=== PATIENT | female | born 1940 | race Caucasian/White ===

== ENCOUNTER 2019-01-18 09:16 | Outpatient (REF) | payer MEDICARE, SELFPAY ==
[2019-01-18 13:26] LABS: ALT 24 U/L (12-78); AST 18 U/L (15-37); Albumin 3.4 g/dL (3.4-5.0); Alkaline Phosphatase 89 U/L (46-116); BUN 22 mg/dL (7-18); Bilirubin, Total 0.6 mg/dL (0.2-1.0); CREATININE 0.88 mg/dL (0.55-1.02); Calcium 9.6 mg/dL (8.5-10.1); Chloride 103 mmol/L (98-107); Glucose 103 mg/dL (70-100); Potassium 4.2 mmol/L (3.5-5.1); Sodium 140 mmol/L (136-145); Total Protein 6.7 g/dL (6.4-8.2)
== END 2019-01-18 09:36 ==
LOC: NCHCN 09:16
PROVIDERS: PCP Nurse Practitioner; Visit Provider Nurse Practitioner
DX: I10 Essential (primary) hypertension (principal)
CPT/HCPCS: 80053

== ENCOUNTER 2019-04-10 12:38 | Outpatient (REF) | payer MEDICARE, SELFPAY ==
[2019-04-10 18:21] LABS: HCT 36.5 % (36.0-46.0); HGB 12.3 g/dL (12.0-15.5); Mean Corp. HGB Concentration 33.7 g/dL (32.0-36.0); Mean Corpuscular Hemoglobin 30.3 pg (27.0-33.0); Mean Corpuscular Volume 89.9 fL (80-95); Mean Platelet Volume 10.3 fL (8.0-11.0); Platelet Count 220 x1000/uL (130-400); RBC 4.06 m/cumm (4.00-5.20); RBC Distribution Width 13.4 % (11.7-14.6); White Blood Cell Count 6.89 k/cumm (4.4-10.8)
[2019-04-10 18:39] LABS: TSH (W/Ref FT4) 0.46 uIU/mL (0.358-3.74)
[2019-04-10 18:41] LABS: Hemoglobin A1C 6.2 % (4.5-6.2)
[2019-04-10 19:31] LABS: ESR 12 MM/HR (0-30)
[2019-04-12 13:58] LABS: ANA Interpretation Negative (NEGAT)
== END 2019-04-10 12:58 ==
LOC: NCHCN 12:38
PROVIDERS: PCP Nurse Practitioner; Visit Provider Nurse Practitioner
DX: R73.9 Hyperglycemia, unspecified (principal); L29.9 Pruritus, unspecified
CPT/HCPCS: 85027; 85652; 83036; 84443; 86038

== ENCOUNTER 2019-04-14 14:17 | Outpatient (REF) | payer MEDICARE, SELFPAY ==
--- NOTE | 2019-04-14 13:40 | ENDOMET_PTH ---
PATIENT: Eloina Ware LOC: [facility] U#:[id number] AGE/SX: 79/F ROOM: RE04/14/[address]: Mervat Velazco : 1940 BED: DIS: 04/14/2019 SPEC #: [id number] RECD: 04/14/19 16:20 STATUS: MANUEL REQ #: [id number] JAMIE: 04/14/19 13:[address]: Mervat Velazco DEPT: Surgical Specimen RECD BY: Lupe Lua ENTERED: 04/14/19 16:20 SP TYPE: Endomet OTHR DR: Kimberly Davenport Tissues: 1 - ENDOMETRIUM BX/CURRETTE Procedures: GROSS AND MICRO LEVEL 4 Comments: [id number]
--- NOTE | 2019-04-14 13:40 | PAPFT_PTH ---
PATIENT: Eloina Ware LOC: [facility] U#:[id number] AGE/SX: 79/F ROOM: RE04/14/[address]: Mervat Velazco : 1940 BED: DIS: 04/14/2019 SPEC #: [id number] RECD: 04/14/19 17:10 STATUS: MANUEL REDav #: [id number] JAMIE: 04/14/19 13:[address]: Mervat Velazco DEPT: [facility] Cytology RECD BY: Lupe Lua ENTERED: 04/14/19 17:11 SP TYPE: PAPFT OTHR DR: Kimberly Davenport Tissues: 1 - CX/ENDOCX FOR PAP SMEARS Procedures: PAP THIN PREP/UVM Screening HPV DNA PROBE Comments: [id number]
== END 2019-04-14 14:37 ==
LOC: LBN 14:17
PROVIDERS: PCP Nurse Practitioner; Visit Provider Obstetrics & Gynecology Gynecology
DX: C54.1 Malignant neoplasm of endometrium (principal); N95.0 Postmenopausal bleeding; Z12.4 Encounter for screening for malignant neoplasm of cervix; Z11.51 Encounter for screening for human papillomavirus (HPV)
CPT/HCPCS: 88142; 88305; 87624

== ENCOUNTER 2020-04-08 14:48 | Outpatient (REF) | payer MEDICARE, SELFPAY ==
[2020-04-08 19:34] LABS: ALT 22 U/L (14-59); AST 18 U/L (15-37); Albumin 3.9 g/dL (3.4-5.0); Alkaline Phosphatase 74 U/L (46-116); Anion Gap 10.6 mmol/L (3-11); BUN 15 mg/dL (7-18); Bilirubin, Total 0.3 mg/dL (0.2-1.0); CO2 27.4 mmol/L (21.0-32.0); CREATININE 0.77 mg/dL (0.55-1.02); Calcium 9.9 mg/dL (8.5-10.1); Chloride 99 mmol/L (98-107); Glucose 142 mg/dL (74-106); Potassium 3.7 mmol/L (3.5-5.1); Sodium 137 mmol/L (136-145); Total Protein 6.8 g/dL (6.4-8.2)
[2020-04-08 19:42] LABS: Hemoglobin A1C 5.6 % (3.8-5.6)
[2020-04-08 19:55] LABS: Vitamin D 25 Total 48.9 ng/ml (30-100)
== END 2020-04-08 15:08 ==
LOC: NCHCN 14:48
PROVIDERS: PCP Nurse Practitioner; Visit Provider Nurse Practitioner
DX: I10 Essential (primary) hypertension (principal); R73.03 Prediabetes; E55.9 Vitamin D deficiency, unspecified
CPT/HCPCS: 80053; 82306; 83036

== ENCOUNTER 2021-01-31 14:04 | Emergency (ER) | payer MEDICARE, SELFPAY ==
[2021-01-31] VITALS (9 sets, daily range): BP systolic 143–160; BP diastolic 60–77; PULSE 65–72; RESP 12–22; TEMP 36.5–36.6; O2SAT 96–99
--- NOTE | 2021-01-31 14:15 | DI.US_ITS ---
Exam(s) US ABDOMEN LIMITED EXAM: US ABDOMEN LIMITED CLINICAL HISTORY: RUQ abd pain, Diarrhea, R/O Cholecystitis TECHNIQUE: Ultrasound abdomen performed using standard protocol. COMPARISON: No exams were available for comparison FINDINGS: ABDOMINAL AORTA AND IVC: Visualized portions normal caliber. PANCREAS: Normal where visualized. LIVER: Normal. Hepatopedal flow in the Portal Vein. The liver measures 16 in length. GALLBLADDER: No evidence of cholelithiasis. No evidence of wall thickening. No pericholecystic fluid identified. BILIARY SYSTEM: Common bile duct measures < 7 mm. No intrahepatic biliary ductal dilation. MARTIN'S SIGN: Negative. Right KIDNEY: No evidence of right renal calculi. No evidence of hydronephrosis. No renal mass or cys t identified. ASCITES: None seen. IMPRESSION: Unremarkable examination. DATA REPOSITORY:
--- NOTE | 2021-01-31 14:18 | ED.GENADUL_ITS ---
Discharge Plan Disposition Patient Disposition: HOME Condition: Stable Discharge Details Clinical Impression: Diarrhea Primary Care Provider: Kimberly Davenport ED Provider: Johana Garcia Home Meds and New Rx's Prescriptions: Continued famotidine [Pepcid] 20 mg tablet 20 mg PO DAILY PRNRF: 0 iron 65 mg RF: 0 red yeast rice 600 MG capsule 1,200 mg PO BID RF: 0 One-Per-Day [place]-3 1 EACH capsule,delayed release(DR/EC) 1 ea PO BID RF: 0 meclizine 12.5 MG tablet 12.5 mg PO TID PRNRF: 0 Digestive Advantage Prob Gummy 1 EACH tablet,chewable 1 ea PO BID RF: 0 garlic 600 mg BID RF: 0 metoprolol succinate 100 MG tablet extended release 24 hr 50 mg PO DAILY RF: 0 cholecalciferol (vitamin D3) 2,000 UNIT tablet 1,000 unit PO DAILY RF: 0 alpha lipoic acid 300 MG capsule 300 mg PO BID RF: 0 vitamin E mixed 400 UNIT capsule 400 unit PO DAILY RF: 0 cyclobenzaprine 5 mg tablet 5 mg PO TID PRNRF: 0 losartan-hydrochlorothiazide 1 EACH tablet 1 tab PO DAILY RF: 0 Lactobacillus acidophilus 100 MG capsule 100 mg PO DAILY RF: 0 calcium carbonate-vitamin D3 [Caltrate with Vitamin D3] 1 EACH tablet 600 mg PO BID RF: 0 Multiple Herbal 1 tab PO DAILY RF: 0 loratadine 10 MG tablet 10 mg PO HS RF: 0 Women's Daily Formula 1 EACH tablet 1 tab PO DAILY RF: 0 lutein 20 MG capsule 20 mg PO BID RF: 0 triamcinolone acetonide 0.5 % Cream 1 applic TOPICAL BID RF: 0 cabergoline 0.5 mg Tablet 0.5 mg PO DIRECTED RF: 0 omeprazole magnesium [Prilosec OTC] 20 mg Tablet,Delayed Release (Dr/Ec) 20 mg PO DAILY RF: 0 Discharge Instructions Instructions: Acute Diarrhea (ED) Additional Instructions: Continue using Immodium as directed until resolution of diarrhea. Follow up with PCP in 3-5 days for a re-evaluation. Collect Stool sample and bring it to the lab at your convienence. Increase oral fluids. Try electrolyte solution such as gatorade or similar while having diarrhea. Try Bannanas Rice Apples Worden and bland diet for next 2-3 days. Return to ED for any worsening fever, vomiting, worsening pain or any concerns. Referrals: Kimberly Davenport [Primary Care Provider] - Medical Decision Making 80 year old female presents to ED with chief c/o of Diarrhea x 3 days. Associated with RUQ abd pain which radiates into her back. Denies vomiting, fever or chills. Reports Mucous in stool, but no obvious blood. Patient is alert and oriented upon arrival. She took Immodium at noon [employer] PORTABLE with little to no relief. She has a PMHx of Breast CA, Colon CA, Cystocele and uterovaginal prolapse, HTN, Spinal stenosis, PSHx includes Hysterectomy and colectomy. Non smoker, Denies alcohol or drugs. Labs ordered including lipase and UA. US abd limited ordered to eval Gallbladder LAbs show a WBC 11.01, Abs Neutrophil 6.97, Potassium 3.3, Glucose 118, Urinalysis is pending at this time. Will give Oral potassium liquid 40 meq. Preliminary result US negative for cholecystitis. EXAM: US ABDOMEN LIMITED CLINICAL HISTORY: RUQ abd pain, Diarrhea, R/O Cholecystitis TECHNIQUE: Ultrasound abdomen performed using standard protocol. COMPARISON: No exams were available for comparison FINDINGS: ABDOMINAL AORTA AND IVC: Visualized portions normal caliber. PANCREAS: Normal where visualized. LIVER: Normal. Hepatopedal flow in the Portal Vein. The liver measures 16 in length. GALLBLADDER: No evidence of cholelithiasis. No evidence of wall thickening. No pericholecystic fluid identified. BILIARY SYSTEM: Common bile duct measures < 7 mm. No intrahepatic biliary ductal dilation. MARTIN'S SIGN: Negative. Right KIDNEY: No evidence of right renal calculi. No evidence of hydronephrosis. No renal mass or cyst identified. ASCITES: None seen. IMPRESSION: Unremarkable examination. Discussed results with patient and home care, verbalized understanding. Discussed follow up care and strict return instructions. Discussed use of immodium and BRAT diet. Verbalized understanding. HPI General Mode of arrival: ambulatory . Date/Time Provider Initiated Documentation: 01/31/21 14:08 . Limitations to Documentation: no limitations . Information obtained by: patient . HPI Narrative: 80 year old female presents to ED with chief c/o of Diarrhea x 3 days. Associated with RUQ abd pain which radiates into her back. Denies vomiting, fever or chills. Reports Mucous in stool, but no obvious blood. Patient is alert and oriented upon arrival. She took Immodium at noon KNOT[employer] PORTABLE with little to no relief. She has a PMHx of Breast CA, Colon CA, Cystocele and uterovaginal prolapse, HTN, Spinal stenosis, PSHx includes Hysterectomy and colectomy. Non smoker, Denies alcohol or drugs. Related Data Home Medications Medication Instructions Recorded Confirmed Lactobacillus acidophilus 100 mg PO DAILY 02/28/13 01/31/21 Multiple Herbal 1 tab PO DAILY 02/28/13 09/03/20 calcium carbonate-vitamin D3 600 mg PO BID 02/28/13 09/03/20 [Caltrate with Vitamin D3] losartan-hydrochlorothiazide 1 tab PO DAILY 02/28/13 01/31/21 Women's Daily Formula 1 tab PO DAILY 03/25/17 01/31/21 loratadine 10 mg PO HS 03/25/17 01/31/21 lutein 20 mg PO BID 03/25/17 01/31/21 Digestive Advantage Prob Gummy 1 ea PO BID tab.chew 07/21/17 09/03/20 Garlic 600 mg BID 07/21/17 09/03/20 Iron 65 mg 07/21/17 09/03/20 One-Per-Day [place]-3 1 ea PO BID 07/21/17 01/31/21 meclizine 12.5 mg PO TID PRN 07/21/17 01/31/21 red yeast rice 1,200 mg PO BID 07/21/17 01/31/21 cholecalciferol (vitamin D3) 1,000 unit PO DAILY 08/02/17 01/31/21 metoprolol succinate 50 mg PO DAILY tab-cap 08/02/17 01/31/21 alpha lipoic acid 300 mg PO BID 08/30/17 09/03/20 vitamin E mixed 400 unit PO DAILY 09/30/17 01/31/21 cyclobenzaprine 5 mg tablet 5 mg PO TID PRN tab-cap 10/24/19 01/31/21 famotidine 20 mg tablet 20 mg PO DAILY PRN 10/24/19 09/03/20 cabergoline 0.5 mg PO DIRECTED 01/31/21 01/31/21 omeprazole magnesium [Prilosec OTC] 20 mg PO DAILY 01/31/21 01/31/21 triamcinolone acetonide 1 applic TOPICAL BID 01/31/21 01/31/21 Allergies Allergy/AdvReac Type Severity Reaction Status Date / Time nabumetone Allergy Severe hives and Verified 01/31/21 14:14 a skin rash aspirin Allergy Intermediate Verified 01/31/21 14:14 gluten Allergy Intermediate rash Verified 01/31/21 14:14 ibuprofen Allergy Intermediate Verified 01/31/21 14:14 enalapril Allergy Unknown Verified 01/31/21 14:14 latex Allergy Unknown Verified 01/31/21 14:14 Sulfa (Sulfonamide Allergy Unknown Verified 01/31/21 14:14 Antibiotics) lactose AdvReac Verified 01/31/21 14:14 General Stated Complaint: Nausea/Vomit/Diar BENITO: 3 Review of Systems All systems reviewed & are unremarkable except as noted in HPI and below Gastrointestinal Gastrointestinal: Reports abdominal pain, Reports change in stool character, Reports diarrhea, Denies nausea and Denies vomiting [facility] Medical History Breast cancer, left 10/2019. 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 Not treated. Cervical myelopathy with cervical radiculopathy (09/30/17) s/p cervical discectomy and fusion Colon cancer Cystocele and rectocele with complete uterovaginal prolapse Encounter for pessary maintenance Fitting and adjustment of pessary #3 donut. 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 Stress incontinence worse after robotic hysterectomy. Patient is reluctant to be evaluated by urology since she has had several surgeries in this past year. Vaginal prolapse longstanding use of 70mm (#4) ring pessary. 07/2018 increased size to # 6 ring pessary with support. 12/09/18 Size again decreased to #4 ring w/ support secondary to vaginal excoriation. Surgical History back surgery 2018. C4-C5 diskectomy/fusion @ [facility]. Colectomy x2 History of robot-assisted laparoscopic hysterectomy With BSO and sentinel lymph [place] [facility]. Social History (Reviewed 01/31/21 @ 14:22 by Johana Desouza Smoking/Tobacco Use Status: Never Smoking risk assessment performed?: Yes Alcohol Intake: never Drug use: Never Substance use type: does not use Seatbelt use: always Do you feel safe at home: Yes Do you feel safe in your relationship?: Yes Female Reproductive History Menstrual Menopause type: natural History History 3 Para Hx # Term Pregnancies 3 Multiple births Hx # Pregnancies Ectopic pregnancies AB induced Hx Number of Living Children AB spontaneous Exam Const General: cooperative, healthy appearing, comfortable, well developed and well groomed Nutritional Appearance: average body habitus and well nourished Orientation: alert, awake and oriented x3 Resp Effort & Inspection: normal respiratory effort and able to speak in complete sentences Auscultation: clear to auscultation bilaterally Cardio Jugular venous pressure: no JVD Rate: regular rate Rhythm: regular rhythm Heart Sounds: S1 normal, S2 normal, no gallops and no murmurs GI Inspection: normal to inspection Palpation: soft, no hepatosplenomegaly, no hernias, no masses and tender in the RUQ Auscultation: normal bowel sounds Rectal Exam - female: deferred Back/Spine/Pelvis Back: no CVA tenderness Neuro General: patient alert, patient awake and patient oriented x3 Cranial Nerves: CN's II-XI intact bilaterally Cognition: normal cognition Speech: speech normal Gait: normal gait Course Vital Signs Vital signs: Vital Signs Temperature 36.5 C 01/31/21 14:11 Pulse 72 01/31/21 14:11 Respiratory Rate 01/31/21 14:11 Blood Pressure 145/69 H 01/31/21 14:11 Pulse Oximetry 98 01/31/21 14:11 Temperature 36.5 C 01/31/21 14:11 Temperature Source Skin 01/31/21 14:11 Pulse 72 01/31/21 14:11 Respiratory Rate 01/31/21 14:11 Respiratory Effort Non-Labored 01/31/21 14:14 Blood Pressure 145/69 H 01/31/21 14:11 Blood Pressure Position Sitting 01/31/21 14:11 Pulse Oximetry 98 01/31/21 14:11 Oxygen Delivery Method Room Air 01/31/21 14:11 Oxygen Flow Rate 0 01/31/21 14:11 Pain Level 0 01/31/21 14:11
[2021-01-31] MEDS: Normal Saline Flush 10 ML SYR IVP (14:25)
[2021-01-31] MEDS: Normal Saline 1,000 ML 150 ML IV (14:30)
[2021-01-31 14:37] LABS: Abs Immature Grans 0.03 10^3/uL (0.0-0.06); Absolute Eosinophil Count 0.26 10^3/uL (0.0-0.7); Absolute Lymphocyte Count 2.95 10^3/uL (1.2-3.4); Absolute Monocyte Count 0.74 10^3/uL (0.1-0.8); Basophils % 0.5; Eosinophils % 2.4; HCT 38.6 % (36.0-46.0); HGB 12.6 g/dL (11.2-15.7); Immature Grans % 0.3; Lymphocytes % 26.8; MCH 29.9 pg (27.0-33.0); MCHC 32.6 % (32.0-36.0); MCV 91.7 fL (80-95); MPV 9.5 fL (8.0-11.0); Monocytes % 6.7; Neutrophils % 63.3; Nucleated RBC 0 %; Platelet Count 256 10^3/uL (130-400); RBC 4.21 10^6/uL (3.93-5.22); RDW 12.4 % (11.7-14.6); RDW-SD 41.6 fL; WBC 11.01 10^3/uL (4.4-10.8)
[2021-01-31 14:39] LABS: Absolute Basophil Count 0.06 10^3/uL (0.0-0.2); Absolute Neutrophil Count 6.97 10^3/uL (1.2-6.7)
[2021-01-31 14:52] LABS: ALT 19 U/L (14-59); AST 16 U/L (15-37); Albumin 3.8 g/dL (3.4-5.0); Alkaline Phosphatase 81 U/L (46-116); Anion Gap 6.3 mmol/L (3-11); BUN 15 mg/dL (7-18); Bilirubin, Total 0.4 mg/dL (0.2-1.0); CO2 29.7 mmol/L (21.0-32.0); CREATININE 0.9 mg/dL (0.55-1.02); Calcium 9.3 mg/dL (8.5-10.1); Chloride 102 mmol/L (98-107); Estimated GFR 59.94 (mL/min/1.73m2); Glucose 118 mg/dL (74-106); Lipase 76 U/L (73-393); Potassium 3.3 mmol/L (3.5-5.1); Sodium 138 mmol/L (136-145); Total Protein 7.6 g/dL (6.4-8.2)
[2021-01-31] MEDS: Potassium Chloride Liquid 20 MEQ PKT 40 MEQ PO (15:39)
[2021-01-31 15:49] LABS: Bilirubin Negative (Negative); Blood Negative (Negative); Clarity Clear (Clear); Glucose Negative (Negative); Ketones Negative (Negative); Leukocyte Esterase Moderate (Negative); Nitrite Negative (Negative); Urobilinogen 0.2 EU/dL (Up TO 0.2); pH 5.5 (5-8)
[2021-01-31 16:01] LABS: Epithelial Cells Few HPF (Negative); RBC Negative HPF (0-2); WBC >50 HPF (0-5)
[2021-01-31 16:02] LABS: Bacteria Moderate HPF (Negative); C & S Indicated? Yes; Casts Negative LPF (Negative); Crystals Negative HPF (Negative); Mucus Negative (Negative); Other Cells Few Renal (Negative)
--- NOTE | 2021-02-03 11:41 | W.ED.FU ---
Date of service: 02/03/21 Time of Service: 11:41 Follow Up Plan: Urine culture back, positive for E. Coli, Cephalexin 500mg PO BID ordered and sent to pharmacy on file. Message left with Patient.
== END 2021-01-31 16:35 | disposition home or self-care (01) ==
PROVIDERS: Emergency Provider Registered Nurse Emergency; PCP Nurse Practitioner
DX: R19.7 Diarrhea, unspecified (principal); R10.11 Right upper quadrant pain; E87.6 Hypokalemia
CPT/HCPCS: 80053; 83690; 87077; 96360; 96361; 99284; 76705; 81003; 81015; 83735; 85025; 87086; 87186; 99283

== ENCOUNTER 2021-02-01 17:24 | Outpatient (REF) | payer MEDICARE, SELFPAY ==
[2021-02-04 12:07] LABS: Campylobacter PCR Negative (Negative); Salmonella PCR Negative (Negative); Shiga Toxin PCR Negative (Negative); Shigella/Enteroinvasive Ecoli Negative (Negative)
== END 2021-02-01 17:25 | disposition home or self-care (01) ==
LOC: LBN 17:24
PROVIDERS: PCP Nurse Practitioner; Visit Provider Registered Nurse Emergency
DX: R19.7 Diarrhea, unspecified (principal); R10.11 Right upper quadrant pain
CPT/HCPCS: 87493; 87505; 83630; 87177

== ENCOUNTER 2021-02-28 16:41 | Outpatient (REF) | payer MEDICARE, SELFPAY ==
[2021-02-28 19:05] LABS: Bilirubin Negative (Negative); Blood Small (Negative); Clarity Cloudy (Clear); Glucose Negative (Negative); Ketones Negative (Negative); Leukocyte Esterase Small (Negative); Nitrite Negative (Negative); Urobilinogen 0.2 EU/dL (Up TO 0.2); pH 5.5 (5-8)
[2021-02-28 19:38] LABS: WBC >50 HPF (0-5)
[2021-02-28 19:39] LABS: Epithelial Cells Many HPF (Negative)
[2021-02-28 19:40] LABS: C & S Indicated? No/Sq. Contamination
== END 2021-02-28 16:42 | disposition home or self-care (01) ==
LOC: NCHCN 16:41
PROVIDERS: PCP Nurse Practitioner; Visit Provider Nurse Practitioner Family
DX: R30.0 Dysuria (principal)
CPT/HCPCS: 81003; 81015

== ENCOUNTER 2021-03-14 01:28 | Outpatient (CLI) | payer MEDICARE, SELFPAY ==
--- NOTE | 2021-03-14 | DI.CT_ITS ---
Exam(s) CT ABDOMEN PELVIS W EXAM: CT ABDOMEN PELVIS W CLINICAL HISTORY: PERSISTENT DIARRHEA,R19.7 TECHNIQUE: Imaging Protocol: Axial computed tomography images with coronal and sagittal reformatted images were created and reviewed CONTRAST MATERIAL: Intravenous: Omnipaque 350 Contrast volume:100 mL Oral: Yes COMPARISON: CT ABD PELVIS WITH CONTRAST from 01/25/2008 FINDINGS: ABDOMEN: Lung Bases: Scarring and atelectasis is seen in the lung bases. Liver: Normal density. No measurable mass. Portal, Superior Mesenteric, and Splenic Veins: Unremarkable. Gallbladder and Biliary Tract: No radiodense calculus or dilation. Pancreas: Normal density, no abnormal calcifications or inflammatory process. Spleen: Normal. Adrenals: No masses seen. Kidneys: Normal size, contour and axis. No radiodense stones or obstructive uropathy. There are simpl e cysts in the left kidney. No follow-up is recommended. Abdominal Aorta: Abdominal portion non-dilated. Moderate atherosclerosis. Bowel: No obstruction or bowel wall thickening. No evidence of appendicitis. There is diverticulosis of the colon but no evidence of acute diverticulitis. There is a area of narrowing in the mid trans verse colon with dilatation of the proximal bowel. There is a small paraumbilical hernia containing a loop of colon. No evidence of strangulation or ischemia is seen. The remainder of the bowel appea rs unremarkable. There is a small hiatal hernia. Peritoneal Cavity: No ascites, collection or mesenteric inflammatory response. No free air. Lymph Nodes: Mildly enlarged lymph nodes are seen in the mesentery. These are nonspecific. Bones: Within normal limits for the patient's age. There is a right convex scoliosis. Soft Tissues: Unremarkable. PELVIS: Bladder: The urinary bladder is incompletely distended. Reproductive Organs: Unremarkable as visualized. There is a pessary in place. The patient is status post hysterectomy. Lymph Nodes: Within normal limits. Bones: Within normal limits for the patient's age. IMPRESSION: There is a question of an area of narrowing in the mid transverse colon with proximal dilatation. Co lonoscopy or barium enema is recommended for further evaluation. RADIATION DOSE DELIVERED: 787.28mGy.cm Total DLP DATA REPOSITORY: All CT scans at this facility are submitted to the National Radiology Data Registry (NRDR) Dose Index Registry (DIR) with the [employer] ([employer]). RADIATION OPTIMIZATION: All CT scans at this facility use at least one of these dose optimization te chniques: automated exposure control; mA and/or kV adjustment per patient size (includes targeted exa ms where dose is matched to clinical indication); or iterative reconstruction.
[2021-03-14] MEDS: Omnipaque 350 MG/ML 100 ML BTL IJ (14:38)
== END 2021-03-14 01:48 ==
PROVIDERS: PCP Nurse Practitioner; Visit Provider Nurse Practitioner Family
DX: R19.7 Diarrhea, unspecified (principal)
CPT/HCPCS: 74177; J3490

== ENCOUNTER → 2021-04-21 11:01 | Outpatient (BNVA) | payer MEDICARE, SELFPAY | PROVIDERS: PCP Nurse Practitioner; Referring Provider Nurse Practitioner; Visit Provider Nurse Practitioner Gerontology | DX: N39.46 Mixed incontinence (principal); R19.7 Diarrhea, unspecified | CPT/HCPCS: 81003; 99215 ==

== ENCOUNTER 2021-05-01 17:37 | Outpatient (REF) | payer MEDICARE, SELFPAY ==
[2021-05-01 20:45] LABS: Abs Immature Grans 0.02 10^3/uL (0.0-0.06); Absolute Basophil Count 0.04 10^3/uL (0.0-0.2); Absolute Eosinophil Count 0.31 10^3/uL (0.0-0.7); Absolute Lymphocyte Count 3.38 10^3/uL (1.2-3.4); Absolute Monocyte Count 0.55 10^3/uL (0.1-0.8); Absolute Neutrophil Count 3.27 10^3/uL (1.2-6.7); Basophils % 0.5; Eosinophils % 4.1; HGB 10.9 g/dL (11.2-15.7); Immature Grans % 0.3; Lymphocytes % 44.6; MCH 29.8 pg (27.0-33.0); MCV 90.2 fL (80-95); MPV 10.4 fL (8.0-11.0); Monocytes % 7.3; Neutrophils % 43.2; Nucleated RBC 0 %; Platelet Count 215 10^3/uL (130-400); RBC 3.66 10^6/uL (3.93-5.22); RDW 12.9 % (11.7-14.6); RDW-SD 42.6 fL; WBC 7.57 10^3/uL (4.4-10.8)
[2021-05-01 20:55] LABS: ALT 22 U/L (14-59); AST 16 U/L (15-37); Albumin 3.8 g/dL (3.4-5.0); Alkaline Phosphatase 63 U/L (46-116); Anion Gap 6.6 mmol/L (3-11); BUN 19 mg/dL (7-18); Bilirubin, Total 0.3 mg/dL (0.2-1.0); CO2 29.4 mmol/L (21.0-32.0); CREATININE 0.7 mg/dL (0.55-1.02); Calcium 9.5 mg/dL (8.5-10.1); Chloride 103 mmol/L (98-107); Glucose 123 mg/dL (74-106); Sodium 139 mmol/L (136-145); Total Protein 6.8 g/dL (6.4-8.2)
[2021-05-01 21:05] LABS: Potassium 2.8 mmol/L (3.5-5.1)
== END 2021-05-01 17:38 | disposition home or self-care (01) ==
LOC: LBN 17:37
PROVIDERS: PCP Nurse Practitioner; Visit Provider Physician Assistant
DX: R19.7 Diarrhea, unspecified (principal); M54.5 Low back pain
CPT/HCPCS: 80053; 83735; 85025

== ENCOUNTER 2021-05-09 00:58 | Outpatient (CLI) | payer MEDICARE, SELFPAY ==
[2021-05-09 13:15] LABS: Potassium 4.6 mmol/L (3.5-5.1)
== END 2021-05-09 00:59 | disposition home or self-care (01) ==
LOC: LOS 00:58
PROVIDERS: Nurse Practitioner Family; PCP Nurse Practitioner; Visit Provider Physician Assistant
DX: E87.6 Hypokalemia (principal)
CPT/HCPCS: 36415; 84132

== ENCOUNTER → 2021-06-25 13:30 | Outpatient (BNVA) | payer MEDICARE, SELFPAY | PROVIDERS: Referring Provider Nurse Practitioner; Visit Provider Nurse Practitioner Gerontology | DX: N39.46 Mixed incontinence (principal); R19.7 Diarrhea, unspecified; I10 Essential (primary) hypertension | CPT/HCPCS: 99214 ==

== ENCOUNTER 2021-09-08 04:04 | Outpatient (CLI) | payer MEDICARE, SELFPAY ==
[2021-09-08 07:45] LABS: HCT 34.4 % (36.0-46.0); HGB 11.4 g/dL (11.2-15.7); MCH 30.3 pg (27.0-33.0); MCHC 33.1 % (32.0-36.0); MCV 91.5 fL (80-95); MPV 9.4 fL (8.0-11.0); Platelet Count 216 10^3/uL (130-400); RBC 3.76 10^6/uL (3.93-5.22); RDW 12.6 % (11.7-14.6); RDW-SD 42.5 fL; WBC 7.41 10^3/uL (4.4-10.8)
[2021-09-08 08:49] LABS: ALT 22 U/L (14-59); AST 16 U/L (15-37); Albumin 3.7 g/dL (3.4-5.0); Alkaline Phosphatase 68 U/L (46-116); Anion Gap 5.2 mmol/L (3-11); BUN 15 mg/dL (7-18); Bilirubin, Total 0.5 mg/dL (0.2-1.0); CO2 31.8 mmol/L (21.0-32.0); CREATININE 0.6 mg/dL (0.55-1.02); Calcium 9.3 mg/dL (8.5-10.1); Chloride 100 mmol/L (98-107); Glucose 90 mg/dL (74-106); Potassium 3.8 mmol/L (3.5-5.1); Sodium 137 mmol/L (136-145); Total Protein 6.5 g/dL (6.4-8.2)
== END 2021-09-08 04:05 | disposition home or self-care (01) ==
LOC: LBO 04:04
DX: I10 Essential (primary) hypertension (principal); D50.9 Iron deficiency anemia, unspecified
CPT/HCPCS: 36415; 80053; 85027

== ENCOUNTER → 2021-09-24 15:02 | Outpatient (BNVA) | payer MEDICARE, SELFPAY | PROVIDERS: Visit Provider Nurse Practitioner Gerontology | DX: N39.41 Urge incontinence (principal); Z79.899 Other long term (current) drug therapy | CPT/HCPCS: 99214 ==

== ENCOUNTER 2021-11-11 08:14 | Emergency (ER) | payer MEDICARE, SELFPAY ==
[2021-11-11] VITALS (23 sets, daily range): BP systolic 161–205; BP diastolic 72–92; PULSE 57–73; RESP 11–28; TEMP 36.3; O2SAT 96–99
--- NOTE | 2021-11-11 08:15 | RT.EKG_ITS ---
APPROVED REPORT Exam: Resting ECG Reason for Exam: chest pain Patient Location: E HR:68 bpm ECG Measurements Heart Rate 68 AXIS TX 193 P 66 QRSd 84 QRS 7 QT 396 T 45 QTc 421 Conclusion Sinus rhythm...normal P axis, V-rate 60- 99. Sinus. Normal axis. No STEMI. I have reviewed and interpreted ECG and agree with software generated interpretation.
--- NOTE | 2021-11-11 08:16 | ED.GENADUL_ITS ---
Discharge Plan Disposition Patient Disposition: HOME Condition: Stable Discharge Details Clinical Impression: Hypertension, Chest pain Primary Care Provider: Kristina Bernal ED Provider: Tammy Nick Home Meds and New Rx's Prescriptions: Continued budesonide 3 mg capsule,delayed,extend.release 3 mg PO DAILY 0RF Digestive Advantage Advanced 10 billion cell capsule PO 0RF omega-3 fatty acids [Super [place]-3] 1,000 mg capsule 1,000 mg PO DAILY 0RF herbal drugs Capsule PO 0RF meclizine 12.5 MG tablet 12.5 mg PO TID PRN0RF Digestive Advantage Prob Gummy 1 EACH tablet,chewable 1 ea PO BID 0RF garlic 600 mg BID 0RF cholecalciferol (vitamin D3) 2,000 UNIT tablet 1,000 unit PO DAILY 0RF vitamin E mixed 400 UNIT capsule 400 unit PO DAILY 0RF licorice root (G.glabra) 445 mg capsule PO 0RF vit B vpscbpc-Q-fqfmy ac-zinc 800 mcg- 12.5 mg tablet 1 tab PO DAILY 0RF pyridoxine (vitamin B6) 200 mg tablet 200 mg PO BID 0RF thiamine mononitrate (vit B1) 100 mg tablet 100 mg PO DAILY 0RF acetaminophen [Tylenol Extra Strength] 500 mg tablet 500 mg PO Q6H PRN0RF folic acid 20 mg capsule 20 mg PO DAILY 0RF coenzyme Q10 [Co Q-10] 10 mg capsule 10 mg PO ONCE 0RF red yeast rice 600 mg capsule 1,200 mg PO BID 0RF Myrbetriq 50 mg tablet extended release 24 hr 50 mg PO DAILY Qty: 90 3RF losartan-hydrochlorothiazide [Hyzaar] 100-12.5 mg tablet 1 tab PO DAILY 0RF metoprolol succinate 50 mg tablet extended release 24 hr 50 mg PO DAILY Qty: 90 3RF Rx Instructions: Hold if pulse < 60 Discharge Instructions Instructions: Chest Pain (ED), Hypertension (ED) Additional Instructions: Your lab work, EKG and imaging today is reassuring and shows no evidence of acute concerning findings. Your blood pressure has improved while here in the emergency department. Continue your regular medication as directed. Call your primary care provider's office today to schedule a follow-up appointment for reevaluation and for continued blood pressure management within the next 3 days. Return immediately to the emergency department if you develop any worsening or new concerning symptoms. Discharge Data Discharge Physician: Tammy Nick Medical Decision Making 81-year-old female with a history of hypertension, hyperlipidemia, GERD, neck and back surgery with history of chronic neck and back pain with cervical radiculopathy presents for hypertension since last night with an episode of chest pain this morning. She is currently asymptomatic. EKG notes a rate of 68, sinus, no STEMI and nondiagnostic. Blood pressure 196/87 on arrival. Now 171/87. She appears comfortable and nontoxic. Chest wall nontender. She has no focal deficits. History and presentation does not appear consistent with dissection as her upper back pain is chronic for the past 5 years and currently she has no pain. History and presentation does not appear consistent with CVA. Considering patient's age and history, will obtain screening labs, CT head, chest x-ray and continue to monitor her BP. We will plan at least for a delta troponin. Patient reassessed and she remains asymptomatic. Blood pressure has improved to 163/77. Repeat EKG unchanged. Repeat troponin negative. Patient states she would like to go home. Patient has not eaten. Will provide with a meal and attempt to ambulate and if she feels comfortable going home will plan for follow-up with the PCP for further evaluation and management of her blood pressure. Patient was able to eat and ambulated around the room and denied any complaint of dizziness and would like to go home Advised to call Kristina Bernal's office today for follow-up this week. Usual and customary return precautions given prior to discharge. Medical Records Medical records reviewed: Yes I reviewed the patient's medical records. Imaging Data Radiologic Study: Radiologist's impression: CT HEAD WO CLINICAL HISTORY: ? lightheadedness, headache, L arm numb. ? TECHNIQUE:? Imaging Protocol: Axial computed tomography images with coronal and sagittal reformatted images were created and reviewed COMPARISON:? No exams were available for comparison FINDINGS: ?There are no skull fractures nor fluid in the visualized paranasal sinuses. There is no evidence of intracranial hemorrhage, mass effect, or shift of midline structures.? There are no extra-axial fluid collections.? The ventricles are not enlarged or shifted and there is no blood within the ventricular system nor within the basal cisterns. There is some bilateral periventricular hypodensity consistent with chronic small vessel ischemic changes. IMPRESSION: Chronic small-vessel white matter ischemic changes.? No obvious acute infarct.? Clinically indicated follow-up MRI with diffusion imaging can be performed. ?XR CHEST 2V PA ? LATERAL CLINICAL HISTORY: ? chest pain, r/o acute disease. ? TECHNIQUE:? 2D digital imaging was performed. COMPARISON:? No exams were available for comparison FINDINGS: Heart size is normal.? The mediastinum is not widened. Lungs are clear.? No infiltrates nor pleural effusions. IMPRESSION: No acute pulmonary findings. Lab Data Lab results reviewed: Yes I reviewed the patient's lab results. Labs: Laboratory Tests Range/Units 11/11/21 11/11/21 11/11/21 08:30 08:30 11:23 WBC (4.4-10.8) 10^3/uL 8.53 RBC (3.93-5.22) 10^6/uL 4.00 Hgb (11.2-15.7) g/dL 12.3 Hct (36.0-46.0) % 37.4 MCV (80-95) fL 93.5 MCH (27.0-33.0) pg 30.8 MCHC (32.0-36.0) % 32.9 RDW (11.7-14.6) % 12.6 Plt Count (130-400) 10^3/uL 221 MPV (8.0-11.0) fL 9.5 Immature Gran % 0.2 Neutrophils % 43.4 Lymphocytes % 45.5 Monocytes % 7.9 Eosinophils % 2.5 Basophils % 0.5 Nucleated RBC % % 0 Absolute Neutrophils (1.2-6.7) 10^3/uL 3.71 Absolute Lymphocytes (1.2-3.4) 10^3/uL 3.88 H Absolute Monocytes (0.1-0.8) 10^3/uL 0.67 Absolute Eosinophils (0.0-0.7) 10^3/uL 0.21 Absolute Basophils (0.0-0.2) 10^3/uL 0.04 Sodium (136-145) mmol/L 138 Potassium (3.5-5.1) mmol/L 3.6 Chloride (98-107) mmol/L 99 Carbon Dioxide (21.0-32.0) mmol/L 30.4 Anion Gap (3-11) mmol/L 8.6 BUN (7-18) mg/dL 16 Creatinine (0.55-1.02) mg/dL 0.7 Estimated GFR/1.73 m2 (mL/min/1.73m2) >= 60.00 Glucose (74-106) mg/dL 107 H Calcium (8.5-10.1) mg/dL 9.8 Magnesium (1.8-2.4) mg/dL 2.3 Total Bilirubin (0.2-1.0) mg/dL 0.5 AST (15-37) U/L 21 ALT (14-59) U/L 24 Alkaline Phosphatase (46-116) U/L 83 Troponin I (<or=60) ng/L < 50 < 50 Total Protein (6.4-8.2) g/dL 7.6 Albumin (3.4-5.0) g/dL 4.1 ECG Data Attestation: I personally reviewed and interpreted this ECG (s) as follows: Interpretation: #1 -- rate of 83, sinus, no stemi, nondiagnostic. #2 -- rate of 61, sinus, no stemi, nondiagnostic. HPI General Mode of arrival: ambulatory . Date/Time Provider Initiated Documentation: 11/11/21 08:15 . Limitations to Documentation: no limitations . Information obtained by: patient . HPI Narrative: Patient is an 81-year-old female with a history of hypertension, hyperlipidemia, GERD, chronic neck and back pain, history of cervical myelopathy with cervical radiculopathy and previous neck surgery presents for hypertension since last night with an episode of chest pain this morning. Patient states she woke to use the bathroom around midnight and felt lightheaded and checked her blood pressure. She states it was 180/90 that she took her metoprolol that she would normally take in the morning. She states her blood pressure decreased she states to a systolic of 80 and then she went to bed. I questioned patient whether the systolic number was actually 80 and she confirms. She also states that she had a mild headache of 1/10 at the time of her lightheadedness. She states she awoke this morning and took her to dialysis and then when she came back home and was feeding her dog she felt lightheaded again and checked her blood pressure and it was 208/100. She states she took losartan at that time. She states while she was checking her blood pressure and she developed left-sided dull chest pain that was 1/10. She states at that time she had left arm tingling. She also admits to some mild shortness of breath during the chest pain episodes but denies any nausea or vomiting. She states the pain in her chest and tingling in her arm only lasted a couple seconds and then resolved. She states her systolic blood pressure is usually 130s. She states last night she also noted pain between her upper shoulder blades. She states she has this pain frequently since her neck surgery and that the pain last night in her upper back felt similar to her usual pain that she has had of the last 5 years. She also states she has chronic bilateral arm pain related to her chronic neck pain and neck surgery over the last 2 years. She denies any upper back pain or arm pain at present. She states she had a fall last month in which she tripped over a chair and landed on her back and hit her head. She denies LOC or vomiting at that time. She denies any other orthopedic injuries from the fall. Related Data Home Medications Medication Instructions Recorded Confirmed Bacillus coagulans 250 million 1 ea PO BID tab.chew 07/21/17 11/11/21 cell chewable tablet (Digestive Advantage Probiotic Gummy) Garlic 600 mg BID 07/21/17 11/11/21 meclizine 12.5 mg tablet 12.5 mg PO TID PRN 07/21/17 11/11/21 cholecalciferol (vitamin D3) 50 1,000 unit PO DAILY 08/02/17 11/11/21 mcg (2,000 unit) tablet vitamin E mixed 400 unit capsule 400 unit PO DAILY 09/30/17 11/11/21 budesonide 3 mg 3 mg PO DAILY 05/29/21 11/11/21 capsule,delayed,extended release acetaminophen 500 mg tablet 500 mg PO Q6H PRN 07/22/21 11/11/21 (Tylenol Extra Strength) coenzyme Q10 10 mg capsule (Co 10 mg PO ONCE 07/22/21 11/11/21 Q-10) folic acid 20 mg capsule 20 mg PO DAILY 07/22/21 11/11/21 licorice root (G.glabra) 445 mg mg PO 07/22/21 09/25/21 capsule pyridoxine (vitamin B6) 200 mg 200 mg PO BID 07/22/21 11/11/21 tablet red yeast rice 600 mg capsule 1,200 mg PO BID cap 07/22/21 11/11/21 thiamine mononitrate (vit B1) 100 100 mg PO DAILY 07/22/21 11/11/21 mg tablet vitamin B complex with vit C-folic 1 tab PO DAILY 07/22/21 11/11/21 acid 800 mcg-zinc 12.5 mg tablet mirabegron 50 mg tablet,extended 50 mg PO DAILY #90 tab 07/28/21 11/11/21 release 24 hr (Myrbetriq) L.acidoph, paracasei,B. lactis 10 cell PO 08/05/21 09/25/21 billion cell capsule (Digestive Advantage Advanced Probiotic) herbal drugs cap PO 08/05/21 09/25/21 omega-3 fatty acids 1,000 mg 1,000 mg PO DAILY 08/05/21 11/11/21 capsule (Super [place]-3) losartan 100 1 tab PO DAILY 09/29/21 11/11/21 mg-hydrochlorothiazide 12.5 mg tablet (Hyzaar) metoprolol succinate 50 mg 50 mg PO DAILY #90 tab 09/29/21 11/11/21 tablet,extended release 24 hr Previous Rx's Medication Instructions Recorded mirabegron 50 mg tablet,extended 50 mg PO DAILY #90 tab 07/28/21 release 24 hr (Myrbetriq) metoprolol succinate 50 mg 50 mg PO DAILY #90 tab 09/29/21 tablet,extended release 24 hr Allergies Allergy/AdvReac Type Severity Reaction Status Date / Time nabumetone Allergy Severe hives and Verified 11/11/21 08:34 a skin rash aspirin Allergy Intermediate Verified 11/11/21 08:34 gluten Allergy Intermediate rash Verified 11/11/21 08:34 ibuprofen Allergy Intermediate Verified 11/11/21 08:34 Sulfa (Sulfonamide Allergy Mild Verified 11/11/21 08:34 Antibiotics) enalapril Allergy Unknown Verified 11/11/21 08:34 latex Allergy Unknown Verified 11/11/21 08:34 lactose AdvReac Verified 11/11/21 08:34 General Stated Complaint: Chest Pain BENITO: 3 Review of Systems All systems reviewed & are unremarkable except as noted in HPI and below Constitutional Constitutional: Denies chills, Denies excessive sweating, Denies fatigue, Denies fever(s), Reports headache(s), Denies weakness and Denies weight loss Eyes Eyes: Reports system reviewed and no additional complaints, except as documented and Denies blurry vision ENT Ears, Nose, Mouth, and Throat: Denies vertigo, Reports dizziness, Denies otalgia, Reports headache(s), Denies nasal congestion, Denies sore throat and Denies throat swelling Cardiovascular Cardiovascular: Reports chest pain, Denies syncope, Denies rapid heart rate and Denies dyspnea Respiratory Respiratory: Denies chest congestion, Denies cough, Denies pain on inspiration and Denies dyspnea Gastrointestinal Gastrointestinal: Denies abdominal pain, Denies diarrhea and Denies vomiting Genitourinary Genitourinary: Denies hematuria, Denies dysuria and Denies flank pain Musculoskeletal Musculoskeletal: Denies back pain and Denies joint swelling Integumentary/Breasts Skin/Breast: Denies lesions and Denies rash Neurologic Neurologic: Denies behavioral changes, Denies confusion, Denies vertigo, Reports dizziness, Denies syncope, Reports headache(s), Denies localized weakness and Denies weakness Psychiatric Psychiatric: Denies behavioral changes, Denies confusion and Denies depression Endocrine Endocrine: Denies excessive sweating and Denies fatigue Hematologic/Lymphatic Hematologic/Lymphatic: Denies easy bruising and Denies lymphadenopathy Allergic/Immunologic Allergic/Immunologic: Denies throat swelling PFSH All Active Problems (Updated 11/11/21 @ 12:37 by Tammy Nick DO) Hypertension (Chronic) Chest pain (Acute) Insomnia (Acute) Anemia (Chronic) Pulmonary embolism (Chronic) Hiatal hernia (Chronic) Vitamin D deficiency (Acute) GERD (gastroesophageal reflux disease) (Chronic) DJD (degenerative joint disease) (Chronic) Cervicalgia (Acute) Cervical stenosis of spine (Acute) Chronic low back pain (Acute) Prediabetes (Acute) Anxiety (Chronic) Dysuria (Acute) Colitis (Acute) 04/2021. Dx by colonoscopy after months of diarrhea. Rx Budesonide XR Hypokalemia (Acute) Diarrhea (Acute) Encounter for pessary maintenance (Acute) Urinary incontinence (Chronic) 2019. Stress incontinence worse after robotic hysterectomy. Patient is reluctant to be evaluated by urology since she has had several surgeries in this past year. Breast cancer, left (Acute) 10/2019. Receives care at [facility] [place] Fitting and adjustment of pessary (Acute) 2019. #3 (70mm) donut. 05/2021. 64mm donut fitted Allergy to latex (Acute) Allergy to NSAIDs (Acute) Seborrheic dermatitis of scalp (Acute) Dermatitis, drug-induced (Acute) Vaginal vault prolapse after hysterectomy (Acute) Pelvic organ prolapse prior to her hysterectomy for endometrial cancer was treated with: longstanding use of 70mm (#4) ring pessary. 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 Started on prednisone will follow-up at [facility] Medical History (Updated 11/11/21 @ 12:37 by Tammy Nick DO) Carpal tunnel syndrome on both sides L>R. Not treated. 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 Postop recommendations: Vaginal cuff brachytherapy (w/o 10-15% recurrence) Postop: Year 1 gynecologic oncology visit every 3 months no Pap testing indicated. Year 2-5 alternate visits between asset administrator and gynecologic oncologist every 6 months. No Pap indicated. H/O solar lentigo with atypical melanocytic hyperplasia, lichenoid inflammation and dermal melanophages History of cataract History of diverticulitis History of endometrial biopsy History of endometrial cancer Lumbar spinal stenosis Tubular carcinoma of left breast Ulnar neuropathy Vaginal prolapse longstanding use of 70mm (#4) ring pessary. 07/2018 increased size to # 6 ring pessary with support. 12/09/18 Size again decreased to #4 ring w/ support secondary to vaginal excoriation. Surgical History (Updated 07/23/21 @ 16:09 by Rosa Maria Bhatia) History of carpal tunnel release History of neck surgery (~2016) History of partial mastectomy of left breast History of right breast biopsy History of robot-assisted laparoscopic hysterectomy With BSO and sentinel lymph node biopsy at [facility] [place] for endometrial carcinoma. Family History (Updated 05/30/21 @ 12:01 by Rosa Maria Bhatia) Mother , 76 Hypertension Hyperlipidemia Father , 70 Alcohol use disorder Cancer Heart disease Hypertension Hyperlipidemia Sister , 77 Cancer Heart disease Sister No problems noted. Sister , 69 Cancer Substance use disorder Son Hyperlipidemia Hypertension Daughter Hypertension Hyperlipidemia Daughter No problems noted. Social History (Updated 05/30/21 @ 11:54 by Rosa Maria Bhatia) Smoking/Tobacco Use Status: Never Second Hand Exposure: Yes Smoking risk assessment performed?: Yes Alcohol Intake: never Drug use: Never Substance use type: does not use Caregiver/Support person: No Housing: house Communication Needs: None Do you need help understanding health information?: Rarely Pets and animals: Yes Pets and animals: dog(s) Sexually active: No Do you think of yourself as: straight/heterosexual What is your relationship status?: How often do you talk on the phone with friends or family?: once per week How often do you get together with friends or relatives?: decline to answer How often do you attend mu-ism or confucianist services?: decline to answer Do you belong to any clubs or organized social groups?: decline to answer Panel score (0-1 are the most socially isolated patients): 1 What type of physical activity do you participate in: weight lifting Frequency: 1-2 times per week Melia/Methodist: Jainism Seatbelt use: always Helmet use: No Drive intox or ride w/intox buggy driver: No Do you feel safe at home: Yes Do you feel safe in your relationship?: Yes Female Reproductive History Menstrual Menopause type: natural History History 3 Para Hx # Term Pregnancies 3 Multiple births Hx # Pregnancies Ectopic pregnancies AB induced Hx Number of Living Children AB spontaneous Exam Const General: cooperative and healthy appearing Orientation: alert, awake and oriented x3 HENMT Head: normal to inspection Ears: hearing grossly normal bilaterally and external ears normal General nose exam: external nose normal Face and sinus: normal facial exam Mouth: oral mucosae normal Eyes General: appearance normal, both eyes and all related structures Eyelids: eyelids normal Pupils: PERRL EOM: EOM intact bilaterally Neck Neck: normal visual inspection Lymphatic: no lymphadenopathy noted Chest Chest: normal inspection of the chest, abnormal palpation of chest wall, no crepitus and no tenderness Resp Effort & Inspection: normal respiratory effort and able to speak in complete sentences Auscultation: clear to auscultation bilaterally Cardio Rate: regular rate Rhythm: regular rhythm GI Inspection: normal to inspection Palpation: soft, not firm, no guarding, no hepatosplenomegaly, no masses and nontender Auscultation: normal bowel sounds Back/Spine/Pelvis Back: no CVA tenderness Cervical Spine: pain with cervical ROM (chronic per pt) and No cervical spinal tenderness Thoracic/Lumbar Spine: thoracic and lumbar spine normal to inspection, No thoracic spinal tenderness, No lumbar spinal tenderness and other (No tenderness to palpation or evidence of trauma across upper and mid back) Skin General skin exam: no rashes or lesions noted Neuro General: patient alert, patient awake, patient oriented x3, moves all extremities and no meningeal signs Cranial Nerves: CN's II-XI intact bilaterally Cognition: normal cognition Speech: speech normal Gait: normal gait Motor: muscle tone normal throughout and strength 5/5 throughout Sensory Exam: no sensory deficits noted Extrem General: normal to inspection, full ROM and capillary refill normal Psych Appearance: grossly normal Mental Status: mental status grossly normal Speech and Movement: speech and movement normal Affect: normal affect Thought Process: normal
[2021-11-11 08:53] LABS: Abs Immature Grans 0.02 10^3/uL (0.0-0.06); Absolute Basophil Count 0.04 10^3/uL (0.0-0.2); Absolute Eosinophil Count 0.21 10^3/uL (0.0-0.7); Absolute Lymphocyte Count 3.88 10^3/uL (1.2-3.4); Absolute Monocyte Count 0.67 10^3/uL (0.1-0.8); Absolute Neutrophil Count 3.71 10^3/uL (1.2-6.7); Basophils % 0.5; Eosinophils % 2.5; HCT 37.4 % (36.0-46.0); HGB 12.3 g/dL (11.2-15.7); Immature Grans % 0.2; Lymphocytes % 45.5; MCH 30.8 pg (27.0-33.0); MCHC 32.9 % (32.0-36.0); MCV 93.5 fL (80-95); MPV 9.5 fL (8.0-11.0); Monocytes % 7.9; Neutrophils % 43.4; Nucleated RBC 0 %; Platelet Count 221 10^3/uL (130-400); RDW 12.6 % (11.7-14.6); RDW-SD 43.5 fL; WBC 8.53 10^3/uL (4.4-10.8)
[2021-11-11 09:12] LABS: ALT 24 U/L (14-59); AST 21 U/L (15-37); Albumin 4.1 g/dL (3.4-5.0); Alkaline Phosphatase 83 U/L (46-116); Anion Gap 8.6 mmol/L (3-11); BUN 16 mg/dL (7-18); Bilirubin, Total 0.5 mg/dL (0.2-1.0); CO2 30.4 mmol/L (21.0-32.0); CREATININE 0.7 mg/dL (0.55-1.02); Calcium 9.8 mg/dL (8.5-10.1); Chloride 99 mmol/L (98-107); Glucose 107 mg/dL (74-106); Magnesium 2.3 mg/dL (1.8-2.4); Potassium 3.6 mmol/L (3.5-5.1); Sodium 138 mmol/L (136-145); Total Protein 7.6 g/dL (6.4-8.2); Troponin I < 50 ng/L (<or=60)
--- NOTE | 2021-11-11 09:15 | DI.RAD_ITS ---
Exam(s) XR CHEST 2V PA LATERAL EXAM: XR CHEST 2V PA LATERAL CLINICAL HISTORY: chest pain, r/o acute disease. TECHNIQUE: 2D digital imaging was performed. COMPARISON: No exams were available for comparison FINDINGS: Heart size is normal. The mediastinum is not widened. Lungs are clear. No infiltrates nor pleural effusions. IMPRESSION: No acute pulmonary findings. DATA REPOSITORY: RADIATION DOSE DELIVERED:
--- NOTE | 2021-11-11 10:41 | DI.CT_ITS ---
Exam(s) CT HEAD WO EXAM: CT HEAD WO CLINICAL HISTORY: lightheadedness, headache, L arm numb. TECHNIQUE: Imaging Protocol: Axial computed tomography images with coronal and sagittal reformatted images were created and reviewed COMPARISON: No exams were available for comparison FINDINGS: There are no skull fractures nor fluid in the visualized paranasal sinuses. There is no evidence of intracranial hemorrhage, mass effect, or shift of midline structures. There are no extra-axial fluid collections. The ventricles are not enlarged or shifted and there is no blo od within the ventricular system nor within the basal cisterns. There is some bilateral periventricular hypodensity consistent with chronic small vessel ischemic nasima nges. IMPRESSION: Chronic small-vessel white matter ischemic changes. No obvious acute infarct. Clinically indicated follow-up MRI with diffusion imaging can be performed. RADIATION DOSE DELIVERED: 777.31mGy.cm Total DLP DATA REPOSITORY: All CT scans at this facility are submitted to the National Radiology Data Registry (NRDR) Dose Index Registry (DIR) with the [employer] (A[employer]). RADIATION OPTIMIZATION: All CT scans at this facility use at least one of these dose optimization te chniques: automated exposure control; mA and/or kV adjustment per patient size (includes targeted exa ms where dose is matched to clinical indication); or iterative reconstruction.
--- NOTE | 2021-11-11 11:30 | RT.EKG_ITS ---
APPROVED REPORT Exam: Resting ECG Reason for Exam: chest pain Patient Location: E HR:61 bpm ECG Measurements Heart Rate 61 AXIS NC 188 P 60 QRSd 85 QRS -7 QT 424 T 29 QTc 426 Conclusion Sinus rhythm...normal P axis, V-rate 60- 99. Sinus. Normal axis. No STEMI. I have reviewed and interpreted ECG and agree with software generated interpretation.
[2021-11-11 11:46] LABS: Troponin I < 50 ng/L (<or=60)
== END 2021-11-11 12:59 | disposition home or self-care (01) ==
PROVIDERS: Emergency Provider Physician Assistant
DX: I10 Essential (primary) hypertension (principal); R07.9 Chest pain, unspecified; R42 Dizziness and giddiness; R20.0 Anesthesia of skin; R51.9 Headache, unspecified
CPT/HCPCS: 36415; 80053; 93005; 99285; 70450; 71046; 83735; 84484; 85025; 93010; 99284

== ENCOUNTER → 2021-11-25 14:27 | Outpatient (BNVA) | payer MEDICARE, SELFPAY | PROVIDERS: Visit Provider Nurse Practitioner Gerontology | DX: N39.41 Urge incontinence (principal) | CPT/HCPCS: 99214 ==

== ENCOUNTER 2021-12-27 10:40 | Emergency (ER) | payer MEDICARE, SELFPAY ==
--- NOTE | 2021-12-27 10:15 | RT.EKG_ITS ---
APPROVED REPORT Exam: Resting ECG Reason for Exam: Fall, Hip Pain Patient Location: E HR:68 bpm ECG Measurements Heart Rate 68 AXIS ME 188 P 67 QRSd 85 QRS 17 QT 404 T 29 QTc 430 Conclusion Sinus rhythm...normal P axis, V-rate 60- 99 sinus rhythm, normal axis, normal intervals, non ischemic
--- NOTE | 2021-12-27 10:30 | DI.RAD_ITS ---
Exam(s) XR PELVIS AP EXAM: XR PELVIS AP CLINICAL HISTORY: Left Hip pain, Fall R/O Fracture. TECHNIQUE: 2D digital imaging was performed. COMPARISON: CR RT HIP COMPLETE AP PELVIS from 03/25/2017 FINDINGS: Two views There is no evidence of pelvic nor right hip fracture. There is very subtle cortical irregularity in the femoral head-neck junction of the left hip. Recommend dedicated left hip images. IMPRESSION: DATA REPOSITORY: RADIATION DOSE DELIVERED:
--- NOTE | 2021-12-27 10:30 | DI.RAD_ITS ---
Exam(s) XR FEMUR LT EXAM: XR FEMUR LT CLINICAL HISTORY: Left hip Pain, Fall. TECHNIQUE: 2D digital imaging was performed. COMPARISON: No exams were available for comparison FINDINGS: Five views There is is subtle suggestion of a possible nondisplaced subcapital fracture of the left hip femoral neck level. No fracture seen below this level in the femur. Advanced degenerative changes in the ipsilateral kne e joint noted. IMPRESSION: Possible subtle nondisplaced fracture of the upper femoral neck of the left hip. Recommend additional imaging, starting with dedicated AP and cross-table lateral views of the left hi p. First read by [facility] Report called by myself to ER physician. DATA REPOSITORY: RADIATION DOSE DELIVERED:
[2021-12-27 10:31] VITALS: BP 144/115; PULSE 76; RESP 16; TEMP 36.6; O2SAT 96
--- NOTE | 2021-12-27 10:32 | ED.GENADUL_ITS ---
Discharge Plan Disposition Patient Disposition: HOME Condition: Stable Discharge Details Clinical Impression: Fall, Degenerative arthritis Primary Care Provider: Kristina Bernal ED Provider: Johana Garcia Home Meds and New Rx's Prescriptions: Continued budesonide 3 mg capsule,delayed,extend.release 3 mg PO DAILY 0RF Digestive Advantage Advanced 10 billion cell capsule PO 0RF herbal drugs Capsule PO 0RF Digestive Advantage Prob Gummy 1 EACH tablet,chewable 1 ea PO BID 0RF garlic 600 mg BID 0RF cholecalciferol (vitamin D3) 2,000 UNIT tablet 1,000 unit PO DAILY 0RF vitamin E mixed 400 UNIT capsule 400 unit PO DAILY 0RF vit B sqidinp-H-kximu ac-zinc 800 mcg- 12.5 mg tablet 1 tab PO DAILY 0RF pyridoxine (vitamin B6) 200 mg tablet 200 mg PO BID 0RF thiamine mononitrate (vit B1) 100 mg tablet 100 mg PO DAILY 0RF acetaminophen [Tylenol Extra Strength] 500 mg tablet 500 mg PO Q6H PRN0RF folic acid 20 mg capsule 20 mg PO DAILY 0RF coenzyme Q10 [Co Q-10] 10 mg capsule 10 mg PO ONCE 0RF red yeast rice 600 mg capsule 1,200 mg PO BID 0RF losartan-hydrochlorothiazide [Hyzaar] 100-12.5 mg tablet 1 tab PO DAILY 0RF metoprolol succinate 50 mg tablet extended release 24 hr 50 mg PO DAILY Qty: 90 3RF Rx Instructions: Hold if pulse < 60 Discharge Instructions Instructions: Fall Prevention for Older Adults (ED), Knee Pain (ED) Additional Instructions: X-rays do not show any evidence for acute fracture or broken bones. Use walker at home as needed. Use splint when up and about. Rest, ice, compression, elevation. Please take Tylenol with food every 4-6 hours as needed for pain and swelling. Please return to the ER for any worsening pain, confusion, headache, dizziness, inability to walk on your leg or any concerns. Follow up with primary care provider in 3-5 days. Return to ED sooner if any worsening or concerns. Increase oral fluids. If continued pain you may follow-up with orthopedics in 2 to 3 weeks. Referrals: Kristina Bernal, [employer] TECHNICIAN [Primary Care Provider] - 1 week Derik Maldonado MD [ [facility] STAFF PHYSICIAN] - Return if symptoms worsen Medical Decision Making 81-year-old female presents to the ER via EMS with chief complaint of mechanical fall and left hip pain. Upon initial presentation patient does have some shor tening and internal rotation of her left lower extremity. Per EMS no other complaints denies any loss of consciousness no head pain no neck pain. Patient does have a past medical history of colon cancer, hypertension, high cholesterol surgical history includes arthroscopic knee surgery and exploratory colon surgery, diverticulitis Patient does have an allergy to aspirin. Patient is not on any blood thinners. Patient took a Excedrin Tylenol prior to arrival. Work-up ordered the labs, EKG, hip series XR. CBC shows no leukocytosis, absolute leukocyte 3.62, CMP largely within normal limits, initial troponin less than 50. EKG was reviewed by Dr. Krystle Narvaez ER attending, please see his official report and review. Old EKG available for review. Left shoulder x-ray added on due to patient complaint of left shoulder pain. XR Femur [facility] report: COMPARISON: CR XR PELVIS AP 10/31/2021 11:28 FINDINGS: Tubes, catheters and devices: Pessary ring in place. Bones/joints: Degenerative changes of the symphysis pubis. No fracture or dislocation. Degenerative changes of the patella femoral joint noted on the lateral view. Narrowing of the medial and lateral femoral tibial joint with degenerative osteophytes. Soft tissues: Unremarkable. Vasculature: Atherosclerotic disease. IMPRESSION: 1. No acute findings. If clinical symptoms persist recommend followup film in 7-10 days. 2. Tricompartmental degenerative changes of the knee. Thank you for allowing us to participate in the care of your patient. Dictated and Authenticated by: Jody Voss MD 1245: Patient reevaluation, she is able to flex her knee somewhat I did discuss her x-ray results. Will page Ortho. Upon further questioning patient also reports that she fell in [employer] approximately 3 weeks ago and was not seen at that time however she reports worsening pain and symptoms to her knee and hip. Knee immobilizer ordered we will road test patient. Splint changed to hinged knee brace. Discussed patient case in details with Dr. Maldonado who is on-call for orthopedic surgery. He recommends road test with a walker. If patient still unable to ambulate will order a CT. He was able to view the x-rays, no fracture seen lots of arthritis. 1316: Patient road tested by staff readiness officer with a walker she was able to ambulate to the bathroom with assistance patient tolerated well. Tylenol ordered. HPI General Mode of arrival: EMS . Date/Time Provider Initiated Documentation: 12/27/21 11:13 . Limitations to Documentation: no limitations . Information obtained by: patient, EMS, RN notes reviewed and old records reviewed . HPI Narrative: 81-year-old female presents to the ER via EMS with chief complaint of mechanical fall and left hip pain. Upon initial presentation patient does have some shortening and internal rotation of her left lower extremity. Per EMS no other complaints denies any loss of consciousness no head pain no neck pain. Patient does have a past medical history of colon cancer, hypertension, high cholesterol surgical history includes arthroscopic knee surgery and exploratory colon surgery, diverticulitis Patient does have an allergy to aspirin. Patient is no t on any blood thinners. Patient took a Excedrin Tylenol prior to arrival. Related Data Home Medications Medication Instructions Recorded Confirmed Bacillus coagulans 250 million 1 ea PO BID tab.chew 07/21/17 12/27/21 cell chewable tablet (Digestive Advantage Probiotic Gummy) Garlic 600 mg BID 07/21/17 12/27/21 cholecalciferol (vitamin D3) 50 1,000 unit PO DAILY 08/02/17 12/27/21 mcg (2,000 unit) tablet vitamin E mixed 400 unit capsule 400 unit PO DAILY 09/30/17 12/27/21 budesonide 3 mg 3 mg PO DAILY 05/29/21 12/27/21 capsule,delayed,extended release acetaminophen 500 mg tablet 500 mg PO Q6H PRN 07/22/21 12/27/21 (Tylenol Extra Strength) coenzyme Q10 10 mg capsule (Co 10 mg PO ONCE 07/22/21 12/27/21 Q-10) folic acid 20 mg capsule 20 mg PO DAILY 07/22/21 12/27/21 pyridoxine (vitamin B6) 200 mg 200 mg PO BID 07/22/21 12/27/21 tablet red yeast rice 600 mg capsule 1,200 mg PO BID cap 07/22/21 12/27/21 thiamine mononitrate (vit B1) 100 100 mg PO DAILY 07/22/21 12/27/21 mg tablet vitamin B complex with vit C-folic 1 tab PO DAILY 07/22/21 12/27/21 acid 800 mcg-zinc 12.5 mg tablet L.acidoph, paracasei,B. lactis 10 cell PO 08/05/21 12/22/21 billion cell capsule (Digestive Advantage Advanced Probiotic) herbal drugs cap PO 08/05/21 12/22/21 losartan 100 1 tab PO DAILY 09/29/21 12/27/21 mg-hydrochlorothiazide 12.5 mg tablet (Hyzaar) metoprolol succinate 50 mg 50 mg PO DAILY #90 tab 09/29/21 12/27/21 tablet,extended release 24 hr Previous Rx's Medication Instructions Recorded metoprolol succinate 50 mg 50 mg PO DAILY #90 tab 09/29/21 tablet,extended release 24 hr Allergies Allergy/AdvReac Type Severity Reaction Status Date / Time nabumetone Allergy Severe hives and Verified 12/27/21 10:34 a skin rash aspirin Allergy Intermediate Verified 12/27/21 10:34 gluten Allergy Intermediate rash Verified 12/27/21 10:34 ibuprofen Allergy Intermediate Verified 12/27/21 10:34 Sulfa (Sulfonamide Allergy Mild Verified 12/27/21 10:34 Antibiotics) enalapril Allergy Unknown Verified 12/27/21 10:34 latex Allergy Unknown Verified 12/27/21 10:34 lactose AdvReac Verified 12/27/21 10:34 General BENITO: 2 Review of Systems All systems reviewed & are unremarkable except as noted in HPI and below Constitutional Constitutional: Denies fever(s), Reports frequent falls, Denies headache(s), Denies lethargy and Denies night sweats ENT Ears, Nose, Mouth, and Throat: Denies headache(s) Cardiovascular Cardiovascular: Denies chest pain and Denies dyspnea Respiratory Respiratory: Denies change in phlegm color, Denies chest congestion, Denies cough, Denies hemoptysis, Denies dyspnea and Denies wheezing Gastrointestinal Gastrointestinal: Denies abdominal pain, Denies diarrhea, Denies nausea and Denies vomiting Genitourinary Genitourinary: Denies dysuria and Reports other (Patient has a pessary, using a depends ) Musculoskeletal Musculoskeletal: Reports as per HPI, Reports abnormal gait, Denies deformity, Re ports arthralgias, Denies joint swelling, Denies muscle weakness and Reports radiating pain into limb Neurologic Neurologic: Reports abnormal gait, Reports frequent falls and Denies headache(s) Allergic/Immunologic Allergic/Immunologic: Denies wheezing PFSH All Active Problems (Updated 12/27/21 @ 13:21 by Johana Garcia) Fall (Acute) Degenerative arthritis (Chronic) Conductive hearing loss, external ear (Acute) Blood in right ear canal (Acute) Insomnia (Acute) Anemia (Chronic) Pulmonary embolism (Chronic) Hiatal hernia (Chronic) Vitamin D deficiency (Acute) GERD (gastroesophageal reflux disease) (Chronic) DJD (degenerative joint disease) (Chronic) Cervicalgia (Acute) Cervical stenosis of spine (Acute) Chronic low back pain (Acute) Prediabetes (Acute) Anxiety (Chronic) Dysuria (Acute) Colitis (Acute) 04/2021. Dx by colonoscopy after months of diarrhea. Rx Budesonide XR Hypokalemia (Acute) Diarrhea (Acute) Encounter for pessary maintenance (Acute) Urinary incontinence (Chronic) 2019. Stress incontinence worse after robotic hysterectomy. Patient is reluctant to be evaluated by urology since she has had several surgeries in this past year. Breast cancer, left (Acute) 10/2019. Receives care at [facility] Fitting and adjustment of pessary (Acute) 2019. #3 (70mm) donut. 05/2021. 64mm donut fitted Allergy to latex (Acute) Allergy to NSAIDs (Acute) Seborrheic dermatitis of scalp (Acute) Dermatitis, drug-induced (Acute) Vaginal vault prolapse after hysterectomy (Acute) Pelvic organ prolapse prior to her hysterectomy for endometrial cancer was treated with: longstanding use of 70mm (#4) ring pessary. 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 Started on prednisone will follow-up at [facility] Medical History Carpal tunnel syndrome on both sides L>R. Not treated. 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 Postop recommendations: Vaginal cuff brachytherapy (w/o 10-15% recurrence) Postop: Year 1 gynecologic oncology visit every 3 months no Pap testing indicated. Year 2-5 alternate visits between distance education director and gynecologic oncologist every 6 months. No Pap indicated. H/O solar lentigo with atypical melanocytic hyperplasia, lichenoid inflammation and dermal melanophages History of cataract History of diverticulitis History of endometrial biopsy History of endometrial cancer Lumbar spinal stenosis Tubular carcinoma of left breast Ulnar neuropathy Vaginal prolapse longstanding use of 70mm (#4) ring pessary. 07/2018 increased size to # 6 ring pessary with support. 12/09/18 Size again decreased to #4 ring w/ support secondary to vaginal excoriation. Surgical History History of carpal tunnel release History of neck surgery (~2016) History of partial mastectomy of left breast History of right breast biopsy History of robot-assisted laparoscopic hysterectomy With BSO and sentinel lymph node biopsy at [facility] for endometrial carcinoma. Family History Mother , 76 Hypertension Hyperlipidemia Father , 70 Alcohol use disorder Cancer Heart disease Hypertension Hyperlipidemia Sister , 77 Cancer Heart disease Sister No problems noted. Sister , 69 Cancer Substance use disorder Son Hyperlipidemia Hypertension Daughter Hypertension Hyperlipidemia Daughter No problems noted. Social History Smoking/Tobacco Use Status: Never Second Hand Exposure: Yes Smoking risk assessment performed?: Yes Alcohol Intake: never Drug use: Never Substance use type: does not use Caregiver/Support person: No Housing: house Communication Needs: None Do you need help understanding health information?: Rarely Pets and animals: Yes Pets and animals: dog(s) Sexually active: No Do you think of yourself as: straight/heterosexual What is your relationship status?: How often do you talk on the phone with friends or family?: once per week How often do you get together with friends or relatives?: decline to answer How often do you attend religion or mormon services?: decline to answer Do you belong to any clubs or organized social groups?: decline to answer Panel score (0-1 are the most socially isolated patients): 1 What type of physical activity do you participate in: weight lifting Frequency: 1-2 times per week Melia/Protestant: Religious Seatbelt use: always Helmet use: No Drive intox or ride w/intox chain saw driver: No Do you feel safe at home: Yes Do you feel safe in your relationship?: Yes Female Reproductive History Menstrual Menopause type: natural History History 3 Para Hx # Term Pregnancies 3 Multiple births Hx # Pregnancies Ectopic pregnancies AB induced Hx Number of Living Children AB spontaneous Exam Narrative Exam Narrative: General: Well Developed, Awake and Alert, conversant. Skin: Warm and Dry HEENT: Head: No palpable deformities, Normocephalic Eyes: Pupils PERRLA, EOM's intact. No periorbital eccymosis or step off Ears: Canal patent. Tympanic membranes are clear . No bay's sign, no hemptympanum. Nose/Face: Atraumatic. Facial bones nontender to palpation and stable with manipulation. Mouth/Throat: No intraoral trauma. Teeth and mandible are intact. Neck: No midline tenderness, no step off, no deformity to palpation of C-spine. Trachea midline. Chest: No surface trauma. Nontender without crepitus or deformity. Lungs clear to ausculatation bilaterally. Heart: RRR, no rubs, murmurs or gallop. Abdomen: No abrasions, ecchymosis, or surface trauma. Nondistended. Nontender to palpation no guarding, rebound, or rigidity. Pelvis: Nontender to palpation and stable to compression on left side mild tenderness with palpation on left femoral pulses strong and equal Extremities: Complaining of distal femur pain, left hip pain is able to move her left lower extremity somewhat with difficulty. Distal CMS is intact dorsal pedal pulses palpated extremity is pink warm and dry. No surface trauma. Sensation intact. Peripheral pulses intact and equal. Neuro: ANO x4, GCS 15, cranial nerves II through XII intact. Motor and sensory exam nonfocal. Reflexes are symmetric.
[2021-12-27 10:54] LABS: Abs Immature Grans 0.03 10^3/uL (0.0-0.06); Absolute Basophil Count 0.04 10^3/uL (0.0-0.2); Absolute Eosinophil Count 0.17 10^3/uL (0.0-0.7); Absolute Lymphocyte Count 3.62 10^3/uL (1.2-3.4); Absolute Monocyte Count 0.47 10^3/uL (0.1-0.8); Absolute Neutrophil Count 4.45 10^3/uL (1.2-6.7); Basophils % 0.5; Eosinophils % 1.9; HCT 36.9 % (36.0-46.0); HGB 12.1 g/dL (11.2-15.7); Immature Grans % 0.3; Lymphocytes % 41.2; MCH 30.3 pg (27.0-33.0); MCHC 32.8 % (32.0-36.0); MCV 92.5 fL (80-95); MPV 9.7 fL (8.0-11.0); Monocytes % 5.4; Neutrophils % 50.7; Nucleated RBC 0 %; Platelet Count 199 10^3/uL (130-400); RBC 3.99 10^6/uL (3.93-5.22); RDW 12.4 % (11.7-14.6); RDW-SD 42.4 fL; WBC 8.78 10^3/uL (4.4-10.8)
[2021-12-27 11:15] LABS: ALT 26 U/L (14-59); AST 21 U/L (15-37); Albumin 4.2 g/dL (3.4-5.0); Alkaline Phosphatase 83 U/L (46-116); Anion Gap 8.4 mmol/L (3-11); BUN 17 mg/dL (7-18); Bilirubin, Total 0.6 mg/dL (0.2-1.0); CO2 29.6 mmol/L (21.0-32.0); CREATININE 0.7 mg/dL (0.55-1.02); Calcium 9.9 mg/dL (8.5-10.1); Chloride 101 mmol/L (98-107); Glucose 106 mg/dL (74-106); Magnesium 2.1 mg/dL (1.8-2.4); Potassium 3.6 mmol/L (3.5-5.1); Sodium 139 mmol/L (136-145); Total Protein 7.6 g/dL (6.4-8.2); Troponin I < 50 ng/L (<or=60)
--- NOTE | 2021-12-27 11:15 | DI.RAD_ITS ---
Exam(s) XR SHOULDER LT COMPLETE 2+V EXAM: XR SHOULDER LT COMPLETE 2+V CLINICAL HISTORY: Fall, Shoulder pain. TECHNIQUE: 2D digital imaging was performed. COMPARISON: No exams were available for comparison FINDINGS: Four views No evidence of fracture or dislocation no abnormal soft tissue calcifications. Subacromial space hei ght is relatively well preserved. Bone density is age-appropriate. No significant osseous lesions e vident. No obvious degenerative changes in the glenohumeral joint. AC joint appears unremarkable. There is, however, an os ossific ridge on the undersurface of the acromion incidentally noted IMPRESSION: No fracture. No incidental osseous lesions. DATA REPOSITORY: RADIATION DOSE DELIVERED:
--- NOTE | 2021-12-27 12:10 | DI.VRAD_ITS ---
PROCEDURE INFORMATION: Exam: XR Left Shoulder Exam date and time: 12/27/2021 11:35 AM Age: 81 years old Clinical indication: Pain; Shoulder; Left TECHNIQUE: Imaging protocol: XR Left shoulder. Views: 2 or more views. COMPARISON: CR XR CHEST 2V PA LATERAL 11/11/2021 10:27 FINDINGS: Bones/joints: Decreased bone mineralization. Postsurgical changes of the cervical spine. Degenerative changes of the spine. Mild degenerative changes of the shoulder. No fracture or dislocation. Vasculature: Atherosclerotic disease. Soft tissues: Unremarkable. IMPRESSION: No acute bony findings. If clinical symptoms persist recommend followup film in 7-10 days. Dictated and Authenticated by: Jody Voss MD. Ordering:FELICITA Vaughn MD
--- NOTE | 2021-12-27 12:12 | DI.VRAD_ITS ---
PROCEDURE INFORMATION: Exam: XR Pelvis Exam date and time: 12/27/2021 11:28 AM Age: 81 years old Clinical indication: Injury or trauma; Fall; Sprain or strain; Left; Hip TECHNIQUE: Imaging protocol: XR pelvis. Views: 1 or 2 view. COMPARISON: CT ABDOMEN PELVIS W 14/03/2021 14:30 FINDINGS: Tubes, catheters and devices: Pessary ring in place. Bones/joints: Degenerative changes of the lower lumbar spine, SI joints, and symphysis pubis. Mild degenerative changes of hips. Soft tissues: Unremarkable. IMPRESSION: No acute findings. If clinical symptoms persist recommend followup film in 7-10 days. Dictated and Authenticated by: Jody Voss MD. Ordering:FELICITA Vaughn MD
--- NOTE | 2021-12-27 12:36 | DI.VRAD_ITS ---
PROCEDURE INFORMATION: Exam: XR Left Femur Exam date and time: 12/27/2021 11:32 AM Age: 81 years old Clinical indication: Injury or trauma; Fall; Sprain or strain; Thigh or upper leg; Left TECHNIQUE: Imaging protocol: XR Left femur. Views: 2 views. COMPARISON: CR XR PELVIS AP 10/31/2021 11:28 FINDINGS: Tubes, catheters and devices: Pessary ring in place. Bones/joints: Degenerative changes of the symphysis pubis. No fracture or dislocation. Degenerative changes of the patella femoral joint noted on the lateral view. Narrowing of the medial and lateral femoral tibial joint with degenerative osteophytes. Soft tissues: Unremarkable. Vasculature: Atherosclerotic disease. IMPRESSION: 1. No acute findings. If clinical symptoms persist recommend followup film in 7-10 days. 2. Tricompartmental degenerative changes of the knee. Dictated and Authenticated by: Jody Voss MD. Ordering:FELICITA Vaughn MD
[2021-12-27] MEDS: Acetaminophen 325 MG TAB PO (13:31)
--- NOTE | 2021-12-28 10:52 | NUR.NOTE ---
12/27/21 approx 1730 Eloina called stating that she was having a lot of pain and difficulty getting around at home. She is requesting admission to the hospital for at least over night. Suggested she get her son to drive her or call an ambulance , whichever she feels is best for her to return to the ER for reassessment. Verbalizes understanding.Nursing Note:
--- NOTE | 2021-12-30 07:31 | NUR.NOTE ---
Nursing Note: Accessed patient record for [facility] information. Tiffani Mitchell
== END 2021-12-27 14:02 | disposition home or self-care (01) ==
PROVIDERS: Emergency Provider Registered Nurse Emergency
DX: M25.552 Pain in left hip (principal); M25.512 Pain in left shoulder; M17.12 Unilateral primary osteoarthritis, left knee; W18.39XA Other fall on same level, initial encounter
CPT/HCPCS: 29505; 36415; 73552; 80053; 93005; 99284; 72170; 73030; 83735; 84484; 85025; 93010

== ENCOUNTER 2021-12-27 18:46 | Inpatient (IN) | payer MEDICARE, SELFPAY ==
[2021-12-27 18:48] VITALS: BP 165/78; PULSE 93; RESP 16; TEMP 37.1; O2SAT 97
--- NOTE | 2021-12-27 19:00 | DI.RAD_ITS ---
Exam(s) XR HIP LT COMPLETE AP PELVIS EXAM: XR HIP LT COMPLETE AP PELVIS CLINICAL HISTORY: fall/pain. TECHNIQUE: 2D digital imaging was performed. COMPARISON: CR,XR XR PELVIS AP from 12/27/2021 (earlier same date) FINDINGS: 3 views There is now an obvious displaced subcapital fracture of the left femoral neck. No prominent joint s pace narrowing. IMPRESSION: Left femoral neck fracture now evident. Findings discussed by phone with ER physician 12/27/2021 8:35 p.m. DATA REPOSITORY: RADIATION DOSE DELIVERED:
[2021-12-27] MEDS: MORPHine 4 MG/ML SYR IVP ×2 (19:46→23:45)
--- NOTE | 2021-12-27 20:43 | W.ED.GENAD ---
Discharge Plan Disposition Patient Disposition: [facility] INPATIENT Condition: Serious Discharge Details Clinical Impression: Closed left hip fracture Primary Care Provider: Kristina Bernal ED Provider: Dedrick London Home Meds and New Rx's Prescriptions: No Action budesonide 3 mg capsule,delayed,extend.release 3 mg PO DAILY 0RF Digestive Advantage Advanced 10 billion cell capsule 1 cell PO DAILY 0RF herbal drugs Capsule PO 0RF Digestive Advantage Prob Gummy 1 EACH tablet,chewable 1 ea PO BID 0RF garlic 600 mg BID 0RF cholecalciferol (vitamin D3) 2,000 UNIT tablet 1,000 unit PO DAILY 0RF vitamin E mixed 400 UNIT capsule 400 unit PO DAILY 0RF vit B fiygosn-A-kzfwa ac-zinc 800 mcg- 12.5 mg tablet 1 tab PO DAILY 0RF pyridoxine (vitamin B6) 200 mg tablet 200 mg PO BID 0RF thiamine mononitrate (vit B1) 100 mg tablet 100 mg PO DAILY 0RF acetaminophen [Tylenol Extra Strength] 500 mg tablet 500 mg PO Q6H PRN0RF folic acid 20 mg capsule 20 mg PO DAILY 0RF coenzyme Q10 [Co Q-10] 10 mg capsule 10 mg PO ONCE 0RF red yeast rice 600 mg capsule 1,200 mg PO BID 0RF losartan-hydrochlorothiazide [Hyzaar] 100-12.5 mg tablet 1 tab PO DAILY 0RF metoprolol succinate 50 mg tablet extended release 24 hr 50 mg PO DAILY Qty: 90 3RF Rx Instructions: Hold if pulse < 60 Medical Decision Making 81-year-old female, history of hypertension, had a mechanical fall earlier today and was seen in the ER. Work-up ensued including laboratory values and plain films. Plain films are unremarkable and subsequently discharged home. Patient states since that time no new injury or fall reports worsening pain unable to bear weight. Plan is to obtain dedicated films of the left hip, will not repeat laboratory values as they were obtained earlier, but will obtain Covid swab for concern of admission and needing surgical repair. Patient is not anticoagulated. Will provide 4 mg IV morphine for discomfort. Patient reports significant improvement with the IV morphine. X-ray reveals a left hip fracture, concerning to be pathological. I made patient aware of the fracture finding. She requested that I also let her son Rudi now, I contacted Rudi at his house to make them aware of her hip fracture and need for admission and surgery. Case was then discussed with Dr. Maldonado, orthopedics, who will likely perform surgery tomorrow or the next day depending on her overall status and recommends hospitalist admission. Case was then discussed with Dr. Jon who is agreeable to admission. This documentation was generated using Agent Pandaation system, please disregard any oddities of phrase or misspellings. Medical Records Medical records reviewed: Yes I reviewed the patient's medical records. Imaging Data Radiologic Study: Attestation: I personally reviewed and interpreted this imaging study as follows: Imaging: X-Ray Radiologist's impression: PROCEDURE INFORMATION: Exam: XR Left Hip Exam date and time: 12/27/2021 8:03 PM Age: 81 years old Clinical indication: Injury or trauma; Fall; Blunt trauma (contusions or hematomas); Left; Hip TECHNIQUE: Imaging protocol: XR Left hip. Views: 2 or 3 views hip with pelvis when performed. COMPARISON: 1. CR XR PELVIS AP 12/27/2021 11:[address] ABDOMEN PELVIS W 03/14/2021 2:30 PM 3. CR LUMBAR SPINE COMPLETE 03/25/2017 4:16 PM FINDINGS: Tubes, catheters and devices: There is a pessary in place. Bones/joints: There is a left femoral neck fracture. The femoral head remains within the acetabulum. There is lucency within the femoral head and neck. This is suspicious for pathological fracture. Soft tissues: Unremarkable. IMPRESSION: Suspect pathological fracture at the neck of the left femur. Clinical correlation is recommended. Lab Data Lab results reviewed: Yes I reviewed the patient's lab results. Labs: Laboratory Tests Range/Units 12/27/21 20:40 COVID-19 Source Nasal/Nares HPI General Mode of arrival: EMS. Date/Time Provider Initiated Documentation: 12/27/21 18:59. Limitations to Documentation: no limitations. Information obtained by: patient and EMS. History of Present Illness 81 year old F presents to the emergency department with the chief complaint of L hip pain, described as severe, with intensity rated at 10. Quality is described as aching, and is localized to the left and lower extremity. Patient reports no radiation. Patient started experiencing this hour(s) (6) and it has been constant. improves with No relieving factors improve symptom(s), Movement worsens symptoms . Patient notes no other symptoms.. Patient did receive the following treatments prior to arrival, other (Pt seen in Er earlier for the same) Related Data Home Medications Medication Instructions Recorded Confirmed Bacillus coagulans 250 million 1 ea PO BID tab.chew 07/21/17 12/27/21 cell chewable tablet (Digestive Advantage Probiotic Gummy) Garlic 600 mg BID 07/21/17 12/27/21 cholecalciferol (vitamin D3) 50 1,000 unit PO DAILY 08/02/17 12/27/21 mcg (2,000 unit) tablet vitamin E mixed 400 unit capsule 400 unit PO DAILY 09/30/17 12/27/21 budesonide 3 mg 3 mg PO DAILY 05/29/21 12/27/21 capsule,delayed,extended release acetaminophen 500 mg tablet 500 mg PO Q6H PRN 07/22/21 12/27/21 (Tylenol Extra Strength) coenzyme Q10 10 mg capsule (Co 10 mg PO ONCE 07/22/21 12/27/21 Q-10) folic acid 20 mg capsule 20 mg PO DAILY 07/22/21 12/27/21 pyridoxine (vitamin B6) 200 mg 200 mg PO BID 07/22/21 12/27/21 tablet red yeast rice 600 mg capsule 1,200 mg PO BID cap 07/22/21 12/27/21 thiamine mononitrate (vit B1) 100 100 mg PO DAILY 07/22/21 12/27/21 mg tablet vitamin B complex with vit C-folic 1 tab PO DAILY 07/22/21 12/27/21 acid 800 mcg-zinc 12.5 mg tablet L.acidoph, paracasei,B. lactis 10 1 cell PO DAILY 08/05/21 12/27/21 billion cell capsule (Digestive Advantage Advanced Probiotic) herbal drugs cap PO 08/05/21 12/22/21 losartan 100 1 tab PO DAILY 09/29/21 12/27/21 mg-hydrochlorothiazide 12.5 mg tablet (Hyzaar) metoprolol succinate 50 mg 50 mg PO DAILY #90 tab 09/29/21 12/27/21 tablet,extended release 24 hr Previous Rx's Medication Instructions Recorded metoprolol succinate 50 mg 50 mg PO DAILY #90 tab 09/29/21 tablet,extended release 24 hr Allergies Allergy/AdvReac Type Severity Reaction Status Date / Time nabumetone Allergy Severe hives and Verified 12/27/21 18:54 a skin rash aspirin Allergy Intermediate Verified 12/27/21 18:54 gluten Allergy Intermediate rash Verified 12/27/21 18:54 ibuprofen Allergy Intermediate Verified 12/27/21 18:54 Sulfa (Sulfonamide Allergy Mild Verified 12/27/21 18:54 Antibiotics) enalapril Allergy Unknown Verified 12/27/21 18:54 latex Allergy Unknown Verified 12/27/21 18:54 lactose AdvReac Verified 12/27/21 18:54 General Stated Complaint: Orthopedic BENITO: 3 Review of Systems Constitutional Constitutional: Denies fever(s), Denies headache(s) and Denies weakness Eyes Eyes: Denies change in vision ENT Ears, Nose, Mouth, and Throat: Denies headache(s) and Denies neck pain Cardiovascular Cardiovascular: Denies chest pain and Denies dyspnea Respiratory Respiratory: Denies dyspnea Gastrointestinal Gastrointestinal: Denies abdominal pain, Denies nausea and Denies vomiting Musculoskeletal Musculoskeletal: Denies back pain, Denies neck pain and Denies tingling Integumentary/Breasts Skin/Breast: Denies rash Neurologic Neurologic: Denies headache(s), Denies tingling and Denies weakness Hematologic/Lymphatic Hematologic/Lymphatic: Denies easy bleeding and Denies easy bruising PFSH All Active Problems Closed left hip fracture (Acute) Left displaced femoral neck fracture (Acute) Fall (Acute) Degenerative arthritis (Chronic) Conductive hearing loss, external ear (Acute) Blood in right ear canal (Acute) Insomnia (Acute) Anemia (Chronic) Pulmonary embolism (Chronic) Hiatal hernia (Chronic) Vitamin D deficiency (Acute) GERD (gastroesophageal reflux disease) (Chronic) DJD (degenerative joint disease) (Chronic) Cervicalgia (Acute) Cervical stenosis of spine (Acute) Chronic low back pain (Acute) Prediabetes (Acute) Anxiety (Chronic) Dysuria (Acute) Colitis (Acute) 04/2021. Dx by colonoscopy after months of diarrhea. Rx Budesonide XR Hypokalemia (Acute) Diarrhea (Acute) Encounter for pessary maintenance (Acute) Urinary incontinence (Chronic) 2019. Stress incontinence worse after robotic hysterectomy. Patient is reluctant to be evaluated by urology since she has had several surgeries in this past year. Breast cancer, left (Acute) 10/2019. Receives care at [facility] [place] Fitting and adjustment of pessary (Acute) 2019. #3 (70mm) donut. 05/2021. 64mm donut fitted Allergy to latex (Acute) Allergy to NSAIDs (Acute) Seborrheic dermatitis of scalp (Acute) Dermatitis, drug-induced (Acute) Vaginal vault prolapse after hysterectomy (Acute) Pelvic organ prolapse prior to her hysterectomy for endometrial cancer was treated with: longstanding use of 70mm (#4) ring pessary. 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 Started on prednisone will follow-up at [facility] Medical History Carpal tunnel syndrome on both sides L>R. Not treated. 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 Postop recommendations: Vaginal cuff brachytherapy (w/o 10-15% recurrence) Postop: Year 1 gynecologic oncology visit every 3 months no Pap testing indicated. Year 2-5 alternate visits between managed care analyst and gynecologic oncologist every 6 months. No Pap indicated. H/O solar lentigo with atypical melanocytic hyperplasia, lichenoid inflammation and dermal melanophages History of cataract History of diverticulitis History of endometrial biopsy History of endometrial cancer Lumbar spinal stenosis Tubular carcinoma of left breast Ulnar neuropathy Vaginal prolapse longstanding use of 70mm (#4) ring pessary. 07/2018 increased size to # 6 ring pessary with support. 12/09/18 Size again decreased to #4 ring w/ support secondary to vaginal excoriation. Surgical History History of carpal tunnel release History of neck surgery (~2017) History of partial mastectomy of left breast History of right breast biopsy History of robot-assisted laparoscopic hysterectomy With BSO and sentinel lymph node biopsy at [facility] [place] for endometrial carcinoma. Family History Mother , 76 Hypertension Hyperlipidemia Father , 70 Alcohol use disorder Cancer Heart disease Hypertension Hyperlipidemia Sister , 77 Cancer Heart disease Sister No problems noted. Sister , 69 Cancer Substance use disorder Son Hyperlipidemia Hypertension Daughter Hypertension Hyperlipidemia Daughter No problems noted. Social History Smoking/Tobacco Use Status: Never Second Hand Exposure: Yes Smoking risk assessment performed?: Yes Alcohol Intake: never Drug use: Never Substance use type: does not use Caregiver/Support person: No Housing: house Communication Needs: None Do you need help understanding health information?: Rarely Pets and animals: Yes Pets and animals: dog(s) Sexually active: No Do you think of yourself as: straight/heterosexual What is your relationship status?: How often do you talk on the phone with friends or family?: once per week How often do you get together with friends or relatives?: decline to answer How often do you attend mormonism or protestant services?: decline to answer Do you belong to any clubs or organized social groups?: decline to answer Panel score (0-1 are the most socially isolated patients): 1 What type of physical activity do you participate in: weight lifting Frequency: 1-2 times per week Melia/Synagogue: [employer] Seatbelt use: always Helmet use: No Drive intox or ride w/intox driver lifter of sanitation truck: No Do you feel safe at home: Yes Do you feel safe in your relationship?: Yes Female Reproductive History Menstrual Menopause type: natural History History 3 Para Hx # Term Pregnancies 3 Multiple births Hx # Pregnancies Ectopic pregnancies AB induced Hx Number of Living Children AB spontaneous Exam Const General: cooperative and healthy appearing Orientation: alert, awake and oriented x3 HENMT Head: normal to inspection, normocephalic and atraumatic Eyes General: appearance normal, both eyes and all related structures Conjunctivae: conjunctivae normal Neck Neck: normal visual inspection, full ROM, trachea midline, supple and nontender Resp Effort & Inspection: normal respiratory effort and able to speak in complete sentences Auscultation: clear to auscultation bilaterally Cardio Rate: regular rate Rhythm: regular rhythm GI Palpation: soft and nontender Back/Spine/Pelvis Back: No back tenderness Skin General skin exam: no rashes or lesions noted Neuro General: patient alert, patient awake, patient oriented x3, moves all extremities and no focal motor deficits Cognition: normal cognition Speech: speech normal Motor: muscle tone normal throughout Sensory Exam: no sensory deficits noted Extrem General: capillary refill normal Other: Left hip with diffuse discomfort, leg is shortened and internally rotated. Normal pedal pulse and capillary refill. Extremities otherwise unremarkable. Psych Appearance: grossly normal Mental Status: mental status grossly normal Course Vital Signs Vital signs: Vital Signs Temperature 37.1 C 12/27/21 18:48 Pulse 93 H 12/27/21 18:48 Respiratory Rate 16 12/27/21 18:48 Blood Pressure 165/78 H 12/27/21 18:48 Pulse Oximetry 97 12/27/21 18:48 Temperature 37.1 C 12/27/21 18:48 Temperature Source Skin 12/27/21 18:48 Pulse 93 H 12/27/21 18:48 Respiratory Rate 16 12/27/21 18:48 Respiratory Effort 12/27/21 18:54 Blood Pressure 165/78 H 12/27/21 18:48 Blood Pressure Position Supine 12/27/21 18:48 Pulse Oximetry 97 12/27/21 18:48 Oxygen Delivery Method Room Air 12/27/21 18:48 Oxygen Flow Rate 0 12/27/21 18:48 Pain Level 10 12/27/21 18:56
[2021-12-27 20:45] LABS: Source Nasal/Nares
--- NOTE | 2021-12-27 20:48 | DI.VRAD_ITS ---
PROCEDURE INFORMATION: Exam: XR Left Hip Exam date and time: 12/27/2021 8:03 PM Age: 81 years old Clinical indication: Injury or trauma; Fall; Blunt trauma (contusions or hematomas); Left; Hip TECHNIQUE: Imaging protocol: XR Left hip. Views: 2 or 3 views hip with pelvis when performed. COMPARISON: 1. CR XR PELVIS AP 12/27/2021 11:[address] ABDOMEN PELVIS W 03/14/2021 2:30 PM 3. CR LUMBAR SPINE COMPLETE 03/25/2017 4:16 PM FINDINGS: Tubes, catheters and devices: There is a pessary in place. Bones/joints: There is a left femoral neck fracture. The femoral head remains within the acetabulum. There is lucency within the femoral head and neck. This is suspicious for pathological fracture. Soft tissues: Unremarkable. IMPRESSION: Suspect pathological fracture at the neck of the left femur. Clinical correlation is recommended. Dictated and Authenticated by: Godwin Gutierrez MD. Ordering:DARYN Tse MD
[2021-12-27 21:24] LABS: COVID-19 PCR Negative (Negative)
[2021-12-27 22:16] VITALS: BP 177/72; PULSE 79
--- NOTE | 2021-12-27 22:23 | HPE_ITS ---
Assessment and Plan Assessment and plan (1) Left displaced femoral neck fracture: Status: Acute History of Present Illness History of Present Illness Chief Complaint: left hip pain Narrative: This 81-year-old female is here because of left foot pain. This morning she was at home by herself and thinks she tripped on a rug or her knee gave out, she is not quite sure. She landed on her left hip but did not have a head injury. She came here to be seen although she did have some difficulty ambulating at that time. X-rays and labs were done at that time but no definite hip fracture was seen. She went home and her symptoms got worse and she found that she cannot bear weight at all on the leg. She insisted on coming back to be reexamined. She has multiple other medical problems that include multiple allergies to nabumetone, aspirin, gluten, ibuprofen, sulfa drugs, enalapril Lasix and lactulose. Her chronic medical problems include degenerative arthritis, hearing loss, insomnia, anemia, history of pulmonary embolism hiatal hernia vitamin D deficiency gastroesophageal reflux disease breast cancer, colon cancer, history of colitis last year and it finally has cleared up, pelvic relaxation with use of pessary. Current medicines listed are acetaminophen budesonide vitamin D, coenzyme Q 10, folic acid, garlic, losartan/hydrochlorthiazide, metoprolol, pyridoxine, red rice yeast, thiamine, vitamin B and C and vitamin E. She has received 2 coronavirus vaccine doses that has not had her third dose yet. She does not use tobacco or alcohol. Review of Systems Constitutional Constitutional: Denies chills, Denies fever(s) and Denies snoring ENT Ears, Nose, Mouth, and Throat: Denies vertigo, Denies dizziness and Denies odynophagia Cardiovascular Cardiovascular: Denies chest pain, Denies syncope, Denies edema, Denies lightheadedness, Denies palpitations, Denies dyspnea and Denies dyspnea on exertion Respiratory Respiratory: Denies cough, Denies dyspnea, Denies dyspnea on exertion and Denies snoring Gastrointestinal Gastrointestinal: Denies abdominal pain, Denies dyspepsia, Denies diarrhea, Denies nausea, Denies odynophagia and Denies vomiting Genitourinary Genitourinary: Denies hematuria, Denies urinary frequency and Denies difficulty voiding Musculoskeletal Musculoskeletal: Reports abnormal gait Neurologic Neurologic: Reports abnormal gait, Denies confusion, Denies vertigo, Denies dizziness and Denies syncope Psychiatric Psychiatric: Denies confusion Endocrine Endocrine: Denies palpitations PFSH All Active Problems Closed left hip fracture (Acute) Left displaced femoral neck fracture (Acute) Fall (Acute) Degenerative arthritis (Chronic) Conductive hearing loss, external ear (Acute) Blood in right ear canal (Acute) Insomnia (Acute) Anemia (Chronic) Pulmonary embolism (Chronic) Hiatal hernia (Chronic) Vitamin D deficiency (Acute) GERD (gastroesophageal reflux disease) (Chronic) DJD (degenerative joint disease) (Chronic) Cervicalgia (Acute) Cervical stenosis of spine (Acute) Chronic low back pain (Acute) Prediabetes (Acute) Anxiety (Chronic) Dysuria (Acute) Colitis (Acute) 04/2021. Dx by colonoscopy after months of diarrhea. Rx Budesonide XR Hypokalemia (Acute) Diarrhea (Acute) Encounter for pessary maintenance (Acute) Urinary incontinence (Chronic) 2019. Stress incontinence worse after robotic hysterectomy. Patient is reluctant to be evaluated by urology since she has had several surgeries in this past year. Breast cancer, left (Acute) 10/2019. Receives care at [facility] Fitting and adjustment of pessary (Acute) 2019. #3 (70mm) donut. 05/2021. 64mm donut fitted Allergy to latex (Acute) Allergy to NSAIDs (Acute) Seborrheic dermatitis of scalp (Acute) Dermatitis, drug-induced (Acute) Vaginal vault prolapse after hysterectomy (Acute) Pelvic organ prolapse prior to her hysterectomy for endometrial cancer was treated with: longstanding use of 70mm (#4) ring pessary. 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 Started on prednisone will follow-up at [facility] Medical History Carpal tunnel syndrome on both sides L>R. Not treated. 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 Postop recommendations: Vaginal cuff brachytherapy (w/o 10-15% recurrence) Postop: Year 1 gynecologic oncology visit every 3 months no Pap testing indicated. 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 No Pap indicated. H/O solar lentigo with atypical melanocytic hyperplasia, lichenoid inflammation and dermal melanophages History of cataract History of diverticulitis History of endometrial biopsy History of endometrial cancer Lumbar spinal stenosis Tubular carcinoma of left breast Ulnar neuropathy Vaginal prolapse longstanding use of 70mm (#4) ring pessary. 07/2018 increased size to # 6 ring pessary with support. 12/09/18 Size again decreased to #4 ring w/ support secondary to vaginal excoriation. Surgical History History of carpal tunnel release History of neck surgery (~2017) History of partial mastectomy of left breast History of right breast biopsy History of robot-assisted laparoscopic hysterectomy With BSO and sentinel lymph node biopsy at [facility] for endometrial carcinoma. Family History Mother , 76 Hypertension Hyperlipidemia Father , 70 Alcohol use disorder Cancer Heart disease Hypertension Hyperlipidemia Sister , 77 Cancer Heart disease Sister No problems noted. Sister , 69 Cancer Substance use disorder Son Hyperlipidemia Hypertension Daughter Hypertension Hyperlipidemia Daughter No problems noted. Social History Smoking/Tobacco Use Status: Never Second Hand Exposure: Yes Smoking risk assessment performed?: Yes Alcohol Intake: never Drug use: Never Substance use type: does not use Caregiver/Support person: No Housing: house Communication Needs: None Do you need help understanding health information?: Rarely Pets and animals: Yes Pets and animals: dog(s) Sexually active: No Do you think of yourself as: straight/heterosexual What is your relationship status?: How often do you talk on the phone with friends or family?: once per week How often do you get together with friends or relatives?: decline to answer How often do you attend mandaen or mandaen services?: decline to answer Do you belong to any clubs or organized social groups?: decline to answer Panel score (0-1 are the most socially isolated patients): 1 What type of physical activity do you participate in: weight lifting Frequency: 1-2 times per week Melia/Pentecostal: [employer]aritan Seatbelt use: always Helmet use: No Drive intox or ride w/intox clark driver: No Do you feel safe at home: Yes Do you feel safe in your relationship?: Yes Female Reproductive History Menstrual Menopause type: natural History History 3 Para Hx # Term Pregnancies 3 Multiple births Hx # Pregnancies Ectopic pregnancies AB induced Hx Number of Living Children AB spontaneous Meds Allergies and Home Medications Allergies Allergy/AdvReac Type Severity Reaction Status Date / Time nabumetone Allergy Severe hives and Verified 12/27/21 18:54 a skin rash aspirin Allergy Intermediate Verified 12/27/21 18:54 gluten Allergy Intermediate rash Verified 12/27/21 18:54 ibuprofen Allergy Intermediate Verified 12/27/21 18:54 Sulfa (Sulfonamide Allergy Mild Verified 12/27/21 18:54 Antibiotics) enalapril Allergy Unknown Verified 12/27/21 18:54 latex Allergy Unknown Verified 12/27/21 18:54 lactose AdvReac Verified 12/27/21 18:54 Home Medications Medication Instructions Recorded Confirmed Type Bacillus coagulans 250 million 1 ea PO BID tab.chew 07/21/17 12/27/21 History cell chewable tablet (Digestive Advantage Probiotic Gummy) Garlic 600 mg BID 07/21/17 12/27/21 History cholecalciferol (vitamin D3) 50 1,000 unit PO DAILY 08/02/17 12/27/21 History mcg (2,000 unit) tablet vitamin E mixed 400 unit capsule 400 unit PO DAILY 09/30/17 12/27/21 History budesonide 3 mg 3 mg PO DAILY 05/29/21 12/27/21 History capsule,delayed,extended release acetaminophen 500 mg tablet 500 mg PO Q6H PRN 07/22/21 12/27/21 History (Tylenol Extra Strength) coenzyme Q10 10 mg capsule (Co 10 mg PO ONCE 07/22/21 12/27/21 History Q-10) folic acid 20 mg capsule 20 mg PO DAILY 07/22/21 12/27/21 History pyridoxine (vitamin B6) 200 mg 200 mg PO BID 07/22/21 12/27/21 History tablet red yeast rice 600 mg capsule 1,200 mg PO BID cap 07/22/21 12/27/21 History thiamine mononitrate (vit B1) 100 100 mg PO DAILY 07/22/21 12/27/21 History mg tablet vitamin B complex with vit C-folic 1 tab PO DAILY 07/22/21 12/27/21 History acid 800 mcg-zinc 12.5 mg tablet L.acidoph, paracasei,B. lactis 10 1 cell PO DAILY 08/05/21 12/27/21 History billion cell capsule (Digestive Advantage Advanced Probiotic) herbal drugs cap PO 08/05/21 12/22/21 History losartan 100 1 tab PO DAILY 09/29/21 12/27/21 History mg-hydrochlorothiazide 12.5 mg tablet (Hyzaar) metoprolol succinate 50 mg 50 mg PO DAILY #90 tab 09/29/21 12/27/21 Rx tablet,extended release 24 hr Exam Const General: cooperative, healthy appearing, comfortable, not ill appearing and not lethargic Nutritional Appearance: average body habitus Orientation: alert, awake and oriented x3 Neck Neck: normal visual inspection, no lymphadenopathy and no JVD Resp Auscultation: clear to auscultation bilaterally, no rales and no rhonchi Cardio Rate: regular rate Rhythm: regular rhythm Heart Sounds: S1 normal, S2 normal, no gallops and no murmurs GI Palpation: soft, no hepatosplenomegaly, not firm, not rigid, no splenomegaly and nontender Neuro General: patient alert, patient awake, patient oriented x3 and not confused Extrem General: normal to inspection and no edema Results Imaging Imaging Studies: She seems to be in stable medical condition for having hip surgery. She has number of chronic medical problems but things are stable at present time. She can remove the colitis that she had last year that was possible that it was called lymphocytic colitis. She can remember the name but remembers that the words started with L. I told her that she will likely require a resection of the head of the femur because of the risk of avascular necrosis. Labs Labs: Laboratory Results - last 24 hr 12/27/21 20:40 COVID-19 Source Nasal/Nares SARS-CoV-2 (PCR) Negative Last Vital Signs Temp 37.1 C 12/27/21 18:48 Pulse 79 12/27/21 22:16 Resp 16 12/27/21 18:48 BP 177/72 H 12/27/21 22:16 Pulse Ox 97 12/27/21 18:48
[2021-12-27 22:49] LABS: Bilirubin Negative (Negative); Blood Trace-intact (Negative); Clarity Cloudy (Clear); Glucose 250 mg/dL (Negative); Ketones Negative (Negative); Leukocyte Esterase Negative (Negative); Nitrite Positive (Negative); Specific Gravity >= 1.030 (1.005-1.025); Urobilinogen 0.2 EU/dL (Up TO 0.2); pH 6.5 (5-8)
[2021-12-27 23:29] LABS: Bacteria Many HPF (Negative); C & S Indicated? Yes; Crystals Negative HPF (Negative); Epithelial Cells Negative HPF (Negative); Mucus Negative (Negative); RBC Negative HPF (0-2)
[2021-12-27 23:34] VITALS: BP 161/62; PULSE 73; RESP 16; O2SAT 97
[2021-12-27 23:37] VITALS: BP 157/82; PULSE 74; RESP 16; TEMP 36.8; O2SAT 96
[2021-12-28] VITALS (15 sets, daily range): BP systolic 136–182; BP diastolic 64–87; PULSE 69–85; RESP 16–18; TEMP 35.9–37.1; O2SAT 91–98; BMI 23.8
[2021-12-28] MEDS: Lactated Ringers 1,000 ML 100 ML IV ×3 (00:22→15:30)
[2021-12-28] MEDS: MORPHine 4 MG/ML SYR IVP ×4 (04:26→20:23)
[2021-12-28 06:46] LABS: Abs Immature Grans 0.02 10^3/uL (0.0-0.06); Absolute Eosinophil Count 0.15 10^3/uL (0.0-0.7); Absolute Monocyte Count 0.87 10^3/uL (0.1-0.8); Absolute Neutrophil Count 6.98 10^3/uL (1.2-6.7); Basophils % 0.4; Eosinophils % 1.3; HCT 33.5 % (36.0-46.0); HGB 10.9 g/dL (11.2-15.7); Immature Grans % 0.2; Lymphocytes % 27.8; MCH 30.2 pg (27.0-33.0); MCHC 32.5 % (32.0-36.0); MCV 92.8 fL (80-95); MPV 9.6 fL (8.0-11.0); Monocytes % 7.8; Neutrophils % 62.5; Nucleated RBC 0 %; Platelet Count 180 10^3/uL (130-400); RBC 3.61 10^6/uL (3.93-5.22); RDW 12.2 % (11.7-14.6); RDW-SD 42.2 fL; WBC 11.17 10^3/uL (4.4-10.8)
[2021-12-28 06:49] LABS: Absolute Basophil Count 0.04 10^3/uL (0.0-0.2); Absolute Lymphocyte Count 3.11 10^3/uL (1.2-3.4)
[2021-12-28 06:57] LABS: Anion Gap 7.2 mmol/L (3-11); BUN 16 mg/dL (7-18); CO2 28.8 mmol/L (21.0-32.0); CREATININE 0.6 mg/dL (0.55-1.02); Calcium 8.8 mg/dL (8.5-10.1); Chloride 99 mmol/L (98-107); Glucose 121 mg/dL (74-106); Potassium 3.2 mmol/L (3.5-5.1); Sodium 135 mmol/L (136-145)
[2021-12-28] MEDS: Thiamine 100 MG TAB PO (07:48)
[2021-12-28] MEDS: Metoprolol CR 50 MG TABCR PO (07:48)
[2021-12-28] MEDS: POTASSIUM CHLORIDE 20 MEQ/100 ML BAG 50 MEQ IVPB (08:14)
--- NOTE | 2021-12-28 08:37 | ANES.PREOP_ITS ---
General Info Date of Service Date Performed: 12/28/21 Height: 5 ft 2 in Weight: 59.24 kg Body Mass Index (BMI): 23.8 Surgical Procedure: Operation Date: 12/28/21 07:40 Proposed Procedure Side Surgeon p Hip Uni/Bipolar Anterior Left Derik Maldonado MD Meds Allergies and Home Medications Allergies Allergy/AdvReac Type Severity Reaction Status Date / Time nabumetone Allergy Severe hives and Verified 12/27/21 18:54 a skin rash aspirin Allergy Intermediate Verified 12/27/21 18:54 gluten Allergy Intermediate rash Verified 12/27/21 18:54 ibuprofen Allergy Intermediate Verified 12/27/21 18:54 Sulfa (Sulfonamide Allergy Mild Verified 12/27/21 18:54 Antibiotics) enalapril Allergy Unknown Verified 12/27/21 18:54 latex Allergy Unknown Verified 12/27/21 18:54 lactose AdvReac Verified 12/27/21 18:54 Home Medication Medication Instructions Recorded Bacillus coagulans 250 million 1 ea PO BID tab.chew 07/21/17 cell chewable tablet (Digestive Advantage Probiotic Gummy) Garlic 600 mg BID 07/21/17 cholecalciferol (vitamin D3) 50 1,000 unit PO DAILY 08/02/17 mcg (2,000 unit) tablet vitamin E mixed 400 unit capsule 400 unit PO DAILY 09/30/17 budesonide 3 mg 3 mg PO DAILY 05/29/21 capsule,delayed,extended release acetaminophen 500 mg tablet 500 mg PO Q6H PRN 07/22/21 (Tylenol Extra Strength) coenzyme Q10 10 mg capsule (Co 10 mg PO ONCE 07/22/21 Q-10) folic acid 20 mg capsule 20 mg PO DAILY 07/22/21 pyridoxine (vitamin B6) 200 mg 200 mg PO BID 07/22/21 tablet red yeast rice 600 mg capsule 1,200 mg PO BID cap 07/22/21 thiamine mononitrate (vit B1) 100 100 mg PO DAILY 07/22/21 mg tablet vitamin B complex with vit C-folic 1 tab PO DAILY 07/22/21 acid 800 mcg-zinc 12.5 mg tablet L.acidoph, paracasei,B. lactis 10 1 cell PO DAILY 08/05/21 billion cell capsule (Digestive Advantage Advanced Probiotic) herbal drugs cap PO 08/05/21 losartan 100 1 tab PO DAILY 09/29/21 mg-hydrochlorothiazide 12.5 mg tablet (Hyzaar) metoprolol succinate 50 mg 50 mg PO DAILY #90 tab 09/29/21 tablet,extended release 24 hr Current Visit Medications: Current Medications Generic Name Dose Route Start Last Admin Trade Name Freq PRN Reason Stop Dose Admin Budesonide 3 mg 12/28/21 08:30 Budesonide 3 Mg Capcr PO DAILY HOPE Dimethicone/Zinc Oxide 0 gm 12/27/21 22:16 Jocelyne Protect Cream 142 Gm Tube TP PRN PRN Ringer's Solution 1,000 mls @ 100 mls/hr 12/27/21 22:30 12/28/21 00:22 IV 100 mls/hr INFUSION HOPE Administration Potassium Chloride 20 meq in 100 mls @ 50 mls/hr 12/28/21 08:00 12/28/21 08:14 IVPB 12/28/21 09:59 50 mls/hr NOW ONE Administration Metoprolol Succinate 50 mg 12/28/21 08:30 12/28/21 07:48 Metoprolol Cr 50 Mg Tabcr PO 50 mg DAILY HOPE Administration Morphine Sulfate 4 mg 12/27/21 22:16 12/28/21 07:44 Morphine 4 Mg/Ml Syr IVP 4 mg Q2H PRN PRN Administration Non-Formulary Medication 20 mg 12/28/21 08:30 Folic Acid PO DAILY HOPE Sodium Chloride 0 ml 12/28/21 00:13 Normal Saline Flush 10 Ml Syr IVP PRN PRN Thiamine HCl 100 mg 12/28/21 08:30 12/28/21 07:48 Thiamine 100 Mg Tab PO 100 mg DAILY HOPE Administration PFSH Active Problems Active Problems: Problem Status Onset Code Closed left hip fracture S72.002A Left displaced femoral neck fracture S72.002A Fall W19.XXXA Degenerative arthritis M19.90 Conductive hearing loss, external ear H90.2 Blood in right ear canal H92.21 Insomnia G47.00 Anemia D64.9 Pulmonary embolism I26.99 Hiatal hernia K44.9 Vitamin D deficiency E55.9 GERD (gastroesophageal reflux disease) K21.9 DJD (degenerative joint disease) M19.90 Cervicalgia M54.2 Cervical stenosis of spine M48.02 Chronic low back pain M54.50, G89.29 Prediabetes R73.03 Anxiety F41.9 Dysuria R30.0 Colitis K52.9 Hypokalemia E87.6 Diarrhea R19.7 Encounter for pessary maintenance Z46.89 Urinary incontinence R32 Breast cancer, left C50.912 Fitting and adjustment of pessary Z46.89 Allergy to latex Z91.040 Allergy to NSAIDs Z88.6 Seborrheic dermatitis of scalp L21.9 Dermatitis, drug-induced L27.0 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 Pruritic rash L28.2 Environmental allergies Z91.09 Itchy skin L29.9 Post-nasal drip R09.82 Chronic allergic rhinitis J30.9 Colon cancer Hypertension Colectomy Ulnar neuropathy at elbow of right upper extremity 08/30/17 G56.21 Spinal stenosis of lumbar region with neurogenic claudication 09/30/17 M48.062 Gastroesophageal reflux disease without esophagitis 07/21/17 K21.9 Essential hypertension 07/21/17 I10 Cervical myelopathy with cervical radiculopathy 09/30/17 M47.12 Acute midline low back pain 07/21/17 M54.5 Medical History Medical History Carpal tunnel syndrome on both sides L>R. Not treated. 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 Postop recommendations: Vaginal cuff brachytherapy (w/o 10-15% recurrence) Postop: Year 1 gynecologic oncology visit every 3 months no Pap testing indicated. 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 No Pap indicated. H/O solar lentigo with atypical melanocytic hyperplasia, lichenoid inflammation and dermal melanophages History of cataract History of diverticulitis History of endometrial biopsy History of endometrial cancer Lumbar spinal stenosis Tubular carcinoma of left breast Ulnar neuropathy Vaginal prolapse longstanding use of 70mm (#4) ring pessary. 07/2018 increased size to # 6 ring pessary with support. 12/09/18 Size again decreased to #4 ring w/ support secondary to vaginal excoriation. Surgical History Surgical History History of carpal tunnel release History of neck surgery (~2017) History of partial mastectomy of left breast History of right breast biopsy History of robot-assisted laparoscopic hysterectomy With BSO and sentinel lymph node biopsy at [facility] for endometrial carcinoma. Tobacco Smoking/Tobacco Use Status: Never Second hand exposure: Yes Alcohol Alcohol Intake: never Substance Use Substance use: Never Substance use type: does not use Prental History History 3 Para Hx # Term Pregnancies 3 Multiple births Hx # Pregnancies Ectopic pregnancies AB induced Hx Number of Living Children AB spontaneous Vital Signs and Lab Results Vital Signs Most Recent Vital Signs in EMR: Most Recent Vital Signs Temp Pulse Resp BP Pulse Ox 37.1 C 69 16 147/76 H 93 12/28/21 07:52 12/28/21 07:52 12/28/21 07:52 12/28/21 07:52 12/28/21 07:52 Point of Care Results Point of Care Results: Finger Stick Blood Glucose 129 12/28/21 07:55 Lab Results Result Diagrams: 12/28/21 05:35 12/28/21 06:25 Blood Type / Crossmatch: No Data to Display Complete Blood Count: White Blood Count 11.17 10^3/uL (4.4-10.8) H 12/28/21 05:35 12/28/21 Red Blood Count 3.61 10^6/uL (3.93-5.22) L 12/28/21 05:35 12/28/21 Hemoglobin 10.9 g/dL (11.2-15.7) L 12/28/21 05:35 12/28/21 Hematocrit 33.5 % (36.0-46.0) L 12/28/21 05:35 12/28/21 Platelet Count 180 10^3/uL (130-400) 12/28/21 05:35 12/28/21 Complete Metabolic Panel: Sodium Level 135 mmol/L (136-145) L 12/28/21 06:25 12/28/21 Potassium Level 3.2 mmol/L (3.5-5.1) L 12/28/21 06:25 12/28/21 Chloride Level 99 mmol/L (98-107) 12/28/21 06:25 12/28/21 Carbon Dioxide Level 28.8 mmol/L (21.0-32.0) 12/28/21 06:25 12/28/21 Blood Urea Nitrogen 16 mg/dL (7-18) 12/28/21 06:25 12/28/21 Creatinine 0.6 mg/dL (0.55-1.02) 12/28/21 06:25 12/28/21 Estimated GFR/1.73 m2 >= 60.00 (mL/min/1.73m2) 12/28/21 06:25 12/28/21 Magnesium Level 2.1 mg/dL (1.8-2.4) 12/27/21 10:46 12/27/21 Calcium Level 8.8 mg/dL (8.5-10.1) 12/28/21 06:25 12/28/21 Albumin 4.2 g/dL (3.4-5.0) 12/27/21 10:46 12/27/21 Glucose Level 121 mg/dL (74-106) H 12/28/21 06:25 12/28/21 Liver Function Panel: Alanine Aminotransferase (ALT/SGPT) 26 U/L (14-59) 12/27/21 10:46 12/27/21 Aspartate Amino Transf (AST/SGOT) 21 U/L (15-37) 12/27/21 10:46 12/27/21 Coagulation Panel: No Data to Display Cardiac Panel: Troponin I < 50 ng/L (<or=60) 12/27/21 Arterial Blood Gas: No Data to Display Venous Blood Gas: No Data to Display Pancreas Panel: No Data to Display Thyroid Panel: No Data to Display Infectious Disease: Coronavirus (COVID-19)(PCR) Negative (Negative) 12/27/21 20:40 12/27/21 Coronavirus 2019 Source Nasal/Nares 12/27/21 20:40 12/27/21 Blood Cultures: No Data to Display Toxicology Panel: No Data to Display Anesthesia Assessment and Plan Anesthesia History Personal History: No History of Anesthesia Complications Family History: No Family History of Anesthesia Complications Exercise Tolerance Exercise Tolerance: Metabolic Equivalents<4 Pertinent Negatives Pertinent Negatives: No Symptoms of GERD, No Major Cardiovascular Symptoms or Complaints, No Major Pulmonary Symptoms or Complaints and No History of CVA/TIA Cardiac & Pulmonary Exam Cardiac Exam: Normal S1/S2 Heart Sounds Pulmonary Exam: Clear Bilateral Breath Sounds Implantable Cardiac Device Does patient have a Pacemaker or an ICD?: No Airway Exam Known Difficult Airway: No Mallampati Class: 4 Mouth Opening: Normal (> 3cm) Thyromental Distance: Greater than 3 cm Neck Range of Motion: Limited ROM Neck Circumference: Normal Teeth Condition: Normal Dentition ASA Classification ASA Score: ASA 3 Emergency Case?: Yes NPO Status NPO Status: NPO Clears >2 hours, Solids >8 hours Anesthesia Plan Resuscitation Status: Full Code Anesthesia Technique: General Anesthesia Airway Planned: Endotracheal Tube Monitors Used: Standard Monitors
--- NOTE | 2021-12-28 08:40 | OCONE_ITS ---
Date of service: 12/28/21 Time of Service: 08:40 History of Present Illness History of Present Illness Chief Complaint: Left hip pain Narrative: 81-year-old female describes left hip and proximal thigh pain after fall yesterday morning. Presented to emergency department with less clear knee and foot pain. I was I was called regarding her knee pain and send knee x-rays to review which showed tricompartmental arthritis but no fracture or dislocation. There were no dedicated hip x-rays done but femur x-rays did show mildly displaced femoral neck fracture. Our radiologist noted cortical disruption, but V RADS report did not. She was subsequently mobilized and sent home. Her pain increased and she represented yesterday evening with repeat hip x-ray showing obvious displaced femoral neck fracture. Lytic area bowed femoral neck concerning for pathologic and check sure subacute fracture. Patient has history of cancer but nothing active Has had worsening of left hip pain, which she attributed to longstanding arthritis. Previous community ambulator although limited by deconditioning and generalized arthritis. Pain now localizes to the left hip and proximal thigh. No other injuries. Has had 1+ year of worsening bilateral shoulder pain, left worse than right. Denies any numbness or tingling throughout the left lower extremity except relating to her low back pain which she attributes to spinal stenosis. Consult Reason Left femoral neck fracture Assessment and Plan Assessment and plan (1) Left displaced femoral neck fracture: Status: Acute Assessment and plan: 81 year old female with displaced left femoral neck fracture, pathologic and/or subacute Medical admission and optimization for surgery: Left hip hemiarthroplasty The risks, benefits, and alternatives were thoroughly discussed. Patient was counseled regarding pain management, expected postoperative course, and recovery timeline. All questions were answered. Informed consent was obtained. Agree and understand treatment plan. Breathing comfortably on room air. No coughs or wheezes. 2+ left radial pulse. Regular rate and rhythm. Case discussed with primary medical team Consider metastatic workup; I will send bone sample/ biopsy to pathology for evaluation Review of Systems Narrative: Negative except as noted in HPI PFSH All Active Problems Closed left hip fracture (Acute) Left displaced femoral neck fracture (Acute) Fall (Acute) Degenerative arthritis (Chronic) Conductive hearing loss, external ear (Acute) Blood in right ear canal (Acute) Insomnia (Acute) Anemia (Chronic) Pulmonary embolism (Chronic) Hiatal hernia (Chronic) Vitamin D deficiency (Acute) GERD (gastroesophageal reflux disease) (Chronic) DJD (degenerative joint disease) (Chronic) Cervicalgia (Acute) Cervical stenosis of spine (Acute) Chronic low back pain (Acute) Prediabetes (Acute) Anxiety (Chronic) Dysuria (Acute) Colitis (Acute) 04/2021. Dx by colonoscopy after months of diarrhea. Rx Budesonide XR Hypokalemia (Acute) Diarrhea (Acute) Encounter for pessary maintenance (Acute) Urinary incontinence (Chronic) 2019. Stress incontinence worse after robotic hysterectomy. Patient is reluctant to be evaluated by urology since she has had several surgeries in this past year. Breast cancer, left (Acute) 10/2019. [place] [facility] [place]itting and adjustment of pessary (Acute) 2019. #3 (70mm) donut. 05/2021. 64mm donut fitted Allergy to latex (Acute) Allergy to NSAIDs (Acute) Seborrheic dermatitis of scalp (Acute) Dermatitis, drug-induced (Acute) Vaginal vault prolapse after hysterectomy (Acute) Pelvic organ prolapse prior to her hysterectomy for endometrial cancer was treated with: longstanding use of 70mm (#4) ring pessary. 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 Started on prednisone will follow-up at [facility] Medical History Carpal tunnel syndrome on both sides L>R. Not treated. 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 Postop recommendations: Vaginal cuff brachytherapy (w/o 10-15% recurrence) Postop: Year 1 gynecologic oncology visit every 3 months no Pap testing indicated. Year 2-5 alternate visits between apiculture teacher and gynecologic oncologist every 6 months. No Pap indicated. H/O solar lentigo with atypical melanocytic hyperplasia, lichenoid inflammation and dermal melanophages History of cataract History of diverticulitis History of endometrial biopsy History of endometrial cancer Lumbar spinal stenosis Tubular carcinoma of left breast Ulnar neuropathy Vaginal prolapse longstanding use of 70mm (#4) ring pessary. 07/2018 increased size to # 6 ring pessary with support. 12/09/18 Size again decreased to #4 ring w/ support secondary to vaginal excoriation. Surgical History History of carpal tunnel release History of neck surgery (~2016) History of partial mastectomy of left breast History of right breast biopsy History of robot-assisted laparoscopic hysterectomy With BSO and [place]inel [place] [facility] [place]. Family History Mother , 76 Hypertension Hyperlipidemia Father , 70 Alcohol use disorder Cancer Heart disease Hypertension Hyperlipidemia Sister , 77 Cancer Heart disease Sister No problems noted. Sister , 69 Cancer Substance use disorder Son Hyperlipidemia Hypertension Daughter Hypertension Hyperlipidemia Daughter No problems noted. Social History Smoking/Tobacco Use Status: Never Second Hand Exposure: Yes Smoking risk assessment performed?: Yes Alcohol Intake: never Drug use: Never Substance use type: does not use Caregiver/Support person: No Housing: house Communication Needs: None Do you need help understanding health information?: Rarely Pets and animals: Yes Pets and animals: dog(s) Sexually active: No Do you think of yourself as: straight/heterosexual What is your relationship status?: How often do you talk on the phone with friends or family?: once per week How often do you get together with friends or relatives?: decline to answer How often do you attend baptist or presybeterian services?: decline to answer Do you belong to any clubs or organized social groups?: decline to answer Panel score (0-1 are the most socially isolated patients): 1 What type of physical activity do you participate in: weight lifting Frequency: 1-2 times per week Melia/Confucianist: Faith Seatbelt use: always Helmet use: No Drive intox or ride w/intox funeral limousine driver: No Do you feel safe at home: Yes Do you feel safe in your relationship?: Yes Female Reproductive History Menstrual Menopause type: natural History History 3 Para Hx # Term Pregnancies 3 Multiple births Hx # Pregnancies Ectopic pregnancies AB induced Hx Number of Living Children AB spontaneous Exam Narrative Exam Narrative: Elderly female, alert and oriented, resting comfortably in hospital bed Demonstrates active motor bilateral upper extremities. Left lower extremity with gently tested positive logroll about the hip. Sensation intact grossly throughout light touch. Compartments soft. No skin breakdown. Demonstrates active motor foot and ankle. Knee exam limited testing grossly negative. Results Last Vital Signs Temp 98.8 F 12/27/21 18:48 Pulse 93 H 12/27/21 18:48 Resp 16 12/27/21 18:48 BP 165/78 H 12/27/21 18:48 Pulse Ox 97 12/27/21 18:48 Labs Result diagrams: 12/28/21 05:35 12/28/21 06:25 Labs: Laboratory Results - last 24 hr 12/27/21 20:40 COVID-19 Source Nasal/Nares
[2021-12-28] MEDS: ceFAZolin 2 GM/50 ML BAG 50 GM (09:02)
[2021-12-28] MEDS: Normal Saline 100 ML 200 ML (09:15)
[2021-12-28] MEDS: Tranexamic Acid 1,000 MG/10 ML VIAL 1000 MG (09:17)
--- NOTE | 2021-12-28 09:20 | W.PM.OP ---
Date of service: 12/28/21 Time of Service: 09:00 Operative Note Operative Note DATE OF PROCEDURE: 12/28/21 PRE-OP DIAGNOSIS: 1. Left displaced pathologic femoral neck fracture POST-OP DIAGNOSIS: same PROCEDURE: 1. Left posterior hip hemiarthroplasty, CPT# 35667 2. Left fem head/neck bone biopsy SURGEON: Derik Maldonado GROUNDS MAINTENANCE SUPERVISOR: Awa Johnson ANESTHESIA TYPE: Local By Surgeon and General LMA/ETT Refer to Anesthesia Record ESTIMATED BLOOD LOSS: 75 PATHOLOGY: other (fem head/neck patholgic fx site tissue) COMPLICATIONS: None Patient was transported to: PACU Patient's condition: stable Implants: [employer] [place] press fit femoral stem size 4 standard offset with 43 mm bipolar head +5 mm length Indications: Please see complete medical record for details. Findings: Displaced, comminuted femoral neck fracture. Did not appear overly pathologic or subacute. Procedure Description: In the operating room, general anesthesia was induced. The patient was transferred and positioned laterally on the operating room table. All bony prominences were well-padded. Preoperative antibiotics were administered as well as 1 g of TXA. The left hip was prepped and draped in the usual sterile fashion. The correct patient, procedure, and side of the procedure were all verified prior to incision. The posterior lateral approach to left hip was utilized. 40 cc of lidocaine and bupivacaine containing epinephrine was infiltrated about the incision and trochanter. Deeply, care was taken to protect the sciatic nerve. The short external rotators and capsule were reflected off the femoral neck and tagged for retraction and later repair. The femoral neck fracture was identified. Soft bony tissue about the fracture site at the femoral neck and void at the superior lateral femoral head was biopsied using a rongeur with multiple samples taken avoiding normal bone and soft tissue to provide accurate biopsy sample for pathologic fracture at the fracture site. This was passed off into a specimen cup for permanent specimen. The femoral neck fracture was cut to a clean margin using a rongeur. The femoral head was removed from the acetabulum and measured on the back table. Labrum was preserved. All bony debris was removed from the wound. The proximal femoral canal was sequentially opened, reamed, and broached with the appropriate lateralization and anteversion until there was a solid fit with excellent rotational control. The calcar reamer was used to gently smooth the neck fracture. Trial reduction with a standard offset +0 mm length head demonstrated good suction seal and stability and length werebest with +5 mm length head throughout range of motion. The trial implants were removed. The acetabulum, proximal femur, and wound was copiously irrigated. The femoral head implant was impacted into the proximal femur maintain appropriate version with excellent fixation, rotational control, and seating to the femoral neck cut. The +5 mm length head was trialed again and confirmed excellent suction seal, stable range of motion, and stable through supraphysiologic position testing. The hip was dislocated and the trial head was removed. The wound was copiously irrigated with normal saline. A small amount of vancomycin powder was distributed into the acetabulum and had previously been disturbed in the proximal femur The trunnion was dried, and the final bipolar femoral head was impacted, reduced into the acetabulum, and confirmed to be appropriate. The wound was thoroughly irrigated and then dried The remainder of the 1 g of vancomycin powder was distributed mostly deep to the capsule with some superficial to the capsule about the wound. The deep capsule and short external rotators were repaired to soft tissue and the greater trochanter bone using suture tape and a single bone tunnel centrally. Distally, the IT band was closed using #1 Vicryl in an interrupted fashion. Proximally, the gluteus sunday muscle fascia was closed using 0 Vicryl in a running fashion. The superficial wound was irrigated with normal saline. Subcutaneous tissue was closed using 2-0 Monocryl in a buried interrupted fashion. Skin was closed using 3-0 Monocryl in a buried subcuticular buried fashion. Skin was sealed with skin glue. A silver impregnated bandage was applied over the wound. The patient awoke from anesthesia without complication and was transferred to the recovery room in a stable condition.
[2021-12-28] MEDS: Bupivacaine 0.25% Pres-Free 30 ML VIAL (09:46)
--- NOTE | 2021-12-28 10:00 | BONE_PTH ---
PATIENT: Eloina Ware LOC: U#:[id number] AGE/SX: 81/F ROOM: 217 RE12/27/[address]: Werner Jon : 1940 BED: A DIS: 12/31/2021 SPEC #: [id number] RECD: 12/29/21 12:40 STATUS: MANUEL REQ #: [id number] JAMIE: 12/28/21 10:[address]: Werner Jon DEPT: Surgical Specimen RECD BY: Lupe Lua ENTERED: 12/29/21 12:42 SP TYPE: Bone OTHR DR: CLINTON Orozco MD InPatient Edgar Harris Tissues: 1 - BONE BX/CURRETTE NOT PATH FRACTURE Procedures: GROSS AND MICRO LEVEL 4 DECALCIFICATION Comments: [id number]
--- NOTE | 2021-12-28 10:06 | INITIAL_ITS ---
- If Service Date Differs Date of service: 12/28/21 Time of Service: 10:06 Care Management Initial Assess REASON FOR HOSPITALIZATION:: left displaced femoral neck fracture PAST MEDICAL HISTORY/PAST SURGICAL HISTORY:: All Active Problems . Closed left hip fracture (Acute). Left displaced femoral neck fracture (Acute). Fall (Acute). Degenerative arthritis (Chronic). Conductive hearing loss, external ear (Acute). Blood in right ear canal (Acute). Insomnia (Acute). Anemia (Chronic). Pulmonary embolism (Chronic). Hiatal hernia (Chronic). Vitamin D deficiency (Acute). GERD (gastroesophageal reflux disease) (Chronic). DJD (degenerative joint disease) (Chronic). Cervicalgia (Acute). Cervical stenosis of spine (Acute). Chronic low back pain (Acute). Prediabetes (Acute). Anxiety (Chronic). Dysuria (Acute). Colitis (Acute). 04/2021. Dx by colonoscopy after months of diarrhea. Rx Budesonide XR. Hypokalemia (Acute). Diarrhea (Acute). Encounter for pessary maintenance (Acute). Urinary incontinence (Chronic). 2019. Stress incontinence worse after robotic hysterectomy. Patient is reluctant to be evaluated by urology since she has had several surgeries in this past year. Breast cancer, left (Acute). 10/2019. [place] [facility] [place] Fitting and adjustment of pessary (Acute). 2019. #3 (70mm) donut. 05/2021. 64mm donut fitted. Allergy to latex (Acute). Allergy to NSAIDs (Acute). Seborrheic dermatitis of scalp (Acute). Dermatitis, drug-induced (Acute). Vaginal vault prolapse after hysterectomy (Acute). Pelvic organ prolapse prior to her hysterectomy for endometrial cancer was treated with: longstanding use of 70mm (#4) ring pessary. 10/2019 57 mm (#3) donut placed. Pruritic rash (Acute). Environmental allergies (Acute). Itchy skin (Acute). Post-nasal drip (Acute). Chronic allergic rhinitis (Acute). Hypertension (Chronic). 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 Gastroesophageal reflux disease without esophagitis (Chronic 07/21/17). Essential hypertension (Acute 07/21/17). Acute midline low back pain (Acute 07/21/17). 06/29/2017 evaluation at [facility]. Started on prednisone will follow-up at [facility]. Medical History . Carpal tunnel syndrome on both sides. L>R. Not treated. Cystocele and rectocele with complete uterovaginal prolapse. Grade 1 malignant neoplasm of endometrium. 05/25/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 Postop recommendations: Vaginal cuff brachytherapy (w/o 10-15% recurrence). Postop: Year 1 gynecologic oncology visit every 3 months no Pap testing indicated. Year 2-5 alternate visits between substance abuse clinician and gynecologic oncologist every 6 months. No Pap indicated. H/O solar lentigo. with atypical melanocytic hyperplasia, lichenoid inflammation and dermal melanophages. History of cataract. History of diverticulitis. History of endometrial biopsy. History of endometrial cancer. Lumbar spinal stenosis. Tubular carcinoma of left breast. Ulnar neuropathy. Vaginal prolapse. longstanding use of 70mm (#4) ring pessary. 07/2018 increased size to # 6 ring pessary with support. 12/09/18 Size again decreased to #4 ring w/ support secondary to vaginal excoriation. Surgical History . History of carpal tunnel release. History of neck surgery (~2016). History of partial mastectomy of left breast. History of right breast biopsy. History of robot-assisted laparoscopic hysterectomy. With BSO and [place]inel [place] [facility] [place]. PREVIOUS FUNCTIONAL STATUS/SOCIAL/FAMILY SUPPORTS:: Eloina lives in a single family home in [place] with her Dash. They have 2 daughters and one son all of whom live in [place]. They also have 4 grandsons, 2 live locally and the other 2 live out of state. Eloina is independent at baseline and cares for her who has many serious health issues. CURRENT FUNCTIONAL STATUS:: Eolina was sitting up in bed when MANUEL met with her. She was receptive to conversation and engaged easily with CM. Eloina informed CM that her biggest concern right now is her . She stated that he should not be left alone at night. In addition to having diabetes and fibromyalgia, he is receiving hemodialysis 3 times a week. Eloina also shared that he likely has early dementia. She explained that some days he is really clear and others he is quite confused. Eloina indicated that she is anxious to return home as soon as possible. She has not worked with PT yet but will tomorrow. She hopes to be home by mid week. She is not interested in going to a rehab facility. MANUEL also spoke to Eloina's daughter Latricia. She informed MANUEL that she was on her way to her parent's house to spend the night with her dad. She requested that MOW be set up for her parents and also a referral to [facility] on [facility] for Life Alerts for both of them. Eloina also requested the Life Alerts. ADVANCE DIRECTIVES:: none on file Has patient been provided with info about the portal/API?: Yes Did the patient sign up for the portal?: Yes (previously) CODE STATUS:: Full Code INSURANCE COVERAGE / FINANCIAL ISSUES:: Medicare. [employer] - Plan F CURRENT HOME/COMMUNITY SERVICES/EQUIPMENT:: none PRIMARY CARE PHYSICIAN:: Kristina Bernal POTENTIAL DISCHARGE NEEDS:: Follow up with orthopedics and PCP. Possible new home healthservices for PT vs OP PT PATIENT/FAMILY EDUCATION NEEDS:: Review of discharge instructions, limitations, follow up plan, activity, medications and discuss Ask me Three TRANSPORTATION:: via priavte vehicle with family PLAN:: Eloina will likely be discharged home possibly with new home health services. MANUEL also sent a referral to [facility] for Life Alerts for Eloina and her as well as Meals on Wheels. She will follow up with her community providers and plan of care and transport with family. CM will continue to support Eloina and her discharge concerns.
--- NOTE | 2021-12-28 10:45 | DI.RAD_ITS ---
Exam(s) XR HIP LT COMPLETE AP PELVIS EXAM: XR HIP LT COMPLETE AP PELVIS CLINICAL HISTORY: Postop. TECHNIQUE: 2D digital imaging was performed. COMPARISON: CR RT HIP COMPLETE AP PELVIS from 03/25/2017 FINDINGS: 3 views, performed postop Left hip prosthesis components now in place. No loosening of the femoral component nor fractures in the inter and subtrochanteric region and. The acetabular cup appears somewhat hormone horizontal in position. IMPRESSION: DATA REPOSITORY: RADIATION DOSE DELIVERED:
--- NOTE | 2021-12-28 11:41 | W.PM.PROGNOT ---
Date of Service Date of service: 12/28/21 Time of Service: 11:15 Assessment and Plan Assessment and plan (1) Left displaced femoral neck fracture: Status: Acute Assessment and plan: 81-year-old female postop day #0 status post left hip hemiarthroplasty with bone biopsy Complete 24 hours postoperative antibiotics- ordered Discontinue Davalos catheter postop day #1 Pain control-Multimodal Physical therapy ordered: Weightbearing as tolerated with assist device- ordered May start chemical DVT prophylaxis tomorrow assuming hemodynamically stable Continue mechanical DVT prophylaxis with SCDs and/or NOÉ hose Follow-up bone pathology results Please call me with any questions or concerns Discharge when medically appropriate Follow-up with Dr. Maldonado outpatient [facility] in 2 to 3 weeks Appreciate medical management Exam Narrative Exam Narrative: Awaking comfortably from anesthesia Left hip bandage clean dry intact Compartments soft Palpable distal pulses. Demonstrates intact motor distally. Leg lengths grossly equal Objective Last Vital Signs Temp 98.8 F 12/28/21 07:52 Pulse 69 12/28/21 07:52 Resp 16 12/28/21 07:52 BP 147/76 H 12/28/21 07:52 Pulse Ox 93 12/28/21 07:52 Laboratory Results - last 24 hr 12/27/21 12/27/21 12/28/21 20:40 22:30 05:35 WBC 11.17 H RBC 3.61 L Hgb 10.9 L Hct 33.5 L MCV 92.8 MCH 30.2 MCHC 32.5 RDW 12.2 Plt Count 180 MPV 9.6 Immature Gran % 0.2 Neutrophils % 62.5 Lymphocytes % 27.8 Monocytes % 7.8 Eosinophils % 1.3 Basophils % 0.4 Nucleated RBC % 0 Absolute Neutrophils 6.98 H Absolute Lymphocytes 3.11 Absolute Monocytes 0.87 H Absolute Eosinophils 0.15 Absolute Basophils 0.04 Sodium Potassium Chloride Carbon Dioxide Anion Gap BUN Creatinine Estimated GFR/1.73 m2 Glucose Calcium Urine Color Yellow Urine Clarity Cloudy Urine pH 6.5 Ur Specific Allison >= 1.030 H Urine Protein Negative Urine Ketones Negative Urine Blood Trace-intact H Urine Nitrite Positive H Urine Bilirubin Negative Urine Urobilinogen 0.2 Ur Leukocyte Esterase Negative Urine RBC Negative Urine WBC 3-5 Ur Epithelial Cells Negative Urine Crystals Negative Urine Bacteria Many Urine Mucus Negative Ur Culture Indicated? Yes Urine Glucose 250 H COVID-19 Source Nasal/Nares SARS-CoV-2 (PCR) Negative 12/28/21 06:25 WBC RBC Hgb Hct MCV MCH MCHC RDW Plt Count MPV Immature Gran % Neutrophils % Lymphocytes % Monocytes % Eosinophils % Basophils % Nucleated RBC % Absolute Neutrophils Absolute Lymphocytes Absolute Monocytes Absolute Eosinophils Absolute Basophils Sodium 135 L Potassium 3.2 L Chloride 99 Carbon Dioxide 28.8 Anion Gap 7.2 BUN 16 Creatinine 0.6 Estimated GFR/1.73 m2 >= 60.00 Glucose 121 H Calcium 8.8 Urine Color Urine Clarity Urine pH Ur Specific Allison Urine Protein Urine Ketones Urine Blood Urine Nitrite Urine Bilirubin Urine Urobilinogen Ur Leukocyte Esterase Urine RBC Urine WBC Ur Epithelial Cells Urine Crystals Urine Bacteria Urine Mucus Ur Culture Indicated? Urine Glucose COVID-19 Source SARS-CoV-2 (PCR)
--- NOTE | 2021-12-28 11:51 | W.ANESPOSTOP ---
Postoperative Evaluation Date, Time and Location Date Performed: 12/28/21 Time Performed: 11:51 Patient Location: PACU Vital Signs Most Recent Imported Vital Signs: Most Recent Vital Signs Temp Pulse Resp BP Pulse Ox 36.7 C 82 16 173/75 H 95 12/28/21 11:50 12/28/21 11:50 12/28/21 11:50 12/28/21 11:50 12/28/21 11:50 Pain Score Most Recent Pain Score: Most Recent Pain Score Pain Level [Left Hip] 10 12/27/21 18:56 Pain Level 0 12/28/21 11:50 Assessment Mental Status: Awake (Alert & Oriented to Patient Baseline) Airway and Respiratory Function: Patent airway with normal (patient baseline) respiratory exam Cardiovascular Function: Hemodynamically Stable Hydration Status: Adequately Hydrated Nausea & Vomiting: No Nausea or Vomiting Pain: Pt. Denies Any Pain Peripheral Nerve Block: Patient did not receive a nerve block
[2021-12-28 14:22] LABS: Potassium 3.5 mmol/L (3.5-5.1)
[2021-12-28] MEDS: ceFAZolin 1 GM/50 ML BAG IVPB ×2 (15:38→23:21)
--- NOTE | 2021-12-28 17:35 | W.PM.PROGNOT ---
Date of Service Date of service: 12/28/21 Time of Service: 17:35 Assessment and Plan Assessment and plan (1) Left displaced femoral neck fracture: Start date: 12/28/21 Start time: 17:48 Status: Acute Assessment and plan: Mechanical fall at home. Left fx of femoral neck with repair today. Drsg to hip c/d/i Pain controlled. Patient states mouth is dry, will continue LR at 50 over night. continue Teds and scds Ortho sent bone for biopsy suspicious for cancer, she has had colon, breast and uterine cancer, never received chemo or radiation states just did natropathic. Will obtain CT chest/abd/pelvis tomorrow to r/o ca IS and follow Ortho recommendations (2) Fall: Start date: 12/28/21 Start time: 17:53 Status: Acute Assessment and plan: as above (3) Colon cancer: Start date: 12/28/21 Start time: 17:53 Status: Resolved Assessment and plan: Prevously in the past states resolved. as above (4) Hypertension: Start date: 12/28/21 Start time: 17:53 Status: Chronic Assessment and plan: continue BB (5) Gastroesophageal reflux disease without esophagitis: Start date: 12/28/21 Start time: 17:54 Status: Chronic Assessment and plan: omeprazole (6) UTI (urinary tract infection): Start date: 12/28/21 Start time: 17:55 Status: Acute Assessment and plan: positive for nitrates will treat with ceftriaxone. discussed with Dr. Fritz Subjective Subjective Patient reports: no new complaints Interval history since last seen: Patient still groggy from surgery. States pain controlled. After speaking with Dr. Maldonado this am, he is concerned there may be possible cancer. She has never smoked however she has had uterine, colon and breast cancer. She had a historectomy, other than that she has never had chemo or radiation she states she has always done naturopathic treatments. Bone biopsy sent for pathology. Will place patient on vitamin d and calcium, check vitamin d level, am labs and orthro recommendations. Exam Const General: cooperative, healthy appearing and comfortable Nutritional Appearance: average body habitus Orientation: alert, awake and oriented x3 HENMT Head: normal to inspection and atraumatic Eyes Pupils: PERRL EOM: EOM intact bilaterally Neck Neck: normal visual inspection, no lymphadenopathy and no JVD Chest Chest: normal inspection of the chest Resp Auscultation: clear to auscultation bilaterally, no rales and no rhonchi Cardio Rate: regular rate Rhythm: regular rhythm Heart Sounds: S1 normal, S2 normal, no gallops and no murmurs GI Inspection: normal to inspection Palpation: soft and no hepatosplenomegaly Back/Spine/Pelvis Back: no CVA tenderness Skin Wounds: wounds noted (surgical inscision c/d/i) Neuro General: patient alert, patient awake and patient oriented x3 Extrem General: normal to inspection and no clubbing, cyanosis or edema Objective Last Vital Signs Temp 36.8 C 12/28/21 17:05 Pulse 74 12/28/21 17:05 Resp 16 12/28/21 17:05 BP 143/65 H 12/28/21 17:05 Pulse Ox 95 12/28/21 17:05 Laboratory Results - last 24 hr 12/27/21 12/27/21 12/28/21 20:40 22:30 05:35 WBC 11.17 H RBC 3.61 L Hgb 10.9 L Hct 33.5 L MCV 92.8 MCH 30.2 MCHC 32.5 RDW 12.2 Plt Count 180 MPV 9.6 Immature Gran % 0.2 Neutrophils % 62.5 Lymphocytes % 27.8 Monocytes % 7.8 Eosinophils % 1.3 Basophils % 0.4 Nucleated RBC % 0 Absolute Neutrophils 6.98 H Absolute Lymphocytes 3.11 Absolute Monocytes 0.87 H Absolute Eosinophils 0.15 Absolute Basophils 0.04 Sodium Potassium Chloride Carbon Dioxide Anion Gap BUN Creatinine Estimated GFR/1.73 m2 Glucose Calcium Urine Color Yellow Urine Clarity Cloudy Urine pH 6.5 Ur Specific [place] >= 1.030 H Urine Protein Negative Urine Ketones Negative Urine Blood Trace-intact H Urine Nitrite Positive H Urine Bilirubin Negative Urine Urobilinogen 0.2 Ur Leukocyte Esterase Negative Urine RBC Negative Urine WBC 3-5 Ur Epithelial Cells Negative Urine Crystals Negative Urine Bacteria Many Urine Mucus Negative Ur Culture Indicated? Yes Urine Glucose 250 H COVID-19 Source Nasal/Nares SARS-CoV-2 (PCR) Negative 12/28/21 12/28/21 06:25 14:00 WBC RBC Hgb Hct MCV MCH MCHC RDW Plt Count MPV Immature Gran % Neutrophils % Lymphocytes % Monocytes % Eosinophils % Basophils % Nucleated RBC % Absolute Neutrophils Absolute Lymphocytes Absolute Monocytes Absolute Eosinophils Absolute Basophils Sodium 135 L Potassium 3.2 L 3.5 Chloride 99 Carbon Dioxide 28.8 Anion Gap 7.2 BUN 16 Creatinine 0.6 Estimated GFR/1.73 m2 >= 60.00 Glucose 121 H Calcium 8.8 Urine Color Urine Clarity Urine pH Ur Specific [place] Urine Protein Urine Ketones Urine Blood Urine Nitrite Urine Bilirubin Urine Urobilinogen Ur Leukocyte Esterase Urine RBC Urine WBC Ur Epithelial Cells Urine Crystals Urine Bacteria Urine Mucus Ur Culture Indicated? Urine Glucose COVID-19 Source SARS-CoV-2 (PCR)
[2021-12-28] MEDS: Normal Saline Flush 10 ML SYR IVP (20:24)
[2021-12-29] MEDS: MORPHine 4 MG/ML SYR IVP ×3 (00:30→13:23)
[2021-12-29] MEDS: Normal Saline Flush 10 ML SYR IVP ×3 (00:32→20:42)
[2021-12-29 06:02] VITALS: TEMP 38
[2021-12-29] MEDS: Acetaminophen 325 MG TAB 650 MG PO ×2 (06:02→16:05)
[2021-12-29 07:03] LABS: Abs Immature Grans 0.06 10^3/uL (0.0-0.06); Absolute Eosinophil Count 0.04 10^3/uL (0.0-0.7); Absolute Monocyte Count 1.28 10^3/uL (0.1-0.8); Absolute Neutrophil Count 8.56 10^3/uL (1.2-6.7); Basophils % 0.2; Eosinophils % 0.3; HCT 28.6 % (36.0-46.0); HGB 9.6 g/dL (11.2-15.7); Immature Grans % 0.5; Lymphocytes % 21.3; MCH 31.3 pg (27.0-33.0); MCHC 33.6 % (32.0-36.0); MCV 93.2 fL (80-95); MPV 9.6 fL (8.0-11.0); Monocytes % 10.1; Neutrophils % 67.6; Nucleated RBC 0 %; Platelet Count 150 10^3/uL (130-400); RBC 3.07 10^6/uL (3.93-5.22); RDW 12.2 % (11.7-14.6); RDW-SD 41.7 fL; WBC 12.66 10^3/uL (4.4-10.8)
[2021-12-29 07:04] LABS: Absolute Basophil Count 0.03 10^3/uL (0.0-0.2); Anion Gap 6.5 mmol/L (3-11); BUN 10 mg/dL (7-18); CO2 28.5 mmol/L (21.0-32.0); CREATININE 0.5 mg/dL (0.55-1.02); Calcium 8.4 mg/dL (8.5-10.1); Chloride 96 mmol/L (98-107); Glucose 120 mg/dL (74-106); Potassium 3.6 mmol/L (3.5-5.1); Sodium 131 mmol/L (136-145)
[2021-12-29 07:35] VITALS: BP 163/67; PULSE 75; RESP 20; TEMP 37.3; O2SAT 93
[2021-12-29] MEDS: ceFAZolin 1 GM/50 ML BAG IVPB (07:57)
[2021-12-29] MEDS: Calcium 600mg/Vit D 200U TAB 1 TAB PO (07:58)
[2021-12-29] MEDS: Omeprazole 20 MG CAPCR PO (07:58)
[2021-12-29] MEDS: Metoprolol CR 50 MG TABCR PO (07:59)
[2021-12-29] MEDS: Thiamine 100 MG TAB PO (07:59)
[2021-12-29 08:09] LABS: Vitamin D 25 Total 36.8 ng/mL (30-100)
--- NOTE | 2021-12-29 09:05 | DI.CT_ITS ---
Exam(s) CT CHEST/ABD/PEL W EXAM: CT CHEST/ABD/PEL W CLINICAL HISTORY: r/o cancer suspicisous after having hip surgery.. TECHNIQUE: Imaging Protocol: Axial computed tomography images with coronal and sagittal reformatted images were created and reviewed CONTRAST MATERIAL: Intravenous: Omnipaque 350 Contrast volume:100 ml Oral: None COMPARISON: CT CT ABDOMEN PELVIS W from 03/14/2021 FINDINGS: CHEST: LUNGS: There are no confluent infiltrates nor pleural effusions. Benign-appearing increased markings are noted in the posterior basal segments of both lower lobes. However, there are no metastatic anuj earing nodules in either lung field. MEDIASTINUM: There is no hilar nor mediastinal adenopathy. There nodules in both thyroid lobes.There is no hilar nor significant mediastinal adenopathy. No axillary adenopathy. No supraclavicular darius opathy. There is, however, a finding anterior to the left sternocleidomastoid muscle measuring 1.5 x 1.4 cm which is probably an enlarged lymph node in the left side of the neck or possibly the lower m ost aspect of the left submandibular gland. This is only partially included in the field of view of this chest study. CARDIAC: Mild cardiomegaly. No pericardial effusion.Caliber of the thoracic aorta is within normal l imits. OSSEOUS: No significant osseous lesions.. ABDOMEN: There is no ascites. LIVER: There are no focal hepatic lesions nor dilatation of intrahepatic ducts. GALLBLADDER/BILIARY: The gallbladder is pendulous but there are no calcified gallstones seen nor gall bladder wall edema. CBD is not dilated. PANCREAS: No evidence of pancreatic mass nor dilatation of the pancreatic duct. SPLEEN: Spleen is not enlarged. There are no intrasplenic lesions. Splenic and portal veins are alonzo nt. ADRENALS: There are no significant adrenal masses. KIDNEYS: No calculi nor hydronephrosis. No solid renal masses. There is a cyst in the anterior cortex of the left kidney measuring 1.5 x 1.4 cm. A slightly smaller cyst is also noted slightly lower bunny n in the same left kidney. No cysts nor other significant findings in the opposite-right kidney. No calculi in the kidneys. No hydronephrosis nor hydroureter. ABDOMINAL AORTA: Abdominal aorta is not enlarged. LYMPH NODES: There is no retroperitoneal nor paraaortic adenopathy. ABDOMINAL WALL: Anterior abdominal wall midline diastasis recti noted which contains bowel loops alth ough this is not a true hernia sac. There is, however, a fat containing midline anterior abdominal h ernia just anterior to the left hepatic lobe of the liver. This hernia sac contains only fat and no bowel loops. It measures 3.5 cm wide by by 3 cm craniocaudal by 1 cm AP. Evidence of previous surge ry but no true bowel obstruction GI: Abundant fecal material noted throughout the colon. There has been prior right hemicolectomy. T here is fecalization of some small bowel loops which exhibit diameter 2.6 cm, upper normal. There is no true small-bowel obstruction. PELVIS: LYMPH NODES: There is no intrapelvic nor inguinal adenopathy. GI: No evidence of appendicitis.Extensive sigmoid diverticular disease. No obvious acute diverticuli tis. URINARY BLADDER: There is a Davalos catheter in the urinary bladder and the bladder is collapsed. Ther e is a gynecologic device noted which appears higher than typical for a pessary. It is behind the ur inary bladder.. REPRODUCTIVE: Pessary as above OSSEOUS: No fractures. No lytic osseous lesions identified. No blastic lesions identified. Newly placed left hip prosthesis noted. IMPRESSION: 1. There is a Davalos catheter in the urinary bladder and there is a pessary again noted in this patien t who apparently has had prior hysterectomy. Pessary is slightly high in position compared to the pr ior study. 2. There is evidence of right hemicolectomy.. No bowel obstruction. No ascites. No metastatic lesi ons evident. No obvious lymphadenopathy. 3. No metastatic appearing lung nodules and no pleural effusions nor intrathoracic adenopathy. 4. Incidentally noted is a 1.5 by 1.4 cm possible enlarged lymph node anterior to the left sternoclei domastoid in the neck, only partially included in the uppermost image of this chest study. Possible adenopathy versus possible just the lower aspect of the left submandibular gland. If clinically cony cated further CT study of the soft tissues of the neck can be performed. 5. Extensive sigmoid diverticulosis. No obvious acute diverticulitis. 6. Benign cysts in the left kidney. No solid renal masses. No hydronephrosis. There are no lytic osseous lesions evident. RADIATION DOSE DELIVERED: 1,278.78mGy.cm Total DLP DATA REPOSITORY: All CT scans at this facility are submitted to the National Radiology Data Registry (NRDR) Dose Index Registry (DIR) with the [employer] (ACR). RADIATION OPTIMIZATION: All CT scans at this facility use at least one of these dose optimization te chniques: automated exposure control; mA and/or kV adjustment per patient size (includes targeted exa ms where dose is matched to clinical indication); or iterative reconstruction.
[2021-12-29] MEDS: Omnipaque 350 MG/ML 100 ML BTL IJ (09:10)
--- NOTE | 2021-12-29 09:21 | PT.INIE ---
Date of service: 12/29/21 Time of Service: 09:21 PT Notes Visit Reasons: Left Hip Fracture Physical Therapy Inpatient Initial Evaluation Date: 12/29/2021 Referring Doctor: Derik Maldonado MD PT Orders: PT CONSULT: WBAT LLE with assist device; progressive ambulation Precautions: Fall. Standard. WBAT on left LE with AD. Posterior hip precautions in place. Patient Profile/Admitting Diagnosis: Eloina is an 81-year-old female with left displaced pathologic femoral neck fracture and is status post left posterior hip hemiarthroplasty on postoperative day 1. PMHX: All Active Problems? Closed left hip fracture (Acute) Left displaced femoral neck fracture (Acute) Fall (Acute) Degenerative arthritis (Chronic) Conductive hearing loss, external ear (Acute) Blood in right ear canal (Acute) Insomnia (Acute) Anemia (Chronic) Pulmonary embolism (Chronic) Hiatal hernia (Chronic) Vitamin D deficiency (Acute) GERD (gastroesophageal reflux disease) (Chronic) DJD (degenerative joint disease) (Chronic) Cervicalgia (Acute) Cervical stenosis of spine (Acute) Chronic low back pain (Acute) Prediabetes (Acute) Anxiety (Chronic) Dysuria (Acute) Colitis (Acute) 04/2021. Dx by colonoscopy after months of diarrhea. Rx Budesonide XR Hypokalemia (Acute) Diarrhea (Acute) Encounter for pessary maintenance (Acute) Urinary incontinence (Chronic) 2019.? Stress incontinence worse after robotic hysterectomy.? Patient is reluctant to be evaluated by urology since she has had several surgeries in this past year. Breast cancer, left (Acute) 10/2019.? [place] [facility] [place]itting and adjustment of pessary (Acute) 2019. #3 (70mm) donut. 05/2021. 64mm donut fitted Allergy to latex (Acute) Allergy to NSAIDs (Acute) Seborrheic dermatitis of scalp (Acute) Dermatitis, drug-induced (Acute) Vaginal vault prolapse after hysterectomy (Acute) Pelvic organ prolapse prior to her hysterectomy for endometrial cancer was treated with: longstanding use of 70mm (#4) ring pessary. 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 Started on prednisone will follow-up at [facility] Medical History? Carpal tunnel syndrome on both sides L>R. Not treated.Cystocele and rectocele with complete uterovaginal prolapse Grade 1 malignant neoplasm of endometrium 05/25/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 Postop recommendations: Vaginal cuff brachytherapy (w/o 10-15% recurrence) Postop: Year 1 gynecologic oncology visit every 3 months no Pap testing indicated. Year 2-5 alternate visits between buttoner and gynecologic oncologist every 6 months.? No Pap indicated.H/O solar lentigo with atypical melanocytic hyperplasia, lichenoid inflammation and dermal melanophagesHistory of cataract History of diverticulitis History of endometrial biopsy History of endometrial cancer Lumbar spinal stenosis Tubular carcinoma of left breast Ulnar neuropathy Vaginal prolapse longstanding use of 70mm (#4) ring pessary. 07/2018 increased size to? # 6 ring pessary with support. 12/09/18 Size again decreased to #4 ring w/ support secondary to vaginal excoriation. Surgical History? History of carpal tunnel release History of neck surgery (~2016) History of partial mastectomy of left breast History of right breast biopsy History of robot-assisted laparoscopic hysterectomy With BSO and sentinel [place] [facility] [place]. Social History/Home Situation: Lives with in a private home with a ramp to enter. No stairs inside the house. Modified independent with occasional use of single-point cane. Equipment Owned/DME: FWW, SPC Subjective: Agreeable to PT consult. Reports 5/10 pain at rest and a 10 out of 10 pain with weight bearing. Nurse Romi made aware. Objective: General Observation: Supine in bed. IV access in right UE. Regular dressing over incision. TEDS in the legs. Anxious about being out of bed. Mental Status: Alert and oriented as to person, place, time, and purpose. Pain limiting ability to pay attention, focus, and respond appropriately. Pain: 5/10 in right hip and thigh at rest; 10 out of 10 with weightbearing. ROM: Right Lower Extremity: Hip flexion WFL. Hip abduction WFL. Knee flexion WFL. Ankle dorsiflexion WFL. Ankle plantarflexion WFL. Left Lower Extremity: Hip flexion lacks 75% of mobility and motion due to pain. Hip abduction acks 75% of mobility and motion due to pain. Knee flexion acks 75% of mobility and motion due to pain. Ankle dorsiflexion WFL. Ankle plantarflexion WFL. Strength: Right Lower Extremity: Hip flexors 5/5. Hip abductors 5/5. Knee flexors 5/5. Knee extensors 5/5. Ankle dorsiflexors 5/5. Ankle plantarflexors 5/5. Left Lower Extremity: Hip flexors 2-/5. Hip abductors 2-/5. Knee flexors 2-/5. Knee extensors 2-/5. Ankle dorsiflexors 3-/5. Ankle plantarflexors 3-/5. Bed Mobility/Transfers: Supine to sit with moderate assist with HOB at 45 degrees with moderate for safe/correct technique Sit to stand with minimal assist with moderate for safe/correct technique Stand to sit with minimal assist with moderate for safe/correct technique Bed to reclining chair with minimal assist with moderate for safe/correct technique Gait: Instructed patient with level surface ambulation of 5 steps requiring minimal assist. Colette considerably decreased. Step height decreased. Step length decreased. Trunk anteroflexed. Gait antalgic. Reports 10 out of 10 pain with weightbearing that results to 5/10 pain at rest. Balance: Static Sitting: Good Dynamic Sitting: Fair Static Standing: Poor Dynamic Standing: Poor Special Tests: Mobility Limitations Standardized Measure [facility] AM-PAC 6 clicks Basic Mobility Inpatient Short Form: Raw Score: 11 CMS Score: 73% deficit Informed Consent/Education: Patient was instructed in purpose of PT consult and plan of care. Agreeable to proceed with established PT POC to achieve personal goals. Assessment: Pain level limits mobility performance and increased anxiety over weight bearing. Premedication for pain is critical for decreased participation level. Patient requires the use of a front wheeled walker and assistance of 1 person for all transfers and ambulation test performance. Patient presents with clinical signs and symptoms consistent with current/admitting diagnoses that have resulted to mobility limitations, gait instability, generalized weakness, and overall ADL decline as demonstrated by the following impairment level findings: 1. Decreased strength to right hip major muscle groups 2. Impaired sitting/standing balance 3. Impaired activity tolerance 4. Limitation of joint range of motion in right hip and knee 5. Increased anxiety over weightbearing due to pain 6. Pain at 10/10 with weight bearing Impairments are contributing to the following functional limitations: 1. Decline in bed mobility skills 2. Decline in transfer skills 3. Difficulty with ambulation without assistive device and physical assistance 4. Increased completion time for mobility ADL performance 5. Increased risk for falls 6. Difficulty with managing steps alone safely Patient is assessed as a 65430 moderate complexity based on the following: History: 81-year-old female with past medical history as indicated above Examination: Demonstrable impairment in strength, balance, and mobility level with underlying impairments and functional limitations as exhibited above as well as deficit score of 73% utilizing the [facility] Mobility Inpatient Short Form Presentation: Evolving Decision Makin moderate complexity Goals: Goals X1 week 1. Supine-Sit independent 2. Sit-Supine independent 3. Sit-Stand independent 4. Stand-Sit independent with FWW 5. Bed-Chair independent with FWW 6. Chair-Bed independent with FWW 7. Independent gait on level surface with use of FWW for at least 300 feet without report of pain nor dyspnea 10. Fair static and dynamic standing balance/tolerance Plan of Care/Treatment Plan: 1-2x/day, 7 days/week x 1 week. Plan of care has been reviewed with the [employer] providing the service under Physical Therapy direction. Initiate Physical Therapy intervention for pain management as needed, strengthening, bed mobility, transfers, gait, stairs, balance training, and use of assistive device. DISCHARGE RECOMMENDATIONS: [] Home with no services [] [] Home with services [specify] [] Home with outpatient PT [] [X] SNF for continued short-term rehabilitation. Patient will benefit from short-term rehabitation in a fci facility for continued skilled physical therapy services in order to progress mobility level, strength, and balance in preparation for a safe discharge to home. [] [facility] [] [] SNF versus LTC based on ability to participate and progress [] TREATMENT CODE/TIME: 93687 x20 minutes, 29757 x 13 minutes beginning at 9:21 AM. Thank you for the opportunity to participate in the care of this patient. Mira Echavarria PT, DPT, CLT [facility] [place], [place]
[2021-12-29] MEDS: Polyethylene Glycol 3350 17 GM PACKET PO (10:09)
--- NOTE | 2021-12-29 10:39 | CMPROGNOTE_ITS ---
- If Service Date Differs Date of service: 12/29/21 Time of Service: 10:39 Care Management Progress Note S/O:Eloina was sitting up in a chair when CM met with her. She appeared fatigued and indicated that it had taken a lot of effort to get from the bed to the chair with PT. Eloina had just returned from radiology after having CT scans of her chest, abdomen and pelvis and was already uncomfortable. She informed CM that her pain was not controlled at that time. Per PT, Eloina might benefit from short term rehab if she is unable to improve her ambulation.A plan was made to pre- medicate her before the afternoon session with PT. A: Eloina is an 81 year old woman admitted on 12/27/21 with a fractured hip P:Eloina will likely be discharged home possibly with new home health services. CM also sent a referral to [facility] [place] [facility] Alerts for Eloina and her as well as Meals on Wheels. She will follow up with her community providers and plan of care and transport with family. CM will continue to support Eloina and her discharge concerns.
[2021-12-29] MEDS: Lactated Ringers 1,000 ML 50 ML IV (14:11)
[2021-12-29] MEDS: cefTRIAXone 1 GM/50 ML BAG IVPB (14:52)
[2021-12-29 15:30] VITALS: BP 162/72; PULSE 78; RESP 21; TEMP 38.8; O2SAT 95
--- NOTE | 2021-12-29 16:07 | W.PM.PROGNOT ---
Date of Service Date of service: 12/29/21 Time of Service: 16:08 Assessment and Plan Assessment and plan (1) Left displaced femoral neck fracture: Status: Acute Assessment and plan: Mechanical fall at home. thought to possibly be pathologic repaired here POD 1 continue routine post operative care Pain controlled. stop IVF continue pulmonary toilet, i/s acapella continue Teds and scds Ortho sent bone for biopsy suspicious for cancer, she has had colon, breast and uterine cancer, never received chemo or radiation states just did natropathic. CT chest/abd/pelvis continue Ortho recommendations (2) Colon cancer: Status: Resolved Assessment and plan: Prevously in the past states resolved. as above (3) Hypertension: Status: Chronic Assessment and plan: continue BB (4) Gastroesophageal reflux disease without esophagitis: Status: Chronic Assessment and plan: omeprazole (5) UTI (urinary tract infection): Status: Acute Assessment and plan: grew osorio senstive e coli continue day 2 ceftriaxone. will recheck urine discussed with Dr. Fritz Subjective Subjective Patient reports: tolerating liquids well, tolerating a regular diet, no bowel movement and fever; denies shortness of breath Exam Const General: cooperative, healthy appearing, comfortable, no acute distress and other (elderly female of stated age) Nutritional Appearance: average body habitus Orientation: alert, awake and oriented x3 HENMT Head: normal to inspection, normocephalic and atraumatic Mouth: oral mucosae normal Resp Effort & Inspection: normal respiratory effort Auscultation: clear to auscultation bilaterally Cardio Rate: regular rate Rhythm: regular rhythm GI Inspection: normal to inspection Skin Lesions: other (surgical dressings are clear dry and intact. ) Rashes: no rashes Neuro General: patient alert, patient awake and patient oriented x3 Cognition: normal cognition Extrem General: normal to inspection, full ROM and no pedal edema Objective Last Vital Signs Temp 37.3 C 12/29/21 07:35 Pulse 75 12/29/21 07:35 Resp 20 12/29/21 07:35 BP 163/67 H 12/29/21 07:35 Pulse Ox 93 12/29/21 07:35 Laboratory Results - last 24 hr 12/29/21 12/29/21 12/29/21 06:48 06:48 06:48 WBC 12.66 H RBC 3.07 L Hgb 9.6 L Hct 28.6 L MCV 93.2 MCH 31.3 MCHC 33.6 RDW 12.2 Plt Count 150 MPV 9.6 Immature Gran % 0.5 Neutrophils % 67.6 Lymphocytes % 21.3 Monocytes % 10.1 Eosinophils % 0.3 Basophils % 0.2 Nucleated RBC % 0 Absolute Neutrophils 8.56 H Absolute Lymphocytes 2.70 Absolute Monocytes 1.28 H Absolute Eosinophils 0.04 Absolute Basophils 0.03 Sodium 131 L Potassium 3.6 Chloride 96 L Carbon Dioxide 28.5 Anion Gap 6.5 BUN 10 D Creatinine 0.5 L Estimated GFR/1.73 m2 >= 60.00 Glucose 120 H Calcium 8.4 L 25-OH Vitamin D Total 36.8
[2021-12-29 16:59] LABS: Bilirubin Negative (Negative); Blood Small (Negative); Clarity Clear (Clear); Glucose Negative (Negative); Ketones Negative (Negative); Leukocyte Esterase Negative (Negative); Nitrite Negative (Negative); Specific Gravity 1.015 (1.005-1.025); Urobilinogen 0.2 EU/dL (Up TO 0.2)
[2021-12-29 17:12] LABS: Epithelial Cells Negative HPF (Negative)
[2021-12-29 17:13] LABS: Bacteria Rare HPF (Negative); C & S Indicated? No; Crystals Few Calcium Oxalate HPF (Negative); Mucus Negative (Negative); Other Cells Few Transitional (Negative)
[2021-12-29 18:17] VITALS: TEMP 37.5
[2021-12-29 20:38] VITALS: BP 156/68; PULSE 70; RESP 18; TEMP 38.2; O2SAT 94
[2021-12-29] MEDS: Docusate Sodium 100 MG CAP PO (20:41)
[2021-12-29 23:35] VITALS: BP 165/65; PULSE 75; RESP 20; TEMP 36.9; O2SAT 94
[2021-12-30 06:27] VITALS: BP 167/76; PULSE 86; RESP 19; TEMP 37.8; O2SAT 93
[2021-12-30 06:41] VITALS: TEMP 37.8
[2021-12-30] MEDS: Omeprazole 20 MG CAPCR PO (06:41)
[2021-12-30] MEDS: Acetaminophen 325 MG TAB 650 MG PO ×3 (06:41→20:26)
[2021-12-30 07:30] VITALS: BP 149/73; PULSE 83; RESP 16; TEMP 37; O2SAT 95
[2021-12-30] MEDS: Calcium 600mg/Vit D 200U TAB 1 TAB PO (07:55)
[2021-12-30] MEDS: Docusate Sodium 100 MG CAP PO ×2 (07:55→20:26)
[2021-12-30] MEDS: Thiamine 100 MG TAB PO (07:55)
[2021-12-30] MEDS: Metoprolol CR 50 MG TABCR PO (07:55)
[2021-12-30] MEDS: Polyethylene Glycol 3350 17 GM PACKET PO (07:55)
--- NOTE | 2021-12-30 10:04 | CMPROGNOTE_ITS ---
- If Service Date Differs Date of service: 12/30/21 Time of Service: 10:04 Care Management Progress Note S/O:Eloina was ambulating from bed to chair with PT when CM met with her. She did better than she had yesterday but PT is still recommending SNF. CM discussed this option with Eloina again. She still maintains that she would prefer to go home, but understands that she may need rehab. She agreed to have referrals sent to [facility] and [facility] (her first choice) as well as [facility]. Eloina talked a bit about her family today. Her children are very supportive and have been taking turns staying with her at night. This relieved a lot of the concerns Eloina had about his safety. A: Eloina is an 81 year old woman admitted on 12/27/21 with a fractured hip P:Eloina would like to be discharged home with new home health services, however PT has recommended a SNF for short term rehab. CM sent a referral to [facility] for Eloina and her as well as [facility]. CM also sent referrals to [facility] and [facility] and [facility] in case she requires that level of care. Eloina will follow up with her community providers and plan of care and transport with family. CM will continue to support Eolina and her discharge concerns.
[2021-12-30] MEDS: cefTRIAXone 1 GM/50 ML BAG IVPB (14:32)
[2021-12-30] MEDS: Normal Saline Flush 10 ML SYR IVP ×2 (14:36→20:27)
[2021-12-30] MEDS: Ketorolac 15 MG/ML VIAL IVP (14:44)
--- NOTE | 2021-12-30 14:50 | W.PM.PROGNOT ---
Date of Service Date of service: 12/30/21 Time of Service: 14:45 Assessment and Plan Assessment and plan (1) Left displaced femoral neck fracture: Status: Acute Assessment and plan: Mechanical fall at home, suspecting pathology: bone biopsy for cancer suspicion sent by ortho ( Hx of colon, breast and uterine cancer, never received chemo or radiation states just did naturopathic) repaired here and POD 2 will continue routine post operative care continue pulmonary toilet, i/s acapella continue Teds and scds Will continue Ortho recommendations (2) Pain: Status: Acute Assessment and plan: Pain control adjusted Acetaminophen 650 mg orally QID scheduled Will start Ketorolac 15 mg IVP evry 6 hours PRN for short 5-day course Will initiate Tapentadol 50 mg orally evry 6 hours PRN Discontinue IV narcotic (3) Impaired mobility: Status: Acute Assessment and plan: Physical Therapy will continue PLAN: Continue with gait and transfer training as well as LE strengthening for improved mobility. (4) Hypertension: Status: Chronic Assessment and plan: continue present management with bets-blockers (5) Gastroesophageal reflux disease without esophagitis: Status: Chronic Assessment and plan: Will continue omeprazole. Patient will also be on a short course of NSAIDS. (6) UTI (urinary tract infection): Status: Acute Assessment and plan: UTI with osorio senstive e coli. Urine negative for nitrite and leuk. Esterase Last dose of Ceftriaxone today. Indwelling urinary catherter discontinued External urinary collecting system ordered to prevent dressing/skin maceration. (7) DVT prophylaxis: Status: Acute Assessment and plan: Will start Enoxaparin (8) Discharge planning issues: Status: Acute Assessment and plan: Care management will send referrals to rehab facilities. case is reviewed with Dr Fritz Subjective Subjective Patient reports: still having pain (rated at 10/10 from her left hip to her left; reminded to report pain to nurse for pain management.), tolerating a regular diet, bowel movement (this morning ), nausea (when medicine given on an empty stomach) and afebrile; denies shortness of breath Interval history since last seen: Pt stated that she worked well with PT despite the pain. Exam Const General: cooperative, healthy appearing, uncomfortable, no acute distress, not ill appearing and not lethargic Nutritional Appearance: average body habitus Orientation: alert, awake and oriented x3 HENMT Head: normal to inspection, normocephalic and atraumatic Ears: hearing grossly normal bilaterally General nose exam: external nose normal Mouth: lip normal Eyes General: appearance normal, both eyes and all related structures Pupils: PERRL EOM: EOM intact bilaterally Neck Neck: normal visual inspection, no lymphadenopathy and no JVD Chest Chest: normal inspection of the chest Resp Effort & Inspection: normal respiratory effort and able to speak in complete sentences Auscultation: clear to auscultation bilaterally, no rales and no rhonchi Cardio Rate: regular rate Rhythm: regular rhythm Heart Sounds: S1 normal, S2 normal, no gallops and no murmurs GI Inspection: normal to inspection Palpation: soft, no hepatosplenomegaly, not firm, not rigid, no splenomegaly and nontender Auscultation: normal bowel sounds Other: Davalos catheter in place. Clear yellow urine noted in drainage bag Back/Spine/Pelvis Back: no CVA tenderness Skin Wounds: wounds noted (surgical inscision c/d/i) Neuro General: patient alert, patient awake, patient oriented x3 and not confused Speech: speech normal Motor: strength 5/5 throughout (Except for Left lower extremity re: post-op limb) and strength abnormal Extrem General: normal to inspection, no clubbing, cyanosis or edema and no edema Left lower extremity: full ROM, hip/thigh Details: tenderness, swelling and other (Surgical wound) and knee (Hx of left knee Sx in 1979) Details: tenderness and swelling Other: left lower extremity:Pt is cautious mobilizing this ext. on post-op day 2. CMT's are WNL. Strength: weakness and hesitancy noted when repositioning. Psych Appearance: grossly normal Mental Status: mental status grossly normal Objective Last Vital Signs Temp 98.6 F 12/30/21 07:30 Pulse 83 12/30/21 07:30 Resp 16 12/30/21 07:30 BP 149/73 H 12/30/21 07:30 Pulse Ox 95 12/30/21 07:30 Laboratory Results - last 24 hr 12/29/21 16:14 Urine Color Yellow Urine Clarity Clear Urine pH 7.0 Ur Specific [place] 1.015 Urine Protein 30 H Urine Ketones Negative Urine Blood Small H Urine Nitrite Negative Urine Bilirubin Negative Urine Urobilinogen 0.2 Ur Leukocyte Esterase Negative Urine RBC 10-20 H Urine WBC 3-5 Ur Epithelial Cells Negative Urine Crystals Few Calcium Oxalate Urine Bacteria Rare Urine Mucus Negative Urine Other Few Transitional Ur Culture Indicated? No Urine Glucose Negative
[2021-12-30 15:34] VITALS: BP 132/60; PULSE 72; RESP 18; TEMP 37.3; O2SAT 96
--- NOTE | 2021-12-30 15:36 | PT.INTREAT ---
Date of service: 12/30/21 Time of Service: 10:46 PT Notes Visit Reasons: Left Hip Fracture Inpatient Physical Therapy Treatment Note [facility] Date: 12/30/2021 PRECAUTIONS: Fall, WBAT L, Activity as tolerated SUBJECTIVE: Eloina is pleasant and agreeable to participating in PT. 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 OBJECTIVE: PAIN: Patient c/o L hip and knee pain with all activity BED MOBILITY/TRANSFERS Supine-sit: Min A with HOB at 20 degrees Sit-supine: Min A with HOB flat Sit-stand: CGA Stand-sit: CGA GAIT Assistive Device: FWW Weight bearing: WBAT L Assist: CGA - Min A in a.m.; CGA in p.m. Distance: 10' in a.m.; 5' + 10' in p.m. Deviation: Slow pace, minimal step height on R, cueing for off-loading L LE for decreased pain THEREX: Patient was instructed in a LE strengthening and stabilization program, completed in both seated and supine positions, as per flow sheet. Applied ice pack to L hip post-sessions. ASSESSMENT: Patient tolerated session with complaint of L hip and knee pain with all activity. She was able to tolerate a progression in gait distance with FWW support and CGA with max cueing for technique for pain management. PLAN: Continue with gait and transfer training as well as LE strengthening for improved mobility. TREATMENT CODE/TIME: Session 1: 23 minutes; 41402, [id number] (10:46) Session 2: 30 minutes; [id number], [id number] (14:56)
[2021-12-30] MEDS: Enoxaparin 40 MG/0.4 ML SYR SC (16:36)
--- NOTE | 2021-12-30 17:44 | PGE_ITS ---
Date of Service Date of service: 12/30/21 Time of Service: 17:44 Assessment and Plan Assessment and plan (1) Left displaced femoral neck fracture: Status: Acute Assessment and plan: 81-year-old female postop day #2 status post left hip hemiarthroplasty with bone biopsy Encouraged to continue working with physical therapy to mobilize and make progress each day Continue multimodal pain control, physical therapy, DVT prophylaxis, and follow- up bone pathology results when available Physical therapy ordered: Weightbearing as tolerated with assist device- ordered Chemical DVT prophylaxis: recommend ASA 325 mg BID x30 days (Lovenox reasonable while inpatient) Mechanical DVT prophylaxis with SCDs and/or NOÉ hose Discharge when medically appropriate Follow-up with Dr. Maldonado outpatient [facility] in 2 to 3 weeks Appreciate medical management Subjective Subjective Interval history since last seen: Some discouraged about slow progress and discomfort about left hip Exam Narrative Exam Narrative: Awake alert oriented Breathing comfortably on room air Left hip bandage clean dry intact Thigh compartments soft Motor and sensory intact distally Tolerates gentle hip flexion extension and logroll without difficulty Objective Last Vital Signs Temp 99.1 F 12/30/21 15:34 Pulse 72 12/30/21 15:34 Resp 18 12/30/21 15:34 BP 132/60 12/30/21 15:34 Pulse Ox 96 12/30/21 15:34
[2021-12-30 20:25] VITALS: BP 145/74; PULSE 75; RESP 18; TEMP 36.7; O2SAT 92
[2021-12-31 05:56] VITALS: BP 168/73; PULSE 83; RESP 19; TEMP 37.5; O2SAT 92
[2021-12-31 07:13] LABS: Abs Immature Grans 0.03 10^3/uL (0.0-0.06); Absolute Eosinophil Count 0.15 10^3/uL (0.0-0.7); Absolute Lymphocyte Count 2.34 10^3/uL (1.2-3.4); Absolute Monocyte Count 0.98 10^3/uL (0.1-0.8); Absolute Neutrophil Count 8.03 10^3/uL (1.2-6.7); Basophils % 0.3; Eosinophils % 1.3; HGB 9.1 g/dL (11.2-15.7); Immature Grans % 0.3; Lymphocytes % 20.2; MCH 30.2 pg (27.0-33.0); MCHC 33.7 % (32.0-36.0); MCV 89.7 fL (80-95); MPV 10.5 fL (8.0-11.0); Monocytes % 8.5; Neutrophils % 69.4; Nucleated RBC 0 %; Platelet Count 166 10^3/uL (130-400); RBC 3.01 10^6/uL (3.93-5.22); RDW 11.9 % (11.7-14.6); WBC 11.57 10^3/uL (4.4-10.8)
[2021-12-31 07:14] LABS: Absolute Basophil Count 0.03 10^3/uL (0.0-0.2)
[2021-12-31 07:21] VITALS: BP 159/74; PULSE 82; RESP 16; TEMP 37.6; O2SAT 94
[2021-12-31 07:35] LABS: Anion Gap 7.8 mmol/L (3-11); BUN 13 mg/dL (7-18); CO2 28.2 mmol/L (21.0-32.0); CREATININE 0.5 mg/dL (0.55-1.02); Calcium 8.6 mg/dL (8.5-10.1); Chloride 93 mmol/L (98-107); Glucose 112 mg/dL (74-106); Potassium 3.4 mmol/L (3.5-5.1); Sodium 129 mmol/L (136-145)
[2021-12-31] MEDS: Enoxaparin 40 MG/0.4 ML SYR SC (07:49)
[2021-12-31] MEDS: Polyethylene Glycol 3350 17 GM PACKET PO (07:49)
[2021-12-31] MEDS: Thiamine 100 MG TAB PO (07:50)
[2021-12-31] MEDS: Acetaminophen 325 MG TAB 650 MG PO ×2 (07:50→12:11)
[2021-12-31] MEDS: Calcium 600mg/Vit D 200U TAB 1 TAB PO (07:50)
[2021-12-31] MEDS: Docusate Sodium 100 MG CAP PO (07:50)
[2021-12-31] MEDS: Omeprazole 20 MG CAPCR PO (07:50)
[2021-12-31] MEDS: Metoprolol CR 50 MG TABCR PO (07:50)
[2021-12-31] MEDS: Ketorolac 15 MG/ML VIAL IVP (08:03)
[2021-12-31] MEDS: Normal Saline Flush 10 ML SYR IVP (08:03)
--- NOTE | 2021-12-31 10:22 | PDOC.CMPRO ---
- If Service Date Differs Date of service: 12/31/21 Time of Service: 10:22 Care Management Progress Note S/O:Eloina was transitioned to [facility] today for continued rehab prior to returning home. Anticipated length of stay is about one week, possibly less. She has had a 3 night qualifying stay and has medicare as her primary insurance. A: Eloina is an 81 year old woman admitted on 12/27/21 with a fractured hip P:Eloina would like to be discharged home with new home health services, however PT has recommended a SNF for short term rehab. The decision was made to transition her to [facility] for a few days prior to returning home. Eloina will follow up with her community providers and plan of care and transport with family. CM will continue to support Eloina and her discharge concerns.
[2021-12-31 11:21] LABS: Magnesium 1.9 mg/dL (1.8-2.4)
--- NOTE | 2021-12-31 11:57 | DSE_ITS ---
Date of service: 12/31/21 Time of Service: 11:57 DS: Diagnosis Discharge Diagnosis (1) Left displaced femoral neck fracture: Discharge Plan Disposition Patient Disposition: [facility] SWING BED LEVEL 1 Condition: Improving Discharge Details Reason For Visit: Left Hip Fracture Admit Date/Time: 12/27/21 22:16 Admit Provider: Werner Jon Attending Provider: Werner Jon Primary Care Provider: Kristina Bernal Hospital Course Hospital Course: This 81-year-old female who presented to the ED with left hip pain.? This morning she was at home by herself and thinks she tripped on a rug or her knee gave out, she is not quite sure.? She landed on her left hip but did not have a head injury.? She came here to be seen although she did have some difficulty ambulating at that time.? X-rays and labs were done at that time but no definite hip fracture was seen.? She was discharged to home and her symptoms got worse and she found that she cannot bear weight at all on the leg so returned. left hip repeat X-ray reveals a left hip fracture, concerning to be pathological.? She was medically cleared and underwent surgical repair on December 28, 2021 with no complications. Postoperative course complicated with constipation and pain which was managed with medication adjustment. She was re-ambulated well with PT and slowly progressing. PT has recommended skilled rehab prior to returning home. She will be discharged here to continue PT/OT prior to returning home, likely next week. discharge discussed with Dr Roblero Home Meds and New Rx's Prescriptions: No Action budesonide 3 mg capsule,delayed,extend.release 3 mg PO DAILY 0RF thiamine mononitrate (vit B1) 100 mg tablet 100 mg PO DAILY 0RF folic acid 20 mg capsule 20 mg PO DAILY 0RF metoprolol succinate 50 mg tablet extended release 24 hr 50 mg PO DAILY Qty: 90 3RF Rx Instructions: Hold if pulse < 60 ketorolac 15 mg/mL Syringe 15 mg IV Q6H PRN PRN0RF Rx Instructions: Getting while in hospital. magnesium hydroxide [Milk Of Magnesia Concentrated] 2,400 mg/10 mL Suspension 30 ml PO PRN PRN0RF acetaminophen 650 mg Tablet 650 mg PO QID 0RF miconazole nitrate [Jocelyne] 2 % Cream 1 applic TOPICAL DAILY PRN0RF bisacodyl 10 mg Suppository 10 mg AL DAILY PRN0RF docusate sodium [Colace] 100 mg Capsule 100 mg PO BID 0RF calcium carbonate [Tums 500] 500 mg calcium (1,250 mg) Tablet,Chewable 500 mg PO QID PRN0RF enoxaparin [Lovenox] 40 mg/0.4 mL Syringe 40 mg SUBCUT DAILY 0RF hydrocortisone 2.5 % Cream 1 applic TOPICAL TID PRN0RF omeprazole 20 mg Capsule,Delayed Release(Dr/Ec) 20 mg PO DAILY 0RF polyethylene glycol 3350 17 gram Powder In Packet 17 g PO DAILY 0RF potassium chloride 20 mEq Tablet Extended Release 40 meq PO BID 0RF tapentadol 50 mg Tablet 50 mg PO Q6H PRN0RF Discharge Instructions Instructions: Hip Fracture (ED) Referrals: Derik Maldonado MD [ [facility] STAFF PHYSICIAN] - 01/20/22 1:00 pm Activity:: Activity as Tolerated Equipment/Supplies:: Walker Diet:: As Tolerated Discharge Orders Discharge Orders: Discharge Order (Routine); Ordered 12/31/21 Ordered By: Christina Urias Discharge Data Discharge Date/Time-TO BE ENTERED AT DEPARTURE: 12/31/21 12:35 DS: Summary Time Spent with Patient providing and/or coordinating discharge services: Greater than 30 minutes Status at Discharge Functional status at discharge: uses cane/walker Overall status at discharge: patient is progressing back to baseline Mental Status: mental status grossly normal Speech and Movement: speech and movement normal Mood: congruent mood Affect: normal affect Exam Const General: cooperative, comfortable, no acute distress and frail appearing (elderly female of stated age) Nutritional Appearance: average body habitus Orientation: alert, awake and oriented x3 HENMT Head: normal to inspection, normocephalic and atraumatic Mouth: oral mucosae normal Resp Effort & Inspection: normal respiratory effort Auscultation: clear to auscultation bilaterally Cardio Rate: regular rate Rhythm: regular rhythm GI Inspection: normal to inspection Palpation: soft and nontender Skin Lesions: other (surgical dressing intact, no drainage no surrounding erythema) Rashes: no rashes Neuro General: patient alert, patient awake, patient oriented x3 and no focal motor deficits Cognition: normal cognition Speech: speech normal Motor: muscle tone normal throughout Sensory Exam: no sensory deficits noted Extrem General: edema (trace left lower) Psych Appearance: grossly normal Mental Status: mental status grossly normal Speech and Movement: speech and movement normal Mood: congruent mood Affect: normal affect Attitude: cooperative Thought Process: normal Thought Content: normal Insight: insight good Judgment: judgment good DS: Data Vitals/I&O Vitals and I&O: Vital Signs Temperature 37.6 C H 12/31/21 07:21 Temperature Source Tympanic 12/31/21 07:21 Pulse 82 12/31/21 07:21 Pulse Rhythm Regular 12/31/21 07:50 Respiratory Rate 16 12/31/21 07:21 Respiratory Effort Non-Labored 12/31/21 07:50 Respiratory Depth Normal 12/31/21 07:50 Respiratory Pattern Normal 12/31/21 07:50 Blood Pressure 159/74 H 12/31/21 07:21 Blood Pressure Position Supine 12/27/21 18:48 Pulse Oximetry 94 12/31/21 07:21 Respiratory End-tidal CO2 38 12/28/21 11:40 Oxygen Delivery Method Room Air 12/31/21 07:21 Oxygen Flow Rate 0 12/31/21 07:21 Pain Level 1 12/31/21 07:21 Comment 12/28/21 16:05 Intake & Output 12/30/21 12/30/21 12/31/21 11:59 23:59 11:59 Intake Total 470 / 800 330 / 800 470 / 470 Output Total 480 / 1180 700 / 1180 1500 / 1500 Balance -10 / -380 -370 / -380 -1030 / -1030 Intake: IV 10 10 / 10 Oral 460 / 780 320 / 780 460 / 460 Output: Urine 480 / 1180 700 / 1180 1500 / 1500 Other: Urine Color Light Raya Light Raya Yellow Urine Appearance Clear Clear Clear Urine Odor Normal Comment pT voidied maybe about 50ml. Stool Size Moderate Stool Characteristics Hard Voiding Methods Bedpan Toilet Data Completed and Pending Labs on day of discharge: Labs from last 24 hours 12/31/21 12/31/21 12/31/21 06:40 06:40 06:40 WBC 11.57 H RBC 3.01 L Hgb 9.1 L Hct 27.0 L MCV 89.7 MCH 30.2 MCHC 33.7 RDW 11.9 Plt Count 166 MPV 10.5 Immature Gran % 0.3 Neutrophils % 69.4 Lymphocytes % 20.2 Monocytes % 8.5 Eosinophils % 1.3 Basophils % 0.3 Nucleated RBC % 0 Absolute Neutrophils 8.03 H Absolute Lymphocytes 2.34 Absolute Monocytes 0.98 H Absolute Eosinophils 0.15 Absolute Basophils 0.03 Sodium 129 L Potassium 3.4 L Chloride 93 L Carbon Dioxide 28.2 Anion Gap 7.8 BUN 13 Creatinine 0.5 L Estimated GFR/1.73 m2 >= 60.00 Glucose 112 H Calcium 8.6 Magnesium 1.9 PFSH All Active Problems (Updated 01/01/22 @ 00:06 by LINDSEY ROMEO) Closed hip fracture requiring operative repair with routine healing (Acute) Impaired mobility (Acute) Pain (Acute) Degenerative arthritis (Chronic) Conductive hearing loss, external ear (Acute) Blood in right ear canal (Acute) Insomnia (Acute) Anemia (Chronic) Pulmonary embolism (Chronic) Hiatal hernia (Chronic) Vitamin D deficiency (Acute) GERD (gastroesophageal reflux disease) (Chronic) DJD (degenerative joint disease) (Chronic) Cervicalgia (Acute) Cervical stenosis of spine (Acute) Chronic low back pain (Acute) Prediabetes (Acute) Anxiety (Chronic) Dysuria (Acute) Colitis (Acute) 04/2021. Dx by colonoscopy after months of diarrhea. Rx Budesonide XR Hypokalemia (Acute) Diarrhea (Acute) Encounter for pessary maintenance (Acute) Urinary incontinence (Chronic) 2019. Stress incontinence worse after robotic hysterectomy. Patient is reluctant to be evaluated by urology since she has had several surgeries in this past year. Breast cancer, left (Acute) 10/2019. Receives care at [facility] Fitting and adjustment of pessary (Acute) 2019. #3 (70mm) donut. 05/2021. 64mm donut fitted Allergy to latex (Acute) Allergy to NSAIDs (Acute) Seborrheic dermatitis of scalp (Acute) Dermatitis, drug-induced (Acute) Vaginal vault prolapse after hysterectomy (Acute) Pelvic organ prolapse prior to her hysterectomy for endometrial cancer was treated with: longstanding use of 70mm (#4) ring pessary. 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. Started on prednisone will follow-up at [facility] Medical History (Updated 01/01/22 @ 00:06 by LINDSEY ROMEO) Carpal tunnel syndrome on both sides L>R. Not treated. 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 Postop recommendations: Vaginal cuff brachytherapy (w/o 10-15% recurrence) Postop: Year 1 gynecologic oncology visit every 3 months no Pap testing indicated. Year 2-5 alternate visits between bottom pounder cement shoes and gynecologic oncologist every 6 months. No Pap indicated. H/O solar lentigo with atypical melanocytic hyperplasia, lichenoid inflammation and dermal melanophages History of cataract History of diverticulitis History of endometrial biopsy History of endometrial cancer Hypertension Left displaced femoral neck fracture Lumbar spinal stenosis Tubular carcinoma of left breast Ulnar neuropathy Vaginal prolapse longstanding use of 70mm (#4) ring pessary. 07/2018 increased size to # 6 ring pessary with support. 12/09/18 Size again decreased to #4 ring w/ support secondary to vaginal excoriation. Surgical History History of carpal tunnel release History of neck surgery (~2016) History of partial mastectomy of left breast History of right breast biopsy History of robot-assisted laparoscopic hysterectomy With BSO and sentinel lymph node biopsy at [facility] for endometrial carcinoma. Family History Mother , 76 Hypertension Hyperlipidemia Father , 70 Alcohol use disorder Cancer Heart disease Hypertension Hyperlipidemia Sister , 77 Cancer Heart disease Sister No problems noted. Sister , 69 Cancer Substance use disorder Son Hyperlipidemia Hypertension Daughter Hypertension Hyperlipidemia Daughter No problems noted. Social History Smoking/Tobacco Use Status: Never Second Hand Exposure: Yes Smoking risk assessment performed?: Yes Alcohol Intake: never Drug use: Never Substance use type: does not use Caregiver/Support person: No Housing: house Communication Needs: None Do you need help understanding health information?: Rarely Pets and animals: Yes Pets and animals: dog(s) Sexually active: No Do you think of yourself as: straight/heterosexual What is your relationship status?: How often do you talk on the phone with friends or family?: once per week How often do you get together with friends or relatives?: decline to answer How often do you attend yazdanism or presybeterian services?: decline to answer Do you belong to any clubs or organized social groups?: decline to answer Panel score (0-1 are the most socially isolated patients): 1 What type of physical activity do you participate in: weight lifting Frequency: 1-2 times per week Melia/Restorationism: Pentecostalism Seatbelt use: always Helmet use: No Drive intox or ride w/intox milk driver: No Do you feel safe at home: Yes Do you feel safe in your relationship?: Yes Female Reproductive History Menstrual Menopause type: natural History History 3 Para Hx # Term Pregnancies 3 Multiple births Hx # Pregnancies Ectopic pregnancies AB induced Hx Number of Living Children AB spontaneous
[2021-12-31] MEDS: Potassium Chloride 20 MEQ TABCR 40 MEQ PO (12:11)
--- NOTE | 2022-01-01 08:15 | INDS_ITS ---
Date of service: 01/01/22 Time of Service: 08:00 PT Notes Visit Reasons: Left Hip Fracture Physical Therapy Inpatient Discharge Summary Date: 01/01/2022 Precautions: Fall. Standard.? WBAT on left LE with AD.? Posterior hip precautions in place. Patient Profile/Admitting Diagnosis: Patient converted to swing bed level I of care as of 01/01/2022. Eloina is an 81-year-old female with left displaced pathologic femoral neck fracture and is status post left posterior hip hemiarthroplasty on postoperative day 4. PMHX: All Active Problems? Closed left hip fracture (Acute) Left displaced femoral neck fracture (Acute) Fall (Acute) Degenerative arthritis (Chronic) Conductive hearing loss, external ear (Acute) Blood in right ear canal (Acute) Insomnia (Acute) Anemia (Chronic) Pulmonary embolism (Chronic) Hiatal hernia (Chronic) Vitamin D deficiency (Acute) GERD (gastroesophageal reflux disease) (Chronic) DJD (degenerative joint disease) (Chronic) Cervicalgia (Acute) Cervical stenosis of spine (Acute) Chronic low back pain (Acute) Prediabetes (Acute) Anxiety (Chronic) Dysuria (Acute) Colitis (Acute) 04/2021. Dx by colonoscopy after months of diarrhea. Rx Budesonide XR Hypokalemia (Acute) Diarrhea (Acute) Encounter for pessary maintenance (Acute) Urinary incontinence (Chronic) 2019.? Stress incontinence worse after robotic hysterectomy.? Patient is reluctant to be evaluated by urology since she has had several surgeries in this? past year. Breast cancer, left (Acute) 10/2019.? Receives care at [facility] Fitting and adjustment of pessary (Acute) 2019. #3 (70mm) donut. 05/2021. 64mm donut fitted Allergy to latex (Acute) Allergy to NSAIDs (Acute) Seborrheic dermatitis of scalp (Acute) Dermatitis, drug-induced (Acute) Vaginal vault prolapse after hysterectomy (Acute) Pelvic organ prolapse prior to her hysterectomy for endometrial cancer was treated with: longstanding use of 70mm (#4) ring pessary. 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 Started on prednisone will follow-up at [facility] Medical History? Carpal tunnel syndrome on both sides L>R. Not treated.Cystocele and rectocele with complete uterovaginal prolapse Grade 1 malignant neoplasm of endometrium 05/25/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 Postop recommendations: Vaginal cuff brachytherapy (w/o 10-15% recurrence) Postop: Year 1 gynecologic oncology visit every 3 months no Pap testing indicated. Year 2-5 alternate visits between salary and wage administrator and gynecologic oncologist every 6 months.? No Pap indicated.H/O solar lentigo with atypical melanocytic hyperplasia, lichenoid inflammation and dermal melanophagesHistory of cataract History of diverticulitis History of endometrial biopsy History of endometrial cancer Lumbar spinal stenosis Tubular carcinoma of left breast Ulnar neuropathy Vaginal prolapse longstanding use of 70mm (#4) ring pessary. 07/2018 increased size to? # 6 ring pessary with support. 12/09/18 Size again decreased to? #4 ring w/ support secondary to vaginal excoriation. Surgical History? History of carpal tunnel release History of neck surgery (~2016) History of partial mastectomy of left breast History of right breast biopsy History of robot-assisted laparoscopic hysterectomy With BSO and sentinel lymph node biopsy at [facility] for endometrial carcinoma. Subjective: NT. See most recent HAND WRAPPER OPERATOR notes. Objective: General Observation: NT. See most recent HAND WRAPPER OPERATOR notes. Mental Status: NT. See most recent HAND WRAPPER OPERATOR notes. Pain: NT. See most recent HAND WRAPPER OPERATOR notes. ROM: Right Lower Extremity: Hip flexion WFL. Hip abduction WFL. Knee flexion WFL. Ankle dorsiflexion WFL. Ankle plantarflexion WFL. Left Lower Extremity: Hip flexion lacks 75% of mobility and motion due to pain. Hip abduction acks 75% of mobility and motion due to pain. Knee flexion acks 75% of mobility and motion due to pain. Ankle dorsiflexion WFL. Ankle plantarflexion WFL. Strength: Right Lower Extremity: Hip flexors 5/5. Hip abductors 5/5. Knee flexors 5/5. Knee extensors 5/5. Ankle dorsiflexors 5/5. Ankle plantarflexors 5/5. Left Lower Extremity: Hip flexors 2-/5. Hip abductors 2-/5. Knee flexors 2-/5. Knee extensors 2-/5. Ankle dorsiflexors 3-/5. Ankle plantarflexors 3-/5. Bed Mobility/Transfers: Supine to sit stand by assist Sit to stand with stand by assist Stand to sit with stand by assist Gait: Instructed patient with level surface ambulation of 60 feet requiring stand by assist. Step through gait pattern.? No antalgia seen.? Cues given only for posture and directional change. Balance: Static Sitting: Normal Dynamic Sitting: Normal Static Standing: Fair Dynamic Standing: Fair ASSESSMENT: Progressing well in terms of pain tolerance, ambulation performance and exercises tolerance.? Continue to premedicate for pain to maximize exercise performance. Patient requires the use of a front-wheeled walker and assistance of 1 person for all transfers and ambulation test performance.?Continued services are needed to address the following functional impairments and mobility deficits.? Based on today's examination,? prognosis for achieving goals below are good.? Patient presents with clinical signs and symptoms consistent with current/admitting diagnoses that have resulted to mobility limitations, gait instability, generalized weakness, and overall ADL decline as demonstrated by the following impairment level findings: 1.? Decreased strength to right hip major muscle groups 2.? Impaired sitting/standing balance 3.? Impaired activity tolerance 4.? Limitation of joint range of motion in right hip and knee 5.? Increased anxiety over weightbearing due to pain 6.? Pain at 10/10 with weight bearing Impairments are contributing to the following functional limitations: 1.? Decline in bed mobility skills 2.? Decline in transfer skills 3.? Difficulty with ambulation without assistive device and physical assistance 4.? Increased completion time for mobility ADL performance 5.? Increased risk for falls 6.? Difficulty with managing steps alone safely Patient is assessed [place] a [id number] moderate complexity based on the following: History: 81-year-old female with past medical history as indicated above Examination: Demonstrable impairment in strength, balance, and mobility level with underlying impairments and functional limitations as exhibited above as well as deficit score of 73% utilizing the [facility] Mobility Inpatient Short Form Presentation: Evolving Decision Makin moderate complexity Goals: Goals X1 week 1. Supine-Sit independent NOT MET 2. Sit-Supine independent NOT MET 3. Sit-Stand independent NOT MET 4. Stand-Sit independent with FWW NOT MET 5. Bed-Chair independent with FWW NOT MET 6. Chair-Bed independent with FWW NOT MET 7. Independent gait on level surface with use of FWW for at least 300 feet without report of pain nor dyspnea NOT MET 10. Fair static and dynamic standing balance/tolerance NOT MET DISCHARGE RECOMMENDATIONS: [] ? Home with no services [] [X] ? Home with services [specify].? Patient will benefit from home health PT services in order to progress mobility level using least restrictive assistive ambulatory device, assess home safety, identify additional equipment needs, and establish a functional maintenance program that will increase ability of patient to remain at home. [] ? Home with outpatient PT [] [] ? SNF for continued short-term rehabilitation [] [] ? Alf Care [] [] ? SNF versus LTC based on ability to participate and progress [] TREATMENT CODE/TIME: NC Thank you for the opportunity to participate in the care of this patient. Mira Echavarria PT, DPT, CLT [facility] [place], [place]
== END 2021-12-31 12:35 | disposition swing bed (61) | DRG 522 ==
LOC: ER 22:23 → MS 23:41
PROVIDERS: Internal Medicine; Nurse Practitioner Acute Care; Nurse Practitioner Family; Student in an Organized Health Care Education/Training Program; Admitting Provider Family Medicine; Emergency Provider Physician Assistant; Visit Provider Family Medicine
PROC: 0SRS0JA Replacement of Left Hip Joint, Femoral Surface with Synthetic Substitute, Uncemented, Open Approach (ICD-10-PCS; CPT 27125; principal; 2021-12-28 07:40)
DX: M84.452A Pathological fracture, left femur, initial encounter for fracture (principal); N39.0 Urinary tract infection, site not specified; D64.9 Anemia, unspecified; G47.00 Insomnia, unspecified; K44.9 Diaphragmatic hernia without obstruction or gangrene; K21.9 Gastro-esophageal reflux disease without esophagitis; E55.9 Vitamin D deficiency, unspecified; R73.03 Prediabetes; E87.6 Hypokalemia; F41.9 Anxiety disorder, unspecified; M54.50 Low back pain, unspecified; N39.3 Stress incontinence (female) (male); N99.3 Prolapse of vaginal vault after hysterectomy; I10 Essential (primary) hypertension; M48.062 Spinal stenosis, lumbar region with neurogenic claudication; W19.XXXA Unspecified fall, initial encounter; Z86.711 Personal history of pulmonary embolism; Z85.42 Personal history of malignant neoplasm of other parts of uterus; Z85.3 Personal history of malignant neoplasm of breast; Z85.038 Personal history of other malignant neoplasm of large intestine; M85.852 Other specified disorders of bone density and structure, left thigh
CPT/HCPCS: 27236; 20245; 29505; 36415; 51702; 73552; 74177; 80048; 80053; 82306; 87077; 87635; 88305; 93005; 96374; 97110; 97116; 97162; 97530; 99223; 99284; 99285; J1650; 71260; 72170; 73030; 73502; 81003; 81015; 83735; 84132; 84484; 85025; 87086; 87186; 88304; 88311; 99222; 99233; J0690; J0696; J1100; J1885; J2270; J2405; J3480; J3490

== ENCOUNTER 2021-12-31 12:34 | Inpatient (IN) | payer MEDICARE, SELFPAY ==
--- NOTE | 2021-12-31 | DI.RAD_ITS ---
Exam(s) XR KNEE LT 3V AP,LAT,DOTTIE EXAM: XR KNEE LT 3V AP,LAT,DOTTIE CLINICAL HISTORY: pain and swelling, s/p fall several days ago. TECHNIQUE: 2D digital imaging was performed of the left knee. Four images were obtained. AP, later al, Merchant and PA tunnel views were obtained. COMPARISON: No previous for comparison. FINDINGS: BONES: No acute fracture is present. No bony destructive lesion is seen. 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 The findings are most marked in the lateral femoral tibial and patellofem oral joint. There is a small effusion. SOFT TISSUE: There is a small amount of subcutaneous air in the lateral thigh. IMPRESSION: 1. No acute fracture or dislocation. 2. Subcutaneous air in the soft tissues of the lateral thigh. Please correlate clinically. DATA REPOSITORY: RADIATION DOSE DELIVERED:
--- NOTE | 2021-12-31 12:47 | HPE_ITS ---
Date of service: 12/31/21 Time of Service: 12:47 Assessment and Plan Assessment and plan (1) Closed hip fracture requiring operative repair with routine healing: Status: Acute Assessment and plan: pod 4 from left hip hemiarthroplasty with bone biopsy (suspected pathologic fracture) Encouraged to continue working with physical therapy to mobilize and make progress each day Continue multimodal pain control, physical therapy, DVT prophylaxis, and follow- up bone pathology results when available Physical therapy ordered: Weightbearing as tolerated with assist device- ordered Chemical DVT prophylaxis: recommend ASA 325 mg BID x30 days (Lovenox reasonable while inpatient) Mechanical DVT prophylaxis with SCDs and/or NOÉ hose Discharge when medically appropriate Follow-up with Dr. Maldonado outpatient [facility] orthopedics in 2 to 3 weeks (2) Pain: Status: Acute (3) Hypokalemia: Status: Acute Assessment and plan: was 3.4, magnesium checked and in normal range at 1.9 repleted orally and will follow. labs scheduled on 01/04/22 (4) DVT prophylaxis: Status: Deleted Assessment and plan: will need 30 day postoperatively. allergic to asa which she reports caused hives. tolerating enoxaparin. (5) Discharge planning issues: Status: Deleted Assessment and plan: case management following plan is to rehab here until she has met her inpatient rehab potential and then discharge to home with full services, anticipate next week. discussed with DR Roblero History of Present Illness History of Present Illness Chief Complaint: left hip pain Narrative: This 81-year-old female who presented to the ED with left hip pain.? This morning she was at home by herself and thinks she tripped on a rug or her knee gave out, she is not quite sure.? She landed on her left hip but did not have a head injury.? She came here to be seen although she did have some difficulty ambulating at that time.? X-rays and labs were done at that time but no definite hip fracture was seen.? She was discharged to home and her symptoms got worse and she found that she cannot bear weight at all on the leg so returned. left hip repeat X-ray reveals a left hip fracture, concerning to be pathological.? She was medically cleared and underwent surgical repair on December 28, 2021 with no complications.? Postoperative course complicated with constipation and pain which was managed with medication adjustment.? She was re-ambulated well with PT and slowly progressing.? PT has recommended skilled rehab prior to returning home.? She is being admitted here to continue PT/OT prior to returning home, likely next week.? Review of Systems Constitutional Constitutional: Denies fever(s) Eyes Eyes: Denies change in vision ENT Ears, Nose, Mouth, and Throat: Denies vertigo Cardiovascular Cardiovascular: Denies chest pain and Denies dyspnea Respiratory Respiratory: Denies cough and Denies dyspnea Gastrointestinal Gastrointestinal: Denies abdominal pain, Denies constipation, Denies diarrhea and Denies nausea Genitourinary Genitourinary: Reports other (no signs of retention since blanchard discontinued,) Comments: has incontinence which is baseline Musculoskeletal Musculoskeletal: Reports arthralgias and Denies joint swelling Neurologic Neurologic: Denies confusion and Denies vertigo Psychiatric Psychiatric: Denies confusion PFSH All Active Problems (Updated 01/01/22 @ 00:06 by LINDSEY ROMEO) Closed hip fracture requiring operative repair with routine healing (Acute) Impaired mobility (Acute) Pain (Acute) Degenerative arthritis (Chronic) Conductive hearing loss, external ear (Acute) Blood in right ear canal (Acute) Insomnia (Acute) Anemia (Chronic) Pulmonary embolism (Chronic) Hiatal hernia (Chronic) Vitamin D deficiency (Acute) GERD (gastroesophageal reflux disease) (Chronic) DJD (degenerative joint disease) (Chronic) Cervicalgia (Acute) Cervical stenosis of spine (Acute) Chronic low back pain (Acute) Prediabetes (Acute) Anxiety (Chronic) Dysuria (Acute) Colitis (Acute) 04/2021. Dx by colonoscopy after months of diarrhea. Rx Budesonide XR Hypokalemia (Acute) Diarrhea (Acute) Encounter for pessary maintenance (Acute) Urinary incontinence (Chronic) 2019. Stress incontinence worse after robotic hysterectomy. Patient is reluctant to be evaluated by urology since she has had several surgeries in this past year. Breast cancer, left (Acute) 10/2019. [place] [facility] Fitting and adjustment of pessary (Acute) 2019. #3 (70mm) donut. 05/2021. 64mm donut fitted Allergy to latex (Acute) Allergy to NSAIDs (Acute) Seborrheic dermatitis of scalp (Acute) Dermatitis, drug-induced (Acute) Vaginal vault prolapse after hysterectomy (Acute) Pelvic organ prolapse prior to her hysterectomy for endometrial cancer was treated with: longstanding use of 70mm (#4) ring pessary. 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 Started on prednisone will follow-up at [facility] Medical History (Updated 01/01/22 @ 00:06 by LINDSEY ROMEO) Carpal tunnel syndrome on both sides L>R. Not treated. 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 Postop recommendations: Vaginal cuff brachytherapy (w/o 10-15% recurrence) Postop: Year 1 gynecologic oncology visit every 3 months no Pap testing indicated. Year 2-5 alternate visits between order entry representative and gynecologic oncologist every 6 months. No Pap indicated. H/O solar lentigo with atypical melanocytic hyperplasia, lichenoid inflammation and dermal melanophages History of cataract History of diverticulitis History of endometrial biopsy History of endometrial cancer Hypertension Left displaced femoral neck fracture Lumbar spinal stenosis Tubular carcinoma of left breast Ulnar neuropathy Vaginal prolapse longstanding use of 70mm (#4) ring pessary. 07/2018 increased size to # 6 ring pessary with support. 12/09/18 Size again decreased to #4 ring w/ support secondary to vaginal excoriation. Surgical History History of carpal tunnel release History of neck surgery (~2016) History of partial mastectomy of left breast History of right breast biopsy History of robot-assisted laparoscopic hysterectomy With BSO and sentinel lymph node biopsy [place] [facility] [place]. Family History Mother , 76 Hypertension Hyperlipidemia Father , 70 Alcohol use disorder Cancer Heart disease Hypertension Hyperlipidemia Sister , 77 Cancer Heart disease Sister No problems noted. Sister , 69 Cancer Substance use disorder Son Hyperlipidemia Hypertension Daughter Hypertension Hyperlipidemia Daughter No problems noted. Social History Smoking/Tobacco Use Status: Never Second Hand Exposure: Yes Smoking risk assessment performed?: Yes Alcohol Intake: never Drug use: Never Substance use type: does not use Caregiver/Support person: No Housing: house Communication Needs: None Do you need help understanding health information?: Rarely Pets and animals: Yes Pets and animals: dog(s) Sexually active: No Do you think of yourself as: straight/heterosexual What is your relationship status?: How often do you talk on the phone with friends or family?: once per week How often do you get together with friends or relatives?: decline to answer How often do you attend mormonism or jain services?: decline to answer Do you belong to any clubs or organized social groups?: decline to answer Panel score (0-1 are the most socially isolated patients): 1 What type of physical activity do you participate in: weight lifting Frequency: 1-2 times per week Melia/Congregation: [employer]oration Seatbelt use: always Helmet use: No Drive intox or ride w/intox 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: No Do you feel safe at home: Yes Do you feel safe in your relationship?: Yes Female Reproductive History Menstrual Menopause type: natural History History 3 Para Hx # Term Pregnancies 3 Multiple births Hx # Pregnancies Ectopic pregnancies AB induced Hx Number of Living Children AB spontaneous Meds Allergies and Home Medications Allergies Allergy/AdvReac Type Severity Reaction Status Date / Time nabumetone Allergy Severe hives and Verified 12/27/21 18:54 a skin rash aspirin Allergy Intermediate Verified 12/27/21 18:54 gluten Allergy Intermediate rash Verified 12/27/21 18:54 ibuprofen Allergy Intermediate Verified 12/27/21 18:54 Sulfa (Sulfonamide Allergy Mild Verified 12/27/21 18:54 Antibiotics) enalapril Allergy Unknown Verified 12/27/21 18:54 latex Allergy Unknown Verified 12/27/21 18:54 lactose AdvReac Verified 12/27/21 18:54 Home Medications Medication Instructions Recorded Confirmed Type budesonide 3 mg 3 mg PO DAILY 05/29/21 12/31/21 History capsule,delayed,extended release folic acid 20 mg capsule 20 mg PO DAILY 07/22/21 12/31/21 History thiamine mononitrate (vit B1) 100 100 mg PO DAILY 07/22/21 12/31/21 History mg tablet metoprolol succinate 50 mg 50 mg PO DAILY #90 tab 09/29/21 12/31/21 Rx tablet,extended release 24 hr acetaminophen 650 mg tablet 650 mg PO QID 12/31/21 12/31/21 History bisacodyl 10 mg rectal suppository 10 mg MO DAILY PRN 12/31/21 12/31/21 History calcium carbonate 500 mg calcium 500 mg PO QID PRN 12/31/21 12/31/21 History (1,250 mg) chewable tablet docusate sodium 100 mg capsule 100 mg PO BID 12/31/21 12/31/21 History (Colace) enoxaparin 40 mg/0.4 mL 40 mg SUBCUT DAILY 12/31/21 12/31/21 History subcutaneous syringe (Lovenox) hydrocortisone 2.5 % topical cream 1 applic TOPICAL TID PRN 12/31/21 12/31/21 History ketorolac 15 mg/mL injection 15 mg IV Q6H PRN PRN 12/31/21 12/31/21 History syringe magnesium hydroxide 2,400 mg/10 mL 30 ml PO PRN PRN 12/31/21 12/31/21 History oral suspension (Milk Of Magnesia Concentrated) miconazole nitrate 2 % topical 1 applic TOPICAL DAILY PRN 12/31/21 12/31/21 History cream omeprazole 20 mg capsule,delayed 20 mg PO DAILY 12/31/21 12/31/21 History release polyethylene glycol 3350 17 gram 17 g PO DAILY 12/31/21 12/31/21 History oral powder packet potassium chloride 20 mEq 40 meq PO BID 12/31/21 12/31/21 History tablet,extended release tapentadol 50 mg tablet 50 mg PO Q6H PRN 12/31/21 12/31/21 History Exam Const General: cooperative, comfortable, no acute distress and frail appearing (elderly female of stated age) Nutritional Appearance: average body habitus Orientation: alert, awake and oriented x3 HENMT Head: normal to inspection and normocephalic Mouth: oral mucosae normal Chest Chest: normal inspection of the chest Resp Effort & Inspection: normal respiratory effort Auscultation: clear to auscultation bilaterally Cardio Rate: regular rate Rhythm: regular rhythm GI Inspection: normal to inspection Palpation: soft Auscultation: normal bowel sounds Skin General skin exam: no rashes or lesions noted Neuro General: patient alert, patient awake and patient oriented x3 Extrem General: full ROM, no pedal edema and other (surgical dressing intact with no drainage or surrounding erythema)
[2021-12-31 12:48] VITALS: BP 100/50; PULSE 72; RESP 16; TEMP 36.8; O2SAT 95
[2021-12-31 13:12] VITALS: BP 100/50; PULSE 72; RESP 16; TEMP 36.8; O2SAT 95
--- NOTE | 2021-12-31 13:40 | NUR.NOTE ---
Nursing Note:At 1235, patient made swing bed from acute medical bed.
--- NOTE | 2021-12-31 13:52 | CMSCP_ITS ---
- If Service Date Differs Date of service: 12/31/21 Time of Service: 13:52 Swingbed Plan of Care Plan of care: SWING BED PROGRAM ACTIVITIES/DISCHARGE PLAN OF CARE ACTIVITIES PLAN Date:12/31/21 Identified Need: Individualized activity plan Intervention/Plan:Eloina enjoys visiting with staff and talking with friends and family on the phone. She would enjoy pet and music therapy if available. Eloina has declined items from the activity cart. Initials [facility] DISCHARGE PLAN Date:12/31/21 Identified Need: Safe discharge plan Intervention/Plan:Eloina will be discharged home with new home health services for RN,PT,OT and PRINCIPAL AUTOMATION ENGINEER. She will follow up with her PCP and plan of care and transport with family. Initials [facility]
--- NOTE | 2021-12-31 13:55 | CMSA_ITS ---
- If Service Date Differs Date of service: 12/31/21 Time of Service: 13:55 SB Psychosocial/Act.Assessment - Hospital Admission Admission Date: 12/31/21 Admission From:: Inpatient on Med-Surg Diagnosis:: fractured hip - Social Supports PREVIOUS FUNCTIONAL STATUS/SOCIAL/FAMILY SUPPORTS:: Eloina lives in a single family home in [place] with her Dash. They have 2 daughters and one son all of whom live in [place]. They also have 4 grandsons, 2 live locally and the other 2 live out of state. Eloina is independent at baseline and cares for her who has many serious health issues. - Prior to Admission Living Arrangements/Environment Prior to Admission:: see above - Education Highest Grade Completed:: 1 year of college - Work History Employment Status:: Eloina had many different positions in her [employer] and worked at [employer] for last 20 years of employment - : No 's Spouse: No - Benefits Financial: Social Security, Medicare, Commerical - Church Active [employer] Member:: Yes [employer] Affliation: [facility] Physician Asst:: Mervat Blair - Advance Directives for Healthcare Advance Directives for Healthcare: Advance Directives - Interests Hobbies:: sewing, needlepoint, cake decorating Table Games:: used to play with children Music:: country western TV/Movies:: Westerns, musicals, comedy, love stories Gardening:: Eloina loves to garden Reading:: enjoys reading westerns and mysteries and love stories if they have a happy ending - Present Functional Status Physical Abilities:: difficulty with ambulation secondary to hip repair and knee problems Cognitive:: good Communication:: good Sensory Systems: wears glasses Behavior:: appropriate - Medical History PAST MEDICAL HISTORY/PAST SURGICAL HISTORY:: All Active Problems . Closed left hip fracture (Acute). Left displaced femoral neck fracture (Acute). Fall (Acute). Degenerative arthritis (Chronic). Conductive hearing loss, external ear (Acute). Blood in right ear canal (Acute). Insomnia (Acute). Anemia (Chronic). Pulmonary embolism (Chronic). Hiatal hernia (Chronic). Vitamin D deficiency (Acute). GERD (gastroesophageal reflux disease) (Chronic). DJD (degenerative joint disea se) (Chronic). Cervicalgia (Acute). Cervical stenosis of spine (Acute). Chronic low back pain (Acute). Prediabetes (Acute). Anxiety (Chronic). Dysuria (Acute). Colitis (Acute). 04/2021. Dx by colonoscopy after months of diarrhea. Rx Budesonide XR. Hypokalemia (Acute). Diarrhea (Acute). Encounter for pessary maintenance (Acute). Urinary incontinence (Chronic). 2019. Stress incontinence worse after robotic hysterectomy. Patient is reluctant to be evaluated by urology since she has had several surgeries in this past year. Breast cancer, left (Acute). 10/2019. Receives care at [facility]. Fitting and adjustment of pessary (Acute). 2019. #3 (70mm) donut. 05/2021. 64mm donut fitted. Allergy to latex (Acute). Allergy to NSAIDs (Acute). Seborrheic dermatitis of scalp (Acute). Dermatitis, drug-induced (Acute). Vaginal vault prolapse after hysterectomy (Acute). Pelvic organ prolapse prior to her hysterectomy for endometrial cancer was treated with: longstanding use of 70mm (#4) ring pessary. 10/2019 57 mm (#3) donut placed. Pruritic rash (Acute). Environmental allergies (Acute). Itchy skin (Acute). Post-nasal drip (Acute). Chronic allergic rhinitis (Acute). Hypertension (Chronic). 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 Gastroesophageal reflux disease without esophagitis (Chronic 07/21/17). Essential hypertension (Acute 07/21/17). Acute midline low back pain (Acute 07/21/17). 06/29/2017 evaluation at [facility]. Started on prednisone will follow-up at [facility]. Medical History . Carpal tunnel syndrome on both sides. L>R. Not treated. Cystocele and rectocele with complete uterovaginal prolapse. Grade 1 malignant neoplasm of endometrium. 05/25/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 Postop recommendations: Vaginal cuff brachytherapy (w/o 10-15% recurrence). Postop: Year 1 gynecologic oncology visit every 3 months no Pap testing indicated. Year 2-5 alternate visits between heating and cooling systems engineer and gynecologic oncologist every 6 months. No Pap indicated. H/O solar lentigo. with atypical melanocytic hyperplasia, lichenoid inflammation and dermal melanophages. History of cataract. History of diverticulitis. History of endometrial biopsy. History of endometrial cancer. Lumbar spinal stenosis. Tubular carcinoma of left breast. Ulnar neuropathy. Vaginal prolapse. longstanding use of 70mm (#4) ring pessary. 07/2018 increased size to # 6 ring pessary with support. 12/09/18 Size again decreased to #4 ring w/ support secondary to vaginal excoriation. Surgical History . History of carpal tunnel release. History of neck surgery (~2016). History of partial mastectomy of left breast. History of right breast biopsy. History of robot-assisted laparoscopic hysterectomy. With BSO and sentinel lymph node biopsy at [facility] for endometrial carcinoma. General Health:: good - Admission Data Reason for Swing Bed Admission:: PT Discharge Plan:: Home with services annemarie RN,PT,OT,MANAGER OF BUSINESS Juvenile Officer: Helen Light Date Assessment was completed:: 12/31/21
[2021-12-31] MEDS: Normal Saline Flush 10 ML SYR IVP (14:55)
[2021-12-31] MEDS: Acetaminophen 325 MG TAB 650 MG PO ×2 (15:45→20:03)
--- NOTE | 2021-12-31 19:44 | DI.VRAD_ITS ---
PROCEDURE INFORMATION: Exam: XR Left Knee Exam date and time: 12/31/2021 7:24 PM Age: 81 years old Clinical indication: Pain; Knee; Left; Additional info: Left knee pain, no injury TECHNIQUE: Imaging protocol: XR Left knee. Views: 3 views. COMPARISON: CR XR FEMUR LT 12/27/2021 11:32 AM FINDINGS: Bones/joints: Extreme osteoarthritic changes in the lateral compartment. Moderate to severe osteoarthritic changes in the medial and patellofemoral compartments. No acute bony abnormalities. Soft tissues: There appears to be subcutaneous emphysema along the lateral aspect of the distal left thigh. Vascular calcifications are seen throughout. There is suggestion of some mild suprapatellar superficial soft tissue swelling. IMPRESSION: 1. Subcutaneous gas in the lateral aspect of the distal left thigh. Clinical correlation is required. 2. No acute bony abnormalities. 3. Extreme osteoarthritis of the lateral compartment. Dictated and Authenticated by: Niall Webb MD. Ordering:MILKA Vasquez MD
[2021-12-31] MEDS: Docusate Sodium 100 MG CAP PO (20:02)
[2021-12-31] MEDS: Potassium Chloride 20 MEQ TABCR 40 MEQ PO (20:04)
[2022-01-01 07:40] VITALS: BP 127/68; PULSE 73; RESP 24; TEMP 36.6; O2SAT 95
[2022-01-01] MEDS: Metoprolol CR 50 MG TABCR PO (08:43)
[2022-01-01] MEDS: Thiamine 100 MG TAB PO (08:43)
[2022-01-01] MEDS: Potassium Chloride 20 MEQ TABCR 40 MEQ PO ×2 (08:43→20:12)
[2022-01-01] MEDS: Calcium 600mg/Vit D 200U TAB 1 TAB PO (08:43)
[2022-01-01] MEDS: Acetaminophen 325 MG TAB 650 MG PO ×4 (08:43→20:13)
[2022-01-01] MEDS: Omeprazole 20 MG CAPCR PO (08:43)
[2022-01-01] MEDS: Enoxaparin 40 MG/0.4 ML SYR SC (08:45)
--- NOTE | 2022-01-01 09:12 | IN_ITS ---
Date of service: 01/01/22 Time of Service: 09:12 PT Notes Visit Reasons: Left Hip Fracture Physical Therapy Inpatient Swing Bed Level I Initial Evaluation Date: 01/01/2022 Referring Doctor: Adonay Vasquez NP PT Orders: PT CONSULT: WBAT LLE with assist device; progressive ambulation Precautions: Fall. Standard.? WBAT on left LE with AD.? Posterior hip precautions in place. Patient Profile/Admitting Diagnosis: Eloina is an 81-year-old female with left displaced pathologic femoral neck fracture and is status post left posterior hip hemiarthroplasty on postoperative day 4. PMHX: All Active Problems? Closed left hip fracture (Acute) Left displaced femoral neck fracture (Acute) Fall (Acute) Degenerative arthritis (Chronic) Conductive hearing loss, external ear (Acute) Blood in right ear canal (Acute) Insomnia (Acute) Anemia (Chronic) Pulmonary embolism (Chronic) Hiatal hernia (Chronic) Vitamin D deficiency (Acute) GERD (gastroesophageal reflux disease) (Chronic) DJD (degenerative joint disease) (Chronic) Cervicalgia (Acute) Cervical stenosis of spine (Acute) Chronic low back pain (Acute) Prediabetes (Acute) Anxiety (Chronic) Dysuria (Acute) Colitis (Acute) 04/2021. Dx by colonoscopy after months of diarrhea. Rx Budesonide XR Hypokalemia (Acute) Diarrhea (Acute) Encounter for pessary maintenance (Acute) Urinary incontinence (Chronic) 2019.? Stress incontinence worse after robotic hysterectomy.? Patient is reluctant to be evaluated by urology since she has had several surgeries in this past year. Breast cancer, left (Acute) 10/2019.? Receives care at [facility] Fitting and adjustment of pessary (Acute) 2019. #3 (70mm) donut. 05/2021. 64mm donut fitted Allergy to latex (Acute) Allergy to NSAIDs (Acute) Seborrheic dermatitis of scalp (Acute) Dermatitis, drug-induced (Acute) Vaginal vault prolapse after hysterectomy (Acute) Pelvic organ prolapse prior to her hysterectomy for endometrial cancer was treated with: longstanding use of 70mm (#4) ring pessary. 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.? Started on prednisone will follow-up at [facility] Medical History? Carpal tunnel syndrome on both sides L>R. Not treated.Cystocele and rectocele with complete uterovaginal prolapse Grade 1 malignant neoplasm of endometrium 05/25/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 Postop recommendations: Vaginal cuff brachytherapy (w/o 10-15% recurrence) Postop: Year 1 gynecologic oncology visit every 3 months no Pap testing indicated. Year 2-5 alternate visits between kitchen lead and gynecologic oncologist every 6 months.? No Pap indicated.H/O solar lentigo with atypical melanocytic hyperplasia, lichenoid inflammation and dermal melanophagesHistory of cataract History of diverticulitis History of endometrial biopsy History of endometrial cancer Lumbar spinal stenosis Tubular carcinoma of left breast Ulnar neuropathy Vaginal prolapse longstanding use of 70mm (#4) ring pessary. 07/2018 increased size to? # 6 ring pessary with support. 12/09/18 Size again decreased to? #4 ring w/ support secondary to vaginal excoriation. Surgical History? History of carpal tunnel release History of neck surgery (~2016) History of partial mastectomy of left breast History of right breast biopsy History of robot-assisted laparoscopic hysterectomy With BSO and sentinel lymph node biopsy at [facility] for endometrial carcinoma. Social History/Home Situation: Lives with in a private home with a ramp to enter.? No stairs inside the house.? Modified independent with occasional use of single-point cane. Equipment Owned/DME: FWW, Subjective: Agreeable to PT consult.? Reports 3/10 pain at rest and with weight bearing.? Nurse SJ aware and has given pain pill about half an hour ago. Amenable to staying under swing bed level of care for continued rehabilitation. Objective: General Observation: Seated on chair.? IV access in right UE.? Mepilex Ag over surgical incision.? TEDS in the legs.? Mental Status: Alert and oriented as to person, place, time, and purpose.? Pain limiting ability to pay attention, focus, and respond appropriately. Pain: 3/10 in right hip and thigh at rest and with weight bearing ROM: Right Lower Extremity: Hip flexion WFL. Hip abduction WFL. Knee flexion WFL. Ankle dorsiflexion WFL. Ankle plantarflexion WFL. Left Lower Extremity: Hip flexion lacks 75% of mobility and motion due to pain. Hip abduction acks 75% of mobility and motion due to pain. Knee flexion acks 75% of mobility and motion due to pain. Ankle dorsiflexion WFL. Ankle plantarflexion WFL. Strength: Right Lower Extremity: Hip flexors 5/5. Hip abductors 5/5. Knee flexors 5/5. Knee extensors 5/5. Ankle dorsiflexors 5/5. Ankle plantarflexors 5/5. Left Lower Extremity: Hip flexors 2-/5. Hip abductors 2-/5. Knee flexors 2-/5. Knee extensors 2-/5. Ankle dorsiflexors 3-/5. Ankle plantarflexors 3-/5. Bed Mobility/Transfers: Supine to sit stand by assist Sit to stand with stand by assist Stand to sit with stand by assist Gait: Instructed patient with level surface ambulation of 60 feet requiring stand by assist. Step through gait pattern. No antalgia seen. Cues given only for posture and directional change. Balance: Static Sitting: Normal Dynamic Sitting: Normal Static Standing: Fair Dynamic Standing: Fair Special Tests: Mobility Limitations Standardized Measure [facility] 6 clicks Basic Mobility Inpatient Short Form: Raw Score: 23 CMS Score: 11% deficit? ? ? Informed Consent/Education:? Patient was instructed in purpose of PT consult and plan of care. Agreeable to proceed with established PT POC to achieve personal goals. ASSESSMENT: Progressing well in terms of pain tolerance, ambulation performance and exercises tolerance. Continue to premedicate for pain to maximize exercise performance. Patient requires the use of a front-wheeled walker and assistance of 1 person for all transfers and ambulation test performance.?Continued services are needed to address the following functional impairments and mobility deficits. Based on today's examination, prognosis for achieving goals below are good. Patient presents with clinical signs and symptoms consistent with current/admitting diagnoses that have resulted to mobility limitations, gait instability, generalized weakness, and overall ADL decline as demonstrated by the following impairment level findings: 1.? Decreased strength to right hip major muscle groups 2.? Impaired sitting/standing balance 3.? Impaired activity tolerance 4.? Limitation of joint range of motion in right hip and knee 5.? Increased anxiety over weightbearing due to pain 6.? Pain at 10/10 with weight bearing Impairments are contributing to the following functional limitations: 1.? Decline in bed mobility skills 2.? Decline in transfer skills 3.? Difficulty with ambulation without assistive device and physical assistance 4.? Increased completion time for mobility ADL performance 5.? Increased risk for falls 6.? Difficulty with managing steps alone safely Patient is assessed as a 21267 moderate complexity based on the following: History: 81-year-old female with past medical history as indicated above Examination: Demonstrable impairment in strength, balance, and mobility level with underlying impairments and functional limitations as exhibited above as well as deficit score of 73% utilizing the [facility] Mobility Inpatient Short Form Presentation: Evolving Decision Makin moderate complexity Goals: Goals X1 week 1. Supine-Sit independent 2. Sit-Supine independent 3. Sit-Stand independent 4. Stand-Sit independent with FWW 5. Bed-Chair independent with FWW 6. Chair-Bed independent with FWW 7. Independent gait on level surface with use of FWW for at least 300 feet wit hout report of pain nor dyspnea 10. Fair static and dynamic standing balance/tolerance Plan of Care/Treatment Plan: 1-2x/day, 7 days/week x 1 week. Plan of care has been reviewed with the GUMMED TAPE PRESS OPERATOR providing the service under Physical Therapy direction. Initiate Physical Therapy intervention for pain management as needed, strengthening, bed mobility, transfers, gait, stairs, balance training, and use of assistive device. DISCHARGE RECOMMENDATIONS: [] ? Home with no services [] [X] ? Home with services [specify]. Patient will benefit from home health PT services in order to progress mobility level using least restrictive assistive ambulatory device, assess home safety, identify additional equipment needs, and establish a functional maintenance program that will increase ability of patient to remain at home. [] ? Home with outpatient PT [] [] ? SNF for continued short-term rehabilitation [] [] ? Custodial Care [] [] ? SNF versus LTC based on ability to participate and progress [] TREATMENT CODE/TIME: 52094 x 15 minutes, 04720 x 13 minutes beginning at 9:12 AM. Thank you for the opportunity to participate in the care of this patient. Mira Echavarria PT, DPT, CLT [facility] [place], [place]
--- NOTE | 2022-01-01 11:31 | CHAPLAIN ---
I had a brief visit with Eloina. She was up in her chair. She said she's been up and walking but her hip is sore. She spoke about her children. Two live nearby, one elsewhere in the state. She's seems comfortable being and was pleasant to speak with.
--- NOTE | 2022-01-01 15:25 | PT.INTREAT ---
Date of service: 01/01/22 Time of Service: 14:23 PT Notes Visit Reasons: Left Hip Fracture Inpatient Physical Therapy Treatment Note [facility] Date: 01/01/2022 PRECAUTIONS: Fall, WBAT L, Activity as tolerated SUBJECTIVE: Eloina is pleasant and agreeable to participating in PT. She reports that she continues to feel better and feels that she is making good progress with PT. OBJECTIVE: PAIN: Patient c/o L knee pain with gait training BED MOBILITY/TRANSFERS Sit-stand: SBA Stand-sit: SBA GAIT Assistive Device: FWW Weight bearing: WBAT L Assist: SBA Distance: 80' Deviation: Step-to - step-through gait pattern, decreased step height on R THEREX: Patient was instructed in a LE strengthening and stabilization program, completed in a long-sitting position, as per flow sheet. ASSESSMENT: Patient tolerated session well with some c/o increasing L knee pain with gait training. She was able to tolerate a progression in gait distance with FWW support. PLAN: Continue with LE strengthening and gait and transfer training for improved mobility. TREATMENT CODE/TIME: 20 minutes; [id number] (14:23)
--- NOTE | 2022-01-01 16:03 | W.PM.PROGNOT ---
Date of Service Date of service: 01/01/22 Time of Service: 14:30 Assessment and Plan Assessment and plan (1) Closed hip fracture requiring operative repair with routine healing: Status: Acute (2) Pain: Status: Acute (3) Hypokalemia: Status: Acute (4) DVT prophylaxis: Status: Deleted (5) Discharge planning issues: Status: Deleted Subjective Subjective Patient reports: no new complaints, feels better, pain is less, tolerating a regular diet, voiding w/o difficulty, bowel movement and afebrile Exam Const General: cooperative, comfortable and well groomed Nutritional Appearance: thin Orientation: alert, awake and oriented x3 HENMT Head: normal to inspection and normocephalic Eyes General: appearance normal, both eyes and all related structures Alignment and Position: alignment normal and position normal Neck Neck: normal visual inspection, full ROM and no lymphadenopathy Chest Chest: normal inspection of the chest Resp Effort & Inspection: normal respiratory effort, able to speak in complete sentences and no cough Cardio Rhythm: regular rhythm Heart Sounds: S1 normal and S2 normal Pulses: brachial pulses present and dorsalis pedis present Objective Last Vital Signs Temp 97.9 F 01/01/22 07:40 Pulse 73 01/01/22 07:40 Resp 24 01/01/22 07:40 BP 127/68 01/01/22 07:40 Pulse Ox 95 01/01/22 07:40
[2022-01-02 07:52] VITALS: BP 176/75; PULSE 72; RESP 20; TEMP 36.9; O2SAT 96
[2022-01-02] MEDS: Acetaminophen 325 MG TAB 650 MG PO ×4 (08:17→19:30)
[2022-01-02] MEDS: Calcium 600mg/Vit D 200U TAB 1 TAB PO (08:17)
[2022-01-02] MEDS: Omeprazole 20 MG CAPCR PO (08:17)
[2022-01-02] MEDS: Thiamine 100 MG TAB PO (08:17)
[2022-01-02] MEDS: Metoprolol CR 50 MG TABCR PO (08:17)
[2022-01-02] MEDS: Enoxaparin 40 MG/0.4 ML SYR SC (08:17)
[2022-01-02 11:30] VITALS: BP 137/62
--- NOTE | 2022-01-02 13:23 | PT.INTREAT ---
Date of service: 01/02/22 Time of Service: 09:47 PT Notes Visit Reasons: Left Hip Fracture Inpatient Physical Therapy Treatment Note [facility] Date: 01/02/2022 PRECAUTIONS: Fall, WBAT L, Activity as tolerated SUBJECTIVE: Eloina is pleasant and agreeable to participating in PT. She reports that she continues to feel better and feels that she is making good progress with PT. OBJECTIVE: PAIN: Patient c/o L hip pain with gait training BED MOBILITY/TRANSFERS Sit-stand: S Stand-sit: S GAIT Assistive Device: FWW Weight bearing: WBAT L Assist: SBA Distance: 90' in a.m.; 120' in p.m. Deviation: Hinged knee brace on L with improvement in pain in L knee, c/o hip pain THEREX: Patient was instructed in a LE strengthening and stabilization program, completed in both long-sitting and seated position, as per flow sheet. TOILETING: Patient toileted with supervision in both a.m. and p.m. ASSESSMENT: Patient tolerated session well with some c/o increasing L hip pain with gait training. She was able to tolerate a progression in gait distance with FWW support. PLAN: Continue with LE strengthening and gait and transfer training for improved mobility. TREATMENT CODE/TIME: Session 1: 27 minutes; [id number], [id number] (09:47) Session 2: 23 minutes; [id number], [id number] (13:43)
[2022-01-02 15:13] VITALS: BP 114/68; PULSE 57; RESP 12; TEMP 36.7; O2SAT 98
[2022-01-02] MEDS: Loperamide 2 MG CAP PO (16:34)
[2022-01-02 23:15] VITALS: BP 138/72; PULSE 63; RESP 12; TEMP 36.6; O2SAT 96
[2022-01-03 06:40] LABS: HCT 27.5 % (36.0-46.0); MCHC 32.7 % (32.0-36.0); MCV 91.7 fL (80-95); MPV 9.7 fL (8.0-11.0); Platelet Count 272 10^3/uL (130-400); RDW-SD 40.7 fL; WBC 8.81 10^3/uL (4.4-10.8)
[2022-01-03 07:18] VITALS: BP 163/78; PULSE 78; RESP 16; TEMP 36.7; O2SAT 95
[2022-01-03] MEDS: Calcium 600mg/Vit D 200U TAB 1 TAB PO (08:33)
[2022-01-03] MEDS: Metoprolol CR 50 MG TABCR PO (08:33)
[2022-01-03] MEDS: Acetaminophen 325 MG TAB 650 MG PO ×4 (08:33→19:44)
[2022-01-03] MEDS: Omeprazole 20 MG CAPCR PO (08:33)
[2022-01-03] MEDS: Enoxaparin 40 MG/0.4 ML SYR SC (08:33)
[2022-01-03] MEDS: Thiamine 100 MG TAB PO (08:33)
[2022-01-03 11:14] VITALS: BP 134/59
--- NOTE | 2022-01-03 12:53 | PT.INTREAT ---
PT Notes Visit Reasons: Left Hip Fracture Inpatient Physical Therapy Treatment Note [facility] Date: 01/03/2022 PRECAUTIONS: Fall, WBAT L, Activity as tolerated SUBJECTIVE: Eloina c/o being very tired. She states that she was given a med that makes her that way. Willing to go for a walk. OBJECTIVE: PAIN: Patient c/o L hip pain with gait training BED MOBILITY/TRANSFERS Sit-stand: S Stand-sit: S GAIT Assistive Device: FWW Weight bearing: WBAT L Assist: SBA Distance: 150' ASSESSMENT: Patient tolerated session well with improvements in walking distance. Mild c/o discomfort towards end of amb due to fatigue. This improved once she sat down. PLAN: Continue with LE strengthening and gait and transfer training for improved mobility. TREATMENT CODE/TIME: 15 min [id number]
[2022-01-04 07:04] LABS: Abs Immature Grans 0.08 10^3/uL (0.0-0.06); Absolute Basophil Count 0.06 10^3/uL (0.0-0.2); Absolute Lymphocyte Count 2.97 10^3/uL (1.2-3.4); Absolute Monocyte Count 0.92 10^3/uL (0.1-0.8); Absolute Neutrophil Count 4.26 10^3/uL (1.2-6.7); Basophils % 0.7; Eosinophils % 6.7; HCT 29.5 % (36.0-46.0); HGB 9.3 g/dL (11.2-15.7); Immature Grans % 0.9; Lymphocytes % 33.4; MCH 30.8 pg (27.0-33.0); MCHC 31.5 % (32.0-36.0); MCV 97.7 fL (80-95); MPV 9.4 fL (8.0-11.0); Monocytes % 10.3; Nucleated RBC 0 %; Platelet Count 295 10^3/uL (130-400); RBC 3.02 10^6/uL (3.93-5.22); RDW 12.1 % (11.7-14.6); RDW-SD 43.6 fL; WBC 8.89 10^3/uL (4.4-10.8)
[2022-01-04 07:18] LABS: Anion Gap 6.5 mmol/L (3-11); BUN 12 mg/dL (7-18); CO2 28.5 mmol/L (21.0-32.0); CREATININE 0.6 mg/dL (0.55-1.02); Calcium 9.1 mg/dL (8.5-10.1); Chloride 100 mmol/L (98-107); Glucose 102 mg/dL (74-106); Potassium 3.8 mmol/L (3.5-5.1); Sodium 135 mmol/L (136-145)
[2022-01-04 07:50] VITALS: BP 146/70; PULSE 76; RESP 17; TEMP 36.9; O2SAT 97
[2022-01-04] MEDS: Calcium 600mg/Vit D 200U TAB 1 TAB PO (08:14)
[2022-01-04] MEDS: Omeprazole 20 MG CAPCR PO (08:14)
[2022-01-04] MEDS: Acetaminophen 325 MG TAB 650 MG PO ×4 (08:14→21:30)
[2022-01-04] MEDS: Thiamine 100 MG TAB PO (08:15)
[2022-01-04] MEDS: Metoprolol CR 50 MG TABCR PO (08:15)
[2022-01-04] MEDS: Enoxaparin 40 MG/0.4 ML SYR SC (08:18)
--- NOTE | 2022-01-04 14:06 | PT.INTREAT ---
PT Notes Visit Reasons: Left Hip Fracture Inpatient Physical Therapy Treatment Note [facility] Date: 01/03/2022 PRECAUTIONS: Fall, WBAT L, Activity as tolerated SUBJECTIVE: Eloina states that her knee is feeling better since using the heat. She c/o stiff hip, but better after ex. OBJECTIVE: BED MOBILITY/TRANSFERS Sit-stand: S Stand-sit: S GAIT Assistive Device: FWW Weight bearing: WBAT L Assist: SBA Distance: 175' ASSESSMENT: continued improvements with walking distance, as well as improved mobility PLAN: Continue with LE strengthening and gait and transfer training for improved mobility. TREATMENT CODE/TIME: 28 min [id number], [id number]
[2022-01-05 08:00] VITALS: BP 132/75; PULSE 2; RESP 17; TEMP 36.7; O2SAT 97
[2022-01-05] MEDS: Enoxaparin 40 MG/0.4 ML SYR SC (08:31)
[2022-01-05] MEDS: Metoprolol CR 50 MG TABCR PO (08:32)
[2022-01-05] MEDS: Calcium 600mg/Vit D 200U TAB 1 TAB PO (08:32)
[2022-01-05] MEDS: Omeprazole 20 MG CAPCR PO (08:33)
[2022-01-05] MEDS: Acetaminophen 325 MG TAB 650 MG PO ×3 (08:33→15:34)
[2022-01-05] MEDS: Thiamine 100 MG TAB PO (08:34)
--- NOTE | 2022-01-05 09:39 | CMDISCH_ITS ---
- If Service Date Differs Date of service: 01/05/22 Time of Service: 09:39 LACE Index Scoring Tool - Questions: Length of Stay (in days): 4 - 6 Acuity (Admit via E.D.?): Yes Comorbidities: Any Tumor, Metastatic Solid Tumor E.D. Visits: 4 - Answers: Total Score: 16 Risk of Readmission: High Risk Care Management Discharge Reason for Hospitalization: Left Hip Fracture Discharge Plan: Eloina will discharge home with New [facility] RN, PT, OT, SALVAGE MACHINE OPERATOR. She will transport via private vehicle with family and follow up with community providers. Patient/Family Education Needs: Review discharge instructions, limitations and plan to follow up with community providers. ask me three. Services Needed at Discharge: Home Health Care Services ([facility] RN, PT, OT, SALVAGE MACHINE OPERATOR)
--- NOTE | 2022-01-05 12:32 | DSE_ITS ---
Date of service: 01/05/22 Time of Service: :52 DS: Diagnosis Discharge Diagnosis (1) Closed hip fracture requiring operative repair with routine healing: Start date: 01/05/22 Start time: 52 Status: Acute Asessment and Plan: Repair of hip left hemiarthoathroplasty on 12/28. She has been working with PT. She has been cleared by PT for home therefore she is being dischareged home. She will have Home Health services. no complaints. Incision C/D/I. F/u with Dr. Maldonado as outpatient as and outpatient per scheduled (2) Pain: Start date: 01/05/22 Start time: :52 Status: Acute Asessment and Plan: as above. improved from surgrery (3) Hypokalemia: Start date: 01/05/22 Start time: Status: Resolved Asessment and Plan: with supplementation Discharge Plan Disposition Patient Disposition: HOME W/HOME HEALTH SERVICE Condition: Improving Discharge Details Reason For Visit: Left Hip Fracture Admit Date/Time: 12/31/21 12:34 Admit Provider: Nazia Roblero Attending Provider: Christina Urias Primary Care Provider: Kristina Bernal Hospital Course Hospital Course: ?81-year-old female who presented to the ED with left hip pain.?The morning of admission she was at home by herself and thinks she tripped on a rug or her knee gave out, she is not quite sure.? She landed on her left hip but did not have a head injury.? She was seen here although she did have some difficulty ambulating at that time.? X-rays and labs were done at that time but no definite hip fracture was seen.? She was discharged to home and her symptoms got worse and she found that she cannot bear weight at all on the leg so returned. left hip repeat X-ray revealed a left hip fracture, concerning to be pathological.? She was medically cleared and underwent surgical repair on December 28, 2021 with no complications.? Postoperative course complicated with constipation and pain which was managed with medication adjustment.? She was re-ambulated well with PT and slowly progressed.? PTinitially recommend SNIF but she was placed in Swing Bed 1 for further work with PT. She has progressed well and PT feels she is at a point she will do well at home with HH services PT/OT RN TELESCOPE OPERATOR. Therefore she is being discharged home. Home Meds and New Rx's Prescriptions: New calcium carbonate-vitamin D3 [Calcium 600 + D(3)] 600 mg-5 mcg (200 unit) Tablet 1 tab PO DAILY Qty: 30 0RF Nucynta 50 mg Tablet 50 mg PO Q6H PRN PRNQty: 20 0RF Continued budesonide 3 mg capsule,delayed,extend.release 3 mg PO DAILY 0RF thiamine mononitrate (vit B1) 100 mg tablet 100 mg PO DAILY 0RF folic acid 20 mg capsule 20 mg PO DAILY 0RF metoprolol succinate 50 mg tablet extended release 24 hr 50 mg PO DAILY Qty: 90 3RF Rx Instructions: Hold if pulse < 60 ketorolac 15 mg/mL Syringe 15 mg IV Q6H PRN PRN0RF Rx Instructions: Getting while in hospital. magnesium hydroxide [Milk Of Magnesia Concentrated] 2,400 mg/10 mL Suspension 30 ml PO PRN PRN0RF acetaminophen 650 mg Tablet 650 mg PO QID 0RF miconazole nitrate 2 % Cream 1 applic TOPICAL DAILY PRN0RF bisacodyl 10 mg Suppository 10 mg FL DAILY PRN0RF docusate sodium [Colace] 100 mg Capsule 100 mg PO BID 0RF calcium carbonate 500 mg calcium (1,250 mg) Tablet,Chewable 500 mg PO QID PRN0RF enoxaparin [Lovenox] 40 mg/0.4 mL Syringe 40 mg SUBCUT DAILY 0RF hydrocortisone 2.5 % Cream 1 applic TOPICAL TID PRN0RF omeprazole 20 mg Capsule,Delayed Release(Dr/Ec) 20 mg PO DAILY 0RF polyethylene glycol 3350 17 gram Powder In Packet 17 g PO DAILY 0RF potassium chloride 20 mEq Tablet Extended Release 40 meq PO BID 0RF tapentadol 50 mg Tablet 50 mg PO Q6H PRN0RF Discharge Instructions Instructions: ORIF of Hip Fracture (DC) Additional Instructions: Take tylenol or nycenta or pain follow up with ortho as scheduled and PCP HH services will be set. up Referrals: Kristina Bernal NP [Primary Care Provider] - 01/15/22 8:40 am Derik Maldonado MD [ [facility] STAFF PHYSICIAN] - 01/20/22 1:00 pm Activity:: Activity as Tolerated Equipment/Supplies:: No Equipment Needed Diet:: Low Sodium Discharge Orders Discharge Orders: Discharge Order (Routine); Ordered 01/05/22 Ordered By: Caryn Garcia DS: Summary Time Spent with Patient providing and/or coordinating discharge services: Less than 30 minutes Status at Discharge Functional status at discharge: uses cane/walker Overall status at discharge: patient is progressing back to baseline Mental Status: mental status grossly normal Speech and Movement: speech and movement normal Mood: congruent mood Affect: normal affect Exam Const General: cooperative, comfortable, no acute distress and frail appearing ( elderly female of stated age) Nutritional Appearance: average body habitus Orientation: alert, awake and oriented x3 HENMT Head: normal to inspection and normocephalic Mouth: oral mucosae normal Chest Chest: normal inspection of the chest Resp Effort & Inspection: normal respiratory effort Auscultation: clear to auscultation bilaterally Cardio Rate: regular rate Rhythm: regular rhythm GI Inspection: normal to inspection Palpation: soft Auscultation: normal bowel sounds Skin General skin exam: no rashes or lesions noted Neuro General: patient alert, patient awake and patient oriented x3 Extrem General: full ROM, no pedal edema and other (surgical dressing intact with no drainage or surrounding erythema) Psych Mental Status: mental status grossly normal Speech and Movement: speech and movement normal Mood: congruent mood Affect: normal affect DS: Data Vitals/I&O Vitals and I&O: Vital Signs Temperature 36.7 C 01/05/22 08:00 Temperature Source Tympanic 01/05/22 08:00 Pulse 2 L 01/05/22 08:00 Pulse Rhythm Regular 01/05/22 11:34 Respiratory Rate 17 01/05/22 08:00 Respiratory Effort Non-Labored 01/05/22 11:34 Respiratory Depth Normal 01/05/22 11:34 Respiratory Pattern Normal 01/05/22 11:34 Blood Pressure 132/75 01/05/22 08:00 Pulse Oximetry 97 01/05/22 08:00 Oxygen Delivery Method Room Air 01/05/22 08:00 Oxygen Flow Rate 0 01/05/22 08:00 Pain Level 2 01/05/22 12:02 Intake & Output 01/04/22 01/05/22 01/05/22 23:59 11:59 23:59 Intake Total 340 / 920 Balance 340 / 720 Intake: Oral 340 / 920 Other: Urine Color Yellow Urine Appearance Clear Urine Odor None Comment none available. Patient rang to use the bathroom at the start of the shift Stool Size Moderate Moderate Stool Characteristics Soft Formed Voiding Methods Toilet PFS All Active Problems Closed hip fracture requiring operative repair with routine healing (Acute) Impaired mobility (Acute) Pain (Acute) Degenerative arthritis (Chronic) Conductive hearing loss, external ear (Acute) Blood in right ear canal (Acute) Insomnia (Acute) Anemia (Chronic) Pulmonary embolism (Chronic) Hiatal hernia (Chronic) Vitamin D deficiency (Acute) GERD (gastroesophageal reflux disease) (Chronic) DJD (degenerative joint disease) (Chronic) Cervicalgia (Acute) Cervical stenosis of spine (Acute) Chronic low back pain (Acute) Prediabetes (Acute) Anxiety (Chronic) Dysuria (Acute) Colitis (Acute) 04/2021. Dx by colonoscopy after months of diarrhea. Rx Budesonide XR Diarrhea (Acute) Encounter for pessary maintenance (Acute) Urinary incontinence (Chronic) 2019. Stress incontinence worse after robotic hysterectomy. Patient is reluctant to be evaluated by urology since she has had several surgeries in this past year. Breast cancer, left (Acute) 10/2019. Receives care at [facility] Fitting and adjustment of pessary (Acute) 2019. #3 (70mm) donut. 05/2021. 64mm donut fitted Allergy to latex (Acute) Allergy to NSAIDs (Acute) Seborrheic dermatitis of scalp (Acute) Dermatitis, drug-induced (Acute) Vaginal vault prolapse after hysterectomy (Acute) Pelvic organ prolapse prior to her hysterectomy for endometrial cancer was treated with: longstanding use of 70mm (#4) ring pessary. 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 Started on prednisone will follow-up at [facility] Medical History Carpal tunnel syndrome on both sides L>R. Not treated. 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 Postop recommendations: Vaginal cuff brachytherapy (w/o 10-15% recurrence) Postop: Year 1 gynecologic oncology visit every 3 months no Pap testing indicated. Year 2-5 alternate visits between master of ceremonies and gynecologic oncologist every 6 months. No Pap indicated. H/O solar lentigo with atypical melanocytic hyperplasia, lichenoid inflammation and dermal melanophages History of cataract History of diverticulitis History of endometrial biopsy History of endometrial cancer Hypertension Left displaced femoral neck fracture Lumbar spinal stenosis Tubular carcinoma of left breast Ulnar neuropathy Vaginal prolapse longstanding use of 70mm (#4) ring pessary. 07/2018 increased size to # 6 ring pessary with support. 12/09/18 Size again decreased to #4 ring w/ support secondary to vaginal excoriation. Surgical History History of carpal tunnel release History of neck surgery (~2017) History of partial mastectomy of left breast History of right breast biopsy History of robot-assisted laparoscopic hysterectomy With BSO and sentinel lymph node biopsy at [facility] for endometrial carcinoma. Family History Mother , 76 Hypertension Hyperlipidemia Father , 70 Alcohol use disorder Cancer Heart disease Hypertension Hyperlipidemia Sister , 77 Cancer Heart disease Sister No problems noted. Sister , 69 Cancer Substance use disorder Son Hyperlipidemia Hypertension Daughter Hypertension Hyperlipidemia Daughter No problems noted. Social History Smoking/Tobacco Use Status: Never Second Hand Exposure: Yes Smoking risk assessment performed?: Yes Alcohol Intake: never Drug use: Never Substance use type: does not use Caregiver/Support person: No Housing: house Communication Needs: None Do you need help understanding health information?: Rarely Pets and animals: Yes Pets and animals: dog(s) Sexually active: No Do you think of yourself as: straight/heterosexual What is your relationship status?: How often do you talk on the phone with friends or family?: once per week How often do you get together with friends or relatives?: decline to answer How often do you attend latter day or rastafarian services?: decline to answer Do you belong to any clubs or organized social groups?: decline to answer Panel score (0-1 are the most socially isolated patients): 1 What type of physical activity do you participate in: weight lifting Frequency: 1-2 times per week Melia/Yarsani: [employer] Seatbelt use: always Helmet use: No Drive intox or ride w/intox equipment driver: No Do you feel safe at home: Yes Do you feel safe in your relationship?: Yes Female Reproductive History Menstrual Menopause type: natural History History 3 Para Hx # Term Pregnancies 3 Multiple births Hx # Pregnancies Ectopic pregnancies AB induced Hx Number of Living Children AB spontaneous
--- NOTE | 2022-01-05 12:51 | PDOC.HHF2F_ITS ---
Home Health Certification Home Health Certification: 1. Encounter Date and Reason I certify that Eloina Ware was seen by Caryn Garcia on 01/05/22 and that I had a [id number] encounter with this patient that meets the physician face to face encounter requirements. 2. Clinical Findings Supporting Skilled Need and Homebound Status I certify that home health services are medically necessary, include either intermittent nursing home and/or physical/speech therapy, and that this patie nt is homebound in that absences from the home require considerable and taxing effort and are infrequent or of short duration, or are attributable to the need to receive medical care. [X] (a) Attached documentation from encounter provides clinical findings supporting skilled need and homebound status (including what assistance patient requires to leave the home). The encounter with the patient was in whole, or in part, for the following medical condition, which is the primary reason for home health care: Left Hip Fracture [facility]: Patient would benefit from nursing for medication management Physical Therapy/Occupation Therapy: Patient would benefit from both services to help with adls, balance and gait after surgery AUXILIARY POWER EQUIPMENT OPERATOR: Patient would benefit from AUXILIARY POWER EQUIPMENT OPERATOR for community connections Homebound: Unable to leave home without assistance 3. Certification and Authentication I certify that I composed the above information based on my clinical judgement relating to this patient's medical condition and, if applicable, clinical findings communicated to me by the NPP or inpatient physician who performed the Home Health Referral. All further orders will be obtained through ___Sathish Bernal (Community Based Physician - PCP)
[2022-01-05] MEDS: Loperamide 2 MG CAP PO (14:09)
--- NOTE | 2022-01-05 15:47 | PT.INTREAT ---
Date of service: 01/05/22 Time of Service: 09:52 PT Notes Visit Reasons: Left Hip Fracture Inpatient Physical Therapy Treatment Note [facility] Date: 01/05/2022 PRECAUTIONS: Fall, WBAT L, Activity as tolerated SUBJECTIVE: Eloina is pleasant and agreeable to participating in PT.? She feels that she is doing well, she states that her children have more reservations regarding her returning to home than she does. OBJECTIVE: ?Issued and set up FWW for at home use. [facility] form completed, signed, and turned in to Care Management. ? PAIN: No c/o pain ? BED MOBILITY/TRANSFERS? Supine-sit: I with HOB flat Sit-stand: I? Stand-sit: I ? GAIT? Assistive Device: FWW? Weight bearing: WBAT L Assist: S ? Distance:? 250' ? Deviation: Hinged knee brace on L with improvement in pain in L knee ? THEREX: Patient was instructed in a LE strengthening program, completed in a standing position, as per flow sheet. She was issued a LE strengthening and stabilization HEP. HEP was reviewed, patient demonstrates good understanding. ASSESSMENT: Patient tolerated session well without complaint.? She was able to tolerate a progression in gait distance with FWW support, requiring supervision only. PLAN: Discharge to home later today, per provider. Recommend PT follow up upon discharge. TREATMENT CODE/TIME: Session 1: 28 minutes; 75368, [id number] (09:52) ? Session 2: 12 minutes; 91903 (15:26)
--- NOTE | 2022-01-05 17:00 | PT.INDS ---
Date of service: 01/05/22 Time of Service: 17:00 PT Notes Visit Reasons: Left Hip Fracture Physical Therapy SB I Discharge Summary Date: 01/05/2022 Dates of service: 01/01/2021 through 01/05/2021 This is a clinical summary of care provided for the duration of dates listed above. No charge was made in the completion of this documentation. Referring Doctor: Adonay Vasquez NP PT Orders: PT CONSULT: WBAT LLE with assist device; progressive ambulation Precautions: Fall. Standard.? WBAT on left LE with AD.? Posterior hip precautions in place. Patient Profile/Admitting Diagnosis: Eloina is an 81-year-old female with left displaced pathologic femoral neck fracture and is status post left posterior hip hemiarthroplasty on postoperative day 4. PMHX: All Active Problems? Closed left hip fracture (Acute) Left displaced femoral neck fracture (Acute) Fall (Acute) Degenerative arthritis (Chronic) Conductive hearing loss, external ear (Acute) Blood in right ear canal (Acute) Insomnia (Acute) Anemia (Chronic) Pulmonary embolism (Chronic) Hiatal hernia (Chronic) Vitamin D deficiency (Acute) GERD (gastroesophageal reflux disease) (Chronic) DJD (degenerative joint disease) (Chronic) Cervicalgia (Acute) Cervical stenosis of spine (Acute) Chronic low back pain (Acute) Prediabetes (Acute) Anxiety (Chronic) Dysuria (Acute) Colitis (Acute) 04/2021. Dx by colonoscopy after months of diarrhea. Rx Budesonide XR Hypokalemia (Acute) Diarrhea (Acute) Encounter for pessary maintenance (Acute) Urinary incontinence (Chronic) 2019.? Stress incontinence worse after robotic hysterectomy.? Patient is reluctant to be evaluated by urology since she has had several surgeries in this? past year. Breast cancer, left (Acute) 10/2019.? Receives care at [facility] Fitting and adjustment of pessary (Acute) 2019. #3 (70mm) donut. 05/2021. 64mm donut fitted Allergy to latex (Acute) Allergy to NSAIDs (Acute) Seborrheic dermatitis of scalp (Acute) Dermatitis, drug-induced (Acute) Vaginal vault prolapse after hysterectomy (Acute) Pelvic organ prolapse prior to her hysterectomy for endometrial cancer was treated with: longstanding use of 70mm (#4) ring pessary. 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 Started on prednisone will follow-up at [facility] Medical History? Carpal tunnel syndrome on both sides L>R. Not treated.Cystocele and rectocele with complete uterovaginal prolapse Grade 1 malignant neoplasm of endometrium 05/25/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 Postop recommendations: Vaginal cuff brachytherapy (w/o 10-15% recurrence) Postop: Year 1 gynecologic oncology visit every 3 months no Pap testing indicated. Year 2-5 alternate visits between nozzle and sleeve worker and gynecologic oncologist every 6 months.? No Pap indicated.H/O solar lentigo with atypical melanocytic hyperplasia, lichenoid inflammation and dermal melanophagesHistory of cataract History of diverticulitis History of endometrial biopsy History of endometrial cancer Lumbar spinal stenosis Tubular carcinoma of left breast Ulnar neuropathy Vaginal prolapse longstanding use of 70mm (#4) ring pessary. 07/2018 increased size to? # 6 ring pessary with support. 12/09/18 Size again decreased to? #4 ring w/ support secondary to vaginal excoriation. Surgical History? History of carpal tunnel release History of neck surgery (~2017) History of partial mastectomy of left breast History of right breast biopsy History of robot-assisted laparoscopic hysterectomy With BSO and sentinel lymph node biopsy at [facility] for endometrial carcinoma. Social History/Home Situation: Lives with in a private home with a ramp to enter.? No stairs inside the house.? Modified independent with occasional use of single-point cane. Equipment Owned/DME: FWW, Subjective: NT. See most recent PHOTO EQUIPMENT TECHNICIAN notes. Objective: General Observation: NT. See most recent PHOTO EQUIPMENT TECHNICIAN notes. Mental Status: NT. See most recent PHOTO EQUIPMENT TECHNICIAN notes. Pain: NT. See most recent PHOTO EQUIPMENT TECHNICIAN notes. ROM: Right Lower Extremity: Hip flexion WFL. Hip abduction WFL. Knee flexion WFL. Ankle dorsiflexion WFL. Ankle plantarflexion WFL. Left Lower Extremity: Hip flexion lacks 75% of mobility and motion due to pain. Hip abduction acks 75% of mobility and motion due to pain. Knee flexion acks 75% of mobility and motion due to pain. Ankle dorsiflexion WFL. Ankle plantarflexion WFL. Strength: Right Lower Extremity: Hip flexors 5/5. Hip abductors 5/5. Knee flexors 5/5. Knee extensors 5/5. Ankle dorsiflexors 5/5. Ankle plantarflexors 5/5. Left Lower Extremity: Hip flexors 2-/5. Hip abductors 2-/5. Knee flexors 2-/5. Knee extensors 2-/5. Ankle dorsiflexors 3-/5. Ankle plantarflexors 3-/5. Bed Mobility/Transfers: Supine to sit independent Sit to stand independent Stand to sit independent Gait: Instructed patient with level surface ambulation of 250 feet requiring stand by assist. Step through gait pattern.? No antalgia seen.? Cues given only for posture and directional change. Balance: Static Sitting: Normal Dynamic Sitting: Normal Static Standing: Fair Dynamic Standing: Fair ASSESSMENT: Progressing well in terms of pain tolerance, ambulation performance and exercises tolerance.? Patient requires the use of a front-wheeled walker for all transfers and ambulation test performance.?Continued services are needed to address the following functional impairments and mobility deficits.? Based on today's examination,? prognosis for achieving goals below are good.? Patient presents with clinical signs and symptoms consistent with current/admitting diagnoses that have resulted to mobility limitations, gait instability, generalized weakness, and overall ADL decline as demonstrated by the following impairment level findings: 1.? Decreased strength to right hip major muscle groups 2.? Impaired sitting/standing balance 3.? Impaired activity tolerance 4.? Limitation of joint range of motion in right hip and knee 5.? Increased anxiety over weightbearing due to pain 6.? Pain at 10/10 with weight bearing Impairments are contributing to the following functional limitations: 1.? Decline in bed mobility skills 2.? Decline in transfer skills 3.? Difficulty with ambulation without assistive device and physical assistance 4.? Increased completion time for mobility ADL performance 5.? Increased risk for falls 6.? Difficulty with managing steps alone safely Goals: Goals X1 week 1. Supine-Sit independent MET 2. Sit-Supine independent MET 3. Sit-Stand independent MET 4. Stand-Sit independent with FWW MET 5. Bed-Chair independent with FWW MET 6. Chair-Bed independent with FWW MET 7. Independent gait on level surface with use of FWW for at least 300 feet without report of pain nor dyspnea NOT MET 10. Fair static and dynamic standing balance/tolerance NOT MET DISCHARGE RECOMMENDATIONS: [] ? Home with no services [] [X] ? Home with services [specify].? Patient will benefit from home health PT services in order to progress mobility level using least restrictive assistive ambulatory device, assess home safety, identify additional equipment needs, and establish a functional maintenance program that will increase ability of patient to remain at home. [] ? Home with outpatient PT [] [] ? SNF for continued short-term rehabilitation [] [] ? Detention Care [] [] ? SNF versus LTC based on ability to participate and progress [] TREATMENT CODE/TIME: AR Thank you for the opportunity to participate in the care of this patient. Mira Echavarria PT, DPT, CLT [facility] [place], [place]
== END 2022-01-05 15:41 | disposition home health service (06) | DRG 560 ==
PROVIDERS: Admitting Provider Internal Medicine; Visit Provider Nurse Practitioner Acute Care
DX: Z47.89 Encounter for other orthopedic aftercare (principal); I27.82 Chronic pulmonary embolism; E87.6 Hypokalemia; S72.002D Fracture of unspecified part of neck of left femur, subsequent encounter for closed fracture with routine healing; W19.XXXD Unspecified fall, subsequent encounter; M25.552 Pain in left hip; G47.00 Insomnia, unspecified; D64.9 Anemia, unspecified; K44.9 Diaphragmatic hernia without obstruction or gangrene; E55.9 Vitamin D deficiency, unspecified; K21.9 Gastro-esophageal reflux disease without esophagitis; M54.50 Low back pain, unspecified; R73.03 Prediabetes; C50.912 Malignant neoplasm of unspecified site of left female breast; M48.062 Spinal stenosis, lumbar region with neurogenic claudication
CPT/HCPCS: 36415; 73562; 80048; 85027; 97110; 97162; 97530; 99306; 99315; J1650; 85025; J0696

== ENCOUNTER 2022-01-20 14:38 | Outpatient (CLI) | payer MEDICARE, SELFPAY ==
--- NOTE | 2022-01-20 13:15 | DI.RAD_ITS ---
Exam(s) XR HIP LT COMPLETE AP PELVIS EXAM: XR HIP LT COMPLETE AP PELVIS CLINICAL HISTORY: left femur fracture. TECHNIQUE: 2D digital imaging was performed of the left hip. Three views were obtained. AP pelvis and lateral left hip views were obtained. COMPARISON: CR XR HIP LT COMPLETE AP PELVIS from 12/28/2021 FINDINGS: BONES: No acute fracture is present. No bony destructive lesion is seen. JOINTS: No dislocation present. There are stable postsurgical changes of a left hip prosthesis placem ent. No lucencies are seen in or about the orthopedic hardware. Degenerative changes are seen in th e lower lumbar spine in the sacroiliac joints. SOFT TISSUE: Atherosclerosis is present. IMPRESSION: Stable left hip prosthesis. DATA REPOSITORY: RADIATION DOSE DELIVERED:
== END 2022-01-20 14:39 | disposition home or self-care (01) ==
LOC: DIORS 14:38
PROVIDERS: Visit Provider Physician Assistant
DX: S72.002A Fracture of unspecified part of neck of left femur, initial encounter for closed fracture (principal); X58.XXXA Exposure to other specified factors, initial encounter
CPT/HCPCS: 73502

== ENCOUNTER 2022-01-27 02:10 | Outpatient (CLI) | payer MEDICARE, SELFPAY ==
[2022-01-27 13:25] LABS: Anion Gap 6.6 mmol/L (3-11); BUN 18 mg/dL (7-18); CO2 31.4 mmol/L (21.0-32.0); CREATININE 0.8 mg/dL (0.55-1.02); Calcium 9.8 mg/dL (8.5-10.1); Chloride 100 mmol/L (98-107); Glucose 149 mg/dL (74-106); Sodium 138 mmol/L (136-145)
== END 2022-01-27 02:11 | disposition home or self-care (01) ==
LOC: LBO 02:10
DX: E87.6 Hypokalemia (principal)
CPT/HCPCS: 36415; 80048

== ENCOUNTER → 2022-03-24 13:43 | Outpatient (BNVA) | payer MEDICARE, SELFPAY | PROVIDERS: Visit Provider Student in an Organized Health Care Education/Training Program | DX: S72.002D Fracture of unspecified part of neck of left femur, subsequent encounter for closed fracture with routine healing (principal); X58.XXXD Exposure to other specified factors, subsequent encounter; M17.12 Unilateral primary osteoarthritis, left knee | CPT/HCPCS: 20610; J1040 ==

== ENCOUNTER 2022-05-05 03:37 | Outpatient (CLI) | payer MEDICARE, SELFPAY ==
[2022-05-05 11:56] LABS: HCT 33.1 % (36.0-46.0); HGB 10.8 g/dL (11.2-15.7); MCH 29.2 pg (27.0-33.0); MCHC 32.6 % (32.0-36.0); MCV 90 fL (80-95); MPV 9.6 fL (8.0-11.0); Platelet Count 218 10^3/uL (130-400); RDW 12.8 % (11.7-14.6); RDW-SD 41.8 fL; WBC 8.29 10^3/uL (4.4-10.8)
[2022-05-05 12:20] LABS: Hemoglobin A1C 6.3 % (<5.7)
[2022-05-05 12:26] LABS: Anion Gap 6.3 mmol/L (3-11); BUN 17 mg/dL (7-18); CO2 30.7 mmol/L (21.0-32.0); CREATININE 0.6 mg/dL (0.55-1.02); Calcium 9.7 mg/dL (8.5-10.1); Chloride 102 mmol/L (98-107); Glucose 99 mg/dL (74-106); Sodium 139 mmol/L (136-145)
== END 2022-05-05 03:38 | disposition home or self-care (01) ==
LOC: LBO 03:37
PROVIDERS: Nurse Practitioner Family
DX: D64.9 Anemia, unspecified (principal); R73.03 Prediabetes; E87.6 Hypokalemia
CPT/HCPCS: 36415; 80048; 85027; 83036

== ENCOUNTER → 2022-05-21 13:06 | Outpatient (BNVA) | payer MEDICARE, SELFPAY | PROVIDERS: Visit Provider Nurse Practitioner Gerontology | DX: N39.41 Urge incontinence (principal) | CPT/HCPCS: 99442 ==

== ENCOUNTER 2022-06-24 10:14 | Outpatient (CLI) | payer MEDICARE, SELFPAY ==
--- NOTE | 2022-06-24 09:30 | DI.RAD_ITS ---
Exam(s) XR HIP LT AP LAT ONLY EXAM: XR HIP LT AP LAT ONLY CLINICAL HISTORY: left hip f/u TECHNIQUE: COMPARISON: CR XR HIP LT COMPLETE AP PELVIS from 01/20/2022 FINDINGS: Two views were obtained and show bipolar hip prosthesis in position. The components appear well seat ed. No other significant bony abnormality seen. IMPRESSION: RADIATION DOSE DELIVERED: Total DLP
== END 2022-06-24 10:15 | disposition home or self-care (01) ==
LOC: DIORS 10:15
PROVIDERS: PCP Family Medicine; Referring Provider Family Medicine; Visit Provider Student in an Organized Health Care Education/Training Program
DX: M17.12 Unilateral primary osteoarthritis, left knee; S72.002D Fracture of unspecified part of neck of left femur, subsequent encounter for closed fracture with routine healing; X58.XXXD Exposure to other specified factors, subsequent encounter
CPT/HCPCS: 20610; 99213; 73502; J1040

== ENCOUNTER 2022-07-13 11:29 | Outpatient (CLI) | payer MEDICARE, SELFPAY ==
--- NOTE | 2022-07-13 11:15 | DI.RAD_ITS ---
Exam(s) XR KNEE RT 3V AP,LAT,DOTTIE EXAM: XR KNEE RT 3V AP,LAT,DOTTIE CLINICAL HISTORY: right knee pain. TECHNIQUE: 2D digital imaging was performed of the right knee. Three views obtained. AP, lateral an d PA tunnel views were obtained. COMPARISON: CR RIGHT KNEE 3 VIEWS from 03/25/2017 FINDINGS: BONES: No acute fracture is present. No bony destructive lesion is seen. There is an enthesophyte at the superior patella. JOINTS: The knee is normally aligned. There is a small joint effusion. Moderate degenerative changes are seen in the right knee with joint space narrowing and marginal osteophytes. The findings are mo st marked at the patellofemoral joint. SOFT TISSUE: Extensive atherosclerosis is present. IMPRESSION: Moderate osteoarthritis of the right knee. DATA REPOSITORY: RADIATION DOSE DELIVERED:
--- NOTE | 2022-07-13 11:15 | DI.RAD_ITS ---
Exam(s) XR HIP RT COMPLETE AP PELVIS EXAM: XR HIP RT COMPLETE AP PELVIS CLINICAL HISTORY: right hip pain. TECHNIQUE: 2D digital imaging was performed of the right hip. Two images were obtained. AP pelvis a nd lateral right hip views were obtained. COMPARISON: CR,XR XR HIP LT COMPLETE AP PELVIS from 12/27/2021 CR XR HIP LT COMPLETE AP PELVIS from 01/20/2022 FINDINGS: BONES: No acute fracture is present. No bony destructive lesion is seen. JOINTS: No dislocation present. There is a stable left hip prosthesis. [id number] degenerative changes are seen in the right hip. These are stable. SOFT TISSUE: Vascular calcifications are present. IMPRESSION: Stable degenerative changes of the right hip. DATA REPOSITORY: RADIATION DOSE DELIVERED:
--- NOTE | 2022-07-13 11:22 | DI.RAD_ITS ---
Exam(s) XR LUMBAR SPINE AP, LAT EXAM: XR LUMBAR SPINE AP, LAT CLINICAL HISTORY: back pain. TECHNIQUE: 2D digital imaging was performed of the lumbar spine. Two images were obtained. AP and lateral views were obtained. COMPARISON: CR LUMBAR SPINE COMPLETE from 03/25/2017 FINDINGS: BONES: No fracture or destructive lesion. Endplate osteophytes are present throughout the lumbar spin e. Facet arthropathy is present throughout the lumbar spine. DISKS: There is disc space narrowing at L1-L2, L2-L3, L3-L4 and L5-S1. ALIGNMENT: There is again seen a right convex lumbar scoliosis. Mild degenerative anterolisthesis of L3 on L4 is noted. No spondylolysis or spondylolisthesis. SOFT TISSUE: Atherosclerosis is present. IMPRESSION: Moderately severe lumbar spondylosis. DATA REPOSITORY: RADIATION DOSE DELIVERED:
== END 2022-07-13 11:30 | disposition home or self-care (01) ==
LOC: DIORS 11:29
PROVIDERS: Visit Provider Physician Assistant
DX: M48.062 Spinal stenosis, lumbar region with neurogenic claudication; M54.50 Low back pain, unspecified; M17.11 Unilateral primary osteoarthritis, right knee; M16.11 Unilateral primary osteoarthritis, right hip; M70.61 Trochanteric bursitis, right hip; G89.29 Other chronic pain
CPT/HCPCS: 73562; 99214; 72100; 73502

== ENCOUNTER → 2022-08-03 01:39 | Outpatient (CLI) | payer MEDICARE, SELFPAY ==
--- NOTE | 2022-08-03 07:45 | DI.MRI_ITS ---
Exam(s) MR LUMBAR SPINE WO EXAM: MR LUMBAR SPINE WO CLINICAL HISTORY: SPINAL STENOSIS,LUMBAR RADICULOPATHY,BACK PAIN,M54.16,M48.062. TECHNIQUE: Multiplanar multisequence MRI of the Lumbar spine was performed. COMPARISON: CR XR LUMBAR SPINE AP, LAT from 07/13/2022 FINDINGS: Conus medullaris is at normal level. There is no evidence of conus mass nor subjacent clumping of in trathecal nerve roots to suggest arachnoiditis. The distal thecal sac appears unremarkable.There is no evidence of Tarlov intrasacral cysts nor other significant findings within the sacral canal Bones:There are no fractures nor ominous osseous lesions in the lumbar vertebral bodies and visualize d sacrum. Degenerative scoliosis evident which is convex right. Multilevel listhesis ease noted, as detailed below. With respect to the individual levels... T12-L1: Unremarkable L1-2: Advanced severe symmetrical disc space narrowing and there are a symmetrical osteophytes on bot h sides of this disc space. There is also retrolisthesis of L1 relative to L2 by approximately 8-9 m illimeters. There is broad annular bulging which accompanies the retrolisthesis. Results in moderat e central spinal canal stenosis. This and the annular bulging also result in an element of bilateral foraminal stenosis mild-moderate.Mild facet joint degenerative changes noted bilaterally. L2-3: This level exhibits asymmetric disc space narrowing, most prominent on the left side. There is mild annular bulging at this level. There is mild central canal stenosis. No significant foraminal stenosis on the right side but moderate foraminal stenosis on the left side, this being the side wit h further decreased height loss of the disc space when compared to the right side. There mild degene rative changes in the facet joints, slightly more so on the left side.No foraminal stenosis. L3-4: This disc space also exhibits somewhat asymmetric disc space narrowing, also more prominent on the left side and also contributing to the scoliosis. There is degenerative anterolisthesis of L3 u hugo L4. There is some mild symmetrical annular bulging without a distinct focal disc herniation. Th ere is severe central spinal canal stenosis at this level. This related to the listhesis, the annula r bulging, short AP dimensions the pedicles and significant degenerative changes in both facet joints . There is significant foraminal stenosis bilaterally, slightly more so on the left side at this lev el. L4-5: This level exhibits some disc space narrowing, more so on the right than left side. Also exhib its mild degenerative anterolisthesis L4 upon L5 due to advanced facet arthropathy. There is annular bulging without a distinct disc herniation. There is severe central spinal canal stenosis at this l evel due to all the above findings. There is also mild-moderate foraminal stenosis on the right side which is the side of more prominent disc space narrowing. There is no significant foraminal stenosi s on the opposite-left side. L5-S1: This level exhibits some disc space narrowing which is more prominent on the right than the le ft side. It exhibits very mild degenerative anterolisthesis of L5 upon S1 due to advanced facet arth ropathy. There is annular bulging without a distinct disc herniation. There is only mild central ca nal stenosis evident at this level. There is significant foraminal stenosis on the right side due to the vertical height loss of the disc space on the right. There is no significant foraminal stenosis on the left side which is the side of preserved disc height. Soft tissues: Psoas muscles are symmetrical.Kidney cysts noted, more numerous and prominent on the l eft side but the largest cyst in the left kidney measures only 2.3 by 1.5 cm.. IMPRESSION: 1. Multilevel findings as described above including multilevel asymmetric disc space narrowing, multi level listhesis, multilevel spinal canal stenosis and multilevel asymmetric foraminal stenosis, as de scribed individually above. 2. The most severe spinal canal stenosis here is at L4-5 level which is due to degenerative anterolis thesis of L4 upon L5, annular bulging, short AP dimensions the pedicles and degenerative facet arthro lula. Also ligamentum flavum hypertrophy. 3. Asymmetric foraminal stenosis is noted, as described individually above, this being mostly related to asymmetric vertical foraminal stenosis because of the difference in disc space height loss on eac h side of the disc. See above. DATA REPOSITORY:
== END ==
PROVIDERS: Visit Provider Student in an Organized Health Care Education/Training Program
DX: M48.062 Spinal stenosis, lumbar region with neurogenic claudication (principal); M54.16 Radiculopathy, lumbar region; M43.16 Spondylolisthesis, lumbar region
CPT/HCPCS: 72148

== ENCOUNTER → 2022-09-10 09:48 | Outpatient (BNVA) | payer MEDICARE, SELFPAY | PROVIDERS: PCP Nurse Practitioner Family; Referring Provider Family Medicine; Visit Provider Student in an Organized Health Care Education/Training Program | DX: M70.61 Trochanteric bursitis, right hip (principal); M17.12 Unilateral primary osteoarthritis, left knee; M54.50 Low back pain, unspecified; G89.29 Other chronic pain; M48.062 Spinal stenosis, lumbar region with neurogenic claudication | CPT/HCPCS: 20610; J1040 ==

== ENCOUNTER 2022-10-21 13:56 | Emergency (ER) | payer MEDICARE, SELFPAY ==
[2022-10-21] VITALS (51 sets, daily range): BP systolic 151–213; BP diastolic 51–91; PULSE 51–72; RESP 11–22; TEMP 37.1; O2SAT 92–99
--- NOTE | 2022-10-21 14:15 | RT.EKG_ITS ---
APPROVED REPORT Exam: Resting ECG Reason for Exam: Hypertension, lightheadedness Patient Location: E HR:55 bpm ECG Measurements Heart Rate 55 AXIS CO 184 P 49 QRSd 85 QRS 2 QT 438 T 23 QTc 421 Conclusion Sinus bradycardia...rate< 60
--- NOTE | 2022-10-21 14:29 | ED.GENADUL_ITS ---
Discharge Plan Disposition Patient Disposition: Home Condition: Stable Discharge Details Clinical Impression: Hypertension Primary Care Provider: Zhang Morris ED Provider: Johana Garcia Home Meds and New Rx's Prescriptions: Continued losartan-hydrochlorothiazide 100-12.5 mg tablet 1 tab PO DAILY Qty: 90 3RF pyridoxine (vitamin B6) [Vitamin B-6] 100 mg tablet 100 mg PO QID cyanocobalamin (vitamin B-12) 1,000 mcg capsule 1,000 mcg PO QMONTH cholecalciferol (vitamin D3) 350 mcg (14,000 unit) capsule 1,000 mcg PO DAILY quinine-vitamin E Capsule 1 cap PO DAILY Fish Oil 900 mg (320 mg- 580mg)-1,360 mg capsule 2 cap PO BID backaid 1 tab PO DAILY Rx Instructions: acetaminophen 500mg/pamabrom 25mg lutein 20 mg capsule 20 mg PO DAILY Rx Instructions: give with meal/snack thiamine mononitrate (vit B1) 100 mg tablet 100 mg PO DAILY folic acid 20 mg capsule 20 mg PO DAILY metoprolol succinate 50 mg tablet extended release 24 hr 50 mg PO DAILY Qty: 90 3RF Rx Instructions: Hold if pulse < 60 calcium carbonate-vitamin D3 [Calcium 600 + D(3)] 600 mg-5 mcg (200 unit) Tablet 1 tab PO DAILY Qty: 30 0RF No Action meclizine 12.5 mg tablet 12.5 mg PO TID PRN (Reason: dizziness) Qty: 30 1RF turmeric root extract 500 mg capsule 500 mg PO DAILY alpha lipoic acid 300 mg capsule 300 mg PO DAILY multivitamin Tablet 1 tab PO DAILY Digestive Advantage Advanced 10 billion cell capsule PO garlic 400 mg tablet 400 mg PO DAILY ferrous sulfate 27 mg iron tablet 27 mg PO DAILY red yeast rice 600 mg tablet 1,200 mg PO BID Rx Instructions: give with meal/snack Discharge Instructions Instructions: Hypertension (ED) Additional Instructions: Please discuss your blood pressure medication with your PCP. There is no evidence of heart attack on your labs or EKG today. Please discuss your labs with your PCP. Follow up with primary care provider in 3-5 days. Return to ED sooner if any headache, weakness on one side of your body or the other, blurry vision, chest pain, dizziness lightheadedness or vomiting or concerns. Referrals: Zhang Morris, CLEARANCE COORDINATOR [Primary Care Provider] - 5 days (ER follow up) Discharge Data Discharge Date/Time-TO BE ENTERED AT DEPARTURE: 10/21/22 18:49 Medical Decision Making <Niall Ferrera NP - Last Filed: 10/31/22 08:45> Patient presenting to the emergency department for chief complaint of elevated blood pressure. She states over the past 2 days she has noted some elevated blood pressure readings. Yesterday she had an episode of lightheadedness and today she states mild headache. She has been taking her blood pressure at home and had noted 200s/100s for blood pressure. Today she started feeling abnormal and took her blood pressure noted it was elevated so called for the ambulance. She denies any chest pain or shortness of breath, does state chronic back pain that is unchanged, does state bilateral chronic lower leg edema. Physical exam findings are unremarkable for any acute abnormalities. We will plan on performing EKG and labs. Differential diagnosis to include hypertensive urgency/emergency, atypical ACS, poorly controlled hypertension, anxiety cleo ction. Patient states she is asymptomatic at this time so we will hold off on any treatments and continue to monitor blood pressure which is slightly elevated here. Please see physician interpretation patient for full interpretation of EKG but upon my review patient has sinus bradycardia for rhythm, rate of 55, no acute ischemic findings to suggest STEMI. Review of CBC is overall nondiagnostic and not worrisome, CMP shows slight elevation of BUN at 21 and glucose at 128 otherwise nondiagnostic CMP. Troponin is initially undetected and BNP is slightly elevated at 358. No other comparable's on BMP or available. We will continue to monitor. Medical Records Medical records reviewed: Yes I reviewed the patient's medical records. Medical records narrative: Reviewed multiple office visit records and patient has been noted to be hypertensive on multiple occasions with blood pressure readings 180s/ 80. <Johana Garcia NP - Last Filed: 10/21/22 18:34> Patient presenting to the emergency department for chief complaint of elevated blood pressure. She states over the past 2 days she has noted some elevated blood pressure readings. Yesterday she had an episode of lightheadedness and today she states mild headache. She has been taking her blood pressure at home and had noted 200s/100s for blood pressure. Today she started feeling abnormal and took her blood pressure noted it was elevated so called for the ambulance. She denies any chest pain or shortness of breath, does state chronic back pain that is unchanged, does state bilateral chronic lower leg edema. Physical exam findings are unremarkable for any acute abnormalities. We will plan on performing EKG and labs. Differential diagnosis to include hypertensive urgency/emergency, atypical ACS, poorly controlled hypertension, anxiety reaction. Patient states she is asymptomatic at this time so we will hold off on any treatments and continue to monitor blood pressure which is slightly elevated here. Please see physician interpretation patient for full interpretation of EKG but upon my review patient has sinus bradycardia for rhythm, rate of 55, no acute ischemic findings to suggest STEMI. Review of CBC is overall nondiagnostic and not worrisome, CMP shows slight elevation of BUN at 21 and glucose at 128 otherwise nondiagnostic CMP. Troponin is initially undetected and BNP is slightly elevated at 358. No other comparable's on BMP or available. We will continue to monitor. 1546: SJ: Care assumed from provider (Joseph Ferrera NP) Please see their initial HPI, PE, and documentation. Discussed patient details and case and pending workup and disposition. Patient is hemodynamically stable, and alert and oriented. At the time of signout awaiting repeat troponin and reevaluation. BP is currently 176/69 heart rate is 55 hemodynamically stable. 1713: Repeat EKG performed by staff nuclear weapons officer. No significant change noted by me. Please see official report and MD interpretation. Patient was up to the bathroom her blood pressure did increase to systolic of 218, it is now 180 systolic. I did consider giving an additional 12.5 metoprolol however her heart rate is 60 I will refer her to her PCP or community development manager for possible med dose management. Awaiting second troponin result. 1828: Repeat troponin less than 50, I did reevaluate patient she denies any chest pain denies any headache. She is alert and oriented x3. No focal neurodeficits noted. I did discuss home care to follow-up with PCP regarding her blood pressure regimen. She verbalizes understanding her daughter is here at the bedside to transport her home. All the questions were answered to the best my ability. This text was generated using [employer] system, please disregard any oddities of phrase or misspellings. Lab Data Lab results reviewed: Yes I reviewed the patient's lab results. Labs: Laboratory Tests Range/Units 10/21/22 10/21/22 10/21/22 14:45 14:45 14:45 WBC (4.4-10.8) 10^3/uL 8.68 RBC (3.93-5.22) 10^6/uL 3.76 L Hgb (11.2-15.7) g/dL 11.9 Hct (36.0-46.0) % 35.5 L MCV (80-95) fL 94 MCH (27.0-33.0) pg 31.6 MCHC (32.0-36.0) % 33.5 RDW (11.7-14.6) % 12.6 Plt Count (130-400) 10^3/uL 216 MPV (8.0-11.0) fL 9.6 Immature Gran % 0.2 Neutrophils % 42.5 Lymphocytes % 48.3 Monocytes % 5.8 Eosinophils % 2.6 Basophils % 0.6 Nucleated RBC % (0.0-0.3) % 0.0 Absolute Neutrophils (1.2-6.7) 10^3/uL 3.69 Absolute Lymphocytes (1.2-3.4) 10^3/uL 4.19 H Absolute Monocytes (0.1-0.8) 10^3/uL 0.50 Absolute Eosinophils (0.0-0.7) 10^3/uL 0.23 Absolute Basophils (0.0-0.2) 10^3/uL 0.05 Sodium (136-145) mmol/L 138 Potassium (3.5-5.1) mmol/L 3.5 Chloride (98-107) mmol/L 102 Carbon Dioxide (21.0-32.0) mmol/L 30.9 Anion Gap (3-11) mmol/L 5.1 BUN (7-18) mg/dL 21 H Creatinine (0.55-1.02) mg/dL 0.8 Est GFR (CKD-EPI 2020) (mL/min/1.73m2) 72.61 Glucose (74-106) mg/dL 128 H Calcium (8.5-10.1) mg/dL 9.7 Magnesium (1.8-2.4) mg/dL 2.0 Total Bilirubin (0.2-1.0) mg/dL 0.4 AST (15-37) U/L 23 ALT (14-59) U/L 19 Alkaline Phosphatase (46-116) U/L 68 Troponin I (<or=60) ng/L < 50 NT-Pro-B Natriuret Pep (<300) pg/mL 358 H Total Protein (6.4-8.2) g/dL 7.2 Albumin (3.4-5.0) g/dL 3.7 Range/Units 10/21/22 17:15 WBC (4.4-10.8) 10^3/uL RBC (3.93-5.22) 10^6/uL Hgb (11.2-15.7) g/dL Hct (36.0-46.0) % MCV (80-95) fL MCH (27.0-33.0) pg MCHC (32.0-36.0) % RDW (11.7-14.6) % Plt Count (130-400) 10^3/uL MPV (8.0-11.0) fL Immature Gran % Neutrophils % Lymphocytes % Monocytes % Eosinophils % Basophils % Nucleated RBC % (0.0-0.3) % Absolute Neutrophils (1.2-6.7) 10^3/uL Absolute Lymphocytes (1.2-3.4) 10^3/uL Absolute Monocytes (0.1-0.8) 10^3/uL Absolute Eosinophils (0.0-0.7) 10^3/uL Absolute Basophils (0.0-0.2) 10^3/uL Sodium (136-145) mmol/L Potassium (3.5-5.1) mmol/L Chloride (98-107) mmol/L Carbon Dioxide (21.0-32.0) mmol/L Anion Gap (3-11) mmol/L BUN (7-18) mg/dL Creatinine (0.55-1.02) mg/dL Est GFR (CKD-EPI 2020) (mL/min/1.73m2) Glucose (74-106) mg/dL Calcium (8.5-10.1) mg/dL Magnesium (1.8-2.4) mg/dL Total Bilirubin (0.2-1.0) mg/dL AST (15-37) U/L ALT (14-59) U/L Alkaline Phosphatase (46-116) U/L Troponin I (<or=60) ng/L < 50 NT-Pro-B Natriuret Pep (<300) pg/mL Total Protein (6.4-8.2) g/dL Albumin (3.4-5.0) g/dL HPI <Niall Ferrera NP - Last Filed: 10/31/22 08:45> General Mode of arrival: EMS . Date/Time Provider Initiated Documentation: 10/21/22 14:08 . Limitations to Documentation: no limitations . Information obtained by: patient and RN notes reviewed . History of Present Illness 82 year old F presents to the emergency department with the chief complaint of Hypertension, feeling off, Quality is described as other (Denies current pain or discomfort), Patient started experiencing this day(s) (1) and it has been intermittent. No relieving factors improve symptom(s), No exacerbating factors reported . Patient notes malaise. Patient did receive the following treatments prior to arrival, none Related Data Home Medications Medication Instructions Recorded Confirmed folic acid 20 mg capsule 20 mg PO DAILY 07/22/21 10/30/22 thiamine mononitrate (vit B1) 100 100 mg PO DAILY 07/22/21 10/30/22 mg tablet calcium carbonate 600 mg-vitamin 1 tab PO DAILY #30 tabs 01/05/22 10/30/22 D3 5 mcg (200 unit) tablet (Calcium 600 + D(3)) lutein 20 mg capsule 20 mg PO DAILY 03/24/22 10/30/22 losartan 100 1 tab PO DAILY #90 tabs 04/29/22 10/30/22 mg-hydrochlorothiazide 12.5 mg tablet cholecalciferol (vitamin D3) 350 1,000 mcg PO DAILY 07/13/22 10/30/22 mcg (14,000 unit) capsule cyanocobalamin (vitamin B-12) 1,000 mcg PO QMONTH 07/13/22 10/30/22 1,000 mcg capsule pyridoxine (vitamin B6) 100 mg 100 mg PO QID 07/13/22 10/30/22 tablet (Vitamin B-6) backaid 1 tab PO DAILY 09/30/22 10/30/22 omega-3 900 mg-dha 320 mg-epa 580 2 cap PO BID 09/30/22 10/30/22 mg-fish oil 1,360 mg capsule (Fish Oil) quinine-vitamin E capsule 1 cap PO DAILY 09/30/22 10/30/22 metoprolol succinate 50 mg 50 mg PO DAILY #90 tabs 10/13/22 10/30/22 tablet,extended release 24 hr L.acidoph, paracasei,B. lactis 10 cell PO 10/28/22 10/30/22 billion cell capsule (Digestive Advantage Advanced Probiotic) alpha lipoic acid 300 mg capsule 300 mg PO DAILY 10/28/22 10/30/22 ferrous sulfate 27 mg iron tablet 27 mg PO DAILY 10/28/22 10/30/22 garlic 400 mg tablet 400 mg PO DAILY 10/28/22 10/30/22 multivitamin 1 tab PO DAILY 10/28/22 10/30/22 red yeast rice 600 mg tablet 1,200 mg PO BID 10/28/22 10/30/22 turmeric root extract 500 mg 500 mg PO DAILY 10/28/22 10/30/22 capsule meclizine 12.5 mg tablet 12.5 mg PO TID PRN dizziness #30 10/30/22 10/30/22 tabs Previous Rx's Medication Instructions Recorded calcium carbonate 600 mg-vitamin 1 tab PO DAILY #30 tabs 01/05/22 D3 5 mcg (200 unit) tablet (Calcium 600 + D(3)) losartan 100 1 tab PO DAILY #90 tabs 04/29/22 mg-hydrochlorothiazide 12.5 mg tablet metoprolol succinate 50 mg 50 mg PO DAILY #90 tabs 10/13/22 tablet,extended release 24 hr meclizine 12.5 mg tablet 12.5 mg PO TID PRN dizziness #30 10/30/22 tabs Allergies Allergy/AdvReac Type Severity Reaction Status Date / Time nabumetone Allergy Severe hives and Verified 10/30/22 09:30 a skin rash aspirin Allergy Intermediate Verified 10/30/22 09:30 gluten Allergy Intermediate rash Verified 10/30/22 09:30 ibuprofen Allergy Intermediate Verified 10/30/22 09:30 Sulfa (Sulfonamide Allergy Mild Verified 10/30/22 09:30 Antibiotics) enalapril Allergy Unknown Verified 10/30/22 09:30 latex Allergy Unknown Verified 10/30/22 09:30 lactose AdvReac Verified 10/30/22 09:30 nylon AdvReac Intermediate Uncoded 10/30/22 09:30 General Stated Complaint: GenMedical BENITO: 3 Review of Systems <Niall Ferrera NP - Last Filed: 10/31/22 08:45> Constitutional Constitutional: Denies chills, Denies fever(s), Reports headache(s), Reports malaise, Denies poor appetite and Denies weakness Eyes Eyes: Denies change in vision ENT Ears, Nose, Mouth, and Throat: Reports headache(s) Cardiovascular Cardiovascular: Denies chest pain, Reports leg edema, Reports lightheadedness and Denies dyspnea Respiratory Respiratory: Denies cough and Denies dyspnea Gastrointestinal Gastrointestinal: Denies abdominal pain and Denies nausea Genitourinary Genitourinary: Denies dysuria, Denies pelvic pain and Denies flank pain Musculoskeletal Musculoskeletal: Reports back pain (Chronic) Integumentary/Breasts Skin/Breast: Denies rash Neurologic Neurologic: Reports headache(s) and Denies weakness PFSH <Niall Ferrera NP - Last Filed: 10/31/22 08:45> All Active Problems Acute midline low back pain (Acute 07/21/17) 06/29/2017 evaluation at [facility]. 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 10/2019 57 mm (#3) donut placed Dermatitis, drug-induced (Acute) Seborrheic dermatitis of scalp (Acute) Allergy to NSAIDs (Acute) Allergy to latex (Acute) Fitting and adjustment of pessary (Acute) 2019. #3 (70mm) donut. 05/2021. 64mm donut fitted Breast cancer, left (Acute) 10/2019. Receives care at [facility] Urinary incontinence (Chronic) 2019. Stress incontinence worse after robotic hysterectomy. Patient is reluctant to be evaluated by urology since she has had several surgeries in this past year. Encounter for pessary maintenance (Acute) Diarrhea (Acute) Colitis (Acute) 04/2021. Dx by colonoscopy after months of diarrhea. Rx Budesonide XR Dysuria (Acute) Anxiety (Chronic) Prediabetes (Acute) Chronic low back pain (Acute) Cervical stenosis of spine (Acute) Cervicalgia (Acute) DJD (degenerative joint disease) (Chronic) GERD (gastroesophageal reflux disease) (Chronic) Vitamin D deficiency (Acute) Hiatal hernia (Chronic) Pulmonary embolism (Chronic) Anemia (Chronic) Insomnia (Acute) Blood in right ear canal (Acute) Conductive hearing loss, external ear (Acute) Closed hip fracture requiring operative repair with routine healing (Chronic) Left hip - discharge. 01/05/22 Osteoarthritis of left knee (Acute) Depo-medrol injection: 09/10/22; 06/24/22 Degenerative joint disease of right knee (Acute) Degenerative joint disease of right hip (Acute) Trochanteric bursitis, right hip (Acute) Depo-medrol injection: 09/10/22 Osteoarthritis of left knee (Acute) Hypertension (Chronic) Lumbar spinal stenosis (Acute) Medical History Carpal tunnel syndrome on both sides L>R. Not treated. 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 Postop recommendations: Vaginal cuff brachytherapy (w/o 10-15% recurrence) Postop: Year 1 gynecologic oncology visit every 3 months no Pap testing indicated. Year 2-5 alternate visits between site physician and gynecologic oncologist every 6 months. No Pap indicated. H/O solar lentigo with atypical melanocytic hyperplasia, lichenoid inflammation and dermal melanophages History of cataract History of diverticulitis History of endometrial biopsy History of endometrial cancer Hypertension Lumbar spinal stenosis Tubular carcinoma of left breast Ulnar neuropathy Vaginal prolapse longstanding use of 70mm (#4) ring pessary. 07/2018 increased size to # 6 ring pessary with support. 12/09/18 Size again decreased to #4 ring w/ support secondary to vaginal excoriation. Surgical History History of carpal tunnel release History of neck surgery (~2017) History of partial mastectomy of left breast History of right breast biopsy History of robot-assisted laparoscopic hysterectomy With BSO and sentinel lymph node biopsy at [facility] for endometrial carcinoma. Left displaced femoral neck fracture (12/30/21) s/p left hip hemiarthroplasty Dr. Maldonado Family History Mother , 76 Hypertension Hyperlipidemia Father , 70 Alcohol use disorder Cancer Heart disease Hypertension Hyperlipidemia Sister , 77 Cancer Heart disease Sister No problems noted. Sister , 69 Cancer Substance use disorder Son Hyperlipidemia Hypertension Daughter Hypertension Hyperlipidemia Daughter No problems noted. Social History Smoking/Tobacco Use Status: Never Second Hand Exposure: Yes Smoking risk assessment performed?: Yes Alcohol Intake: never Drug use: Never Substance use type: does not use Caregiver/Support person: Yes Household members: spouse Housing: house Communication Needs: None Do you need help understanding health information?: Rarely Pets and animals: No Sexually active: No Do you think of yourself as: straight/heterosexual Current gender identity: female What is your relationship status?: How often do you talk on the phone with friends or family?: decline to answer How often do you get together with friends or relatives?: decline to answer How often do you attend sabianism or anabaptism services?: decline to answer Do you belong to any clubs or organized social groups?: decline to answer Panel score (0-1 are the most socially isolated patients): 1 What type of physical activity do you participate in: decline to answer Duration: 45-60 minutes/day Frequency: 1-2 times per week Melia/Holiness: Episcopal Seatbelt use: always Helmet use: No Drive intox or ride w/intox tank truck driver: No Do you feel safe at home: Yes Do you feel safe in your relationship?: Yes Female Reproductive History Menstrual Menopause type: natural History History 3 Para Hx # Term Pregnancies 3 Multiple births Hx # Pregnancies Ectopic pregnancies AB induced Hx Number of Living Children AB spontaneous Exam <Niall Ferrera NP - Last Filed: 10/31/22 08:45> Const General: cooperative, healthy appearing, comfortable, no acute distress, not diaphoretic and not ill appearing Nutritional Appearance: average body habitus Orientation: alert, awake and oriented x3 Limitations: mental status not altered Neck Neck: normal visual inspection, full ROM, trachea midline, supple and no anterior neck swelling Carotids: normal carotid upstroke and no bruits Chest Chest: normal inspection of the chest Resp Effort & Inspection: normal respiratory effort and able to speak in complete sentences Auscultation: clear to auscultation bilaterally Cardio Jugular venous pressure: no JVD Palpation: normal PMI Rate: regular rate Rhythm: regular rhythm Heart Sounds: S1 normal, S2 normal, no click, no gallops, no murmurs and no rubs Bruits: no abdominal aortic bruits and no carotid bruits Pulses: radial pulses present bilaterally 2+ GI Inspection: normal to inspection Palpation: soft, no aortic enlargement, no pulsatile masses and nontender Auscultation: normal bowel sounds Skin General skin exam: no rashes or lesions noted Neuro General: patient alert, patient awake, patient oriented x3, tone normal and moves all extremities Extrem General: pedal edema bilaterally pitting and 1+ Course <Niall Ferrera NP - Last Filed: 10/31/22 08:45> Vital Signs Vital signs: Vital Signs Temperature 37.1 C 10/21/22 13:59 Pulse 65 10/21/22 13:59 Respiratory Rate 18 10/21/22 13:59 Blood Pressure 174/73 H 10/21/22 13:59 Pulse Oximetry 97 10/21/22 13:59 Temperature 37.1 C 10/21/22 13:59 Temperature Source Tympanic 10/21/22 13:59 Pulse 65 10/21/22 13:59 Respiratory Rate 18 10/21/22 13:59 Respiratory Effort 10/21/22 14:05 Respiratory Depth Normal 10/21/22 14:05 Respiratory Pattern Normal 10/21/22 14:05 Blood Pressure 174/73 H 10/21/22 13:59 Blood Pressure Position Supine 10/21/22 13:59 Pulse Oximetry 97 10/21/22 13:59 Oxygen Delivery Method Room Air 10/21/22 13:59 Oxygen Flow Rate 0 10/21/22 13:59 Pain Level 2 10/21/22 13:59 Sign Out <Niall Ferrera NP - Last Filed: 10/31/22 08:45> Sign Out Data: Sign Out Comment: Patient pending further repeat troponin and follow-up assessment for hypertension with mild resolve symptoms. Last updated by Niall Ferrera CLEARANCE COORDINATOR at 10/21/22 15:35
[2022-10-21 14:54] LABS: Abs Immature Grans 0.02 10^3/uL (0.0-0.06); Absolute Basophil Count 0.05 10^3/uL (0.0-0.2); Absolute Eosinophil Count 0.23 10^3/uL (0.0-0.7); Absolute Lymphocyte Count 4.19 10^3/uL (1.2-3.4); Absolute Neutrophil Count 3.69 10^3/uL (1.2-6.7); Basophils % 0.6; Eosinophils % 2.6; HCT 35.5 % (36.0-46.0); HGB 11.9 g/dL (11.2-15.7); Immature Grans % 0.2; Lymphocytes % 48.3; MCH 31.6 pg (27.0-33.0); MCHC 33.5 % (32.0-36.0); MCV 94 fL (80-95); MPV 9.6 fL (8.0-11.0); Monocytes % 5.8; Neutrophils % 42.5; Platelet Count 216 10^3/uL (130-400); RBC 3.76 10^6/uL (3.93-5.22); RDW 12.6 % (11.7-14.6); RDW-SD 43.8 fL; WBC 8.68 10^3/uL (4.4-10.8)
[2022-10-21 15:10] LABS: ALT 19 U/L (14-59); AST 23 U/L (15-37); Albumin 3.7 g/dL (3.4-5.0); Alkaline Phosphatase 68 U/L (46-116); Anion Gap 5.1 mmol/L (3-11); BUN 21 mg/dL (7-18); Bilirubin, Total 0.4 mg/dL (0.2-1.0); CO2 30.9 mmol/L (21.0-32.0); CREATININE 0.8 mg/dL (0.55-1.02); Calcium 9.7 mg/dL (8.5-10.1); Chloride 102 mmol/L (98-107); Estimated GFR 72.61 (mL/min/1.73m2); Glucose 128 mg/dL (74-106); Potassium 3.5 mmol/L (3.5-5.1); Sodium 138 mmol/L (136-145); Total Protein 7.2 g/dL (6.4-8.2)
[2022-10-21 15:20] LABS: NT-proBNP 358 pg/mL (<300); Troponin I < 50 ng/L (<or=60)
--- NOTE | 2022-10-21 17:00 | RT.EKG_ITS ---
APPROVED REPORT Exam: Resting ECG Reason for Exam: Repeat Patient Location: E HR:61 bpm ECG Measurements Heart Rate 61 AXIS NV 195 P 51 QRSd 87 QRS 3 QT 428 T 16 QTc 434 Conclusion Sinus rhythm...normal P axis, V-rate 60- 99 Atrial premature complex...SV complex w/ short R-R interval Physician: no stemi
[2022-10-21 17:55] LABS: Troponin I < 50 ng/L (<or=60)
== END 2022-10-21 18:49 | disposition home or self-care (01) ==
PROVIDERS: Nurse Practitioner Family; Emergency Provider Registered Nurse Emergency; PCP Nurse Practitioner Family
DX: I10 Essential (primary) hypertension (principal); R60.0 Localized edema; M54.9 Dorsalgia, unspecified; G89.29 Other chronic pain; R00.1 Bradycardia, unspecified; R79.89 Other specified abnormal findings of blood chemistry; R79.0 Abnormal level of blood mineral; R42 Dizziness and giddiness
CPT/HCPCS: 80053; 93005; 99283; 83735; 83880; 84484; 85025; 93010; 99284

== ENCOUNTER 2022-11-26 10:04 | Outpatient (CLI) | payer MEDICARE, SELFPAY ==
--- NOTE | 2022-11-26 06:00 | DI.RAD_ITS ---
Exam(s) XR PAIN CLINIC LUMBAR SP 2V EXAM: XR PAIN CLINIC LUMBAR SP 2V CLINICAL HISTORY: Dx: Lumbar Radiculopathy TECHNIQUE: 2D and realtime digital imaging was performed. CONTRAST MATERIAL: Refer to procedure report. COMPARISON: No exams were available for comparison FINDINGS: Fluoroscopy was provided for Dr. Fernando during the performance of a lumbar epidural steroid injection. Please refer to the procedure report for complete details. Ka,r=4.02 mGy IMPRESSION:
[2022-11-26 10:17] VITALS: BP 121/66; PULSE 57; RESP 20; TEMP 36.9; O2SAT 97
--- NOTE | 2022-11-26 10:52 | PDOC.PAIN_ITS ---
Date of service: 11/26/22 Time of Service: 11:01 Pain Clinic Procedure Note Procedure Note Procedure Note: Lumbar Epidural Steroid Injection Procedure Note COMMENTS: I evaluated her in our clinic a month ago. No changes since then. She is in PT and will restart home exercises in 2 days. She will cancel tomorrow's PT session and get back to PT next Wednesday (she does Wednesday and Wednesday PT sessions). Pre-procedure pain VAS was 8/10. Dx: Lumbosacral radiculopathy Eloina Ware has been referred to the [facility] for lumbar epidural steroid injection. The patient was greeted by the nurse who verified patients name and . Patient was then taken to the fluoroscopy suite. The patient was interviewed and the medial record reviewed. There were no medical, pharmacologic, radiographic, or other structural contraindications to attempting fluoroscopically guided lumbar epidural steroid injection. Risks and expected side effects as well as potential benefits of the procedure were reviewed and voiced concerns expressed. The patient consent form was signed and witnessed. Standard patient time-out procedure was performed. The patient was placed in the prone position on the fluoroscopy table and a utomated blood pressure cuff and pulse oximeter applied. The skin entry point for entering/approaching the epidural space at L5-S1 and marked. Following thorough chlorhexadine preparation of the skin and draping and 1% lidocaine infiltration of the skin entry point and subcutaneous tissues, a 18 gauge Touhy needle was placed under fluoroscopic guidance and with loss of resistance technique into the epidural space. Needle tip placement and depth were aided and confirmed by fluoroscopy. There was no paresthesia or return of blood or CSF through the needle. 1 cc's of Omnipaque 240 was injected with clear epidural spread confirmed with fluoroscopy. 80mg depomedrol was injected. There was not any unusual discomfort expressed by Eloina Ware. Patient's vital signs were stable throughout the procedure and were as recorded in nursing records. Follow up plans and appointments were discussed with patient. Post procedure instruction was given as documented in nursing records and having met discharge criteria and was discharged from the [facility]. COMMENTS: If this procedure is helpful (at least a 50% improvement in pain and/or function for at least 3 months), it can be completed up to 3 times per 12 months. Post-procedure pain VAS was 7/10. Brian Fernando DO, MPH [facility]-Pain Management [facility]
[2022-11-26] MEDS: Omnipaque 240 MG/ML 50 ML BTL IJ (10:54)
[2022-11-26 10:55] VITALS: BP 144/70; PULSE 65; RESP 20; O2SAT 95
[2022-11-26] MEDS: methylPREDNISolone ACETATE 80 MG/ML VIAL IJ (10:55)
== END 2022-11-26 10:05 | disposition home or self-care (01) ==
LOC: PC 10:04
PROVIDERS: PCP Nurse Practitioner Family; Visit Provider Preventive Medicine Occupational Medicine
DX: M54.17 Radiculopathy, lumbosacral region (principal); M54.50 Low back pain, unspecified
CPT/HCPCS: 62323; 72100; J1040; Q9967

== ENCOUNTER 2022-12-24 12:00 | Outpatient (CLI) | payer MEDICARE, SELFPAY ==
--- NOTE | 2022-12-24 06:00 | DI.RAD_ITS ---
Exam(s) XR PAIN CLINIC FLUORO JOINT IN EXAM: XR PAIN CLINIC FLUORO JOINT IN CLINICAL HISTORY: DX: left knee osteoarthritis. TECHNIQUE: Fluoroscopy was provided for the referring physician for guidance with performing pain cl inic injection procedure. COMPARISON: No exams were available for comparison FINDINGS: Please see procedure note for details. Fluoro time: 32.7 seconds RADIATION DOSE DELIVERED: kellie Machuca=1.59 mGy
[2022-12-24 12:09] VITALS: BP 117/70; PULSE 88; RESP 20; TEMP 36.6; O2SAT 96
[2022-12-24 12:56] VITALS: BP 132/69; PULSE 66; RESP 18; O2SAT 96
[2022-12-24] MEDS: Bupivacaine 0.5% Pres-Free 10 ML VIAL IJ (12:57)
[2022-12-24] MEDS: Omnipaque 240 MG/ML 50 ML BTL IJ (12:58)
--- NOTE | 2023-01-27 10:14 | PDOC.PAIN_ITS ---
Date of service: 12/24/22 Time of Service: 12:00 Pain Managment Procedure Note Procedure Note Procedure Note: LEFT GENICULAR NERVE BLOCK Date of Service: December 24, 2022 Patient: Eloina Ware Provider: Brian Fernando DO, MPH Pre-operative diagnosis: Knee pain Post-operative diagnosis: Same Pre-procedure pain: VAS= 6/10 COMMENTS: She was previously evaluated in the clinic. Eloina Ware has been referred to the [facility] for LEFT genicular nerve block. Eloina was interviewed and the medical record reviewed. There were no medical, pharmacologic, radiographic or other structural contraindications to attempting fluoroscopically guided LEFT genicular nerve block. Risks and potential side effects as well as potential benefit of the procedure were reviewed with Eloina , and HER voiced concerns were addressed. After I believed that the patient was completely informed, the printed consent form was signed. Standard time-out procedure was performed. Eloina was placed in the supine position on the fluoroscopy table and automated blood pressure cuff and pulse oximeter applied. The skin entry points for approaching LEFT superolateral genicular nerve, the superomedial genicular nerve, the terminal branch of the nerve vastus intermedius and the inferomedial genicular was identified under the most advantageous fluoroscopic view and marked. Following thorough Chlorhexadine preparation of the skin and draping, 1% lidocaine infiltration of the skin entry point and subcutaneous tissues was accomplished using a 1.5 25G needle. Next, the 3.5 25G spinal needle was advanced to os at the location of the specific nerve root using fluoroscopic guidance. Next, 0.5 ml of 0.5% Bupivacaine was injected at each site. The needles were removed without difficulty. Eloina's vital signs were stable throughout the procedure and were as recorded in the docflowsheet by the nursing staff. If given, dosages of intravenous drugs for anxiolysis and analgesia were documented in MAR. Follow up plans and appointments were discussed with the Eloina . Post procedure instruction was given as documented in nursing documentation and having met discharge criteria, Eloina was discharged from the [facility]. COMMENTS: No apparent complications. Post-procedure pain: VAS = 2/10. The patient will keep track of her LEFT knee pain over the next four hours. If Eloina has sufficient pain relief, Eloina will be a candidate for radiofrequency ablation at the same nerves. Navin WJ1, Mark SJ, Josias JG, Jeramie JG, Merlin DOUGLAS, Park PH, Wills JW. Radiofrequency treatment relieves chronic knee osteoarthritis pain: a double-blind randomized controlled trial. Pain. 2011 Nov;152(3):481-7. doi: 10.1016/j.pain.2010.09.029. Blanca S1, Justen ON2, Nancy Y3, ?zl?lerden P2, Yuri U1, Chandrakant ?m?rl? I. Which one is more effective for the clinical treatment of chronic pain in knee osteoarthritis: radiofrequency neurotomy of the genicular nerves or intra- articular injection? Int J Rheum Dis. 2016 May 08. F/U with our office by phone to let us know the 1-4 hour post-procedure pain VAS scores and level of function. Brian Fernando DO, MPH [facility]
== END 2022-12-24 12:01 | disposition home or self-care (01) ==
LOC: PC 12:00
PROVIDERS: PCP Nurse Practitioner Family; Visit Provider Preventive Medicine Occupational Medicine
DX: M25.562 Pain in left knee (principal)
CPT/HCPCS: 64454; 77002; Q9967

== ENCOUNTER 2023-02-03 10:22 | Outpatient (CLI) | payer MEDICARE, SELFPAY ==
[2023-02-03 10:38] VITALS: BP 153/75; PULSE 58; RESP 20; TEMP 36.7; O2SAT 98
[2023-02-03] MEDS: fentaNYL 100 MCG/2 ML VIAL IVP ×2 (11:18→11:20)
[2023-02-03] MEDS: Midazolam 2 MG/2 ML VIAL IVP (11:19)
[2023-02-03] MEDS: Lactated Ringers 500 ML 80 ML IV (11:19)
--- NOTE | 2023-02-03 11:48 | DI.RAD_ITS ---
Exam(s) XR PAIN CLINIC FLUORO JOINT IN EXAM: XR PAIN CLINIC FLUORO JOINT IN CLINICAL HISTORY: Dx: Knee Pain. TECHNIQUE: Fluoroscopy was provided for the referring physician for guidance with performing pain cl inic injection procedure. COMPARISON: No exams were available for comparison FINDINGS: Please see procedure note for details. Fluoro time: 57.7 seconds RADIATION DOSE DELIVERED: kellie Machuca=3.5 mGy
[2023-02-03 11:51] VITALS: BP 151/82; PULSE 66; RESP 16; O2SAT 98
--- NOTE | 2023-02-03 11:55 | PDOC.PAIN ---
Date of service: 02/03/23 Time of Service: 11:59 Pain Managment Procedure Note Procedure Note Procedure Note: LEFT GENICULAR NERVE RADIOFREQUENCY ABLATION WITH THE COOLIEF MACHINE Date of Service: February 03, 2023 Patient: Eloina Ware Provider: Brian Fernando DO, MPH Pre-operative diagnosis: Left knee pain Post-operative diagnosis: Same COMMENTS: Previous Genicular nerve block to the LEFT knee on 12/24/22 with great results. Eloina Ware has been referred to the [facility] for LEFT genicular nerve radiofrequency ablation. Eloina was interviewed and the medical record reviewed. There were no medical, pharmacologic, radiographic or other structural contraindications to attempting fluoroscopically guided LEFT genicular nerve radiofrequency ablation. Risks and potential side effects as well as potential benefit of the procedure were reviewed with Eloina Ware , and HER voiced concerns were addressed. After I believed that the patient was completely informed, the printed consent form was signed. Standard time-out procedure was performed. Eolina was placed in the supine position on the fluoroscopy table and automated blood pressure cuff and pulse oximeter applied. The skin entry points for approaching LEFT superolateral genicular nerve, the superomedial genicular nerve, supra-pateallar and the inferomedial genicular was identified under the most advantageous fluoroscopic view and marked. Following thorough Chlorhexadine preparation of the skin and draping, 1% lidocaine infiltration of the skin entry point and subcutaneous tissues was accomplished using a 1.5 25G needle. Next, the 10 cm 18G RF Cannula with a 4 mm active tip was advanced to os at the location of the specific nerve roots (4) using fluoroscopic guidance. Next, sensory and motor testing was performed and no abnormal findings were found. Next, 1 cc of 2% Lidocaine was injected at each site. The lesion was then created with 80 degrees C for 90 seconds. Each needle was advance 1 cm and the lesion was completed again. Each cannula was advanced until the tip reached the posterior aspect of the bone shaft. 1/4 cc of Depomedrol (80 mg/cc) was then injected at each site followed by 1.5 cc of 0.5% Bupivacaine as the needles were withdrawn. The needles were removed without difficulty. Eloina's vital signs were stable throughout the procedure and were as recorded in the docflowsheet by the nursing staff. If given, dosages of intravenous drugs for anxiolysis and analgesia were documented in NOV. Follow up plans and appointments were discussed with the Eloina Ware . Post procedure instruction was given as documented in nursing documentation and having met discharge criteria, Eloina was discharged from the [facility]. COMMENTS: No complications. Navin WJ1, Mark SJ, Josias JG, Jeramie JG, Merlin DOUGLAS, Dolores PH, Johann JW. Radiofrequency treatment relieves chronic knee osteoarthritis pain: a double-blind randomized controlled trial. Pain. 2010;152(3):481-7. doi: 10.1016/j.pain.2010.09.029. Blanca S1, Justen ON2, Nancy Y3, ?zl?lerden P2, Yuri U1, Chandrakant ?m?rl? I. Which one is more effective for the clinical treatment of chronic pain in knee osteoarthritis: radiofrequency neurotomy of the genicular nerves or intra-articular injection? Int J Rheum Dis. 2016 May 08. F/U with our office as needed. Post-procedure pain VAS was 0/10. If she receives at least 6 months of at least 50% improvement in pain and/or function, this procedure pain be repeated. I personally performed this entire procedure. Brian Fernando DO, MPH [facility]-Pain Management [facility]
[2023-02-03] MEDS: Lidocaine 2% Pres-Free 5 ML VIAL IJ (12:01)
[2023-02-03] MEDS: Bupivacaine 0.5% Pres-Free 10 ML VIAL IJ (12:01)
[2023-02-03] MEDS: methylPREDNISolone ACETATE 40 MG/ML VIAL IJ (12:03)
== END 2023-02-03 10:23 | disposition home or self-care (01) ==
PROVIDERS: PCP Nurse Practitioner Family; Visit Provider Preventive Medicine Occupational Medicine
DX: M25.562 Pain in left knee (principal)
CPT/HCPCS: 64624; 77002; J1030; J2250; J3010

== ENCOUNTER 2023-04-13 16:05 | Outpatient (CLI) | payer MEDICARE, SELFPAY ==
--- NOTE | 2023-04-13 13:00 | DI.RAD_ITS ---
Exam(s) XR HIP LT COMPLETE AP PELVIS EXAM: XR HIP LT COMPLETE AP PELVIS CLINICAL HISTORY: evaluate pathology, lt hip pain, M25.552. TECHNIQUE: 2D digital imaging was performed of the left hip. Two views were obtained. AP pelvis an d lateral left hip views were obtained. COMPARISON: CR XR HIP LT COMPLETE AP PELVIS from 01/20/2022 CR XR HIP RT COMPLETE AP PELVIS from 07/13/2022 XR PAIN CLINIC FLUORO JOINT IN from 02/03/2023 FINDINGS: BONES: No acute fracture is present. No bony destructive lesion is seen. JOINTS: No dislocation present. The patient has a left hip hemiarthroplasty. Degenerative changes ar e seen in the lower lumbar spine in the sacroiliac joints. SOFT TISSUE: There is a pessary in place. Atherosclerosis is present. IMPRESSION: 1. No acute abnormality. 2. Stable left hip hemiarthroplasty. DATA REPOSITORY: RADIATION DOSE DELIVERED:
--- NOTE | 2023-04-13 13:00 | DI.RAD_ITS ---
Exam(s) XR KNEE LT 3V AP,LAT,DOTTIE EXAM: XR KNEE LT 3V AP,LAT,DOTTIE CLINICAL HISTORY: evaluate pathology, lt knee pain, M25.562. TECHNIQUE: 2D digital imaging was performed of the left knee. Three images were obtained. Merchant ,AP, lateral and PA tunnel views were obtained. COMPARISON: CR,XR XR KNEE LT 3V AP,LAT,DOTTIE from 12/31/2021 FINDINGS: BONES: No acute fracture is present. No bony destructive lesion is seen. JOINTS: The knee is normally aligned. There is loss of the lateral femoral tibial joint. There is al so marked narrowing of the patellofemoral joint. Osteophytes are seen in all 3 joint compartments. 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 SOFT TISSUE: Atherosclerosis is present. IMPRESSION: Marked osteoarthritis of the left knee. DATA REPOSITORY: RADIATION DOSE DELIVERED:
== END 2023-04-13 16:25 ==
LOC: DI 16:06
PROVIDERS: PCP Nurse Practitioner Family; Visit Provider Nurse Practitioner Family
DX: M17.12 Unilateral primary osteoarthritis, left knee (principal); M25.552 Pain in left hip; Z96.642 Presence of left artificial hip joint
CPT/HCPCS: 73562; 73502

== ENCOUNTER 2023-06-18 11:29 | Outpatient (CLI) | payer MEDICARE, SELFPAY ==
--- NOTE | 2023-06-18 11:00 | DI.RAD_ITS ---
Exam(s) XR KNEE LT 1V XR STANDING ALIGNMENT EXAM: XR STANDING ALIGNMENT and XR knee LT 1 V CLINICAL HISTORY: OA LEFT KNEE. TECHNIQUE: 2D digital imaging was performed. Five images were obtained. COMPARISON: CR,XR XR KNEE LT 3V AP,LAT,DOTTIE from 12/31/2021 CR XR KNEE RT 3V AP,LAT,DOTTIE from 07/13/2022 CR XR KNEE LT 3V AP,LAT,ODTTIE from 04/13/2023 CR XR KNEE LT 1V from 06/18/2023 FINDINGS: BONES: The patient has a left hip prosthesis which appears intact. There are marked degenerative nasima nges of the knees bilaterally characterized by joint space narrowing and osteophytes. In the left kn ee, the findings are most marked in the lateral femoral tibial and patellofemoral joint. Valgus defo rmity of the knees are noted bilaterally. The ankles are well maintained.There is no significant leg length discrepancy. SOFT TISSUE: Normal. IMPRESSION: Marked osteoarthritis of the knees bilaterally. DATA REPOSITORY: RADIATION DOSE DELIVERED:
--- NOTE | 2023-06-18 11:00 | DI.RAD_ITS ---
Exam(s) XR KNEE LT 1V XR STANDING ALIGNMENT EXAM: XR STANDING ALIGNMENT and XR knee LT 1 V CLINICAL HISTORY: OA LEFT KNEE. TECHNIQUE: 2D digital imaging was performed. Five images were obtained. COMPARISON: CR,XR XR KNEE LT 3V AP,LAT,DOTTIE from 12/31/2021 CR XR KNEE RT 3V AP,LAT,DOTTIE from 07/13/2022 CR XR KNEE LT 3V AP,LAT,DOTTIE from 04/13/2023 CR XR KNEE LT 1V from 06/18/2023 FINDINGS: BONES: The patient has a left hip prosthesis which appears intact. There are marked degenerative nasima nges of the knees bilaterally characterized by joint space narrowing and osteophytes. In the left kn ee, the findings are most marked in the lateral femoral tibial and patellofemoral joint. Valgus defo rmity of the knees are noted bilaterally. The ankles are well maintained.There is no significant leg length discrepancy. SOFT TISSUE: Normal. IMPRESSION: Marked osteoarthritis of the knees bilaterally. DATA REPOSITORY: RADIATION DOSE DELIVERED:
== END 2023-06-18 11:30 | disposition home or self-care (01) ==
LOC: DIORS 11:30
PROVIDERS: PCP Nurse Practitioner Family; Referring Provider Nurse Practitioner Family; Visit Provider Student in an Organized Health Care Education/Training Program
DX: M17.12 Unilateral primary osteoarthritis, left knee (principal)
CPT/HCPCS: 99213; 73560; 77073

== ENCOUNTER 2023-08-12 05:13 | Outpatient (CLI) | payer MEDICARE, SELFPAY ==
[2023-08-12 15:10] LABS: HCT 35.9 % (36.0-46.0); MCH 30.2 pg (27.0-33.0); MCHC 33.4 % (32.0-36.0); MCV 90 fL (80-95); MPV 9.9 fL (8.0-11.0); Platelet Count 220 10^3/uL (130-400); RBC 3.98 10^6/uL (3.93-5.22); RDW 12.8 % (11.7-14.6); RDW-SD 42.3 fL; WBC 9.66 10^3/uL (4.4-10.8)
[2023-08-12 15:49] LABS: Anion Gap 5.6 mmol/L (3-11); BUN 16 mg/dL (7-18); CO2 30.4 mmol/L (21.0-32.0); CREATININE 0.7 mg/dL (0.55-1.02); Calcium 10.1 mg/dL (8.5-10.1); Chloride 102 mmol/L (98-107); Glucose 108 mg/dL (74-106); Potassium 3.6 mmol/L (3.5-5.1); Sodium 138 mmol/L (136-145)
== END 2023-08-12 05:14 | disposition home or self-care (01) ==
LOC: LBO 05:13
PROVIDERS: PCP Nurse Practitioner Family; Visit Provider Student in an Organized Health Care Education/Training Program
DX: M17.12 Unilateral primary osteoarthritis, left knee (principal); Z01.818 Encounter for other preprocedural examination
CPT/HCPCS: 36415; 80048; 85027

== ENCOUNTER 2023-08-24 12:29 | Observation (INO) | payer MEDICARE, SELFPAY ==
[2023-08-24] VITALS (15 sets, daily range): BP systolic 132–199; BP diastolic 59–117; PULSE 57–97; RESP 14–20; TEMP 35.7–37; O2SAT 63–98; BMI 25.0
[2023-08-24] MEDS: Acetaminophen 500 MG TAB 1000 MG PO ×3 (09:28→20:14)
[2023-08-24] MEDS: Gabapentin 300 MG CAP PO ×2 (09:28→22:38)
--- NOTE | 2023-08-24 09:30 | W.ANESPRE ---
General Info Date of Service Date Performed: 08/24/23 Height: 5 ft 2 in Weight: 62.1 kg Body Mass Index (BMI): 25.0 Surgical Procedure: Operation Date: 08/24/23 11:55 Proposed Procedure Side Surgeon p Knee Total Arthroplasty w/OrthAlign, Cemented PS Left Yasmany Orosco MD Meds Allergies and Home Medications Allergies Allergy/AdvReac Type Severity Reaction Status Date / Time nabumetone Allergy Severe hives and Verified 08/24/23 09:10 a skin rash aspirin Allergy Intermediate can take Verified 08/24/23 09:10 81mg with no problems gluten Allergy Intermediate rash Verified 08/24/23 09:10 ibuprofen Allergy Intermediate Verified 08/24/23 09:10 Sulfa (Sulfonamide Allergy Mild Verified 08/24/23 09:10 Antibiotics) enalapril Allergy Unknown Verified 08/24/23 09:10 latex Allergy Unknown Verified 08/24/23 09:10 lactose AdvReac intolerant Verified 08/24/23 09:10 nylon AdvReac Intermediate Uncoded 08/24/23 09:10 Home Medication Medication Instructions Recorded folic acid 20 mg capsule 20 mg PO DAILY 07/22/21 thiamine mononitrate (vit B1) 100 100 mg PO DAILY 07/22/21 mg tablet calcium carbonate 600 mg-vitamin 1 tab PO DAILY #30 tabs 01/05/22 D3 5 mcg (200 unit) tablet (Calcium 600 + D(3)) lutein 20 mg capsule 20 mg PO DAILY 03/24/22 cholecalciferol (vitamin D3) 350 1,000 mcg PO DAILY 07/13/22 mcg (14,000 unit) capsule cyanocobalamin (vitamin B-12) 1,000 mcg PO QMONTH 07/13/22 1,000 mcg capsule pyridoxine (vitamin B6) 100 mg 100 mg PO QID 07/13/22 tablet (Vitamin B-6) omega-3 900 mg-dha 320 mg-epa 580 2 cap PO BID 09/30/22 mg-fish oil 1,360 mg capsule (Fish Oil) quinine-vitamin E capsule 1 cap PO DAILY 09/30/22 metoprolol succinate 50 mg 50 mg PO DAILY #90 tabs 10/13/22 tablet,extended release 24 hr L.acidoph, paracasei,B. lactis 10 10 cell PO DIRECTED 02/01/23 billion cell capsule (Digestive Advantage Advanced Probiotic) ferrous sulfate 27 mg iron tablet 27 mg PO DAILY 10/28/22 garlic 400 mg tablet 400 mg PO DAILY 10/28/22 multivitamin 1 tab PO DAILY 10/28/22 red yeast rice 600 mg tablet 1,200 mg PO BID 10/28/22 turmeric root extract 500 mg 500 mg PO DAILY 10/28/22 capsule meclizine 12.5 mg tablet 12.5 mg PO TID PRN dizziness #30 10/30/22 tabs losartan 100 0.5 tab PO DAILY 05/18/23 mg-hydrochlorothiazide 12.5 mg tablet Current Visit Medications: Current Medications Generic Name Dose Route Start Last Admin Trade Name Danielq PRN Reason Stop Dose Admin Acetaminophen 1,000 mg 08/24/23 06:00 08/24/23 09:28 Acetaminophen 500 Mg Tab PO 08/24/23 16:00 1,000 mg PREOP HOPE Administration Celecoxib 400 mg 08/24/23 06:00 Celecoxib 200 Mg Cap PO 09/23/23 05:59 PREOP HOPE Gabapentin 300 mg 08/24/23 06:00 08/24/23 09:28 Gabapentin 300 Mg Cap PO 08/24/23 16:00 300 mg PREOP HOPE Administration Ringer's Solution 1,000 mls @ 80 mls/hr 08/24/23 06:00 IV 08/24/23 23:59 INFUSION HOPE Cefazolin Sodium/Dextrose 2 gm in 50 mls @ 100 mls/hr 08/24/23 06:00 Ancef Duplex IVPB 08/24/23 23:59 PREOP HOPE Tranexamic Acid 1,000 mg/ 60 mls @ 360 mls/hr 08/23/23 14:00 Sodium Chloride IVPB 08/24/23 16:00 PREOP HOPE IV Miscellaneous Supplies 1 each 08/24/23 06:00 Iv Access IV 08/24/23 23:59 DIRECTED HOPE Sodium Chloride 0 ml 08/24/23 06:00 Normal Saline Flush 10 Ml Syr IV 08/24/23 23:59 PRN PRN Sodium Chloride 0 ml 08/24/23 06:00 Normal Saline 10 Ml Vial IJ 08/24/23 23:59 DIRECTED PRN Sterile Water 0 ml 08/24/23 06:00 Water,Injection,Sterile 10 Ml Vial IJ 08/24/23 23:59 DIRECTED PRN PFSH Active Problems Active Problems: Problem Status Onset Code Lumbar spinal stenosis M48.061 Osteoarthritis of left knee M17.12 Trochanteric bursitis, right hip M70.61 Degenerative joint disease of right hip M16.11 Degenerative joint disease of right knee M17.11 Osteoarthritis of left knee M17.12 Closed hip fracture requiring operative repair with routine healing S72.009D Conductive hearing loss, external ear H90.2 Blood in right ear canal H92.21 Insomnia G47.00 Anemia D64.9 Pulmonary embolism I26.99 Hiatal hernia K44.9 Vitamin D deficiency E55.9 GERD (gastroesophageal reflux disease) K21.9 DJD (degenerative joint disease) M19.90 Cervicalgia M54.2 Cervical stenosis of spine M48.02 Chronic low back pain M54.50, G89.29 Prediabetes R73.03 Anxiety F41.9 Dysuria R30.0 Colitis K52.9 Hypokalemia E87.6 Diarrhea R19.7 Encounter for pessary maintenance Z46.89 Urinary incontinence R32 Breast cancer, left C50.912 Fitting and adjustment of pessary Z46.89 Allergy to latex Z91.040 Allergy to NSAIDs Z88.6 Seborrheic dermatitis of scalp L21.9 Dermatitis, drug-induced L27.0 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 Itchy skin L29.9 Post-nasal drip R09.82 Chronic allergic rhinitis J30.9 Ulnar neuropathy at elbow of right upper extremity 08/30/17 G56.21 Spinal stenosis of lumbar region with neurogenic claudication 09/30/17 M48.062 Cervical myelopathy with cervical radiculopathy 09/30/17 M47.12 Acute midline low back pain 07/21/17 M54.5 Colectomy Medical History Medical History History of diverticulitis History of cataract H/O solar lentigo with atypical melanocytic hyperplasia, lichenoid inflammation and dermal melanophages Tubular carcinoma of left breast History of endometrial biopsy History of endometrial cancer Cystocele and rectocele with complete uterovaginal prolapse Grade 1 malignant neoplasm of endometrium 05/25/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 Postop recommendations: Vaginal cuff brachytherapy (w/o 10-15% recurrence) Postop: Year 1 gynecologic oncology visit every 3 months no Pap testing indicated. 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 No Pap indicated. Environmental allergies Carpal tunnel syndrome on both sides L>R. Not treated. Lumbar spinal stenosis Ulnar neuropathy Gastroesophageal reflux disease without esophagitis (07/21/17) Vaginal prolapse longstanding use of 70mm (#4) ring pessary. 07/2018 increased size to # 6 ring pessary with support. 12/09/18 Size again decreased to #4 ring w/ support secondary to vaginal excoriation. Hypertension Colon cancer Surgical History Surgical History S/P left knee arthroscopy Status post exploratory laparotomy Reports for colon cancer Left displaced femoral neck fracture (12/30/21) s/p left hip hemiarthroplasty Dr. Maldonado History of carpal tunnel release History of neck surgery (~2016) Pt states I had a vertebra that was out of place History of partial mastectomy of left breast History of right breast biopsy History of robot-assisted laparoscopic hysterectomy With BSO and sentinel lymph node biopsy at [facility] for endometrial carcinoma. Tobacco Smoking/Tobacco Use Status: Never Passive smoking exposure: Yes Second hand exposure: Yes Alcohol Alcohol Intake: never Substance Use Substance use: Never Substance use type: does not use Prental History History 3 Para Hx # Term Pregnancies 3 Multiple births Hx # Pregnancies Ectopic pregnancies AB induced Hx Number of Living Children AB spontaneous Vital Signs and Lab Results Vital Signs Most Recent Vital Signs in EMR: Most Recent Vital Signs Temp Pulse Resp BP Pulse Ox 36.7 C 66 16 169/59 H 98 08/24/23 09:15 08/24/23 09:15 08/24/23 09:15 08/24/23 09:15 08/24/23 09:15 Lab Results Blood Type / Crossmatch: No Data to Display Complete Blood Count: White Blood Count 9.66 10^3/uL (4.4-10.8) 08/12/23 14:40 Red Blood Count 3.98 10^6/uL (3.93-5.22) 08/12/23 14:40 Hemoglobin 12.0 g/dL (11.2-15.7) 08/12/23 14:40 Hematocrit 35.9 % (36.0-46.0) L 11/16/23 14:40 Platelet Count 220 10^3/uL (130-400) 08/12/23 14:40 Complete Metabolic Panel: Sodium 138 mmol/L (136-145) 08/12/23 14:40 Potassium 3.6 mmol/L (3.5-5.1) 08/12/23 14:40 Chloride 102 mmol/L (98-107) 08/12/23 14:40 Carbon Dioxide 30.4 mmol/L (21.0-32.0) 08/12/23 14:40 BUN 16 mg/dL (7-18) 08/12/23 14:40 Creatinine 0.7 mg/dL (0.55-1.02) 08/12/23 14:40 Est GFR (CKD-EPI 2020) 84.70 (mL/min/1.73m2) 08/12/23 14:40 Calcium 10.1 mg/dL (8.5-10.1) 08/12/23 14:40 Glucose 108 mg/dL (74-106) H 08/12/23 14:40 Liver Function Panel: No Data to Display Coagulation Panel: No Data to Display Cardiac Panel: No Data to Display Arterial Blood Gas: No Data to Display Venous Blood Gas: No Data to Display Pancreas Panel: No Data to Display Thyroid Panel: No Data to Display Infectious Disease: No Data to Display Blood Cultures: No Data to Display Toxicology Panel: No Data to Display Imaging and Studies Imaging and Studies Study information below may be from another EMR and interpreted by another provider. Please see original notes in EMR for more complete details. EKG Summary: Conclusion Sinus rhythm...normal P axis, V-rate 60- 99 Atrial premature complex...SV complex w/ short R-R interval 10/21/22 Echocardiogram Summary: FINDINGS: LEFT VENTRICLE/LVEF: Normal size, mild left ventricular hypertrophy, vigorous systolic function, EF 65-70%, no regional wall motion abnormalities. RIGHT VENTRICLE: Normal size and function. AORTIC VALVE: Trileaflet, no significant regurgitation, no stenoses. MITRAL VALVE: Structurally normal, trivial regurgitation, no stenosis. TRICUSPID VALVE: Structurally normal, trivial regurgitation, no stenosis. RSV/PA/RIGHT ATRIAL PRESSURE: Pulmonary arterial systolic pressure at the upper limits of normal, 35-40 mmHg. PULMONIC VALVE: Structurally normal, no stenosis or regurgitation. ATRIA: Left atrial enlargement, right atrium within normal limits. DIASTOLIC INDICES: Normal diastolic function for age. GREAT VESSELS: Aorta normal size. IVC normal size and collapses more than 50% with inspiration. PERICARDIUM: No effusion. SUMMARY: 1) Left ventricle normal size, mild LVH, vigorous systolic function, EF 65-70%, no regional wall motion abnormalities. 2) Left atrial enlargement. 3) Pulmonary arterial systolic pressure at the upper limits of normal, 35-40 mmHg. 4) No significant valvular heart disease. 09/03/14 Anesthesia Assessment and Plan Anesthesia History Personal History: No History of Anesthesia Complications Family History: No Family History of Anesthesia Complications Exercise Tolerance Exercise Tolerance: Metabolic Equivalents<4 Pertinent Negatives Pertinent Negatives: No Major Cardiovascular Symptoms or Complaints, No Major Pulmonary Symptoms or Complaints, No History of CVA/TIA and Other (Hx of PE) Cardiac & Pulmonary Exam Cardiac Exam: Normal S1/S2 Heart Sounds Pulmonary Exam: Clear Bilateral Breath Sounds and Active Dry Cough Implantable Cardiac Device Does patient have a Pacemaker or an ICD?: No Airway Exam Known Difficult Airway: No Mallampati Class: 4 Mouth Opening: Normal (> 3cm) Thyromental Distance: Greater than 3 cm Neck Range of Motion: Limited ROM Neck Circumference: Normal Teeth Condition: Normal Dentition ASA Classification ASA Score: ASA 2 Emergency Case?: No NPO Status NPO Status: NPO Clears >2 hours, Solids >8 hours Anesthesia Plan Resuscitation Status: Full Code Anesthesia Technique: Spinal Anesthesia Airway Planned: Natural Airway Pain Management: Surgeon and patient request nerve block Monitors Used: Standard Monitors
[2023-08-24] MEDS: Lactated Ringers 1,000 ML 80 ML IV ×2 (09:45→13:42)
[2023-08-24] MEDS: Normal Saline Flush 10 ML SYR IV (09:45)
[2023-08-24] MEDS: ceFAZolin 2 GM/50 ML BAG IVPB (10:24)
--- NOTE | 2023-08-24 10:54 | W.ANESNERVE ---
Nerve Block Single Injection Procedure Date and Time Date Performed: 08/24/23 Procedure Start: 10:04 Location Where Procedure Performed Procedure Location: Day Surgery Unit Reason Performed: Postoperative Analgesia Requesting Provider: Yasmany Orosco Timeout Performed Timeout Performed: Yes Monitoring Used ECG, Blood Pressure, SpO2 and See EMR for corresponding vital signs Sterility Sterility: Hand Hygiene, Surgical Cap, Surgical Mask, Sterile Gloves, Sterile Drape/Sheet and Chlorhexidine Sedation Given During Procedure Sedation Given (Indicate Dose Given): Versed IV Dose:: 1 mg Patient Mental Status Patient Mental Status: Awake Nerve Block 1st Nerve Block: Laterality: Left Block Type: Adductor Canal Ultrasound Image Saved?: Yes Needle / Catheter Used: 100mm SonoPlex II Local Anesthetic Bolus (Indicate Dose Given): Lidocaine used for local infiltration of skin, Injected in 3-5ml increments after negative blood aspiration and Bupivacaine 0.25% Dose:: 15 ml Additives (Indicate Dose Given): None Ultrasound: Sterile probe cover and gel used Nerve Stimulator: Supplement to Ultrasound use, Expected parasthesia or motor response elicited and No twitch or parasthesia noted < 0.5 mA Paresthesia: None Post Procedure Pain score (0-10): 0 Procedure Tolerated: No Complications Procedure Outcome: Successful Performed By: Reyna Azevedo
--- NOTE | 2023-08-24 12:18 | W.PM.OP ---
Date of service: 08/24/23 Time of Service: 10:30 Operative Note Operative Note DATE OF PROCEDURE: 08/24/23 PRE-OP DIAGNOSIS: Left Knee Arthritis with Valgus Deformity POST-OP DIAGNOSIS: same PROCEDURE: Left Total Knee Arthroplasty with Intraoperative Navigation SURGEON: Yasmany Orosco PEDIATRIC INTENSIVE PHYSICIAN: wAa Johnson ANESTHESIA TYPE: Spinal Refer to Anesthesia Record ESTIMATED BLOOD LOSS: 50 PATHOLOGY: none sent COMPLICATIONS: None Patient was transported to: PACU Patient's condition: stable Implants: 1. Depuy Attune Cruciate Retaining Femoral Component, Size 6 Narrow 2. Depuy Attune Fixed Bearing Tibial Component, Size 4 3. Depuy Attune 6x7mm CR, FB Poly 4. Depuy Attune Patellar Component, Size 35 Indications: I have seen Eloina in clinic for symptoms of knee arthritis, confirmed with radiographic findings. She has exhausted nonoperative methods and was having significant limitations in daily function and desired better function and less pain. I discussed the technical details of a knee replacement. I explained the risks of the procedure to include, but not limited to, bleeding, infection, pain, stiffness, fracture, damage to nerves and vessels, damage to muscles and tendons, loosening, need for repeat procedure, blood clot and cardiopulmonary demise. Despite these risks, Eloina elected to proceed. Findings: There was significant signs of arthritis throughout the knee with a notable valgus deformity from a dimunitive lateral femur. Procedure Description: Eloina was greeted in the preoperative holding area where the correct side was identified and marked. The consent was reviewed with the patient and signed. The history and physical was updated. All questions were answered. Preoperative mediacations were administered: Acetaminophen 1000mg, Celebrex 400mg, Gabapentin 300mg, and Oxycontin 10mg. An adductor canal block was then administered by the anesthesia team in the PACU. Eloina was taken back to the operating room. A spinal anesthestic was then administered. The patient was placed into the supine position on the operating room table. A nonsterile tourniquet was placed high onto the leg but only used for cementing. Posts were placed for positioning during the procedure. All bony prominences were well padded. Prophylactic antibiotics in the form of Cefazolin were administered. 1g of Tranxemic Acid was given intravenously within 30 minutes of incision. The left leg was then prepped with Chloraprep and draped in a standard fashion with impervious stockinette and extremity drape with Iodine impregnated skin protection. A timeout to confirm correct identity, side and site, procedure, allergies, anesthesia, and medical concerns was performed. With the knee in some flexion, a midline incision was made overlying the knee. Full thickness skin flaps were raised once the extensor mechanism was encountered. These were raised medially and laterally. Any bleeding was controlled with electrocautery. Once the extensor mechanism was fully exposed, a medial parapatellar arthrotomy was performed in a flexed position. All bleeding from the arthrotomy and the geniculate arteries was coagulated. A medial subperiosteal peel was performed with electrocautery to the midcoronal plane. The fat pad was removed while keeping the patellar tendon protected. The anterior distal femur synovium was removed for later visualization. The ACL and PCL were resected and the anterior horn of the lateral meniscus was transected. The knee was then flexed with the patella everted. Large osteophytes from the tibia were removed. Large osteophytes from the femur were removed. There was some notable hypoplasia of the lateral femur, posteriorly. A single starting pin was then placed 1cm anterior to the PCL insertion and the notch in the direction of the femoral head. The OrthoAlign device was applied over the pin. It was oriented to be in line with the epicondylar axis and the trochlear groove. It was then pinned into place. The navigation computer was then turned on and calibrated. The distal femur cut was set at 0 degrees varus/valgus and 3.5 degrees flexion. The distal femur cutting guide then was positioned for a 7mm cut since there was no significant cartilage on the distal femur. The distal femur was cut with an oscillating saw while protecting the soft tissues. The tibia was then addressed. The OrthoAlign device was placed over the tibial tubercle and medial tibia and secured into position. Once again, OrthoAlign was calibrated and then set for a 0.5-1 degree varus cut and 5 degrees of posterior slope. With this locked into position, the cut thickness stylus was used to assess cut thickness. The lateral tibia, most involved, was set for a 4mm cut. This was then held in position and pinned into place with 2 additional pins and a cross pin for stability. The medial and lateral collateral ligaments were protected and the cut was performed. With this completed, it was assessed and noted to be of appropriate dimensions. The guide and OrthoAlign was removed. A spacer block was inserted and the knee was brought into extension. The 6mm spacer block provided full extension, without hyperextension and with stability of both the medial and lateral collateral ligaments was assessed. The pins from the femur and the tibia were then removed. The Ortholign balancing device was then inserted in extension. It was balanced. The knee was then brought into 90 degrees of flexion. The flexion gap was matched to the extension gap and the attending specific guide was utilized to place pins for the femur, matching the plane of the tibia and balancing the femoral gap. The distal femur was then sized. The anterior stylus was placed onto the lateral ridge of the anterior femur. This indicated a size 6 narrow femur. The external rotation of the guide was adjusted to 3 degrees to match the epicondylar axis, perpendicular to Milton?s line. The 4-in-1 cutting guide was the placed. The posterior medial femur cut was evaluated and appeared of good thickness. The spacer block was inserted underneath the cutting guide and stability was confirmed in 90 degrees of flexion. An lauren wing was used to confirm appropriate position of the anterior cut to avoid notching. This cutting guide was ensured to be flush on the cut surface and then pinned into place with headed pins. While protecting the soft tissues, quad tendon, and collateral ligaments, the anterior and posterior cuts were performed with a saw. The central two pins were removed and the posterior and anterior chamfers were cut next. The notch-cutting guide was placed. This was pinned to lateralize the femoral component as much as possible while keeping it flush on the cut surface. This was then pinned into position. A reciprocating saw was used to make the notch cut. A rasp smoothed the cut surfaces. A trial posterior stabilized femoral component was then inserted, impacted down to the cut surfaces, and the lug holes were drilled. A provisional trial tibial component was placed and the knee was brought through range of motion. The polyethylene was trialed until there was good flexion and extension with excellent stability to the medial and lateral collaterals. The patella was tracking without thumbs. The tibial cut surface was fully exposed. The medial and lateral menisci were removed. The tibia was then sized as a 4. The tibia had been previously marked during trialing to correspond to the center of the tibial component to help with rotation. The trial was aligned to this alem, approximately rotated to the medial 1/3rd of the tibial tubercle. The trial was pinned into place. The tibia was prepared with a reamer and a keel punch. The knee was then brought into extension and the patella was measured as 21mm. Using the patellar clamp and cut guide, this was resected to a flat surface with at least 13mm of thickness remaining. The size 35 patella fit the best. This was oriented and then clamped into position. The lugs were drilled. The trial components were removed. The final components, except for the polyethylene were opened on the back table. The periosteal and capsular tissues, especially posteriorly, around the knee were then systematically injected with a periarticular cocktail consisting of 246mg of Ropivacaine, 0.5mg of Epinephrine, 0.08mg of Clonidine, and 30mg of Ketorolac, diluted to 100cc. The tourniquet was then inflated to 275mmHg. The knee was thoroughly irrigated with a pulse lavage and dried. On the back table, with the implants opened, the cement was mixed. 2 batches of medium viscosity cement were prepared with vacuum assistance. After the cement was ready a small amount was placed on to the back side of the tibial component at the keel. A small amount was placed onto the posterior flange of the femur. Cement was manual pressurized and impregnated into the cut surface of the tibia. The tibial component was then inserted into the cut surface and impacted into position. Excess cement was removed and the component was reimpacted. Again, excess cement was removed and our attention was then turned to the femur. The femoral cut surface was once again dried and cement was manually impacted into the cut surface. The femoral component was lined with the lug holes and impacted. Excess cement was removed. It was ensured to be down against the cut surface. The trial polyethylene was then inserted and the leg was brought out into full extension for the duration of the cement curing process, approximately 18min. Cement was lastly manually impacted into the cut surface of the patella and the patellar button was clamped into position and held. During this process attention was turned to the gutters of the knee and for all interfaces for any excess cement. The knee was then thoroughly irrigated with Irrisept chlorhexidine solution. It was allowed to sit in the knee for 3 minutes before being irrigated out with saline. After the cement had finally cured, approximately 18min, the clamp was removed from the patella and the knee was taken through range of motion. A size 7mm polyethylene component provided the best range of motion and stability with less than 2mm gapping with medial and lateral stress and full extension without significant hyperextension. The patella was tracking with a no-thumbs technique. The trial poly was removed and once again the knee was checked for any loose, excess, or errant cement. The poly component was then inserted into position after cleaning and drying the tibial tray. The capsule was then reapproximated with a No. 1 Vicryl at multiple locations. The capsule was finally closed with a No. 2 Stratafix, barbed suture. The tourniquet was then released and the arthrotomy appeared watertight without significant bleeding. The second dosing of 1g TXA was started. Deep tissues were then reapproximated with 0 Vicryl and 2-0 Vicryl. The skin was closed with a running 3-0 Monocryl in a subcuticular fashion. This was reinforced with skin glue. A Mepilex silver dressing was applied along with a [id number] MARK wrap. A CryoCuff was applied. Eloina was transferred to the hospital bed without difficulty an suffering no apparent complication. Eloina has a good prognosis. Physical therapy will start today and without restrictions, weight-bearing as tolerated. Aspirin 81mg BID will be used for DVT prophylaxis.
[2023-08-24] MEDS: fentaNYL 100 MCG/2 ML VIAL IVP ×2 (12:56→13:10)
--- NOTE | 2023-08-24 14:28 | W.ANESPOSTOP ---
Postoperative Evaluation Date, Time and Location Date Performed: 08/24/23 Time Performed: 13:25 Patient Location: PACU Vital Signs Most Recent Imported Vital Signs: Most Recent Vital Signs Temp Pulse Resp BP Pulse Ox 36.1 C L 57 L 16 151/70 H 93 08/24/23 14:09 08/24/23 14:09 08/24/23 14:09 08/24/23 14:09 08/24/23 14:09 Pain Score Most Recent Pain Score: Most Recent Pain Score Pain Level 0 08/24/23 13:38 Assessment Mental Status: Awake (Alert & Oriented to Patient Baseline) Airway and Respiratory Function: Patent airway with normal (patient baseline) respiratory exam Cardiovascular Function: Hemodynamically Stable Hydration Status: Adequately Hydrated Nausea & Vomiting: No Nausea or Vomiting Pain: Pt. Denies Any Pain Peripheral Nerve Block: Regional nerve block not resolved at time of post operative discharge
[2023-08-24] MEDS: ceFAZolin 1 GM/50 ML BAG IVPB ×2 (14:46→22:39)
--- NOTE | 2023-08-24 17:05 | IN_ITS ---
PT Notes Visit Reasons: Left Knee DJD Physical Therapy Inpatient Initial Evaluation Date: 08/24/2023 Referring Doctor: FELIX Roblero PT Orders: PT CONSULT: S/P Ortho Surgery Precautions: Fall. Standard.? WBAT on left LE with AD. 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 PMHX: Medical History (Updated 08/10/23 @ 14:38 by Diane Keeann) History of diverticulitis History of cataract H/O solar lentigo with atypical melanocytic hyperplasia, lichenoid inflammation and dermal melanophages Tubular carcinoma of left breast History of endometrial biopsy History of endometrial cancer Cystocele and rectocele with complete uterovaginal prolapse Grade 1 malignant neoplasm of endometrium 05/25/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 Postop recommendations: Vaginal cuff brachytherapy (w/o 10-15% recurrence) Postop: Year 1 gynecologic oncology visit every 3 months no Pap testing indicated. Year 2-5 alternate visits between mechanical maintenance technician and gynecologic oncologist every 6 months. No Pap indicated. Environmental allergies Carpal tunnel syndrome on both sides L>R. Not treated. Lumbar spinal stenosis Ulnar neuropathy Gastroesophageal reflux disease without esophagitis (07/21/17) Vaginal prolapse longstanding use of 70mm (#4) ring pessary. 07/2018 increased size to # 6 ring pessary with support. 12/09/18 Size again decreased to #4 ring w/ support secondary to vaginal excoriation.Hypertension Colon cancer Surgical History (Updated 08/12/23 @ 13:34 by Diane Keenan) S/P left knee arthroscopy Status post exploratory laparotomy Reports for colon cancerLeft displaced femoral neck fracture (12/30/21) s/p left hip hemiarthroplasty Dr. Maldonado History of carpal tunnel release History of neck surgery (~2017) History of partial mastectomy of left breast History of right breast biopsy History of robot-assisted laparoscopic hysterectomy With BSO and sentinel lymph node biopsy at [facility] [place] [place] for endometrial carcinoma. Social History/Home Situation: Lives alone in a private home with a ramp to enter.? No stairs inside the house.? Modified independent with 4WW.. Equipment Owned/DME: 4WW, FWW, SPC Subjective: Reports 3-4/10 pain in the back and outer side of her left knee with weight bearing.? Also reports pain in the left ankle of same intensity. Objective: General Observation: Seated on chair.? IV access in right UE.? MARK wrap to L LE.? TEDS on the R leg.? Cryocuff on the L knee. Mental Status: Alert and oriented as to person, place, time, and purpose.? Pain: As above Vital signs: 155/75 mmHg, HR 63 bpm ROM: Right Lower Extremity: Hip flexion WFL. Hip abduction WFL. Knee flexion WFL. Ankle dorsiflexion WFL. Ankle plantarflexion WFL. Left Lower Extremity: Hip flexion WFL. Hip abduction WFL. Knee flexion 30 degrees to 90 degrees. Knee extsnion -30 degrees. Ankle dorsiflexion WFL. Ankle plantarflexion WFL. Strength: Right Lower Extremity: Hip flexors 5/5. Hip abductors 5/5. Knee flexors 5/5. Kn ee extensors 5/5. Ankle dorsiflexors 5/5. Ankle plantarflexors 5/5. Left Lower Extremity:Hip flexors 4/5. Hip abductors 4/5. Knee flexors 3-/5. Knee extensors 3-/5. Ankle dorsiflexors 4/5. Ankle plantarflexors 4/5. Bed Mobility/Transfers: Moderate cues given for hand placement, posture, and AD management Sit to stand with contact guard assist Stand to sit with contact guard assist Gait: Facilitated safe and correct performance of level surface ambulation covering 40 feet + 40 feet requiring contact guard assist. Step-to heel toe gait pattern. Gait antalgic. R LE in good alignment through frontal plane. Cues given only for posture and directional change. Minimal trunk lean on R noted. Pain reported in lateral and posterior knee that resolved with seated rest. Balance: Static Sitting: Normal Dynamic Sitting: Normal Static Standing: Fair Dynamic Standing: Fair Special Tests: Mobility Limitations Standardized Measure [facility] 6 clicks Basic Mobility Inpatient Short Form: Raw Score: 20 CMS Score: 36% deficit? ? ? Informed Consent/Education:? Patient was instructed in purpose of PT consult and plan of care. Agreeable to proceed with established PT POC to achieve personal goals. ASSESSMENT: Performed well using the FWW with report of lateral and posterior knee pain at 4/10 with weight bearing. Able to work through pain with encouragement. Continue to pre-medicate for pain to maximize exercise performance. Patient requires the use of a front-wheeled walker and assistance of 1 person for all transfers and ambulation task performance.?Continued services are needed to address the functional impairments and mobility deficits below. Based on today's examination, prognosis for achieving goals below are good. Patient presents with clinical signs and symptoms consistent with current/admitting diagnoses that have resulted to mobility limitations, gait instability, generalized weakness, and overall ADL decline as demonstrated by the following impairment level findings: 1.? Decreased strength to left hip major muscle groups 2.? Impaired sitting/standing balance 3.? Impaired activity tolerance 4.? Limitation of joint range of motion in right hip and knee Impairments are contributing to the following functional limitations: 1.? Decline in bed mobility skills 2.? Decline in transfer skills 3.? Difficulty with ambulation without assistive device and physical assistance 4.? Increased completion time for mobility ADL performance 5.? Increased risk for falls 6.? Difficulty with managing steps alone safely Patient is assessed as a 17767 moderate complexity based on the following: History: 81-year-old female with past medical history as indicated above Examination: Demonstrable impairment in strength, balance, and mobility level with underlying impairments and functional limitations as exhibited above as well as deficit score of 36% utilizing the [facility] Mobility Inpatient Short Form Presentation: Evolving Decision Makin moderate complexity Goals: Goals X1 week 1. Supine-Sit independent 2. Sit-Supine independent 3. Sit-Stand independent 4. Stand-Sit independent with FWW 5. Bed-Chair independent with FWW 6. Chair-Bed independent with FWW 7. Independent gait on level surface with use of FWW for at least 300 feet without report of pain nor dyspnea 10. Good static and dynamic standing balance/tolerance Plan of Care/Treatment Plan: 1-2x/day, 7 days/week x 1 week. Plan of care has been reviewed with the PARTS PULLER providing the service under Physical Therapy direction. Initiate Physical Therapy intervention for pain management as needed, strengthening, bed mobility, transfers, gait, stairs, balance training, and use of assistive device. DISCHARGE RECOMMENDATIONS: [] ? Home with no services [] [X] ? Home with services . Patient will benefit from home health PT services in order to progress mobility level using least restrictive assistive ambulatory device, assess home safety, identify additional equipment needs, and establish a functional maintenance program that will increase ability of patient to remain at home. [] ? Home with outpatient PT [] [] ? SNF for continued short-term rehabilitation [] [] ? [facility] [] [] ? SNF versus LTC based on ability to participate and progress [] TREATMENT CODE/TIME: 66140 x 20 minutes for 1 unit, 47638 x 14 minutes for 1 unit beginning at 16:28 PM. Thank you for the opportunity to participate in the care of this patient. Mira Echavarria PT, DPT, CLT [facility] [place], [place] Mira Echavarria PT, DPT, CLT [facility] [place], [place]
[2023-08-24] MEDS: oxyCODONE 5 MG TAB PO (17:08)
[2023-08-24] MEDS: Aspirin E.C. 81 MG TABEC PO (22:38)
[2023-08-24] MEDS: Normal Saline Flush 10 ML SYR (22:48)
[2023-08-25 02:51] VITALS: BP 145/65; PULSE 58; RESP 16; TEMP 36.1; O2SAT 92
[2023-08-25] MEDS: ceFAZolin 1 GM/50 ML BAG IVPB (05:58)
[2023-08-25 07:27] VITALS: BP 143/65; PULSE 55; RESP 18; TEMP 36; O2SAT 95
--- NOTE | 2023-08-25 07:42 | W.PM.DS.N ---
Date of service: 08/25/23 Time of Service: 07:15 DS: Diagnosis Discharge Diagnosis (1) Osteoarthritis of left knee: Status: Resolved Discharge Plan Disposition Patient Disposition: Home Condition: Good Discharge Details Reason For Visit: Left Knee DJD Admit Date/Time: 08/24/23 12:29 Admit Provider: Yasmany Orosco Attending Provider: Yasmany Orosco Primary Care Provider: Zhang Morris [facility] Course Hospital Course: Patient was admitted to the medical/surgical floor following the procedure. The surgery was tolerated well without any notable medical, surgical, or anesthetic complications. Mobilization began postoperatively. She was voiding spontaneously. Vitals were stable. Physical therapy worked with the patient and was cleared for discharge home. No acute medical issues. Pain was controlled on oral regimen. Home Meds and New Rx's Prescriptions: New acetaminophen 500 mg tablet 1,000 mg PO Q8H PRN Qty: 90 0RF Rx Instructions: Take two tablets up to every 8 hours as needed for pain aspirin 81 mg tablet,delayed release (DR/EC) 81 mg PO BID 30 Days Qty: 60 0RF docusate sodium [Colace] 100 mg capsule 100 mg PO BID Qty: 30 0RF dexamethasone 4 mg tablet 4 mg PO DAILY Qty: 1 0RF Rx Instructions: Take one tablet once daily for a single dose meloxicam 15 mg tablet 15 mg PO DAILY Qty: 30 1RF Rx Instructions: Take one tablet daily for pain and inflammation pantoprazole 40 mg tablet,delayed release (DR/EC) 40 mg PO DAILY 14 Days Qty: 14 0RF gabapentin 300 mg capsule 300 mg PO QHS Qty: 14 0RF Rx Instructions: Take one tablet at bedtime oxycodone 5 mg tablet 5 mg PO Q6H PRN PRNQty: 18 0RF Rx Instructions: Take one tablet up to every 6 hours as needed for severe postoperative pain Continued pyridoxine (vitamin B6) [Vitamin B-6] 100 mg tablet 100 mg PO QID cyanocobalamin (vitamin B-12) 1,000 mcg capsule 1,000 mcg PO QMONTH cholecalciferol (vitamin D3) 350 mcg (14,000 unit) capsule 1,000 mcg PO DAILY quinine-vitamin E Capsule 1 cap PO DAILY Fish Oil 900 mg (320 mg- 580mg)-1,360 mg capsule 2 cap PO BID meclizine 12.5 mg tablet 12.5 mg PO TID PRN (Reason: dizziness) Qty: 30 1RF lutein 20 mg capsule 20 mg PO DAILY Rx Instructions: give with meal/snack turmeric root extract 500 mg capsule 500 mg PO DAILY multivitamin Tablet 1 tab PO DAILY Digestive Advantage Advanced 10 billion cell capsule 10 cell PO DIRECTED garlic 400 mg tablet 400 mg PO DAILY ferrous sulfate 27 mg iron tablet 27 mg PO DAILY red yeast rice 600 mg tablet 1,200 mg PO BID Rx Instructions: give with meal/snack losartan-hydrochlorothiazide 100-12.5 mg tablet 0.5 tab PO DAILY thiamine mononitrate (vit B1) 100 mg tablet 100 mg PO DAILY folic acid 20 mg capsule 20 mg PO DAILY metoprolol succinate 50 mg tablet extended release 24 hr 50 mg PO DAILY Qty: 90 3RF Rx Instructions: Hold if pulse < 60 calcium carbonate-vitamin D3 [Calcium 600 + D(3)] 600 mg-5 mcg (200 unit) Tablet 1 tab PO DAILY Qty: 30 0RF Discharge Instructions Additional Instructions: Total Knee Discharge Instructions Activity: The most important activity is to walk and to work on gentle motion (both flexion and extension). You should try to take short walks a few times a day. It is important that when resting you work on keeping the knee straight. Avoid putting a pillow behind the knee as this will encourage flexion. Work on range of motion exercises as provided by Physical Therapy. - Start outpatient physical therapy within 2 weeks. - You should wear the NOÉ hose on both legs for 2 weeks. You may remove these at night. You may also use any compression sock in place of the NOÉ hose. - Utilize [employer] to review exercises, see videos on exercises and obtain basic information pertaining to your surgery and your recovery. Dressing: Remove the Tyson wrap by 2 days after your surgery and put on the NOÉ stocking given to you from the hospital. Keep the surgical dressing (underneath the TYSON wrap) in place for at least one week. After the first week it may be removed and replaced with light gauze and tape or nothing. The wound and dressing may get wet after 3 days but avoid soaking the dressing or otherwise it will need to be changed. Many people prefer covering the dressing with cling wrap (saran wrap) to minimize it from getting soaked. If it gets wet, just pat dry. If it starts to peel off then it will need to be changed. Medications: - You should take Tylenol and anti-inflammatory Meloxicam as your primary pain control medications. - You have been prescribed a stronger pain medication Oxycodone for breakthrough pain, take as needed as prescribed. - You have also been prescribed a stomach acid reduction agent Pantoprozole to help reduce stomach acid and reflux. - You have been prescribed Gabapentin to take at night for restlessness and nerve pain. - You will be taking Aspirin 81mg twice a day for DVT prevention unless instructed otherwise. - You have also been prescribed Decadron to take to control post-operative nausea and pain. You will start this tomorrow. - If you have constipation you should take Colace (which has been prescribed) or Miralax (which is available [id number]). It takes most people 3-4 days to have a bowel movement. Follow-up: 2 weeks If you have any acute concerns or questions, please do not hesitate to contact the office at [phone]. You may contact Dr. Orosco with any questions after hours through the hospital at [phone] or on his cell phone at [phone]. 1. Encounter Date and Reason I certify that Eloina Ware was seen by Yasmany Orosco MD on 08/25/23 and that I had a [id number] encounter with this patient that meets the physician face to face encounter requirements. 2. Clinical Findings Supporting Skilled Need and Homebound Status I certify that home health services are medically necessary, include either intermittent usp and/or physical/speech therapy, and that this patient is homebound in that absences from the home require considerable and taxing effort and are infrequent or of short duration, or are attributable to the need to receive medical care. [X] (a) Attached documentation from encounter provides clinical findings supporting skilled need and homebound status (including what assistance patient requires to leave the home). The encounter with the patient was in whole, or in part, for the following medical condition, which is the primary reason for home health care: Left Knee DJD Chcf: Physical Therapy: Eloina would benefit from physical therapy and potentially occupational therapy to assist with independent ambulation throughout her home with a focus of range of motion and strengthening following knee replacement surgery. She is weightbearing as tolerated with the use of assist devices. No restrictions. Speech Therapy: Homebound: Eloina is homebound. She is unable to leave her home unassisted due to weakness and gait abnormalities. 3. Certification and Authentication I certify that I composed the above information based on my clinical judgement relating to this patient's medical condition and, if applicable, clinical findings communicated to me by the NPP or inpatient physician who performed the Home Health Referral. All further orders will be obtained through Dr. Orosco Referrals: Yasmany Orosco MD [ [facility] STAFF PHYSICIAN] - Activity:: Activity as Tolerated Equipment/Supplies:: Walker Diet:: As Tolerated Discharge Orders Discharge Orders: Discharge Order (Routine); Ordered 08/25/23 Ordered By: Yasmany Orosco DS: Summary Time Spent with Patient providing and/or coordinating discharge services: Less than 30 minutes Status at Discharge Functional status at discharge: uses cane/walker Overall status at discharge: patient is progressing back to baseline Mental Status: mental status grossly normal Speech and Movement: speech and movement normal Mood: congruent mood Affect: normal affect Exam Narrative Exam Narrative: Resting in the bed. No acute distress. Alert and orient x3. Right lower extremity knee dressing is clean dry and intact. She is able to straight leg raise. She has active range of motion from 5 to 90 degrees. Intact ankle dorsiflexion, ankle plantarflexion, EHL, FHL. Sensation intact to light touch over the deep and superficial peroneal nerve and tibial nerve. Psych Mental Status: mental status grossly normal Speech and Movement: speech and movement normal Mood: congruent mood Affect: normal affect DS: Data Vitals/I&O Vitals and I&O: Vital Signs Temperature 97.0 F L 08/24/23 14:09 Temperature Source Tympanic 08/24/23 14:09 Pulse 57 L 08/24/23 14:09 Pulse Rhythm Regular 08/24/23 09:15 Respiratory Rate 16 08/24/23 14:09 Respiratory Depth Deep 08/24/23 09:15 Blood Pressure 151/70 H 08/24/23 14:09 Blood Pressure Mean 97 08/24/23 09:53 Blood Pressure Position Supine 08/24/23 09:53 Pulse Oximetry 93 08/24/23 14:09 Respiratory End-tidal CO2 36 08/24/23 13:10 Oxygen Delivery Method Room Air 08/24/23 14:09 Oxygen Flow Rate 0 08/24/23 14:09 Pain Level 0 08/24/23 13:38 Comment RN aware of pt.'s VS. Charge nurse notified. Per WILDLIFE PHOTOGRAPHER per pt., pt. hasn't taken her second blood pressure medication yet today. 08/24/23 14:10 Intake & Output 08/23/23 08/24/23 08/24/23 23:59 11:59 23:59 Intake Total 110 / 5377.777 9676.667 / 1118.667 Balance 110 / 0364.613 8477.667 / 1118.667 Weight 136 lb 14.513 oz Intake: IV 110 / 998.667 888.667 / 998.667 Oral 120 / 120 Other: Emesis Description None PFSH All Active Problems History of total left knee replacement (Acute 08/24/23) Lumbar spinal stenosis (Acute) Trochanteric bursitis, right hip (Acute) Depo-medrol injection: 09/10/22 Degenerative joint disease of right hip (Acute) Degenerative joint disease of right knee (Acute) Osteoarthritis of left knee (Acute) Depo-medrol injection: 09/10/22; 06/24/22 Closed hip fracture requiring operative repair with routine healing (Chronic) Left hip - discharge. 01/05/22 Conductive hearing loss, external ear (Acute) Blood in right ear canal (Acute) Insomnia (Acute) Anemia (Chronic) Pulmonary embolism (Chronic) Hiatal hernia (Chronic) Vitamin D deficiency (Acute) GERD (gastroesophageal reflux disease) (Chronic) DJD (degenerative joint disease) (Chronic) Cervicalgia (Acute) Cervical stenosis of spine (Acute) Chronic low back pain (Acute) Prediabetes (Acute) Anxiety (Chronic) Dysuria (Acute) Colitis (Acute) 04/2021. Dx by colonoscopy after months of diarrhea. Rx Budesonide XR Diarrhea (Acute) Encounter for pessary maintenance (Acute) Urinary incontinence (Chronic) 2019. Stress incontinence worse after robotic hysterectomy. Patient is reluctant to be evaluated by urology since she has had several surgeries in this past year. Breast cancer, left (Acute) 10/2019. Receives care at [facility] Fitting and adjustment of pessary (Acute) 2019. #3 (70mm) donut. 05/2021. 64mm donut fitted Allergy to latex (Acute) Allergy to NSAIDs (Acute) Seborrheic dermatitis of scalp (Acute) Dermatitis, drug-induced (Acute) Vaginal vault prolapse after hysterectomy (Acute) Pelvic organ prolapse prior to her hysterectomy for endometrial cancer was treated with: longstanding use of 70mm (#4) ring pessary. 10/2019 57 mm (#3) donut placed Itchy skin (Acute) Post-nasal drip (Acute) Chronic allergic rhinitis (Acute) Ulnar neuropathy at elbow of right upper extremity (Chronic 08/30/17) Spinal stenosis of lumbar region with neurogenic claudication (Chronic 09/30/17) Acute midline low back pain (Acute 07/21/17) 06/29/2017 evaluation at [facility]. Started on prednisone will follow-up at [facility] Medical History History of diverticulitis History of cataract H/O solar lentigo with atypical melanocytic hyperplasia, lichenoid inflammation and dermal melanophages Tubular carcinoma of left breast History of endometrial biopsy History of endometrial cancer Cystocele and rectocele with complete uterovaginal prolapse Grade 1 malignant neoplasm of endometrium 05/25/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 Postop recommendations: Vaginal cuff brachytherapy (w/o 10-15% recurrence) Postop: Year 1 gynecologic oncology visit every 3 months no Pap testing indicated. Year 2-5 alternate visits between labor and delivery registered nurse and gynecologic oncologist every 6 months. No Pap indicated. Environmental allergies Carpal tunnel syndrome on both sides L>R. Not treated. Lumbar spinal stenosis Ulnar neuropathy Gastroesophageal reflux disease without esophagitis (07/21/17) Vaginal prolapse longstanding use of 70mm (#4) ring pessary. 07/2018 increased size to # 6 ring pessary with support. 12/09/18 Size again decreased to #4 ring w/ support secondary to vaginal excoriation. Hypertension Colon cancer Surgical History S/P left knee arthroscopy Status post exploratory laparotomy Reports for colon cancer Left displaced femoral neck fracture (12/30/21) s/p left hip hemiarthroplasty Dr. Maldonado History of carpal tunnel release History of neck surgery (~2016) Pt states I had a vertebra that was out of place History of partial mastectomy of left breast History of right breast biopsy History of robot-assisted laparoscopic hysterectomy With BSO and sentinel lymph node biopsy at [facility] for endometrial carcinoma. Family History Mother , 76 Hypertension Hyperlipidemia Father , 70 Alcohol use disorder Cancer Heart disease Hypertension Hyperlipidemia Sister , 77 Cancer Heart disease Sister No problems noted. Sister , 69 Cancer Substance use disorder Son Hyperlipidemia Hypertension Daughter Hypertension Hyperlipidemia Daughter No problems noted. Social History Smoking/Tobacco Use Status: Never Second Hand Exposure: Yes Smoking risk assessment performed?: Yes Alcohol Intake: never Drug use: Never Substance use type: does not use Caregiver/Support person: Yes Household members: spouse Housing: house Communication Needs: None Do you need help understanding health information?: Rarely Pets and animals: No Sexually active: No Do you think of yourself as: straight/heterosexual Current gender identity: female What is your relationship status?: How often do you talk on the phone with friends or family?: decline to answer How often do you get together with friends or relatives?: decline to answer How often do you attend mu-ism or scientology services?: decline to answer Do you belong to any clubs or organized social groups?: decline to answer Panel score (0-1 are the most socially isolated patients): 1 What type of physical activity do you participate in: decline to answer Duration: 45-60 minutes/day Frequency: 1-2 times per week Melia/Mandaeism: Yazdanism Seatbelt use: always Helmet use: No Drive intox or ride w/intox pack train driver: No Do you feel safe at home: Yes Do you feel safe in your relationship?: Yes Additional Social history: unable to assess privately, 08/24/23-b Female Reproductive History Menstrual Menopause type: natural History History 3 Para Hx # Term Pregnancies 3 Multiple births Hx # Pregnancies Ectopic pregnancies AB induced Hx Number of Living Children AB spontaneous
[2023-08-25] MEDS: hydroCHLOROthiazide 12.5 MG TAB 6.25 MG PO (08:01)
[2023-08-25] MEDS: Acetaminophen 500 MG TAB 1000 MG PO ×2 (08:01→13:57)
[2023-08-25] MEDS: Aspirin E.C. 81 MG TABEC PO (08:02)
[2023-08-25] MEDS: Losartan 50 MG TAB PO (08:02)
[2023-08-25] MEDS: Metoprolol CR 50 MG TABCR PO (08:02)
[2023-08-25] MEDS: Meloxicam 15 MG TAB PO (08:02)
[2023-08-25] MEDS: Pantoprazole 40 MG TABCR PO (08:02)
[2023-08-25] MEDS: Dexamethasone 4 MG TAB PO (08:02)
--- NOTE | 2023-08-25 09:32 | PT.INTREAT ---
PT Notes Visit Reasons: Left Knee DJD Inpatient Physical Therapy Treatment Note [facility] Date: 08/25/23 PRECAUTIONS: Fall,standard, activity as tolerated. WBAT with AD LLE. SUBJECTIVE: Patient reports feeling tired, some pain in left knee. With ambulation complains of pain in the bone, rubs proximal tibia approximately 2-5 below knee. Reports some lightheadedness initially upon standing, but this clears in ~1 minute. OBJECTIVE: Patient is asleep when this clinician enters, wakes easily. Supine in bed. Cryo cuff and fernando bandages in place LLE, pnuematic compression sleeve in place RLE. ? PAIN: Yes, minimal and first and moderate with ambulation / weightbearing. VITALS: monitored by nursing staff. ? ? ? BED MOBILITY/TRANSFERS? Rolling L/R: Independent Supine-sit: Independent ? Sit-supine: Independent ? Sit-stand: Independent ? Stand-sit: Independent ? Bed-Chair: Independent ? Chair-bed: Independent Provided skilled cues and instruction on performance and technique throughout. ? Therapeutic Exercises ([id number]): Direct one-on-one instruction in therapeutic exercises to develop strength, endurance, range of motion and flexibility. ? Exercises: HEP created with DPT Mira Echavarria and reviewed with patient as follows: Access Code: [email or web address] URL: [email or web address] Date: 08/25/2023 Prepared by: Sary Sam Exercises - Supine Quadricep Sets - 1 x daily - 7 x weekly - 3 sets - 10 reps - Supine Ankle Pumps - 1 x daily - 7 x weekly - 3 sets - 10 reps - Supine Heel Slide - 1 x daily - 7 x weekly - 3 sets - 10 reps - Small Range Straight Leg Raise - 1 x daily - 7 x weekly - 3 sets - 10 reps - Seated March - 1 x daily - 7 x weekly - 3 sets - 10 reps Ambulation ? Assistive Device: FWW? Weight bearing: WBAT LLE Assist: SBA ? Distance:? 60 feet ? Deviation: Reduced step height, reduced stride length, slightly antalgic gait pattern. Stopped several times to bend and straighten left knee repeatedly, reporting that this makes it feel better and reduces pain. ? Provided skilled instruction in proper exercise performance Provided skilled manual cues to facilitate proper muscle recruitment and/or form. ASSESSMENT:?Patient tolerates therapy well. Does report some pain, seems to be within the realm of expected s/p surgery. PLAN: Continue global strengthening per plan of care until patient is medically cleared for discharge. TREATMENT CODE/TIME: 20 minutes beginning at 9:35
[2023-08-25 11:05] VITALS: BP 113/61; PULSE 50; RESP 20; TEMP 36.1; O2SAT 94
--- NOTE | 2023-08-25 18:08 | PDOC.CMIN ---
Date of service: 08/25/23 Time of Service: 18:08 Care Management Initial Assmt Initial Assessment REASON FOR HOSPITALIZATION:: L Knee DJD PFSH All Active Problems History of total left knee replacement (Acute 08/24/23) Lumbar spinal stenosis (Acute) Trochanteric bursitis, right hip (Acute) Depo-medrol injection: 09/10/22 Degenerative joint disease of right hip (Acute) Degenerative joint disease of right knee (Acute) Osteoarthritis of left knee (Acute) Depo-medrol injection: 09/10/22; 06/24/22 Closed hip fracture requiring operative repair with routine healing (Chronic) Left hip - discharge. 01/05/22 Conductive hearing loss, external ear (Acute) Blood in right ear canal (Acute) Insomnia (Acute) Anemia (Chronic) Pulmonary embolism (Chronic) Hiatal hernia (Chronic) Vitamin D deficiency (Acute) GERD (gastroesophageal reflux disease) (Chronic) DJD (degenerative joint disease) (Chronic) Cervicalgia (Acute) Cervical stenosis of spine (Acute) Chronic low back pain (Acute) Prediabetes (Acute) Anxiety (Chronic) Dysuria (Acute) Colitis (Acute) 04/2021. Dx by colonoscopy after months of diarrhea. Rx Budesonide XR Diarrhea (Acute) Encounter for pessary maintenance (Acute) Urinary incontinence (Chronic) 2019. Stress incontinence worse after robotic hysterectomy. Patient is reluctant to be evaluated by urology since she has had several surgeries in this past year. Breast cancer, left (Acute) 10/2019. Receives care at [facility] Fitting and adjustment of pessary (Acute) 2019. #3 (70mm) donut. 05/2021. 64mm donut fitted Allergy to latex (Acute) Allergy to NSAIDs (Acute) Seborrheic dermatitis of scalp (Acute) Dermatitis, drug-induced (Acute) Vaginal vault prolapse after hysterectomy (Acute) Pelvic organ prolapse prior to her hysterectomy for endometrial cancer was treated with: longstanding use of 70mm (#4) ring pessary. 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. Started on prednisone [facility] Medical History History of diverticulitis History of cataract H/O solar lentigo with atypical melanocytic hyperplasia, lichenoid inflammation and dermal melanophages Tubular carcinoma of left breast History of endometrial biopsy History of endometrial cancer Cystocele and rectocele with complete uterovaginal prolapse Grade 1 malignant neoplasm of endometrium 05/25/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 Postop recommendations: Vaginal cuff brachytherapy (w/o 10-15% recurrence) Postop: Year 1 gynecologic oncology visit every 3 months no Pap testing indicated. 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 No Pap indicated. Environmental allergies Carpal tunnel syndrome on both sides L>R. Not treated. Lumbar spinal stenosis Ulnar neuropathy Gastroesophageal reflux disease without esophagitis (07/21/17) Vaginal prolapse longstanding use of 70mm (#4) ring pessary. 07/2018 increased size to # 6 ring pessary with support. 12/09/18 Size again decreased to #4 ring w/ support secondary to vaginal excoriation. Hypertension Colon cancer Surgical History S/P left knee arthroscopy Status post exploratory laparotomy Reports for colon cancer Left displaced femoral neck fracture (12/30/21) s/p left hip hemiarthroplasty Dr. Maldonado History of carpal tunnel release History of neck surgery (~2016) Pt states I had a vertebra that was out of place History of partial mastectomy of left breast History of right breast biopsy History of robot-assisted laparoscopic hysterectomy With BSO and sentinel lymph node biopsy at [facility] for endometrial carcinoma. Family History Mother , 76 Hypertension Hyperlipidemia Father , 70 Alcohol use disorder Cancer Heart disease Hypertension Hyperlipidemia Sister , 77 Cancer Heart disease Sister No problems noted. Sister , 69 Cancer Substance use disorder Son Hyperlipidemia Hypertension Daughter Hypertension Hyperlipidemia Daughter No problems noted. Social History Smoking/Tobacco Use Status: Never Second Hand Exposure: Yes Smoking risk assessment performed?: Yes Alcohol Intake: never Drug use: Never Substance use type: does not use Caregiver/Support person: Yes Household members: spouse Housing: house Communication Needs: None Do you need help understanding health information?: Rarely Pets and animals: No Sexually active: No Do you think of yourself as: straight/heterosexual Current gender identity: female What is your relationship status?: How often do you talk on the phone with friends or family?: decline to answer How often do you get together with friends or relatives?: decline to answer How often do you attend buddhism or hoahaoism services?: decline to answer Do you belong to any clubs or organized social groups?: decline to answer Panel score (0-1 are the most socially isolated patients): 1 What type of physical activity do you participate in: decline to answer Duration: 45-60 minutes/day Frequency: 1-2 times per week Melia/Temple: Hinduism Seatbelt use: always Helmet use: No Drive intox or ride w/intox stage driver: No Do you feel safe at home: Yes Do you feel safe in your relationship?: Yes Additional Social history: unable to assess privately, 08/24/23-mkb Female Reproductive History Menstrual Menopause type: natural History History 3 Para Hx # Term Pregnancies 3 Multiple births Hx # Pregnancies Ectopic pregnancies AB induced Hx Number of Living Children AB spontaneous
--- NOTE | 2023-08-28 15:14 | CMPROGNOTE_ITS ---
Date of service: 08/28/23 Time of Service: 15:14 Care Management Progress Note Progress Note Text Progress Note Text: Eloina was ready for discharge when CM met with her. She was pleasant in interaction and engaged well with CM, known to her from a previous admission. Eloina shared that since her last admission, her of over 60 years, of Covid. She talked about their life together and how painful it was to lose someone you have been with almost your entire life. It was especially difficult as she was not allowed to be with him when he because of the Covid. Eloina will be discharged home with new home health services for PT and OT and will t ransport with family.
== END 2023-08-25 15:05 | disposition home or self-care (01) ==
LOC: MS 13:28
PROVIDERS: Admitting Provider Student in an Organized Health Care Education/Training Program; PCP Nurse Practitioner Family; Visit Provider Student in an Organized Health Care Education/Training Program
PROC: (CPT 27447; principal; 2023-08-24 11:45)
DX: M17.12 Unilateral primary osteoarthritis, left knee (principal); M70.61 Trochanteric bursitis, right hip; G47.00 Insomnia, unspecified; D64.9 Anemia, unspecified; K44.9 Diaphragmatic hernia without obstruction or gangrene; E55.9 Vitamin D deficiency, unspecified; K21.9 Gastro-esophageal reflux disease without esophagitis; M48.02 Spinal stenosis, cervical region; G89.29 Other chronic pain; M54.50 Low back pain, unspecified; R73.03 Prediabetes; F41.9 Anxiety disorder, unspecified; Z86.711 Personal history of pulmonary embolism; Z85.3 Personal history of malignant neoplasm of breast; R32 Unspecified urinary incontinence; J30.9 Allergic rhinitis, unspecified; M48.062 Spinal stenosis, lumbar region with neurogenic claudication
CPT/HCPCS: 27447; 20985; C1776; 76942; 96365; 96366; 96375; 97110; 97162; 97530; G0378; J0690; J1100; J2250; J2405; J3010; J8540

== ENCOUNTER 2023-09-06 15:03 | Outpatient (CLI) | payer MEDICARE, SELFPAY ==
--- NOTE | 2023-09-06 10:45 | DI.RAD_ITS ---
Exam(s) XR KNEE LT 1V XR STANDING ALIGNMENT EXAM: XR STANDING ALIGNMENT CLINICAL HISTORY: 1ST POST OP L TKA. TECHNIQUE: 2D digital imaging was performed. Standing AP views were performed from the pelvis throu gh the ankles. Lateral view left knee COMPARISON: CR XR STANDING ALIGNMENT from 06/18/2023 CR XR KNEE LT 1V from 06/18/2023 CR XR KNEE LT 1V from 09/06/2023 FINDINGS: BONES: No acute fracture is present. No bony destructive lesion is seen. Leg length discrepancy: Approximately 5 millimeters, left greater than right at the level of the isch ial tuberosities. JOINTS: Knees: Total knee prosthesis show satisfactory alignment. Severe degenerative changes noted in the lateral femoral tibial joint of the right knee causing valgus angulation. The ankle joints are unremarkable. Hips: No change in alignment of left hip prosthesis. Mild degenerative changes of the right hip. SOFT TISSUE: Vascular calcifications. Lower leg edema. IMPRESSION: Severe degenerative changes of the right knee. Left knee prosthesis show satisfactory alignment. . Mild overall leg length discrepancy. DATA REPOSITORY: RADIATION DOSE DELIVERED:
== END 2023-09-06 15:04 | disposition home or self-care (01) ==
LOC: DIORS 15:03
PROVIDERS: PCP Nurse Practitioner Family; Referring Provider Nurse Practitioner Family; Visit Provider Student in an Organized Health Care Education/Training Program
DX: Z96.652 Presence of left artificial knee joint (principal); Z47.1 Aftercare following joint replacement surgery
CPT/HCPCS: 73560; 77073

== ENCOUNTER → 2023-09-13 09:04 | Outpatient (BNVA) | payer MEDICARE, SELFPAY | PROVIDERS: PCP Nurse Practitioner Family; Referring Provider Nurse Practitioner Family; Visit Provider Nurse Practitioner Gerontology | DX: N39.46 Mixed incontinence (principal) | CPT/HCPCS: 51798; 81003; 99214 ==

== ENCOUNTER → 2023-10-04 13:11 | Outpatient (BNVA) | payer MEDICARE, SELFPAY | PROVIDERS: PCP Nurse Practitioner Family; Referring Provider Nurse Practitioner Family; Visit Provider Student in an Organized Health Care Education/Training Program | DX: Z47.1 Aftercare following joint replacement surgery (principal); Z96.652 Presence of left artificial knee joint ==

== ENCOUNTER → 2023-11-15 13:16 | Outpatient (BNVA) | payer MEDICARE, SELFPAY | PROVIDERS: PCP Nurse Practitioner Family; Visit Provider Student in an Organized Health Care Education/Training Program | DX: Z47.1 Aftercare following joint replacement surgery (principal); M70.52 Other bursitis of knee, left knee; Z96.652 Presence of left artificial knee joint ==

== ENCOUNTER → 2023-12-27 13:34 | Outpatient (BNVA) | payer MEDICARE, SELFPAY | PROVIDERS: PCP Nurse Practitioner Family; Visit Provider Student in an Organized Health Care Education/Training Program | DX: M17.11 Unilateral primary osteoarthritis, right knee (principal) | CPT/HCPCS: 99212 ==

== ENCOUNTER → 2024-01-31 14:45 | Outpatient (BNVA) | payer MEDICARE, SELFPAY | PROVIDERS: PCP Nurse Practitioner Family; Referring Provider Nurse Practitioner Family; Visit Provider Nurse Practitioner Gerontology | DX: N39.46 Mixed incontinence (principal) | CPT/HCPCS: 51798; 99213 ==

== ENCOUNTER 2024-02-02 11:49 | Outpatient (CLI) | payer MEDICARE, SELFPAY ==
--- NOTE | 2024-02-02 06:00 | DI.RAD_ITS ---
Exam(s) XR PAIN CLINIC LUMBAR SP 2V EXAM: XR PAIN CLINIC LUMBAR SP 2V CLINICAL HISTORY: DX: Lumbar radiculopathy. TECHNIQUE: Fluoroscopy was provided for the referring physician for guidance with performing pain cl inic injection procedure. COMPARISON: No exams were available for comparison FINDINGS: Please see procedure note for details. Fluoro time: 13.9 seconds RADIATION DOSE DELIVERED: Ka,r=3.28 mGy
[2024-02-02 12:04] VITALS: BP 145/73; PULSE 56; RESP 20; TEMP 36.7; O2SAT 96
--- NOTE | 2024-02-02 12:30 | PDOC.PAIN ---
Date of service: 02/02/24 Time of Service: 12:30 Pain Managment Procedure Note Procedure Note Procedure Note: PROCEDURE NOTE LUMBAR EPIDURAL STEROID INJECTION Date of Service: February 02, 2024 Patient:Eloina Callejas? Provider: Brian Ray DO, MPH Eloina Ware has been referred to the [facility] for a lumbar epidural steroid injection. Pre-operative diagnosis: Lumbosacral Radiculopathy Post-operative diagnosis: Same Pre-Procedure Pain: VAS= 6 /10 Comments: Her last LESI was on 11/26/22 and she had >50% pain improvement for >12 months. Her symptoms have returned. Eloina was interviewed and the medical record was reviewed.? There were no medical, pharmacologic, radiographic or other structural contraindications to attempting fluoroscopically guided Lumbar epidural steroid injection.? Risks, potential side effects, indications, and potential benefits of the procedure were reviewed with Eloina.? Questions and concerns were addressed.? After it was clear that Eloina was fully informed about the procedure, the printed consent form was signed by the patient and myself.? Eloina was placed in the prone position on the fluoroscopy table and automated blood pressure cuff and pulse oximeter applied. The skin entry point for entering/approaching the epidural space for the lumbar epidural steroid injection was marked. Following thorough chlorhexadine preparation of the skin and draping and 1% lidocaine infiltration of the skin entry point and subcutaneous tissues, an 18 gauge Touhy needle was placed and advanced under fluoroscopic guidance and with loss of resistance technique into the L5-S1 epidural space. Needle tip placement and depth were aided and confirmed by fluoroscopy. There was no paresthesia or return of blood or CSF through the needle. 1 mls of Omnipaque 240 was injected with clear epidural spread confirmed with fluoroscopy. 80 mg of Depo-Medrol was? injected. This was followed by 1 ml of preservative-free normal saline to flush the steroid out of the needle. There was no unusual discomfort expressed by Eloina. The needle was withdrawn without difficulty. (49 mls of Omnipaque was wasted) Eloina was observed and was without hemodynamic, neurologic, or allergic reactions.? Fluoroscopic images were digitally archived. Eloina's vital signs were stable throughout the procedure and were as recorded in nursing records. Follow up plans and appointments were discussed with Eloina. Post procedure instruction was given as documented in nursing records and having met discharge criteria Eloina was discharged from the [facility]. COMMENTS: No apparent complications. Post-procedure pain: VAS= 0/10. Eloina to contact [facility] as needed. If at least 50% improvement in pain and/or function for at least 3 months is achieved, this procedure can be repeated. I personally performed this entire procedure. BRIAN RAY DO, MPH ABPMR-subspecialty board certification in Pain Medicine [facility]
[2024-02-02 12:45] VITALS: BP 165/80; PULSE 63; RESP 14; O2SAT 96
[2024-02-02] MEDS: Omnipaque 240 MG/ML 50 ML BTL IJ (12:47)
[2024-02-02] MEDS: Epidural Tray 1 EACH MC (12:48)
[2024-02-02] MEDS: methylPREDNISolone ACETATE 80 MG/ML VIAL IJ (12:48)
== END 2024-02-02 11:50 | disposition home or self-care (01) ==
LOC: PC 11:50
PROVIDERS: PCP Nurse Practitioner Family; Visit Provider Preventive Medicine Occupational Medicine
DX: M54.50 Low back pain, unspecified (principal); M54.17 Radiculopathy, lumbosacral region
CPT/HCPCS: 62323; 72100; J1010; Q9967

== ENCOUNTER → 2024-04-17 13:23 | Outpatient (BNVA) | payer MEDICARE, SELFPAY | PROVIDERS: PCP Nurse Practitioner Family; Referring Provider Nurse Practitioner Family; Visit Provider Student in an Organized Health Care Education/Training Program | DX: M17.11 Unilateral primary osteoarthritis, right knee (principal); M21.061 Valgus deformity, not elsewhere classified, right knee; Z96.652 Presence of left artificial knee joint | CPT/HCPCS: 99213 ==

== ENCOUNTER 2024-05-09 11:02 | Outpatient (CLI) | payer MEDICARE, SELFPAY | END 2024-05-09 11:03 | disposition home or self-care (01) | LOC: DI.CM 11:03 | PROVIDERS: PCP Nurse Practitioner Family; Visit Provider Nurse Practitioner Family | DX: I47.29 Other ventricular tachycardia (principal) | CPT/HCPCS: 93010 ==

== ENCOUNTER 2024-06-12 16:00 | Emergency (ER) | payer MEDICARE, SELFPAY ==
[2024-06-12] VITALS (12 sets, daily range): BP systolic 172–193; BP diastolic 57–81; PULSE 60–71; RESP 12–22; TEMP 36.8; O2SAT 93–97
--- NOTE | 2024-06-12 16:30 | DI.CT_ITS ---
Exam(s) CT HEAD WO EXAM: CT HEAD WO CLINICAL HISTORY: FALL. TECHNIQUE: Imaging Protocol: Axial computed tomography images with coronal and sagittal reformatted images were created and reviewed COMPARISON: CT CT HEAD WO from 11/11/2021 FINDINGS: Ventricles and Extra axial spaces: Normal in size and morphology for the patient's age. Hemorrhage: None. Cerebral parenchyma: No evidence of acute infarct or mass. White matter changes of small vessel dis ease. No significant atrophy. Midline shift: None. Brainstem/Cerebellum: Normal. Calvarium: Normal. Visualized Paranasal sinuses:Clear. Mastoids: Clear. Soft Tissues: Unremarkable. ORBITS: Unremarkable. PITUITARY: Not enlarged. IMPRESSION: No acute intracranial process. RADIATION DOSE DELIVERED: Total DLP DATA REPOSITORY: All CT scans at this facility are submitted to the National Radiology Data Registry (NRDR) Dose Index Registry (DIR) with the [employer] (ACR). RADIATION OPTIMIZATION: All CT scans at this facility use at least one of these dose optimization te chniques: automated exposure control; mA and/or kV adjustment per patient size (includes targeted exa ms where dose is matched to clinical indication); or iterative reconstruction.
--- NOTE | 2024-06-12 16:43 | DI.RAD_ITS ---
Exam(s) XR HIP PELVIS ADULT BL EXAM: XR HIP PELVIS ADULT BL CLINICAL HISTORY: FALL. TECHNIQUE: 2D digital imaging was performed. Three views. COMPARISON: CR XR HIP LT COMPLETE AP PELVIS from 04/13/2023 FINDINGS: BONES: No acute fracture is present. No bony destructive lesion is seen. Left hip prosthesis appear s unchanged. No evidence of loosening. Severe degenerative changes lower lumbar spine. JOINTS: No dislocation present. Right hip joint space is maintained. SI joints and pubic symphysis s how degenerative changes. SOFT TISSUE: Pessary. IMPRESSION: No acute abnormality. DATA REPOSITORY: RADIATION DOSE DELIVERED:
--- NOTE | 2024-06-12 20:08 | W.ED.GENAD ---
Discharge Plan Disposition Patient Disposition: Home Condition: Stable Discharge Details Clinical Impression: Fall, Contusion of forehead Primary Care Provider: Zhang Morris ED Provider: Stella Davis Home Meds and New Rx's Prescriptions: No Action pyridoxine (vitamin B6) [Vitamin B-6] 100 mg tablet 100 mg PO QID cyanocobalamin (vitamin B-12) 1,000 mcg capsule 1,000 mcg PO QMONTH cholecalciferol (vitamin D3) 350 mcg (14,000 unit) capsule 1,000 mcg PO DAILY quinine-vitamin E Capsule 1 cap PO DAILY meclizine 12.5 mg tablet 12.5 mg PO TID PRN (Reason: dizziness) Qty: 30 1RF acetaminophen [Tylenol Arthritis Pain] 650 mg tablet extended release 1,300 mg PO Q12H meloxicam 15 mg tablet 15 mg PO DAILY Qty: 30 3RF lutein 20 mg capsule 20 mg PO DAILY Rx Instructions: give with meal/snack turmeric root extract 500 mg capsule 500 mg PO DAILY multivitamin Tablet 1 tab PO DAILY Digestive Advantage Advanced 10 billion cell capsule 10 cell PO DIRECTED garlic 400 mg tablet 400 mg PO DAILY ferrous sulfate 27 mg iron tablet 27 mg PO DAILY red yeast rice 600 mg tablet 1,200 mg PO BID Rx Instructions: give with meal/snack ascorbic acid (vitamin C) 500 mg capsule 500 mg PO DAILY milk thistle 175 mg capsule 525 mg PO DAILY Patient Comments: Pt takes 1000 mg daily Rx Instructions: give with meal/snack zinc sulfate 25 mg zinc (110 mg) tablet 25 mg PO DAILY thiamine mononitrate (vit B1) 100 mg tablet 100 mg PO DAILY folic acid 20 mg capsule 20 mg PO DAILY losartan-hydrochlorothiazide 100-12.5 mg tablet 0.5 tab PO DAILY Qty: 45 4RF metoprolol succinate 50 mg tablet extended release 24 hr 50 mg PO DAILY Qty: 90 3RF Rx Instructions: Hold if pulse < 60 calcium carbonate-vitamin D3 [Calcium 600 + D(3)] 600 mg-5 mcg (200 unit) Tablet 1 tab PO DAILY Qty: 30 0RF Discharge Instructions Additional Instructions: IMAGING NEGATIVE TODAY TAKE TYLENOL NEEDED FOR DISCOMFORT Discharge Data Discharge Date/Time-TO BE ENTERED AT DEPARTURE: 06/12/24 17:51 HPI General Date/Time Provider Initiated Documentation: 06/12/24 16:01. Limitations to Documentation: no limitations. Information obtained by: patient. HPI Narrative: 84-year-old female with a nonsignificant past medical history presents for evaluation after a fall. She presents via EMS. She reports that she has been sitting at her kitchen table and had just eaten lunch with her daughter. Her daughter left, and the patient was feeling very sleepy but instead of getting up to go to bed, she decided to take a snooze at the table. She reports that shortly sometime later, she woke up as she was falling out of her chair. She did hit her head on the bookshelf on the way down to the floor. She states after she fell, she was able to get up and go to the living room to find her medic alert button to call for help. She denies any loss of consciousness, had been feeling well prior to taking a nap at the kitchen table. Does not have any headache or nausea or visual change at this time. She reports some mild soreness in her left hip. Related Data Home Medications ?Medication ?Instructions ?Recorded ?Confirmed folic acid 20 mg capsule 20 mg PO DAILY 07/22/21 06/12/24 thiamine mononitrate (vit B1) 100 100 mg PO DAILY 07/22/21 06/12/24 mg tablet calcium carbonate 600 mg-vitamin 1 tab PO DAILY #30 tabs 01/05/22 06/12/24 D3 5 mcg (200 unit) tablet (Calcium 600 + D(3)) lutein 20 mg capsule 20 mg PO DAILY 03/24/22 06/12/24 cholecalciferol (vitamin D3) 350 1,000 mcg PO DAILY 07/13/22 06/12/24 mcg (14,000 unit) capsule cyanocobalamin (vitamin B-12) 1,000 mcg PO QMONTH 07/13/22 06/12/24 1,000 mcg capsule pyridoxine (vitamin B6) 100 mg 100 mg PO QID 07/13/22 06/12/24 tablet (Vitamin B-6) quinine-vitamin E capsule 1 cap PO DAILY 09/30/22 06/12/24 L.acidoph, paracasei,B. lactis 10 10 cell PO DIRECTED 10/28/22 06/12/24 billion cell capsule (Digestive Advantage Advanced Probiotic) ferrous sulfate 27 mg iron tablet 27 mg PO DAILY 10/28/22 06/12/24 garlic 400 mg tablet 400 mg PO DAILY 10/28/22 06/12/24 multivitamin 1 tab PO DAILY 10/28/22 06/12/24 red yeast rice 600 mg tablet 1,200 mg PO BID 10/28/22 06/12/24 turmeric root extract 500 mg 500 mg PO DAILY 10/28/22 06/12/24 capsule losartan 100 0.5 tab PO DAILY #45 tabs 09/07/23 06/12/24 mg-hydrochlorothiazide 12.5 mg tablet metoprolol succinate 50 mg 50 mg PO DAILY #90 tabs 10/16/23 06/12/24 tablet,extended release 24 hr acetaminophen 650 mg 1,300 mg PO Q12H 12/10/23 06/12/24 tablet,extended release (Tylenol Arthritis Pain) ascorbic acid (vitamin C) 500 mg 500 mg PO DAILY 02/08/24 06/12/24 capsule milk thistle 175 mg capsule 525 mg PO DAILY 02/08/24 06/12/24 zinc sulfate 25 mg zinc (110 mg) 25 mg PO DAILY 03/10/24 06/12/24 tablet meloxicam 15 mg tablet 15 mg PO DAILY #30 tabs 04/17/24 06/12/24 meclizine 12.5 mg tablet 12.5 mg PO TID PRN dizziness #30 05/09/24 06/12/24 tabs Previous Rx's ?Medication ?Instructions ?Recorded calcium carbonate 600 mg-vitamin 1 tab PO DAILY #30 tabs 01/05/22 D3 5 mcg (200 unit) tablet (Calcium 600 + D(3)) losartan 100 0.5 tab PO DAILY #45 tabs 09/07/23 mg-hydrochlorothiazide 12.5 mg tablet metoprolol succinate 50 mg 50 mg PO DAILY #90 tabs 10/16/23 tablet,extended release 24 hr meloxicam 15 mg tablet 15 mg PO DAILY #30 tabs 04/17/24 meclizine 12.5 mg tablet 12.5 mg PO TID PRN dizziness #30 05/09/24 tabs Allergies Allergy/AdvReac Type Severity Reaction Status Date / Time nabumetone Allergy Severe hives and Verified 05/25/24 13:08 a skin rash aspirin Allergy Intermediate can take Verified 05/25/24 13:08 81mg with no problems gluten Allergy Intermediate rash Verified 05/25/24 13:08 ibuprofen Allergy Intermediate Other (See Verified 05/25/24 13:08 Comment) Sulfa (Sulfonamide Allergy Mild Other (See Verified 05/25/24 13:08 Antibiotics) Comment) enalapril Allergy Unknown Other (See Verified 05/25/24 13:08 Comment) latex Allergy Unknown Other (See Verified 05/25/24 13:08 Comment) lactose AdvReac intolerant Verified 05/25/24 13:08 nylon AdvReac Intermediate Other (See Uncoded 05/25/24 13:08 Comment) General Stated Complaint: Fall/Non TraumaCriteria BENITO: 3 Exam Narrative Exam Narrative: Review of Systems: All systems reviewed & are unremarkable except as noted in HPI and below Well-developed, no acute distress Small abrasion over the left forehead Neck without midline tenderness, step-off or deformity PERRL, normal conjunctiva RRR Unlabored respiratory effort, CTAB Nondistended abdomen , soft non tender Extremities w/o deformity, no cyanosis, no edema No rashes or lesions. no focal neurologic deficits Appropriate mood and affect Course Vital Signs Vital signs: Vital Signs Temperature 36.8 C 06/12/24 15:55 Pulse 70 06/12/24 15:55 Respiratory Rate 16 06/12/24 15:55 Blood Pressure 190/81 H 06/12/24 15:55 Pulse Oximetry 95 06/12/24 15:55 Temperature 36.8 C 06/12/24 15:55 Temperature Source Tympanic 06/12/24 15:55 Pulse 61 06/12/24 17:01 Pulse 66 06/12/24 17:01 Respiratory Rate 22 06/12/24 17:01 Respiratory Effort Normal, Non-Labored 06/12/24 16:28 Blood Pressure 172/61 H 06/12/24 17:01 Blood Pressure Mean 101 06/12/24 17:01 Blood Pressure Position Sitting 06/12/24 15:55 Pulse Oximetry 94 06/12/24 17:01 Oxygen Delivery Method Room Air 06/12/24 15:55 Oxygen Flow Rate 0 06/12/24 15:55 Pain Level 2 06/12/24 17:06 Medical Decision Making Emergent evaluation after a fall. Patient fell out of the kitchen chair because she fell asleep in the chair. She clearly describes the events, and this does not sound like a syncopal episode or other type of loss of consciousness that may have resulted in her falling out of the chair. Fairly low mechanism injury given that this was a normal height kitchen chair. She woke up before she hit the ground, and did not lose consciousness. She was ambulatory on scene. She does report some mild left hip pain and does have a prior hip arthroplasty. She does have some signs of head trauma, but is not on any anticoagulation. CT imaging was obtained given the sign of trauma and her age. This did not have any abnormality noted. An x-ray of her pelvis and hips was obtained, and no acute findings were noted there per the radiology report. Patient was ambulatory in the emergency department, recommended Tylenol for pain. And the patient was discharged in good condition to follow-up with her PCP as needed. Quality:SDOH Health Related Social Needs: No Data to Display PFSH All Active Problems Contusion of forehead (Acute) Fall (Acute) Acquired genu valgum of right knee (Acute) Mixed stress and urge urinary incontinence (Acute) Lumbar spinal stenosis (Acute) Degenerative joint disease of right hip (Acute) Degenerative joint disease of right knee (Acute) Conductive hearing loss, external ear (Acute) Blood in right ear canal (Acute) Insomnia (Acute) Anemia (Chronic) Pulmonary embolism (Chronic) Hiatal hernia (Chronic) Vitamin D deficiency (Acute) GERD (gastroesophageal reflux disease) (Chronic) DJD (degenerative joint disease) (Chronic) Cervicalgia (Acute) Cervical stenosis of spine (Acute) Chronic low back pain (Acute) Prediabetes (Acute) Anxiety (Chronic) Dysuria (Acute) Colitis (Acute) 04/2021. Dx by colonoscopy after months of diarrhea. Rx Budesonide XR Diarrhea (Acute) Encounter for pessary maintenance (Acute) Urinary incontinence (Chronic) 2019. Stress incontinence worse after robotic hysterectomy. Patient is reluctant to be evaluated by urology since she has had several surgeries in this past year. Breast cancer, left (Acute) 10/2019. Receives care at [facility] [place] Fitting and adjustment of pessary (Acute) 2019. #3 (70mm) donut. 05/2021. 64mm donut fitted Allergy to latex (Acute) Allergy to NSAIDs (Acute) Seborrheic dermatitis of scalp (Acute) Dermatitis, drug-induced (Acute) Vaginal vault prolapse after hysterectomy (Acute) Pelvic organ prolapse prior to her hysterectomy for endometrial cancer was treated with: longstanding use of 70mm (#4) ring pessary. 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 Postop recommendations: Vaginal cuff brachytherapy (w/o 10-15% recurrence) Postop: Year 1 gynecologic oncology visit every 3 months no Pap testing indicated. Year 2-5 alternate visits between human resources services specialist and gynecologic oncologist every 6 months. No Pap indicated. Environmental allergies Carpal tunnel syndrome on both sides L>R. Not treated. Lumbar spinal stenosis Ulnar neuropathy Gastroesophageal reflux disease without esophagitis (07/21/17) Vaginal prolapse longstanding use of 70mm (#4) ring pessary. 07/2018 increased size to # 6 ring pessary with support. 12/09/18 Size again decreased to #4 ring w/ support secondary to vaginal excoriation. Hypertension Colon cancer Surgical History History of total left knee replacement (08/24/23) S/P left knee arthroscopy Status post exploratory laparotomy Reports for colon cancer Left displaced femoral neck fracture (12/30/21) s/p left hip hemiarthroplasty Dr. Maldonado History of carpal tunnel release History of neck surgery (~2016) Pt states I had a vertebra that was out of place History of partial mastectomy of left breast History of right breast biopsy History of robot-assisted laparoscopic hysterectomy With BSO and sentinel lymph node biopsy at [facility] for endometrial carcinoma. Family History Mother , 76 Hypertension Hyperlipidemia Father , 70 Alcohol use disorder Cancer Heart disease Hypertension Hyperlipidemia Colon cancer Diabetes Sister , 77 Cancer Heart disease Colon cancer Sister No problems noted. Sister , 69 Cancer Substance use disorder Son Hyperlipidemia Hypertension Daughter Hypertension Hyperlipidemia Daughter No problems noted. Social History Smoking/Tobacco Use Status: Never Second Hand Exposure: Yes Smoking risk assessment performed?: Yes Alcohol Intake: never Drug use: Never Substance use type: does not use Adopted: No Caregiver/Support person: No Household members: none Housing: house Number of Children: 3 number of grandchildren: 4 Communication Needs: None Education Level: college Details: 1 yr. Do you need help understanding health information?: Rarely current occupation: retired Pets and animals: Yes Sexually active: No Do you think of yourself as: straight/heterosexual Current gender identity: female What is your relationship status?: How often do you talk on the phone with friends or family?: three or more times per week How often do you get together with friends or relatives?: twice per week How often do you attend orthodoxy or mormonism services?: 4 or more times per year Do you belong to any clubs or organized social groups?: no Panel score (0-1 are the most socially isolated patients): 2 What type of physical activity do you participate in: regular exercise Duration: 45-60 minutes/day Frequency: 1-2 times per week Melia/Bahai: Tenriism Seatbelt use: always Helmet use: No Drive intox or ride w/intox waste collection driver: No Firearms in home: No Do you feel safe at home: Yes Victim of physical abuse: No Victim of emotional abuse: No Victim of sexual abuse: No Additional Social history: pt lives alone with a dog that she shares with her son Female Reproductive History Menstrual Menopause type: natural History History 3 Para Hx # Term Pregnancies 3 Multiple births Hx # Pregnancies Ectopic pregnancies AB induced Hx Number of Living Children AB spontaneous
== END 2024-06-12 17:51 | disposition home or self-care (01) ==
PROVIDERS: Emergency Provider Emergency Medicine; PCP Nurse Practitioner Family
DX: S00.83XA Contusion of other part of head, initial encounter (principal); M25.552 Pain in left hip; Z96.642 Presence of left artificial hip joint; W07.XXXA Fall from chair, initial encounter
CPT/HCPCS: 73521; 99284; 70450; 99283

== ENCOUNTER 2024-06-22 02:56 | Outpatient (CLI) | payer MEDICARE, SELFPAY ==
[2024-06-22 14:19] LABS: HCT 36.1 % (36.0-46.0); HGB 11.6 g/dL (11.2-15.7); MCH 30.5 pg (27.0-33.0); MCHC 32.1 % (32.0-36.0); MCV 95 fL (80-95); MPV 9.4 fL (8.0-11.0); Platelet Count 195 10^3/uL (130-400); RDW 12.6 % (11.7-14.6); RDW-SD 43.8 fL; WBC 9.27 10^3/uL (4.4-10.8)
[2024-06-22 14:39] LABS: Anion Gap 3.7 mmol/L (3-11); BUN 28 mg/dL (7-18); CO2 33.3 mmol/L (21.0-32.0); Calcium 9.9 mg/dL (8.5-10.1); Chloride 99 mmol/L (98-107); Estimated GFR 54.87 (mL/min/1.73m2); Glucose 101 mg/dL (74-106); Potassium 3.9 mmol/L (3.5-5.1); Sodium 136 mmol/L (136-145)
== END 2024-06-22 02:57 | disposition home or self-care (01) ==
LOC: LBO 02:56
PROVIDERS: PCP Nurse Practitioner Family; Visit Provider Student in an Organized Health Care Education/Training Program
DX: M17.11 Unilateral primary osteoarthritis, right knee (principal); Z01.818 Encounter for other preprocedural examination
CPT/HCPCS: 36415; 80048; 85027; 73560; 77073

== ENCOUNTER 2024-06-22 13:32 | Outpatient (CLI) | payer MEDICARE, SELFPAY ==
--- NOTE | 2024-06-22 13:00 | DI.RAD_ITS ---
Exam(s) XR STANDING ALIGNMENT EXAM: XR STANDING ALIGNMENT CLINICAL HISTORY: PRE OP RIGHT TKR. TECHNIQUE: 2D digital imaging was performed. COMPARISON: CR XR STANDING ALIGNMENT from 09/06/2023 FINDINGS: 3 views Again noted are left hip and left knee prostheses. These appear stable. There are degenerative changes in the right knee again noted with significant narrowing of the latera l compartment of the right knee again evident and only mild narrowing of the medial compartment. The re is an element of valgus deformity again evident. Right hip appears unremarkable as does the ankle . Bone density is age-appropriate. No significant osseous lesions. IMPRESSION: As above. Appearance is similar to 09/06/2023. DATA REPOSITORY: RADIATION DOSE DELIVERED:
--- NOTE | 2024-06-22 13:00 | DI.RAD_ITS ---
Exam(s) XR KNEE RT 2V AP,LAT EXAM: XR KNEE RT 2V AP,LAT CLINICAL HISTORY: PRE OP RIGHT TKR. TECHNIQUE: 2D digital imaging was performed. COMPARISON: CR XR KNEE LT 1V from 09/06/2023 CR XR STANDING ALIGNMENT from 06/22/2024 FINDINGS: Single lateral view of the right knee: No fractures evident. However, there is significant osteoarthritic narrowing evident in the patellof emoral compartment as well as in the lateral compartment. There is vascular calcification the poplit eal artery noted. Appearance of the calcification at the level the popliteal artery may indicate the presence of an aneurysm at this level. IMPRESSION: Degenerative changes in the knee. 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 DATA REPOSITORY: RADIATION DOSE DELIVERED:
== END 2024-06-22 13:33 | disposition home or self-care (01) ==
LOC: DIORS 13:32
PROVIDERS: PCP Nurse Practitioner Family; Visit Provider Physician Assistant
DX: M17.11 Unilateral primary osteoarthritis, right knee (principal); Z01.818 Encounter for other preprocedural examination
CPT/HCPCS: 73560; 77073

== ENCOUNTER 2024-07-04 14:11 | Observation (INO) | payer MEDICARE, SELFPAY ==
[2024-07-04] VITALS (25 sets, daily range): BP systolic 108–183; BP diastolic 43–76; PULSE 57–74; RESP 14–22; TEMP 36–36.7; O2SAT 89–98; BMI 24.1
--- NOTE | 2024-07-04 13:11 | ANES.PREOP_ITS ---
General Info Date of Service Date Performed: 07/04/24 Height: 5 ft 1 in Weight: 57.9 kg Body Mass Index (BMI): 24.1 Surgical Procedure: Operation Date: 07/04/24 14:40 Proposed Procedure Side Surgeon p Knee Total Arthroplasty w/OrthAlign, Cemented Right Yasmany Orosco MD Meds Allergies and Home Medications Allergies Allergy/AdvReac Type Severity Reaction Status Date / Time nabumetone Allergy Severe hives and Verified 07/04/24 12:45 a skin rash aspirin Allergy Intermediate can take Verified 07/04/24 12:45 81mg with no problems gluten Allergy Intermediate rash Verified 07/04/24 12:45 ibuprofen Allergy Intermediate Other (See Verified 07/04/24 12:45 Comment) Sulfa (Sulfonamide Allergy Mild Other (See Verified 07/04/24 12:45 Antibiotics) Comment) enalapril Allergy Unknown Other (See Verified 07/04/24 12:45 Comment) latex Allergy Unknown Other (See Verified 07/04/24 12:45 Comment) lactose AdvReac intolerant Verified 07/04/24 12:45 nylon AdvReac Intermediate Other (See Uncoded 07/04/24 12:45 Comment) Home Medication ?Medication ?Instructions ?Recorded folic acid 20 mg capsule 20 mg PO DAILY 07/22/21 thiamine mononitrate (vit B1) 100 100 mg PO DAILY 07/22/21 mg tablet calcium carbonate 600 mg-vitamin 1 tab PO DAILY #30 tabs 01/05/22 D3 5 mcg (200 unit) tablet (Calcium 600 + D(3)) lutein 20 mg capsule 20 mg PO DAILY 03/24/22 cholecalciferol (vitamin D3) 350 1,000 mcg PO DAILY 07/13/22 mcg (14,000 unit) capsule cyanocobalamin (vitamin B-12) 1,000 mcg PO QMONTH 07/13/22 1,000 mcg capsule pyridoxine (vitamin B6) 100 mg 100 mg PO QID 07/13/22 tablet (Vitamin B-6) quinine-vitamin E capsule 1 cap PO DAILY 09/30/22 L.acidoph, paracasei,B. lactis 10 10 cell PO DIRECTED 10/28/22 billion cell capsule (Digestive Advantage Advanced Probiotic) ferrous sulfate 27 mg iron tablet 27 mg PO DAILY 10/28/22 garlic 400 mg tablet 400 mg PO DAILY 10/28/22 multivitamin 1 tab PO DAILY 10/28/22 red yeast rice 600 mg tablet 1,200 mg PO BID 10/28/22 turmeric root extract 500 mg 500 mg PO DAILY 10/28/22 capsule losartan 100 0.5 tab PO DAILY #45 tabs 09/07/23 mg-hydrochlorothiazide 12.5 mg tablet metoprolol succinate 50 mg 50 mg PO DAILY #90 tabs 10/16/23 tablet,extended release 24 hr acetaminophen 650 mg 1,300 mg PO Q12H 12/10/23 tablet,extended release (Tylenol Arthritis Pain) ascorbic acid (vitamin C) 500 mg 500 mg PO DAILY 02/08/24 capsule milk thistle 175 mg capsule 525 mg PO DAILY 02/08/24 zinc sulfate 25 mg zinc (110 mg) 25 mg PO DAILY 03/10/24 tablet meloxicam 15 mg tablet 15 mg PO DAILY #30 tabs 04/17/24 meclizine 12.5 mg tablet 12.5 mg PO TID PRN dizziness #30 05/09/24 tabs coenzyme Q10 75 mg capsule (Ultra 75 mg PO DAILY 06/22/24 CoQ10) Current Visit Medications: Current Medications Generic Name Dose Route Start Last Admin Trade Name Freq PRN Reason Stop Dose Admin Acetaminophen 1,000 mg 07/04/24 06:00 Acetaminophen 500 Mg Tab PO 07/04/24 23:59 PREOP HOPE Celecoxib 400 mg 07/04/24 06:00 Celecoxib 200 Mg Cap PO 07/04/24 23:59 PREOP HOPE Gabapentin 300 mg 07/04/24 06:00 Gabapentin 300 Mg Cap PO 07/04/24 23:59 PREOP HOPE Ringer's Solution 1,000 mls @ 80 mls/hr 07/04/24 06:00 IV 07/04/24 23:59 INFUSION HOPE Cefazolin Sodium/Dextrose 2 gm in 50 mls @ 100 mls/hr 07/04/24 06:00 Ancef Duplex IVPB 07/04/24 23:59 PREOP HOPE Tranexamic Acid/Sodium Chloride 1,000 mg in 100 mls @ 600 mls/hr 07/04/24 06:00 IVPB 07/04/24 23:59 PREOP HOPE IV Miscellaneous Supplies 1 each 07/04/24 06:00 Iv Access IV 07/04/24 23:59 DIRECTED HOPE Sodium Chloride 0 ml 07/04/24 06:00 Normal Saline Flush 10 Ml Syr IV 07/04/24 23:59 PRN PRN Sodium Chloride 0 ml 07/04/24 06:00 Normal Saline 10 Ml Vial IJ 07/04/24 23:59 DIRECTED PRN Sterile Water 0 ml 07/04/24 06:00 Water,Injection,Sterile 10 Ml Vial IJ 07/04/24 23:59 DIRECTED PRN PFSH Active Problems Active Problems: Problem Status Onset Code History of total right knee replacement Acute 07/04/24 Z96.651 Contusion of forehead Acute S00.83XA Fall Acute W19.XXXA Acquired genu valgum of right knee Acute M21.061 Mixed stress and urge urinary incontinence Acute N39.46 Lumbar spinal stenosis Acute M48.061 Trochanteric bursitis, right hip Resolved M70.61 Degenerative joint disease of right hip Acute M16.11 Degenerative joint disease of right knee Acute M17.11 Conductive hearing loss, external ear Acute H90.2 Blood in right ear canal Acute H92.21 Insomnia Acute G47.00 Anemia Chronic D64.9 Pulmonary embolism Chronic I26.99 Hiatal hernia Chronic K44.9 Vitamin D deficiency Acute E55.9 GERD (gastroesophageal reflux disease) Chronic K21.9 DJD (degenerative joint disease) Chronic M19.90 Cervicalgia Acute M54.2 Cervical stenosis of spine Acute M48.02 Chronic low back pain Acute M54.50, G89.29 Prediabetes Acute R73.03 Anxiety Chronic F41.9 Dysuria Acute R30.0 Colitis Acute K52.9 Hypokalemia Resolved E87.6 Diarrhea Acute R19.7 Encounter for pessary maintenance Acute Z46.89 Urinary incontinence Chronic R32 Breast cancer, left Acute C50.912 Fitting and adjustment of pessary Acute Z46.89 Allergy to latex Acute Z91.040 Allergy to NSAIDs Acute Z88.6 Seborrheic dermatitis of scalp Acute L21.9 Dermatitis, drug-induced Acute L27.0 Vaginal vault prolapse after hysterectomy Acute N99.3 Itchy skin Acute L29.9 Post-nasal drip Acute R09.82 Chronic allergic rhinitis Acute J30.9 Ulnar neuropathy at elbow of right upper extremity Chronic 08/30/17 G56.21 Spinal stenosis of lumbar region with neurogenic claudication Chronic 09/30/17 M48.062 Cervical myelopathy with cervical radiculopathy Resolved 09/30/17 M47.12 Acute midline low back pain Acute 07/21/17 M54.5 Colectomy Resolved Medical History Medical History History of diverticulitis History of cataract H/O solar lentigo with atypical melanocytic hyperplasia, lichenoid inflammation and dermal melanophages Tubular carcinoma of left breast History of endometrial biopsy History of endometrial cancer Cystocele and rectocele with complete uterovaginal prolapse Grade 1 malignant neoplasm of endometrium 05/25/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 Postop recommendations: Vaginal cuff brachytherapy (w/o 10-15% recurrence) Postop: Year 1 gynecologic oncology visit every 3 months no Pap testing indicated. Year 2-5 alternate visits between special investigator and gynecologic oncologist every 6 months. No Pap indicated. Environmental allergies Carpal tunnel syndrome on both sides L>R. Not treated. Lumbar spinal stenosis Ulnar neuropathy Gastroesophageal reflux disease without esophagitis (07/21/17) Vaginal prolapse longstanding use of 70mm (#4) ring pessary. 07/2018 increased size to # 6 ring pessary with support. 12/09/18 Size again decreased to #4 ring w/ support secondary to vaginal excoriation. Hypertension Colon cancer Surgical History Surgical History History of total left knee replacement (08/24/23) S/P left knee arthroscopy Status post exploratory laparotomy Reports for colon cancer Left displaced femoral neck fracture (12/30/21) s/p left hip hemiarthroplasty Dr. Maldonado History of carpal tunnel release History of neck surgery (~2016) Pt states I had a vertebra that was out of place History of partial mastectomy of left breast History of right breast biopsy History of robot-assisted laparoscopic hysterectomy With BSO and sentinel lymph node biopsy at [facility] [place] for endometrial carcinoma. Tobacco Smoking/Tobacco Use Status: Never Passive smoking exposure: Yes Second hand exposure: Yes Alcohol Alcohol Intake: never Substance Use Substance use: Never Substance use type: does not use Prental History History 3 Para Hx # Term Pregnancies 3 Multiple births Hx # Pregnancies Ectopic pregnancies AB induced Hx Number of Living Children AB spontaneous Vital Signs and Lab Results Vital Signs Most Recent Vital Signs in EMR: Most Recent Vital Signs Temp Pulse Resp BP Pulse Ox 36.5 C 60 16 183/57 H 98 07/04/24 12:40 07/04/24 12:40 07/04/24 12:40 07/04/24 12:40 07/04/24 12:40 Lab Results Blood Type / Crossmatch: No Data to Display Complete Blood Count: White Blood Count 9.27 10^3/uL (4.4-10.8) 06/22/24 14:13 Red Blood Count 3.80 10^6/uL (3.93-5.22) L 06/22/24 14:13 Hemoglobin 11.6 g/dL (11.2-15.7) 06/22/24 14:13 Hematocrit 36.1 % (36.0-46.0) 06/22/24 14:13 Platelet Count 195 10^3/uL (130-400) 06/22/24 14:13 Complete Metabolic Panel: Sodium 136 mmol/L (136-145) 06/22/24 14:13 Potassium 3.9 mmol/L (3.5-5.1) 06/22/24 14:13 Chloride 99 mmol/L (98-107) 06/22/24 14:13 Carbon Dioxide 33.3 mmol/L (21.0-32.0) H 06/22/24 14:13 BUN 28 mg/dL (7-18) H 06/22/24 14:13 Creatinine 1.0 mg/dL (0.55-1.02) 06/22/24 14:13 Est GFR (CKD-EPI 2020) 54.87 (mL/min/1.73m2) 06/22/24 14:13 Calcium 9.9 mg/dL (8.5-10.1) 06/22/24 14:13 Glucose 101 mg/dL (74-106) 06/22/24 14:13 Liver Function Panel: No Data to Display Coagulation Panel: No Data to Display Cardiac Panel: No Data to Display Arterial Blood Gas: No Data to Display Venous Blood Gas: No Data to Display Pancreas Panel: No Data to Display Thyroid Panel: No Data to Display Infectious Disease: No Data to Display Blood Cultures: No Data to Display Toxicology Panel: No Data to Display Imaging and Studies Imaging and Studies Study information below may be from another EMR and interpreted by another provider. Please see original notes in EMR for more complete details. EKG Summary: Conclusion Sinus rhythm...normal P axis, V-rate 60- 99 Atrial premature complex...SV complex w/ short R-R interval 10/21/22 Echocardiogram Summary: FINDINGS: LEFT VENTRICLE/LVEF: Normal size, mild left ventricular hypertrophy, vigorous systolic function, EF 65-70%, no regional wall motion abnormalities. RIGHT VENTRICLE: Normal size and function. AORTIC VALVE: Trileaflet, no significant regurgitation, no stenoses. MITRAL VALVE: Structurally normal, trivial regurgitation, no stenosis. TRICUSPID VALVE: Structurally normal, trivial regurgitation, no stenosis. RSV/PA/RIGHT ATRIAL PRESSURE: Pulmonary arterial systolic pressure at the upper limits of normal, 35-40 mmHg. PULMONIC VALVE: Structurally normal, no stenosis or regurgitation. ATRIA: Left atrial enlargement, right atrium within normal limits. DIASTOLIC INDICES: Normal diastolic function for age. GREAT VESSELS: Aorta normal size. IVC normal size and collapses more than 50% with inspiration. PERICARDIUM: No effusion. SUMMARY: 1) Left ventricle normal size, mild LVH, vigorous systolic function, EF 65-70%, no regional wall motion abnormalities. 2) Left atrial enlargement. 3) Pulmonary arterial systolic pressure at the upper limits of normal, 35-40 mmHg. 4) No significant valvular heart disease. 09/03/14 Anesthesia Assessment and Plan Anesthesia History Personal History: No History of Anesthesia Complications Family History: No Family History of Anesthesia Complications Exercise Tolerance Exercise Tolerance: Metabolic Equivalents<4 Pertinent Negatives Pertinent Negatives: No Symptoms of GERD Cardiac & Pulmonary Exam Cardiac Exam: Normal S1/S2 Heart Sounds Pulmonary Exam: Clear Bilateral Breath Sounds Implantable Cardiac Device Does patient have a Pacemaker or an ICD?: No Airway Exam Known Difficult Airway: No Mallampati Class: 2 Mouth Opening: Normal (> 3cm) Thyromental Distance: Greater than 3 cm Neck Range of Motion: Limited ROM Neck Circumference: Normal Teeth Condition: Normal Dentition ASA Classification ASA Score: ASA 3 Emergency Case?: No NPO Status NPO Status: NPO Clears >2 hours, Solids >8 hours Anesthesia Plan Resuscitation Status: Full Code Anesthesia Technique: Spinal Anesthesia Airway Planned: Natural Airway Monitors Used: Standard Monitors
[2024-07-04] MEDS: Celecoxib 200 MG CAP 400 MG PO ×2 (13:16→13:35)
[2024-07-04] MEDS: Gabapentin 300 MG CAP PO ×3 (13:16→22:02)
[2024-07-04] MEDS: Lactated Ringers 1,000 ML 80 ML IV (13:17)
--- NOTE | 2024-07-04 14:04 | W.PM.OP ---
Date of service: 07/04/24 Time of Service: 14:04 Operative Note Operative Note DATE OF PROCEDURE: 07/04/24 PRE-OP DIAGNOSIS: Right Knee Arthritis with Valgus Deformity POST-OP DIAGNOSIS: same PROCEDURE: Right Total Knee Arthroplasty with Intraoperative Navigation SURGEON: Yasmany Orosco ELECTRICIAN MACHINE SHOP: Daine Chaparro ANESTHESIA TYPE: General LMA/ETT Refer to Anesthesia Record ESTIMATED BLOOD LOSS: 200 PATHOLOGY: none sent COMPLICATIONS: None Patient was transported to: PACU Patient's condition: stable Implants: 1. Depuy Attune Cruciate Retaining Femoral Component, Size 6 narrow 2. Depuy Attune Fixed Bearing Tibial Component, Size 4 3. Depuy Attune 6x5 CR, FB Poly 4. Depuy Attune Patellar Component, Size 35 Indications: I have seen Eloina in clinic for symptoms of knee arthritis, confirmed with radiographic findings. She has exhausted nonoperative methods and was having significant limitations in daily function and desired better function and less pain. I discussed the technical details of a knee replacement. I explained the risks of the procedure to include, but not limited to, bleeding, infection, pain, stiffness, fracture, damage to nerves and vessels, damage to muscles and tendons, loosening, need for repeat procedure, blood clot and cardiopulmonary demise. Despite these risks, Eloina elected to proceed. Findings: There was significant signs of arthritis throughout the knee. Procedure Description: Eloina was greeted in the preoperative holding area where the correct side was identified and marked. The consent was reviewed with the patient and signed. The history and physical was updated. All questions were answered. Preoperative mediacations were administered: Acetaminophen 1000mg, Celebrex 400mg, Gabapentin 300mg, and Oxycontin 10mg. An adductor canal block was then administered by the anesthesia team in the PACU. Eloina was taken back to the operating room. A general anesthestic was then administered. The patient was placed into the supine position on the operating room table. A nonsterile tourniquet was placed high onto the leg but only used for cementing. Posts were placed for positioning during the procedure. All bony prominences were well padded. Prophylactic antibiotics in the form of Cefazolin were administered. 1g of Tranxemic Acid was given intravenously within 30 minutes of incision. The right leg was then prepped with Chloraprep and draped in a standard fashion with impervious stockinette and extremity drape with Iodine impregnated skin protection. A timeout to confirm correct identity, side and site, procedure, allergies, anesthesia, and medical concerns was performed. With the knee in some flexion, a midline incision was made overlying the knee. Full thickness skin flaps were raised once the extensor mechanism was encountered. These were raised medially and laterally. Any bleeding was controlled with electrocautery. Once the extensor mechanism was fully exposed, a medial parapatellar arthrotomy was performed in a flexed position. All bleeding from the arthrotomy and the geniculate arteries was coagulated. A medial subperiosteal peel was performed with electrocautery to the midcoronal plane. The fat pad was removed while keeping the patellar tendon protected. The anterior distal femur synovium was removed for later visualization. The ACL and PCL were resected and the anterior horn of the lateral meniscus was transected. The knee was then flexed with the patella everted. Large osteophytes from the tibia were removed. Large osteophytes from the femur were removed. A single starting pin was then placed 1cm anterior to the PCL insertion and the notch in the direction of the femoral head. The OrthoAlign device was applied over the pin. It was oriented to be in line with the epicondylar axis and the trochlear groove. It was then pinned into place. The navigation computer was then turned on and calibrated. The distal femur cut was set at 0 degrees valgus and 3 degrees flexion. The distal femur cutting guide then was positioned for a 9mm cut. The distal femur was cut with an oscillating saw while protecting the soft tissues. The tibia was then addressed. The OrthoAlign device was placed over the tibial tubercle and medial tibia and secured into position. Once again, OrthoAlign was calibrated and then set for a 0.5 degrees varus cut and 5 degrees of posterior slope. With this locked into position, the cut thickness stylus was used to assess cut thickness. The lateral side, most involved side, was set for a 5mm cut, corresponding to 7mm medially. This was then held in position and pinned into place with 2 additional pins and a cross pin for stability. The medial and lateral collateral ligaments were protected and the cut was performed. With this completed, it was assessed and noted to be of appropriate dimensions. The guide and OrthoAlign was removed. A spacer block was inserted and the knee was brought into extension. The 5mm spacer block provided full extension, without hyperextension and with stability of both the medial and lateral collateral ligaments was assessed. The pins from the femur and the tibia were then removed. The distal femur was then sized. The anterior stylus was placed onto the lateral ridge of the anterior femur. This indicated a size 6 narrow femur. The external rotation of the guide was adjusted to 5 degrees to match the epicondylar axis, perpendicular to Anurag?s line. The 4-in-1 cutting guide was the placed. The posterior medial femur cut was evaluated and appeared of good thickness. The spacer block was inserted underneath the cutting guide and stability was confirmed in 90 degrees of flexion. An lauren wing was used to confirm appropriate position of the anterior cut to avoid notching. This cutting guide was ensured to be flush on the cut surface and then pinned into place with headed pins. While protecting the soft tissues, quad tendon, and collateral ligaments, the anterior and posterior cuts were performed with a saw. The central two pins were removed and the posterior and anterior chamfers were cut next. The notch-cutting guide was placed. This was pinned to lateralize the femoral component as much as possible while keeping it flush on the cut surface. This was then pinned into position. A reciprocating saw was used to make the notch cut. A rasp smoothed the cut surfaces. A trial posterior stabilized femoral component was then inserted, impacted down to the cut surfaces, and the lug holes were drilled. A provisional trial tibial component was placed and the knee was brought through range of motion. There was noted to be excellent extension and flexion. There was no significant instability. The patella was tracking without thumbs. The tibial cut surface was fully exposed. The medial and lateral menisci were removed. The tibia was then sized as a 4. The tibia had been previously marked during trialing to correspond to the center of the tibial component to help with rotation. The trial was aligned to this alem, approximately rotated to the medial 1/3rd of the tibial tubercle. The trial was pinned into place. The tibia was prepared with a reamer and a keel punch. The knee was then brought into extension and the patella was measured as 23mm. Using the patellar clamp and cut guide, this was resected to a flat surface with at least 13mm of thickness remaining. The size 35 patella fit the best. This was oriented and then clamped into position. The lugs were drilled. The trial components were removed. The final components, except for the polyethylene were opened on the back table. The periosteal and capsular tissues, especially posteriorly, around the knee were then systematically injected with a periarticular cocktail consisting of 246mg of Ropivacaine, 0.5mg of Epinephrine, 0.08mg of Clonidine, and 30mg of Ketorolac, diluted to 100cc. The tourniquet was then inflated to 275mmHg. The knee was thoroughly irrigated with a pulse lavage and dried. On the back table, with the implants opened, the cement was mixed. 2 batches of antibiotic laden cement were prepared with vacuum assistance. After the cement was ready a small amount was placed on to the back side of the tibial component at the keel. A small amount was placed onto the posterior flange of the femur. Cement was manual pressurized and impregnated into the cut surface of the tibia. The tibial component was then inserted into the cut surface and impacted into position. Excess cement was removed and the component was reimpacted. Again, excess cement was removed and our attention was then turned to the femur. The femoral cut surface was once again dried and cement was manually impacted into the cut surface. The femoral component was lined with the lug holes and impacted. Excess cement was removed. It was ensured to be down against the cut surface. The trial polyethylene was then inserted and the leg was brought out into full extension for the duration of the cement curing process, approximately 15min. Cement was lastly manually impacted into the cut surface of the patella and the patellar button was clamped into position and held. During this process attention was turned to the gutters of the knee and for all interfaces for any excess cement. The knee was then thoroughly irrigated with Surgiphor Betadine solution. It was allowed to sit in the knee for 3 minutes before being irrigated out with saline. After the cement had finally cured, approximately 15min, the clamp was removed from the patella and the knee was taken through range of motion. A size 5mm polyethylene component provided the best range of motion and stability with less than 2mm gapping with medial and lateral stress and full extension without significant hyperextension. The patella was tracking with a no-thumbs technique. The trial poly was removed and once again the knee was checked for any loose, excess, or errant cement. The poly component was then inserted into position after cleaning and drying the tibial tray. The capsule was then reapproximated with a No. 1 Vicryl at multiple locations. The capsule was finally closed with a No. 2 Stratafix, barbed suture. The tourniquet was then released and the arthrotomy appeared watertight without significant bleeding. The second dosing of 1g TXA was started. Deep tissues were then reapproximated with 0 Vicryl and 2-0 Vicryl. The skin was closed with a running 3-0 Monocryl in a subcuticular fashion. This was reinforced with skin glue. A Mepilex silver dressing was applied along with a [id number] MARK wrap. A CryoCuff was applied. Eloina was transferred to the hospital bed without difficulty an suffering no apparent complication. Eloina has a good prognosis. Physical therapy will start today and without restrictions, weight-bearing as tolerated. Aspirin 81mg BID will be used for DVT prophylaxis.
[2024-07-04] MEDS: ceFAZolin 2 GM/50 ML BAG IVPB (14:18)
[2024-07-04] MEDS: TRANEXAMIC ACID/SOD. CHL. 1,000 MG/100 ML BAG 600 MG IVPB (14:25)
--- NOTE | 2024-07-04 14:50 | W.ANESNERVE ---
Nerve Block Single Injection Procedure Date and Time Date Performed: 07/04/24 Procedure Start: 13:35 Location Where Procedure Performed Procedure Location: Day Surgery Unit Reason Performed: Postoperative Analgesia Requesting Provider: Yasmany Orosco Timeout Performed Timeout Performed: Yes Monitoring Used ECG, Blood Pressure, SpO2 and See EMR for corresponding vital signs Sterility Sterility: Hand Hygiene, Surgical Cap, Surgical Mask, Sterile Gloves, Eye Protection and Chlorhexidine Sedation Given During Procedure Sedation Given (Indicate Dose Given): Versed IV Dose:: 2mg IVP Patient Mental Status Patient Mental Status: Sedate with meaningful communication Nerve Block 1st Nerve Block: Laterality: Right Block Type: Adductor Canal Ultrasound Image Saved?: Yes Needle / Catheter Used: 100mm SonoPlex II Local Anesthetic Bolus (Indicate Dose Given): Lidocaine used for local infiltration of skin, Injected in 3-5ml increments after negative blood aspiration and Ropivacaine 0.5% Dose:: 0.5%/20cc (100mg) Additives (Indicate Dose Given): Epinephrine to make 1:200,000 (5mcg/ml) Dose:: 100mcg and Decadron Dose:: 10mg PF Ultrasound: Sterile probe cover and gel used Nerve Stimulator: Not Used Paresthesia: None Procedure Tolerated: No Complications and Patient tolerated well Procedure Outcome: Successful Performed By: Rudi Aldana
[2024-07-04] MEDS: ceFAZolin 1 GM/50 ML BAG IVPB (17:14)
--- NOTE | 2024-07-04 17:16 | W.ANESPOSTOP ---
Postoperative Evaluation Date, Time and Location Date Performed: 07/04/24 Time Performed: 15:30 Patient Location: PACU Vital Signs Most Recent Imported Vital Signs: Most Recent Vital Signs Temp Pulse Resp BP Pulse Ox 36.0 C L 60 14 140/66 96 07/04/24 16:56 07/04/24 16:56 07/04/24 16:56 07/04/24 16:56 07/04/24 16:56 Pain Score Most Recent Pain Score: Most Recent Pain Score Pain Level 5 07/04/24 16:56 Assessment Mental Status: Arousable with meaningful communication Airway and Respiratory Function: Patent airway with normal (patient baseline) respiratory exam Cardiovascular Function: Hemodynamically Stable Hydration Status: Adequately Hydrated Nausea & Vomiting: No Nausea or Vomiting Pain: Pt. Denies Any Pain Peripheral Nerve Block: Regional nerve block not resolved at time of post operative discharge
--- NOTE | 2024-07-04 17:25 | W.PC.ACHO ---
Registration Status: Primary Language: Preferred Language: Medical / Surgical History (Last Reviewed 06/30/24 @ 10:21 by Fahad Weir) History of diverticulitis History of cataract H/O solar lentigo Tubular carcinoma of left breast History of endometrial biopsy History of endometrial cancer Cystocele and rectocele with complete uterovaginal prolapse Grade 1 malignant neoplasm of endometrium Environmental allergies Carpal tunnel syndrome on both sides Lumbar spinal stenosis Ulnar neuropathy Gastroesophageal reflux disease without esophagitis (07/21/17) Vaginal prolapse Hypertension Colon cancer (Last Reviewed 06/30/24 @ 10:21 by Fahad Weir) History of total left knee replacement (08/24/23) S/P left knee arthroscopy Status post exploratory laparotomy Left displaced femoral neck fracture (12/30/21) History of carpal tunnel release History of neck surgery (~2016) History of partial mastectomy of left breast History of right breast biopsy History of robot-assisted laparoscopic hysterectomy Most Recent Vital Signs Temperature 36.2 C L 07/04/24 17:20 Temperature Source Temporal Artery Scan 07/04/24 17:20 Pulse 66 07/04/24 17:20 Pulse Rhythm Regular 07/04/24 12:40 Pulse 60 07/04/24 16:36 Respiratory Rate 16 07/04/24 17:20 Respiratory Depth Deep 07/04/24 12:40 Blood Pressure 146/76 H 07/04/24 17:20 Blood Pressure Mean 87 07/04/24 16:36 Blood Pressure Position Supine 07/04/24 13:37 Pulse Oximetry 96 07/04/24 17:20 Respiratory End-tidal CO2 36 07/04/24 16:36 Oxygen Delivery Method Room Air 07/04/24 17:20 Oxygen Flow Rate 0 07/04/24 17:20 Pain Level 2 07/04/24 17:20 Comment 1348 Block complete. Patient tolerated well. 07/04/24 13:37 Allergies nabumetone Allergy (Severe, Verified 07/04/24 12:45) hives and a skin rash aspirin Allergy (Intermediate, Verified 07/04/24 12:45) can take 81mg with no problems PT. STATES SHE CAN TAKE LOW DOSE ASPIRIN AND TAKES 81 MG QD W/O A PROBLEM. gluten Allergy (Intermediate, Verified 07/04/24 12:45) rash ibuprofen Allergy (Intermediate, Verified 07/04/24 12:45) Other (See Comment) Hives Sulfa (Sulfonamide Antibiotics) Allergy (Mild, Verified 07/04/24 12:45) Other (See Comment) Rash enalapril Allergy (Unknown, Verified 07/04/24 12:45) Other (See Comment) Cough latex Allergy (Unknown, Verified 07/04/24 12:45) Other (See Comment) Rash lactose Adverse Reaction (Verified 07/04/24 12:45) intolerant nylon Adverse Reaction (Intermediate, Uncoded 07/04/24 12:45) Other (See Comment) itching Active Medications Generic Name Dose Route Start Last Admin Trade Name Freq PRN Reason Stop Dose Admin Celecoxib 400 mg 07/04/24 06:00 07/04/24 13:35 Celecoxib 200 Mg Cap PO 07/04/24 23:59 400 mg PREOP HOPE Administration Gabapentin 300 mg 07/04/24 06:00 07/04/24 13:35 Gabapentin 300 Mg Cap PO 07/04/24 23:59 300 mg PREOP HOPE Administration Ringer's Solution 1,000 mls @ 80 mls/hr 07/04/24 06:00 07/04/24 15:44 IV 07/04/24 23:59 80 mls/hr INFUSION HOPE Infusion Cefazolin Sodium/Dextrose 2 gm in 50 mls @ 100 mls/hr 07/04/24 06:00 07/04/24 14:38 Ancef Duplex IVPB 07/04/24 23:59 Infused PREOP HOPE Infusion Tranexamic Acid/Sodium Chloride 1,000 mg in 100 mls @ 600 mls/hr 07/04/24 06:00 07/04/24 14:35 IVPB 07/04/24 23:59 Infused PREOP HOPE Infusion Cefazolin Sodium/Dextrose 1 gm in 50 mls @ 100 mls/hr 07/04/24 18:00 07/04/24 17:14 Ancef Duplex IVPB 07/05/24 10:29 100 mls/hr Q8H HOPE Administration IV IV Catheter Type [Left Forearm Saline Lock ] IV Catheter Gauge [Left 20 Forearm] Diet Orders Category Date Time Status Regular/Normal [DIET] Nutrition 07/04/24 Dinner Active Intake and Output - 24 Hour Total 04/18/24 08:05 thru 07/04/24 16:42 Intake Total 550 Output Total 700 Balance -150 Weight 57.9 kg Intake: IV 550 Output: Emesis 500 Estimated Blood Loss 200 Other: Emesis Description None v v v v v v v v v Sending and/or Receiving Nurses: Please use comment section below to note any information pertinent to the patient hand-off not included above. Information / Comments: Report received from: PACU nurse at 1652, pt A&O x3, no skin issues noted except surgical incision, unable to do spinal, they did block instead.
[2024-07-04] MEDS: Aspirin E.C. 81 MG TABEC PO (22:02)
[2024-07-04] MEDS: Acetaminophen 500 MG TAB 1000 MG PO (22:02)
[2024-07-05] MEDS: ceFAZolin 1 GM/50 ML BAG IVPB ×2 (02:19→10:02)
[2024-07-05] MEDS: Meclizine 12.5 MG TAB PO (03:19)
[2024-07-05 04:40] VITALS: BP 150/77; PULSE 83; RESP 21; TEMP 35.6; O2SAT 97
[2024-07-05] MEDS: Pantoprazole 40 MG TABCR PO (07:44)
[2024-07-05 07:48] VITALS: BP 169/77; PULSE 77; RESP 14; TEMP 36.2; O2SAT 95
[2024-07-05] MEDS: Acetaminophen 500 MG TAB 1000 MG PO ×2 (08:02→13:29)
[2024-07-05] MEDS: hydroCHLOROthiazide 12.5 MG TAB PO (08:02)
[2024-07-05] MEDS: Aspirin E.C. 81 MG TABEC PO (08:03)
[2024-07-05] MEDS: Losartan 50 MG TAB 100 MG PO (08:03)
[2024-07-05] MEDS: Metoprolol CR 50 MG TABCR PO (08:03)
[2024-07-05] MEDS: Meloxicam 15 MG TAB PO (08:03)
[2024-07-05] MEDS: Dexamethasone 4 MG TAB PO (08:03)
--- NOTE | 2024-07-05 08:41 | PDOC.CMIN ---
Date of service: 07/05/24 Time of Service: 08:41 [facility] Advance Directives: Do you have an Advance Directive: Y 07/05/23 15:14 AD On File at [facility]: Y 07/05/23 15:14 Date Asked 10/21/22 07/05/23 15:14 AD Date Reviewed 06/12/24 06/12/24 16:13 COLST On File at [facility] No 06/12/24 16:13 COLST Date Scanned Code Status Resuscitation Status Full Code Care Team Visit Care Team Role Provider Type Zhang Sexton NP Primary Care Provider NURSE PRACTITIONER InPatient Edgar Deckerchristy Other Providers OTHER Yasmany Orosco MD Admit Provider [facility] STAFF PHYSICIAN Attending Provider [facility] All Active Problems History of total right knee replacement (Acute 07/04/24) Contusion of forehead (Acute) Fall (Acute) Acquired genu valgum of right knee (Acute) Mixed stress and urge urinary incontinence (Acute) Lumbar spinal stenosis (Acute) Degenerative joint disease of right hip (Acute) Degenerative joint disease of right knee (Acute) Conductive hearing loss, external ear (Acute) Blood in right ear canal (Acute) Insomnia (Acute) Anemia (Chronic) Pulmonary embolism (Chronic) Hiatal hernia (Chronic) Vitamin D deficiency (Acute) GERD (gastroesophageal reflux disease) (Chronic) DJD (degenerative joint disease) (Chronic) Cervicalgia (Acute) Cervical stenosis of spine (Acute) Chronic low back pain (Acute) Prediabetes (Acute) Anxiety (Chronic) Dysuria (Acute) Colitis (Acute) 04/2021. Dx by colonoscopy after months of diarrhea. Rx Budesonide XR Diarrhea (Acute) Encounter for pessary maintenance (Acute) Urinary incontinence (Chronic) 2019. Stress incontinence worse after robotic hysterectomy. Patient is reluctant to be evaluated by urology since she has had several surgeries in this past year. Breast cancer, left (Acute) 10/2019. [place] [facility] [place]itting and adjustment of pessary (Acute) 2019. #3 (70mm) donut. 05/2021. 64mm donut fitted Allergy to latex (Acute) Allergy to NSAIDs (Acute) Seborrheic dermatitis of scalp (Acute) Dermatitis, drug-induced (Acute) Vaginal vault prolapse after hysterectomy (Acute) Pelvic organ prolapse prior to her hysterectomy for endometrial cancer was treated with: longstanding use of 70mm (#4) ring pessary. 10/2019 57 mm (#3) donut placed Itchy skin (Acute) Post-nasal drip (Acute) Chronic allergic rhinitis (Acute) Ulnar neuropathy at elbow of right upper extremity (Chronic 08/30/17) Spinal stenosis of lumbar region with neurogenic claudication (Chronic 09/30/17) Acute midline low back pain (Acute 07/21/17) 06/29/2017 evaluation at [facility]. Started on prednisone will follow-up at [facility] Medical History History of diverticulitis History of cataract H/O solar lentigo with atypical melanocytic hyperplasia, lichenoid inflammation and dermal melanophages Tubular carcinoma of left breast History of endometrial biopsy History of endometrial cancer Cystocele and rectocele with complete uterovaginal prolapse Grade 1 malignant neoplasm of endometrium 05/25/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 Postop recommendations: Vaginal cuff brachytherapy (w/o 10-15% recurrence) Postop: Year 1 gynecologic oncology visit every 3 months no Pap testing indicated. 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 No Pap indicated. Environmental allergies Carpal tunnel syndrome on both sides L>R. Not treated. Lumbar spinal stenosis Ulnar neuropathy Gastroesophageal reflux disease without esophagitis (07/21/17) Vaginal prolapse longstanding use of 70mm (#4) ring pessary. 07/2018 increased size to # 6 ring pessary with support. 12/09/18 Size again decreased to #4 ring w/ support secondary to vaginal excoriation. Hypertension Colon cancer Surgical History History of total left knee replacement (08/24/23) S/P left knee arthroscopy Status post exploratory laparotomy Reports for colon cancer Left displaced femoral neck fracture (12/30/21) s/p left hip hemiarthroplasty Dr. Maldonado History of carpal tunnel release History of neck surgery (~2016) Pt states I had a vertebra that was out of place History of partial mastectomy of left breast History of right breast biopsy History of robot-assisted laparoscopic hysterectomy With BSO and sentinel [place] [facility] [place]. Family History Mother , 76 Hypertension Hyperlipidemia Father , 70 Alcohol use disorder Cancer Heart disease Hypertension Hyperlipidemia Colon cancer Diabetes Sister , 77 Cancer Heart disease Colon cancer Sister No problems noted. Sister , 69 Cancer Substance use disorder Son Hyperlipidemia Hypertension Daughter Hypertension Hyperlipidemia Daughter No problems noted. Social History Smoking/Tobacco Use Status: Never Second Hand Exposure: Yes Smoking risk assessment performed?: Yes Alcohol Intake: never Drug use: Never Substance use type: does not use Adopted: No Caregiver/Support person: No Household members: none Housing: house Number of Children: 3 number of grandchildren: 4 Communication Needs: None Education Level: college Details: 1 yr. Do you need help understanding health information?: Rarely current occupation: retired Pets and animals: Yes Sexually active: No Do you think of yourself as: straight/heterosexual Current gender identity: female What is your relationship status?: How often do you talk on the phone with friends or family?: three or more times per week How often do you get together with friends or relatives?: twice per week How often do you attend shinto or gnosticism services?: 4 or more times per year Do you belong to any clubs or organized social groups?: no Panel score (0-1 are the most socially isolated patients): 2 What type of physical activity do you participate in: regular exercise Duration: 45-60 minutes/day Frequency: 1-2 times per week Melia/Buddhist: Buddhism Seatbelt use: always Helmet use: No Drive intox or ride w/intox 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
--- NOTE | 2024-07-05 09:30 | IN_ITS ---
PT Notes Visit Reasons: Right knee DJD Physical Therapy Initial Evaluation Date: 07-05-2024 Referring Doctor: Dr. Orosco PT Orders: PT CONSULT: PT evaluation status post Ortho surgery Precautions: Weightbearing as tolerated Patient Profile/Admitting Diagnosis: Patient is a 58-year-old female presenting status post elective right TKA secondary to OA with valgus deformity. Patient was admitted for observation status post surgery. PMHX: Lumbar spinal stenosis, trochanteric bursitis right hip DJD right hip, insomnia, anemia history of PE, hiatal hernia, vitamin D deficiency, GERD, cervicalgia, cervical spinal stenosis, chronic low back pain, prediabetes, anxiety, hypokalemia, urinary incontinence with pessary, left breast cancer, seborrheic dermatitis, right ulnar neuropathy at elbow, cervical myelopathy with cervical radiculopathy, colectomy Social History/Home Situation: Patient resides in her home with a ramp to enter. Patient reports being independent with ambulation with front wheel walker; positive history of falls when using single-point cane. Patient reports having tub bench in her bathroom as well as grab bars. She has assistance from family for meals she is independent with ADLs Equipment Owned/DME: Front wheel walker, single-point cane, tub seat Subjective: Patient reports she is feeling better today than yesterday and is looking forward to going home Objective: General Observation: Patient presented seated in recliner with legs elevated and Cryo/Cuff in place to right lower extremity. Mental Status: Alert and oriented x 4 Pain: Right knee 3/ 10 on [employer] ROM: [] Right Upper Extremity: WFL Left Upper Extremity: WFL Right Lower Extremity: hip WNL, knee 5-96, ankle DF to neutral PF WFL Left Lower Extremity: WNL Strength: [] Right Upper Extremity: 5/5 Left Upper Extremity: 5/5 Right Lower Extremity: hip 3-/5, knee extension 3-/5 , knee flexion 2+/5 ankle 3/5 Left Lower Extremity: 4/5 Sensation: intact Skin: incision not visualized d/t surgical dressing in place. Tyson wrap mid thigh to toes no edema present Bed Mobility/Transfers: Supine to sit supervision sit to supine min A for RLE to get onto bed Sit to stand supervision Stand to sit supervision Bed to chair supervision with FWW Gait: amb with FWW 150 feet including 4 turns with supervision. Balance: [] Static Sitting:Normal Dynamic Sitting: Good Static Standing: GOOD Dynamic Standing: Fair + with 1 UE support Special Tests: [] Mobility Limitations Standardized Measure [] [facility] 6 clicks Basic Mobility Inpatient Short Form: [] Raw Score: 22 CMS Score: 20.91% Informed Consent/Education: Patient instructed in purpose of PT consult. Packet containing TKA exercise protocol has been given to patient. Education and training on initial set of exercises that can be done at home have been completed with patient. Assessment: Patient presents with clinical signs and symptoms consistent with current/admitting diagnoses that have resulted to mobility limitations, gait instability, generalized weakness, and impairment of motor control as dem onstrated by the following impairment level findings: 1. Decreased strength to right knee major muscle groups 2. Impaired standing balance 3. Limitation of joint range of motion in right knee Impairments are contributing to the following functional limitations: 1. Inability to safely ambulate without assistive device 2. Increase completion time for mobility ADL performance 3. Increased fall risk Patient is assessed as a moderate complexity based on the following: History:84-year-old female with impairment level findings, functional limitations, and past medical history as indicated above Examination: Demonstrable impairment in strength, balance, and mobility level with underlying impairments and functional limitations as documented above Presentation: stable Decision Making: moderate Goals: N/A. PT evaluation and 1-2 treatment sessions only for functional mobility training using recommended AD and for HEP instruction. Plan of Care/Treatment Plan: N/A. PT evaluation and 1-2 treatment session only for functional mobility training using recommended AD and for HEP instruction. DISCHARGE RECOMMENDATIONS: home with outpatient PT as scheduled. Pt may benefit from home PT prior to starting outpatient. TREATMENT CODE/TIME: [id number], [id number] Thank you for the opportunity to participate in the care of this patient. Please sign an return this page within 30 days if you agree with the above POC. Thank you! Physician Signature Date [facility]
--- NOTE | 2024-07-05 11:13 | DSE_ITS ---
Date of service: 07/05/24 Time of Service: 11:12 Discharge Plan Disposition Patient Disposition: Home W/Home Health Services Condition: Good Discharge Details Reason For Visit: Right knee DJD Admit Date/Time: 07/04/24 14:11 Admit Provider: Yasmany Orosco Attending Provider: Yasmany Orosco Primary Care Provider: Zhang Morris Hospital Course Hospital Course: Patient was admitted to the medical/surgical floor following the procedure. The surgery was tolerated well without any notable medical, surgical, or anesthetic complications. Mobilization began postoperatively. She was voiding spo ntaneously. Vitals were stable. Physical therapy worked with the patient and was cleared for discharge home. No acute medical issues. Pain was controlled on oral regimen. Home Meds and New Rx's Prescriptions: New acetaminophen 500 mg tablet 1,000 mg PO Q8H PRN Qty: 90 0RF Rx Instructions: Take two tablets up to every 8 hours as needed for pain aspirin 81 mg tablet,delayed release (DR/EC) 81 mg PO BID 30 Days Qty: 60 0RF docusate sodium [Colace] 100 mg capsule 100 mg PO BID Qty: 30 0RF meloxicam 15 mg tablet 15 mg PO DAILY Qty: 30 1RF Rx Instructions: Take one tablet daily for pain and inflammation pantoprazole 40 mg tablet,delayed release (DR/EC) 40 mg PO DAILY 14 Days Qty: 14 0RF gabapentin 300 mg capsule 300 mg PO QHS Qty: 14 0RF Rx Instructions: Take one tablet at bedtime oxycodone 5 mg tablet 5 mg PO Q4H PRNQty: 18 0RF Rx Instructions: Take one tablet up to every 4 hours as needed for severe postoperative pain Continued pyridoxine (vitamin B6) [Vitamin B-6] 100 mg tablet 100 mg PO QID cyanocobalamin (vitamin B-12) 1,000 mcg capsule 1,000 mcg PO QMONTH cholecalciferol (vitamin D3) 350 mcg (14,000 unit) capsule 1,000 mcg PO DAILY quinine-vitamin E Capsule 1 cap PO DAILY meclizine 12.5 mg tablet 12.5 mg PO TID PRN (Reason: dizziness) Qty: 30 1RF Ultra CoQ10 75 mg capsule 75 mg PO DAILY lutein 20 mg capsule 20 mg PO DAILY Rx Instructions: give with meal/snack turmeric root extract 500 mg capsule 500 mg PO DAILY multivitamin Tablet 1 tab PO DAILY Digestive Advantage Advanced 10 billion cell capsule 10 cell PO DIRECTED garlic 400 mg tablet 400 mg PO DAILY ferrous sulfate 27 mg iron tablet 27 mg PO DAILY red yeast rice 600 mg tablet 1,200 mg PO BID Rx Instructions: give with meal/snack ascorbic acid (vitamin C) 500 mg capsule 500 mg PO DAILY milk thistle 175 mg capsule 525 mg PO DAILY Patient Comments: Pt takes 1000 mg daily Rx Instructions: give with meal/snack zinc sulfate 25 mg zinc (110 mg) tablet 25 mg PO DAILY thiamine mononitrate (vit B1) 100 mg tablet 100 mg PO DAILY folic acid 20 mg capsule 20 mg PO DAILY losartan-hydrochlorothiazide 100-12.5 mg tablet 0.5 tab PO DAILY Qty: 45 4RF metoprolol succinate 50 mg tablet extended release 24 hr 50 mg PO DAILY Qty: 90 3RF Rx Instructions: Hold if pulse < 60 calcium carbonate-vitamin D3 [Calcium 600 + D(3)] 600 mg-5 mcg (200 unit) Tablet 1 tab PO DAILY Qty: 30 0RF Discontinued acetaminophen [Tylenol Arthritis Pain] 650 mg tablet extended release 1,300 mg PO Q12H meloxicam 15 mg tablet 15 mg PO DAILY Qty: 30 3RF Discharge Instructions Additional Instructions: Total Knee Discharge Instructions Activity: The most important activity is to walk and to work on gentle motion (both flexion and extension). You should try to take short walks a few times a day. It is important that when resting you work on keeping the knee straight. Avoid putting a pillow behind the knee as this will encourage flexion. Work on range of motion exercises as provided by Physical Therapy. - Start outpatient physical therapy within 2 weeks. - You should wear the NOÉ hose on both legs for 2 weeks. You may remove these at night. You may also use any compression sock in place of the NOÉ hose. - Utilize [employer] to review exercises, see videos on exercises and obtain basic information pertaining to your surgery and your recovery. Dressing: Remove the Tyson wrap by 2 days after your surgery and put on the NOÉ stocking given to you from the hospital. Keep the surgical dressing (underneath the TYSON wrap) in place for at least one week. After the first week it may be removed and replaced with light gauze and tape or nothing. The wound and dressing may get wet after 3 days but avoid soaking the dressing or otherwise it will need to be changed. Many people prefer covering the dressing with cling wrap (saran wrap) to minimize it from getting soaked. If it gets wet, just pat dry. If it starts to peel off then it will need to be changed. Medications: - You should take Tylenol and anti-inflammatory Meloxicam as your primary pain control medications. If the Meloxicam is too expensive or not covered, please call the office for another alternative (Advil/Ibuprofen or Naproxen/Aleve) - You have been prescribed a stronger pain medication Oxycodone for breakthrough pain, take as needed as prescribed. - You have also been prescribed a stomach acid reduction agent Pantoprozole to help reduce stomach acid and reflux. - You have been prescribed Gabapentin to take at night for restlessness and n erve pain. - You will be taking Aspirin 81mg twice a day for DVT prevention unless instructed otherwise. - You have also been prescribed Decadron to take to control post-operative nausea and pain. You will start this tomorrow. - If you have constipation you should take Colace (which has been prescribed) or Miralax (which is available [id number]). It takes most people 3-4 days to have a bowel movement. Follow-up: 2 weeks If you have any acute concerns or questions, please do not hesitate to contact the office at [phone]. You may contact Dr. Orosco with any questions after hours through the hospital at [phone] or on his cell phone at [phone]. 1. Encounter Date and Reason I certify that Eloina Ware was seen by Yasmany Orosco MD on 07/05/24 and that I had a [id number] encounter with this patient that meets the physician face to face encounter requirements. 2. Clinical Findings Supporting Skilled Need and Homebound Status I certify that home health services are medically necessary, include either intermittent long term and/or physical/speech therapy, and that this patient is homebound in that absences from the home require considerable and taxing effort and are infrequent or of short duration, or are attributable to the need to receive medical care. [X] (a) Attached documentation from encounter provides clinical findings supporting skilled need and homebound status (including what assistance patient requires to leave the home). The encounter with the patient was in whole, or in part, for the following medical condition, which is the primary reason for home health care: Right knee DJD Senior Care: Physical Therapy: Eloina would benefit from home health PT/OT as she recovers from a right knee replacement. She has significant weakness and range of motion deficits as well as ambulatory dysfunction as a result of the knee surgery. She is weightbearing as tolerated without restrictions. Speech Therapy: Homebound: Eloina is unable to leave her home unassisted. 3. Certification and Authentication I certify that I composed the above information based on my clinical judgement relating to this patient's medical condition and, if applicable, clinical findings communicated to me by the NPP or inpatient physician who performed the Home Health Referral. All further orders will be obtained through Dr. Orosco Referrals: Yasmany Orosco MD [ [facility] STAFF PHYSICIAN] - Activity:: Activity as Tolerated Equipment/Supplies:: Walker Diet:: As Tolerated Discharge Orders Discharge Orders: Discharge Order (Routine); Ordered 07/05/24 Ordered By: Yasmany Orosco DS: Summary Time Spent with Patient providing and/or coordinating discharge services: Less than 30 minutes Status at Discharge Functional status at discharge: uses cane/walker Overall status at discharge: patient is progressing back to baseline Mental Status: mental status grossly normal Speech and Movement: speech and movement normal Mood: congruent mood Affect: normal affect Quality:SDOH Health Related Social Needs: No Data to Display Exam Narrative Exam Narrative: Sitting up in the bed. NAD. AAOx3. RLE dressing c/d/i. +SLR/ADF/APF/EHL/FHL. SILT DP/SP/Tib. Psych Mental Status: mental status grossly normal Speech and Movement: speech and movement normal Mood: congruent mood Affect: normal affect DS: Data Vitals/I&O Vitals and I&O: Vital Signs Temperature 98.1 F 07/04/24 16:00 Temperature Source Skin 07/04/24 13:37 Pulse 61 07/04/24 16:00 Pulse Rhythm Regular 07/04/24 12:40 Pulse 61 07/04/24 16:01 Respiratory Rate 19 07/04/24 16:01 Respiratory Depth Deep 07/04/24 12:40 Blood Pressure 127/47 L 07/04/24 16:00 Blood Pressure Mean 78 07/04/24 16:00 Blood Pressure Position Supine 07/04/24 13:37 Pulse Oximetry 97 07/04/24 16:01 Respiratory End-tidal CO2 39 07/04/24 16:01 Oxygen Delivery Method Room Air 07/04/24 13:37 Oxygen Flow Rate 0 07/04/24 13:37 Pain Level 0 07/04/24 13:37 Comment 1348 Block complete. Patient tolerated well. 07/04/24 13:37 Intake & Output 07/03/24 07/04/24 07/04/24 23:59 11:59 23:59 Intake Total 550 / 550 Output Total 200 / 200 Balance 350 / 350 Weight 127 lb 10.362 oz Intake: IV 550 / 550 Output: Estimated Blood Loss 200 / 200 PFSH All Active Problems History of total right knee replacement (Acute 07/04/24) Contusion of forehead (Acute) Fall (Acute) Acquired genu valgum of right knee (Acute) Mixed stress and urge urinary incontinence (Acute) Lumbar spinal stenosis (Acute) Degenerative joint disease of right hip (Acute) Degenerative joint disease of right knee (Acute) Conductive hearing loss, external ear (Acute) Blood in right ear canal (Acute) Insomnia (Acute) Anemia (Chronic) Pulmonary embolism (Chronic) Hiatal hernia (Chronic) Vitamin D deficiency (Acute) GERD (gastroesophageal reflux disease) (Chronic) DJD (degenerative joint disease) (Chronic) Cervicalgia (Acute) Cervical stenosis of spine (Acute) Chronic low back pain (Acute) Prediabetes (Acute) Anxiety (Chronic) Dysuria (Acute) Colitis (Acute) 04/2021. Dx by colonoscopy after months of diarrhea. Rx Budesonide XR Diarrhea (Acute) Encounter for pessary maintenance (Acute) Urinary incontinence (Chronic) 2019. Stress incontinence worse after robotic hysterectomy. Patient is reluctant to be evaluated by urology since she has had several surgeries in this past year. Breast cancer, left (Acute) 10/2019. [place] [facility] [place]itting and adjustment of pessary (Acute) 2019. #3 (70mm) donut. 05/2021. 64mm donut fitted Allergy to latex (Acute) Allergy to NSAIDs (Acute) Seborrheic dermatitis of scalp (Acute) Dermatitis, drug-induced (Acute) Vaginal vault prolapse after hysterectomy (Acute) Pelvic organ prolapse prior to her hysterectomy for endometrial cancer was treated with: longstanding use of 70mm (#4) ring pessary. 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 Started on prednisone will follow-up at [facility] Medical History History of diverticulitis History of cataract H/O solar lentigo with atypical melanocytic hyperplasia, lichenoid inflammation and dermal melanophages Tubular carcinoma of left breast History of endometrial biopsy History of endometrial cancer Cystocele and rectocele with complete uterovaginal prolapse Grade 1 malignant neoplasm of endometrium 05/25/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 Postop recommendations: Vaginal cuff brachytherapy (w/o 10-15% recurrence) Postop: Year 1 gynecologic oncology visit every 3 months no Pap testing indicated. Year 2-5 alternate visits between button pusher and gynecologic oncologist every 6 months. No Pap indicated. Environmental allergies Carpal tunnel syndrome on both sides L>R. Not treated. Lumbar spinal stenosis Ulnar neuropathy Gastroesophageal reflux disease without esophagitis (07/21/17) Vaginal prolapse longstanding use of 70mm (#4) ring pessary. 07/2018 increased size to # 6 ring pessary with support. 12/09/18 Size again decreased to #4 ring w/ support secondary to vaginal excoriation. Hypertension Colon cancer Surgical History History of total left knee replacement (08/24/23) S/P left knee arthroscopy Status post exploratory laparotomy Reports for colon cancer Left displaced femoral neck fracture (12/30/21) s/p left hip hemiarthroplasty Dr. Maldonado History of carpal tunnel release History of neck surgery (~2017) Pt states I had a vertebra that was out of place History of partial mastectomy of left breast History of right breast biopsy History of robot-assisted laparoscopic hysterectomy With BSO and sentinel [place] [facility] [place]. Family History Mother , 76 Hypertension Hyperlipidemia Father , 70 Alcohol use disorder Cancer Heart disease Hypertension Hyperlipidemia Colon cancer Diabetes Sister , 77 Cancer Heart disease Colon cancer Sister No problems noted. Sister , 69 Cancer Substance use disorder Son Hyperlipidemia Hypertension Daughter Hypertension Hyperlipidemia Daughter No problems noted. Social History Smoking/Tobacco Use Status: Never Second Hand Exposure: Yes Smoking risk assessment performed?: Yes Alcohol Intake: never Drug use: Never Substance use type: does not use Adopted: No Caregiver/Support person: No Household members: none Housing: house Number of Children: 3 number of grandchildren: 4 Communication Needs: None Education Level: college Details: 1 yr. Do you need help understanding health information?: Rarely current occupation: retired Pets and animals: Yes Sexually active: No Do you think of yourself as: straight/heterosexual Current gender identity: female What is your relationship status?: How often do you talk on the phone with friends or family?: three or more times per week How often do you get together with friends or relatives?: twice per week How often do you attend presybeterian or adventism services?: 4 or more times per year Do you belong to any clubs or organized social groups?: no Panel score (0-1 are the most socially isolated patients): 2 What type of physical activity do you participate in: regular exercise Duration: 45-60 minutes/day Frequency: 1-2 times per week Melia/Buddhism: Jain Seatbelt use: always Helmet use: No Drive intox or ride w/intox 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
--- NOTE | 2024-07-05 11:37 | CMDISCH_ITS ---
Date of service: 07/05/24 Time of Service: 11:37 LACE Index Scoring Tool Questions: Length of Stay (in days): 1 Was the patient admitted via the E.D.?: No E.D. Visits: 1 Answers: Total Score: 2 Risk of Readmission: Low Risk Care Management Discharge Plan Reason for Hospitalization: LTK Discharge Plan: Discharge home via private vehicle with family. New [facility] PT services are ordered. Follow up with community providers and discharge plan of care as recommended by Ortho. Patient/Family Education Needs: Review discharge instructions, limitations, medications and plan to follow up with PCP and Ortho. Discuss ask me three. Services Needed at Discharge: Home Health Care Services (New [facility] PT) SDOH Health Related Social Needs: No Data to Display
--- NOTE | 2024-07-05 14:44 | CHAPLAIN ---
Eloina was up in the chair when I visited. She said is likely being discharged today (she was) although she'd like to stay one more night. A daughter is coming to stay with her. Mostly recently Eloina has been provide care and support for her son who had recent surgery and treatment for prostrate cancer. She was a member of the [employer] until it closed recently.
== END 2024-07-05 13:45 | disposition home health service (06) ==
LOC: SUR 16:07 → MS 16:51
PROVIDERS: Admitting Provider Student in an Organized Health Care Education/Training Program; PCP Nurse Practitioner Family; Visit Provider Student in an Organized Health Care Education/Training Program
PROC: (CPT 27447; principal; 2024-07-04 14:30)
DX: M17.11 Unilateral primary osteoarthritis, right knee (principal); M21.061 Valgus deformity, not elsewhere classified, right knee; M48.061 Spinal stenosis, lumbar region without neurogenic claudication; D64.9 Anemia, unspecified; G47.00 Insomnia, unspecified; Z86.711 Personal history of pulmonary embolism; K44.9 Diaphragmatic hernia without obstruction or gangrene; E55.9 Vitamin D deficiency, unspecified; M48.02 Spinal stenosis, cervical region; R73.03 Prediabetes; G89.29 Other chronic pain; M48.062 Spinal stenosis, lumbar region with neurogenic claudication; F41.9 Anxiety disorder, unspecified; Z85.3 Personal history of malignant neoplasm of breast; I10 Essential (primary) hypertension
CPT/HCPCS: 20985; 27447; C1776; 76942; 96365; 96366; 97110; 97162; G0378; J0690; J1100; J1920; J2250; J2371; J2401; J2405; J2704; J8540

== ENCOUNTER 2024-07-17 15:45 | Outpatient (CLI) | payer MEDICARE, SELFPAY ==
--- NOTE | 2024-07-17 13:00 | DI.RAD_ITS ---
Exam(s) XR KNEE RT 1V XR STANDING ALIGNMENT EXAM: XR STANDING ALIGNMENT and XR knee RT 1 V CLINICAL HISTORY: 1ST POST OP S/P R TKA. TECHNIQUE: 2D digital imaging was performed. Five images were obtained. COMPARISON: CR XR HIP PELVIS ADULT BL from 06/12/2024 CR XR STANDING ALIGNMENT from 06/22/2024 CR XR KNEE RT 2V AP,LAT from 06/22/2024 That FINDINGS: BONES: There again seen postsurgical changes of a left hip prosthesis. There is a right convex lumba r scoliosis. The patient has bilateral total knee replacements at this time. The orthopedic hardwar e appears in good position. No lucencies are seen in or about the orthopedic hardware in the right k nee. The ankles are well maintained.The left lower extremity is longer than the right lower extremit y by almost 1 cm. SOFT TISSUE: Normal. IMPRESSION: Stable bilateral total knee replacements. DATA REPOSITORY: RADIATION DOSE DELIVERED:
== END 2024-07-17 15:46 | disposition home or self-care (01) ==
LOC: DIORS 15:46
PROVIDERS: PCP Nurse Practitioner Family; Visit Provider Student in an Organized Health Care Education/Training Program
DX: Z96.651 Presence of right artificial knee joint (principal); Z47.1 Aftercare following joint replacement surgery
CPT/HCPCS: 99024; 73560; 77073

== ENCOUNTER → 2024-08-07 14:36 | Outpatient (BNVA) | payer MEDICARE, SELFPAY | PROVIDERS: PCP Nurse Practitioner Family; Visit Provider Nurse Practitioner Gerontology | DX: N39.46 Mixed incontinence (principal) | CPT/HCPCS: 51798; 99213 ==

== ENCOUNTER → 2024-08-17 14:11 | Outpatient (BNVA) | payer MEDICARE, SELFPAY | PROVIDERS: PCP Nurse Practitioner Family; Visit Provider Student in an Organized Health Care Education/Training Program | DX: Z47.1 Aftercare following joint replacement surgery (principal); Z96.651 Presence of right artificial knee joint | CPT/HCPCS: 99024 ==

== ENCOUNTER 2024-09-28 15:43 | Outpatient (CLI) | payer MEDICARE, SELFPAY ==
--- NOTE | 2024-09-28 12:45 | DI.RAD_ITS ---
Exam(s) XR KNEE LT 2V AP,LAT EXAM: XR KNEE LT 2V AP,LAT CLINICAL HISTORY: ANNUAL F/U L TKA. TECHNIQUE: 2D digital imaging was performed. Three views. COMPARISON: CR XR KNEE LT 1V from 09/06/2023 CR XR STANDING ALIGNMENT from 07/17/2024 FINDINGS: BONES: No acute fracture is present. No bony destructive lesion is seen. JOINTS: The total knee prosthesis is normally aligned. No joint effusion is seen. SOFT TISSUE: Vascular calcifications. IMPRESSION: Stable appearance of left knee prosthesis. DATA REPOSITORY: RADIATION DOSE DELIVERED:
== END 2024-09-28 15:44 | disposition home or self-care (01) ==
LOC: DIORS 15:43
PROVIDERS: PCP Nurse Practitioner Family; Referring Provider Nurse Practitioner Family; Visit Provider Student in an Organized Health Care Education/Training Program
DX: Z96.652 Presence of left artificial knee joint (principal); Z47.1 Aftercare following joint replacement surgery; Z96.651 Presence of right artificial knee joint
CPT/HCPCS: 99024; 73560

== ENCOUNTER 2024-10-19 11:05 | Outpatient (CLI) | payer MEDICARE, SELFPAY ==
--- NOTE | 2024-10-19 06:00 | DI.RAD_ITS ---
Exam(s) XR PAIN CLINIC LUMBAR SP 2V EXAM: XR PAIN CLINIC LUMBAR SP 2V CLINICAL HISTORY: DX: Lumbar Radiculopathy. TECHNIQUE: Fluoroscopy was provided for the referring physician for guidance with performing pain cl inic injection procedure. COMPARISON: No exams were available for comparison FINDINGS: Please see procedure note for details. Fluoro time: 11.5 seconds RADIATION DOSE DELIVERED: Ka,r=3.39 mGy
[2024-10-19 11:18] VITALS: BP 132/61; PULSE 57; RESP 18; TEMP 36.6; O2SAT 96
[2024-10-19 12:18] VITALS: PULSE 52; PULSE 56; O2SAT 90
[2024-10-19 12:20] VITALS: PULSE 56; RESP 19; O2SAT 90
[2024-10-19 12:29] VITALS: BP 166/81; PULSE 58
--- NOTE | 2024-10-19 12:35 | PDOC.PAIN ---
Date of service: 10/19/24 Time of Service: 12:35 Pain Managment Procedure Note Procedure Note Procedure Note: PROCEDURE NOTE LUMBAR EPIDURAL STEROID INJECTION Date of Service: October 19, 2024 Patient:Eloina Callejas? Provider: Brian Ray DO, MPH Eloina Ware has been referred to the [facility] for a lumbar epidural steroid injection. Pre-operative diagnosis: Lumbosacral Radiculopathy ICD-10 M54.16 Post-operative diagnosis: Same Pre-Procedure Pain: VAS= 5 /10 Comments: Her last LESI was 02/02/2024 and she has >6 months of >50% pain improvement. Eloina was interviewed and the medical record was reviewed.? There were no medical, pharmacologic, radiographic or other structural contraindications to attempting fluoroscopically guided Lumbar epidural steroid injection.? Risks, potential side effects, indications, and potential benefits of the procedure were reviewed with Eloina.? Questions and concerns were addressed.? After it was clear that Eloina was fully informed about the procedure, the printed consent form was signed by the patient and myself.? Eloina was placed in the prone position on the fluoroscopy table and automated blood pressure cuff and pulse oximeter applied. The skin entry point for entering/approaching the epidural space for the lumbar epidural steroid injection was marked. Following thorough chlorhexadine preparation of the skin and draping and 1% lidocaine infiltration of the skin entry point and subcutaneous tissues, an 18 gauge Touhy needle was placed and advanced under fluoroscopic guidance and with loss of resistance technique into the L5-S1 epidural space. Needle tip placement and depth were aided and confirmed by fluoroscopy. There was no paresthesia or return of blood or CSF through the needle. 1 mls of Omnipaque 240 was injected with clear epidural spread confirmed with fluoroscopy. 80 mg of Depo-Medrol was? injected. This was followed by 1 ml of preservative-free normal saline to flush the steroid out of the needle. There was no unusual discomfort expressed by Eloina. The needle was withdrawn without difficulty. (49 mls of Omnipaque was wasted) Eloina was observed and was without hemodynamic, neurologic, or allergic reactions.? Fluoroscopic images were digitally archived. Eloina's vital signs were stable throughout the procedure and were as recorded in nursing records. Follow up plans and appointments were discussed with Eloina. Post procedure instruction was given as documented in nursing records and having met discharge criteria Eloina was discharged from the [facility]. COMMENTS: No apparent complications. Post-procedure pain: VAS= 0/10. Eloina to contact [facility] as needed. If at least 50% improvement in pain and/or function for at least 3 months is achieved, this procedure can be repeated. I personally performed this entire procedure. BRIAN RAY DO, MPH ABPMR-subspecialty board certification in Pain Medicine [facility]
[2024-10-19] MEDS: methylPREDNISolone ACETATE 80 MG/ML VIAL IJ (12:39)
[2024-10-19] MEDS: Omnipaque 240 MG/ML 50 ML BTL IJ (12:39)
[2024-10-19] MEDS: Epidural Tray 1 EACH MC (12:40)
== END 2024-10-19 11:06 | disposition home or self-care (01) ==
LOC: PC 11:05
PROVIDERS: PCP Nurse Practitioner Family; Visit Provider Preventive Medicine Occupational Medicine
DX: M54.50 Low back pain, unspecified (principal); M54.16 Radiculopathy, lumbar region
CPT/HCPCS: 62323; 72100; J1010; Q9967

== ENCOUNTER → 2024-11-13 09:57 | Outpatient (BNVA) | payer MEDICARE, SELFPAY | PROVIDERS: PCP Nurse Practitioner Family; Referring Provider Nurse Practitioner Family; Visit Provider Student in an Organized Health Care Education/Training Program | DX: Z47.1 Aftercare following joint replacement surgery (principal); Z96.651 Presence of right artificial knee joint | CPT/HCPCS: 99213 ==

== ENCOUNTER → 2025-02-05 14:36 | Outpatient (BNVA) | payer MEDICARE, SELFPAY | PROVIDERS: PCP Nurse Practitioner Family; Visit Provider Nurse Practitioner Gerontology | DX: N39.46 Mixed incontinence (principal); R39.9 Unspecified symptoms and signs involving the genitourinary system | CPT/HCPCS: 51798; 99213 ==

== ENCOUNTER 2025-02-21 15:01 | Outpatient (CLI) | payer MEDICARE, SELFPAY ==
[2025-02-21 15:07] VITALS: BP 161/68; PULSE 53; RESP 20; TEMP 36.6; O2SAT 96
[2025-02-21 15:53] VITALS: PULSE 60; O2SAT 97
[2025-02-21] MEDS: Nerve Block Tray 1 EACH MC (15:59)
[2025-02-21] MEDS: Lidocaine 2% Pres-Free 5 ML VIAL IJ (16:00)
[2025-02-21] MEDS: methylPREDNISolone ACETATE 40 MG/ML VIAL IJ (16:00)
--- NOTE | 2025-02-27 09:00 | PDOC.PAIN_ITS ---
Date of service: 02/21/25 Time of Service: 15:30 US Guided Injections Type of Ultrasound Guided Injection: Neck Right Trapezius muscle Trigger Point Injection Pre-Procedural Evaluation Tenderness to palpation of the right trapezius Referral Patient has been referred to the [facility] for Right Trapezius muscle Neck Trigger Point Injection for a chief complaint of Pain in the right upper shoulder Pre-Procedural Pain Score Pre-procedural pain score: 6/10 Reason for Exam Pain in the right upper shoulder Patient Interview Patient was interviewed and medical record reviewed: Yes There were no contraindications to performing an US guided procedure. Risks,expected side effects, potential benefits were reviewed. The patient consent form was signed and witnessed. Standard time out procedure was performed. Patient Safety No noted major skin abnormalities in the area to be injected Procedure Description No sedation given for procedure Patient was placed in the prone position and the following Pulse Ox applied. Pre-Procedure ultrasound scanning performed using a Linear 9 MHz probe Site Preparation ChloraPrep Local Anesthesia Skin and subcutaneous tissues anesthetized with: 3 mL of Lidocaine 2%. A 21 G 3.5 Pajunk ultrasound needle was placed under live US guidance using an in-plane approach to the target area. After visualization of the needle tip at the target area Depo-Medrol 40mg per cc and Lidocaine 2% were used. Total of Injectate/Medication Note: 2 mL of Depo-Medrol and 5 mL of 2% lidocaine Negative aspiration for blood. [place] were removed without difficulty. Ultrasound images were captured and stored. Patient Mental Status Patient was alert and awake during procedure Vital Signs Vital signs were stable throughout the procedure and recorded by nursing. Follow Up/Discharge Follow up plans and appointments were discussed with patient. Post procedure instruction was given as documented in nursing documentation. Discharge criteria met and patient discharged from [facility]: Yes Post Procedure Pain Post Procedure Pain: 1/10 Patient tolerated procedure well Procedure Outcome: Successful Non US Guided Injections Procedure Description Patient was placed in the prone position Post Procedure Pain Post Procedure Pain: 1/10 Coding Conscious Sedation used for procedure: No CPT Codes: TPI Single/Multi 1 or 2 Muscles - 63652 ([id number] ~G) Additional Codes: Visualization of the needle tip - Ultrasound images captured/stored: Yes ([id number]) Date of Service ([id number]) Date of service: 02/21/25
== END 2025-02-21 15:02 | disposition home or self-care (01) ==
LOC: PC 15:02
PROVIDERS: PCP Nurse Practitioner Family; Visit Provider Preventive Medicine Occupational Medicine
DX: M54.2 Cervicalgia (principal); M25.511 Pain in right shoulder; M79.18 Myalgia, other site
CPT/HCPCS: 20552; 76942; J1010

== ENCOUNTER 2025-07-09 12:55 | Outpatient (CLI) | payer MEDICARE, SELFPAY ==
--- NOTE | 2025-07-09 09:30 | DI.RAD_ITS ---
Exam(s) XR KNEE RT 2V AP,LAT EXAM: XR KNEE RT 2V AP,LAT CLINICAL HISTORY: ANNUAL F/U R TKA. TECHNIQUE: 2D digital imaging was performed. Two images were obtained. AP and lateral views were obtained. COMPARISON: CR XR STANDING ALIGNMENT from 07/17/2024 CR XR KNEE RT 1V from 07/17/2024 FINDINGS: BONES: There are stable post operative changes of a right total knee arthroplasty present. No fracture or dislocation. There is an enthesophyte at the anterior patella. JOINTS: The orthopedic hardware is in good position. No evidence of hardware loosening. SOFT TISSUE: Atherosclerotic calcification is present. IMPRESSION: Stable right total knee arthroplasty. DATA REPOSITORY: RADIATION DOSE DELIVERED:
== END 2025-07-09 12:56 | disposition home or self-care (01) ==
LOC: DIORS 12:56
PROVIDERS: PCP Nurse Practitioner Family; Visit Provider Physician Assistant
DX: Z47.1 Aftercare following joint replacement surgery (principal); Z96.651 Presence of right artificial knee joint
CPT/HCPCS: 99212; 73560

== ENCOUNTER → 2025-08-03 09:56 | Outpatient (CLI) | payer MEDICARE, SELFPAY ==
--- NOTE | 2025-08-03 09:45 | DI.CT_ITS ---
Exam(s) CT BRAIN NECK CTA EXAM: CT BRAIN NECK CTA CLINICAL HISTORY: R51.9 CUBA and neck pain, buzzing in head on left. TECHNIQUE: Imaging Protocol: Axial CT angiography was performed with multi- slice acquisition and multi-planar and/or 3D reconstructions. CONTRAST MATERIAL: Intravenous: Omnipaque 350 contrast volume:75 mL COMPARISON: CT CT HEAD WO from 11/11/[address] HEAD WO from 06/12/2024 FINDINGS: CT Head W/O and W: Ventricles and Extra axial spaces: Normal in size and morphology for the patient's age. Hemorrhage: None. Cerebral parenchyma: There are areas of decreased attenuation in the white matter consistent with chronic microvascular changes. There is no evidence of an acute territorial infarct. Midline shift: None. Brainstem/Cerebellum: Normal. Calvarium: Normal. Visualized Paranasal sinuses/Mastoids: Clear. Soft Tissues: Unremarkable. Enhancement: Unremarkable. CTA Neck W: Common Carotid: Right: No dissection, occlusion or significant stenosis. Atherosclerotic calcification is seen in the carotid bulb. Left: No dissection, occlusion or significant stenosis. There is atherosclerotic calcifications seen in the carotid bulb. External Carotid: Right: No occlusion or significant stenosis. Left: No occlusion or significant stenosis. Internal Carotid: Right: No dissection, occlusion or significant stenosis. Left: No dissection, occlusion or significant stenosis. Vertebral Artery: Right: No dissection, occlusion or significant stenosis. Left: No dissection, occlusion or significant stenosis. Lung Apices: Normal. Bones: Within normal limits for the patient's age. There is a disc fusion at C4-C5. Soft Tissues: Normal. Thyroid gland: There is a multinodular thyroid gland. The largest nodule measures 1.5 cm. A nonemergent thyroid ultrasound is recommended for further evaluation. CTA Brain W: Internal Carotid Arteries: There is no evidence of aneurysm, occlusion or significant stenosis. Atherosclerotic calcification is seen in the cavernous portions of the internal carotid arteries bilaterally. Anterior Cerebral Arteries: Right: No aneurysm, occlusion or significant stenosis. Left: No aneurysm, occlusion or significant stenosis. Middle Cerebral Arteries: Right: No aneurysm, occlusion or significant stenosis. Left: No aneurysm, occlusion or significant stenosis. Posterior Cerebral Arteries: Right: No aneurysm, occlusion or significant stenosis. The right posterior cerebral artery arises from the right communicating artery which is a normal variant. Left: No aneurysm, occlusion or significant stenosis. Vertebral Arteries: Right: No aneurysm, occlusion or significant stenosis. Left: No aneurysm, occlusion or significant stenosis. Basilar Artery: No aneurysm, occlusion or significant stenosis. IMPRESSION: 1. No large vessel occlusion or significant stenosis on the CT angiography of the head. 2. No acute intracranial process. 3. No occlusion or significant stenosis on the CT angiography of the neck. 4. Multinodular thyroid gland. Nonemergent thyroid ultrasound is recommended for further evaluation. Unexpected findings RADIATION DOSE DELIVERED: 2,161.5mGy.cm Total DLP DATA REPOSITORY: All CT scans at this facility are submitted to the National Radiology Data Registry (NRDR) Dose Index Registry (DIR) with the [employer] ([employer]). RADIATION OPTIMIZATION: All CT scans at this facility use at least one of these dose optimization techniques: automated exposure control; mA and/or kV adjustment per patient size (includes targeted exams where dose is matched to clinical indication); or iterative reconstruction.
[2025-08-03 13:10] LABS: Anion Gap 6.5 mmol/L (3-11); BUN 25 mg/dL (7-18); CO2 32.5 mmol/L (21.0-32.0); Calcium 9.4 mg/dL (8.5-10.1); Chloride 103 mmol/L (98-107); Glucose 98 mg/dL (74-106); Potassium 4.1 mmol/L (3.5-5.1); Sodium 142 mmol/L (136-145)
[2025-08-03] MEDS: Omnipaque 350 MG/ML 500 ML BTL-Imaging package IJ (13:59)
== END ==
LOC: DI 09:58
PROVIDERS: PCP Nurse Practitioner Family; Visit Provider Physician Assistant
DX: R51.9 Headache, unspecified (principal)
CPT/HCPCS: 70496; 70498; 80048

== ENCOUNTER → 2025-08-07 15:27 | Outpatient (BNVA) | payer MEDICARE, SELFPAY | PROVIDERS: PCP Nurse Practitioner Family; Referring Provider Nurse Practitioner Family; Visit Provider Nurse Practitioner Gerontology | DX: N39.46 Mixed incontinence (principal); R39.9 Unspecified symptoms and signs involving the genitourinary system | CPT/HCPCS: 99213; 51798 ==

== ENCOUNTER → 2025-08-14 02:14 | Outpatient (CLI) | payer MEDICARE, SELFPAY ==
--- NOTE | 2025-08-14 07:15 | DI.US_ITS ---
Exam(s) US THYROID EXAM: US THYROID CLINICAL HISTORY: evaluate pathology,multinodular thyroid,e04.2. TECHNIQUE: Ultrasound thyroid performed using standard protocol. COMPARISON: CT CT BRAIN NECK CTA from 08/03/2025 FINDINGS: ISTHMUS: 2 mm RIGHT LOBE: Size: 4.7 x 3.3 x 2.0 cm Echogenicity: Heterogeneous Vascularity: Normal. Nodules: Multiple nodules and cysts. Individual nodules difficult to discretely measure. LEFT LOBE: Size: 4.7 x 2.6 x 2.0 cm Echogenicity: Heterogeneous Vascularity: Normal. Nodules: Multiple. Individual nodules difficult to discretely measure. OTHER FINDINGS: None. IMPRESSION: Multinodular thyroid gland. No dominant nodule. DATA REPOSITORY:
== END ==
LOC: DI 02:14
PROVIDERS: PCP Nurse Practitioner Family; Visit Provider Nurse Practitioner Family
DX: E04.2 Nontoxic multinodular goiter (principal)
CPT/HCPCS: 76536